=== PATIENT | female | born 1965 | race African-American/Black ===

== ENCOUNTER 2016-09-16 06:47 | Day surgery (SDC) | payer MEDICARE, MEDICAID ==
[2016-09-15 15:08] LABS: ABSOLUTE EOSINOPHILS # (AUTO) 0.1 10^3/uL (0.0-0.6); ABSOLUTE LYMPHOCYTES (AUTO) 2.1 10^3/uL (0.5-4.7); ABSOLUTE MONOCYTES (AUTO) 0.3 10^3/uL (0.1-1.4); ABSOLUTE NEUT (AUTO) 2.7 10^3/uL (1.7-8.2); BASOPHILS % (AUTO) 0.7 % (0-2); EOSINOPHILS % (AUTO) 1.4 % (0-6); HEMATOCRIT 31.8 % (36.0-47.0); HEMOGLOBIN 10.6 g/dL (12.0-15.5); LYMPHOCYTES % (AUTO) 40.8 % (13-45); MEAN CORPUSCULAR HEMOGLOBIN 26.6 pg (27.0-33.4); MEAN CORPUSCULAR HGB CONC 33.2 g/dL (32.0-36.0); MEAN CORPUSCULAR VOLUME 80 fl (80-97); MONOCYTES % (AUTO) 5.2 % (3-13); RED BLOOD COUNT 3.97 10^6/uL (3.72-5.28); RED CELL DISTRIBUTION WIDTH 13.7 % (11.5-14.0); SEGMENTED NEUTROPHILS % (AUTO) 51.9 % (42-78); WHITE BLOOD COUNT 5.3 10^3/uL (4.0-10.5)
[2016-09-15 15:56] LABS: APPEARANCE,URINE CLEAR; BILIRUBIN,URINE NEGATIVE (NEGATIVE); GLUCOSE, URINE NEGATIVE (NEGATIVE); KETONES,URINE NEGATIVE (NEGATIVE); LEUKOCYTE ESTERASE,URINE SMALL (NEGATIVE); NITRITE,URINE NEGATIVE (NEGATIVE); PROTEIN,URINE NEGATIVE (NEGATIVE); URINE SPECIFIC GRAVITY 1.008; UROBILINOGEN,URINE NEGATIVE mg/dL (<2.0)
[~2016-09-16 06:47] MED LIST: BUPIVACAINE HCL 0.5 % INJ/PF 30 ML SDV ONE; CEFAZOLIN 1 GM/D5W RTU 1 GM/50 ML RTUPB IV PRN; DIPHENHYDRAMINE HCL 50 MG/ML VIAL ONE; FENTANYL CITRATE INJ/PF 100 MCG/2 ML AMPUL ONE; KETOROLAC TROMETHAMINE 60 MG/2 ML SDV ONE; LIDOCAINE 2% INJ (20 MG/ML) 20 ML MDV ONE; LIDOCAINE 2% INJ-PF (20 MG/ML) 10 ML AMPUL ONE; MIDAZOLAM 2 MG/2 ML INJ ONE; PROPOFOL INJ 200 MG/20 ML VIAL IV ONE
[2016-09-16] MEDS ORDERED: PROMETHAZINE HCL INJ 25 MG/1 ML VIAL ONE (09:26)
--- NOTE | 2016-09-16 10:28 | SURGICARE OPERATIVE REPORT E ---
[facility] NAME: LUIS ANGEL DIOR AGE: 51Y DATE OF SURGERY: 09/16/2016 ROOM: PREOPERATIVE DIAGNOSES: 1. Long second metatarsal, left foot. 2. Long and hammered second toe, left foot. POSTOPERATIVE DIAGNOSES: 1. Long second metatarsal, left foot. 2. Long and hammered second toe, left foot. OPERATIONS: 1. Cassi shortening osteotomy, second metatarsal, left foot. 2. Phalangectomy, second toe, left foot. SURGEON: DYLAN CHOI D.P.M. INTRAOPERATIVE FINDINGS: Indicated long implant of left second metatarsal has caused tremendous pressure pain on the plantar aspect of the second metatarsophalangeal joint which is creating continuous pain, burning and difficulty with ambulation. The second toe was functionally longer with flexed bow hammering at the proximal interphalangeal joint. Due to the excessive trauma at the tip of the second toe during ambulation, the nail plate of the second toe has developed noticeable dystrophy as well. Intraoperative findings were confirmed clinically and radiographically. PROCEDURE: With the patient lying in a dorsal recumbent position, the left foot and leg were prepped and draped in the usual standard sterile orthopedic manner after the local anesthesia was administered which was a total ankle block. After the anesthetic effect was accomplished, the left leg was elevated for approximately 2 minutes of time and the left ankle pneumatic tourniquet was inflated up to 250 mmHg after the blood was exsanguinated from the left foot. At this point, the left leg was brought to the level of the table. Attention was directed right over the second metatarsophalangeal joint. A curvilinear incision was placed right over the joint. The initial incision was deepened. The superficial and deep subcutaneous tissues were dissected via blunt and sharp dissection. This was carried until the capsular structures were brought into the surgical filed. All bleeders were ligated, all vital structures were identified by this time and protected from surgical trauma. Next, a vertical capsulotomy was performed right over the second metatarsophalangeal joint. Capsule and periosteal structures were dissected of bone and the head of the second metatarsal was brought into the surgical field. Capsular release was performed around the second metatarsophalangeal joint as well, and the McGlamry was utilized to release any adhesions that might be present on the plantar aspect of the second metatarsal head as well. At this point, the osteotomy was performed. The osteotomy was executed from anterior to plantar direction of the second metatarsal. The osteotomy was placed at dorsal aspect of the articular facet of the second metatarsal head and it was parallel to the long axis of the second metatarsal. After the osteotomy was completed, the plantar segment was displaced posteriorly. The level of displacement was obtained on the x-rays, which was about 4 mm. With the new positioning of the fragment, the osteotomy was stabilized with a bone clamp. Final evaluation was made with alignment of the plantar aspect with the shaft. Alignment was satisfactory and osteotomy was fixated with 2-point snapping screws 13 mm in length. At this point, the clamp was removed and the protruding wedge of bone on the dorsal aspect was resected. At this point, intraoperative x-rays were obtained to document the shortening of the second metatarsal and also the level of satisfaction with the internal fixation, and everything was extremely satisfactory at this point. Next, attention was directed to the second toe. The second toe appeared still to be longer than the remaining of the digits and decision was made to perform the partial phalangectomy at the level of the proximal phalangeal joint. A curvilinear incision was placed right over the second toe. The initial incision was deepened. The superficial and deep subcutaneous tissues were dissected via blunt and sharp dissection. Extra precaution was taken to protect the neurovascular bundles on the medial and lateral aspect of the second toe. At this point, a vertical incision was placed right over the joint right through the midsection of the extensor digitorum tendon. The tendon was split into equal halves and then the capsule was resected and the head of the proximal phalanx was brought into the surgical field. At this point, the very distal portion was resected. This allowed the shortening of the second toe and a good alignment with the remainder of the digits. Final evaluation was conducted. The corrections were extremely satisfactory. At this point, the digital tourniquet was released and circulation returned to normal immediately as the normal digital color and temperature became apparent. At this point, the surgical sites were irrigated with copious amounts of sterile saline solution. The capsular structures around the second metatarsophalangeal joint and the proximal interphalangeal joint were closed with 3-0 Vicryl. The severed tendinous sheaths were also anchored and secured with 3-0 Vicryl. After that, the subcutaneous tissues from deep to superficial were closed with 3-0 Vicryl. The skin edges were repositioned and anchored down with 4-0 nylon using continuous interlock stitch. At this point, a Betadine compression dressing was applied around the surgical areas and this was followed with an alfred bandage and a surgical shoe. This patient tolerated the procedures well and left the operating room with stable vital signs and in good condition. The patient was taken to the recovery room alert, conscious, and oriented. There are no permanent disabilities anticipated at this time. DICTATING PHYSICIAN: DYLAN CHOI D.P.M. [id number] PHY#: [id number] ID: [id number] JOB#: [id number] ACCT: [id number] cc:DYLAN CHOI D.P.M. >
== END 2016-09-16 10:17 | disposition home or self-care (01) ==
LOC: SC 06:47
PROVIDERS: ATTEND Podiatrist Foot & Ankle Surgery
PROC: 0QBR0ZZ Excision of Left Toe Phalanx, Open Approach (ICD-10-PCS; 2016-09-16)
PROC: 0QBP0ZZ Excision of Left Metatarsal, Open Approach (ICD-10-PCS; principal; 2016-09-16 07:30)
DX: M20.42 Other hammer toe(s) (acquired), left foot (principal); M20.5X2 Other deformities of toe(s) (acquired), left foot; D64.9 Anemia, unspecified; I10 Essential (primary) hypertension; E07.9 Disorder of thyroid, unspecified; K21.9 Gastro-esophageal reflux disease without esophagitis; E11.9 Type 2 diabetes mellitus without complications; Z79.899 Other long term (current) drug therapy; Z88.6 Allergy status to analgesic agent; Z79.84 Long term (current) use of oral hypoglycemic drugs; Z79.4 Long term (current) use of insulin
CPT/HCPCS: 36415; 82962; 85025; 81001; 73620; 28308; 28124; J2250; J3490 ×2; J0690; J1200; J3010; J2550; J2704; 01480; J1885

== ENCOUNTER 2017-03-27 22:21 | Emergency (ER) | payer MEDICARE, MEDICAID ==
[2017-03-27 22:28] VITALS: BP 154/85
[2017-03-27 23:12] LABS: VENOUS BLOOD BASE EXCESS 1.1 mmol/L; VENOUS BLOOD HCO3 27.5 mmol/L (20-32); VENOUS BLOOD PCO2 51.6 mmHg (35-63); VENOUS BLOOD PH 7.34 (7.30-7.42)
[2017-03-27] MEDS ORDERED: DIPHENHYDRAMINE HCL 50 MG/ML VIAL IV ONE (23:13)
[2017-03-27] MEDS ORDERED: KETOROLAC TROMETHAMINE INJ/PF 30 MG/1 ML SDV IV ONE (23:13)
[2017-03-27] MEDS ORDERED: PROCHLORPERAZINE EDISYLATE INJ 10 MG/2 ML VIAL IV ONE (23:13)
[2017-03-27] MEDS ORDERED: NORMAL SALINE 1000 ML 1,000 ML IV ONE (23:15)
--- NOTE | 2017-03-27 23:15 | ER Document Report ---
ED General - General Chief Complaint: High Blood Sugar Stated Complaint: HIGH BLOOD SUGAR Time Seen by Provider: 03/27/17 22:47 Notes: Patient is a 52-year-old female with past medical history of insulin-dependent type 2 diabetes who presents with concerns of high blood sugar as well as a headache. Patient reports that she has had a headache for the past 3 days that is a dull, constant, aching pain to the bitemporal areas of her head. It has been progressively worsening since onset. It is worsened by lights and sounds. She has tried sumatriptan without relief of her headache. She has a history of similar headaches in the past. She has not seen a primary care doctor regarding today's concerns. States she has been taking her insulin as directed but noted that her glucometer read "high" prior to coming to the emergency department today. She denies any fever or constitutional symptoms. No dysuria , abdominal pain vomiting or discharge. TRAVEL OUTSIDE OF THE [place] IN LAST 30 DAYS: No - Related Data Allergies/Adverse Reactions: naproxen [Naproxen] Allergy (Severe, Verified 09/15/16 09:39) Facial swelling ropinirole HCl [From Requip] Adverse Reaction (Severe, Verified 09/15/16 09:39) BODY SWELLING Past Medical History - General Information source: Patient - Social History Smoking Status: Never Smoker Frequency of alcohol use: None Drug Abuse: None Lives with: Spouse/Significant other Family History: DM, Hypertension Patient has suicidal ideation: No Patient has homicidal ideation: No - Past Medical History Cardiac Medical History: Reports: Hx Coronary Artery Disease, Hx Hypercholesterolemia, Hx Hypertension - DIET CONTROLLED Denies: Hx Heart Attack Pulmonary Medical History: Denies: Hx Asthma, Hx Bronchitis, Hx COPD, Hx Pneumonia Neurological Medical History: Denies: Hx Cerebrovascular Accident, Hx Seizures Endocrine Medical History: Reports: Hx Diabetes Mellitus Type 2, Hx Hypothyroidism Renal/ Medical History: Denies: Hx Peritoneal Dialysis GI Medical History: Reports: Hx Gastroesophageal Reflux Disease. Denies: Hx Hepatitis, Hx Hiatal Hernia, Hx Ulcer Musculoskeltal Medical History: Reports Hx Arthritis Psychiatric Medical History: Reports: Hx Depression Infectious Medical History: Denies: Hx Hepatitis Past Surgical History: Reports: Hx Cholecystectomy, Hx Gastric Bypass Surgery - SLEEVE, Hx Genitourinary Surgery - bladder prolapse, Hx Hysterectomy, Hx Orthopedic Surgery - toe. Denies: Hx Mastectomy, Hx Open Heart Surgery, Hx Pacemaker - Immunizations Immunizations up to date: Yes Hx Diphtheria, Pertussis, Tetanus Vaccination: Yes Hx Pneumococcal Vaccination: 05/24/10 Review of Systems - Review of Systems Notes: Constitutional: Negative for fever. HENT: Negative for sore throat. Eyes: Negative for visual changes. Cardiovascular: Negative for chest pain. Respiratory: Negative for shortness of breath. Gastrointestinal: Negative for abdominal pain, vomiting or diarrhea. Genitourinary: Negative for dysuria. Musculoskeletal: Negative for back pain. Skin: Negative for rash. Neurological: Positive for headache 10 point ROS negative except as marked above and in HPI. Physical Exam - Vital signs Vitals: Temp Pulse Resp BP Pulse Ox 97.9 F 69 18 154/85 H 98 03/27/17 22:25 03/27/17 22:25 03/27/17 22:25 03/27/17 22:25 03/27/17 22:25 Interpretation: Hypertensive Notes: PHYSICAL EXAMINATION: GENERAL: Well-appearing, well-nourished and in no acute distress. HEAD: Atraumatic, normocephalic. EYES: Pupils equal round and reactive to light, extraocular movements intact, sclera anicteric, conjunctiva are normal. ENT: nares patent, oropharynx clear without exudates. Moist mucous membranes. NECK: Normal range of motion, supple without lymphadenopathy LUNGS: Breath sounds clear to auscultation bilaterally and equal. No wheezes rales or rhonchi. HEART: Regular rate and rhythm without murmurs ABDOMEN: Soft, nontender, normoactive bowel sounds. No guarding, no rebound. No masses appreciated. EXTREMITIES: Normal range of motion, no pitting or edema. No cyanosis. NEUROLOGICAL: Face symmetric. Tongue protrudes midline. Extraocular motions intact. Pupils are 2 mm and equally reactive. Normal speech, normal gait. 5 out of 5 strength in both the distal and proximal upper and lower extremities bilaterally. Sensation is grossly intact throughout. Finger to nose testing normal. Pronator drift normal. PSYCH: Normal mood, normal affect. SKIN: Warm, Dry, normal turgor, no rashes or lesions noted. Course - Re-evaluation Re-evalutation: 03/27/17 23:14 Presentation of asymptomatic hyperglycemia. There is no evidence of HHS or diabetic ketoacidosis on laboratories or based on clinical history. Patient's vitals are within normal limits. Patient did also complain of 3 days of a headache. Appears to be most consistent with tension versus migrainous type headache. Headache was not maximal in onset, patient has no focal neurologic deficits, no nuchal rigidity, vital signs within normal limits, no papilledema, and patient is overall well in appearance. Based on clinical history and examination I do not suspect an acute subarachnoid hemorrhage, dural venous sinus thrombosis, acute meningitis, or intercranial mass. Given my low clinical suspicion for any acute life-threatening etiology, I do not feel advanced neuro imaging or laboratory testing is indicated at this time. Will proceed with headache cocktail and reassess. 03/28/17 01:41 Patient is a complete resolution of her headache after receiving a migraine cocktail. Her urinalysis does show findings consistent with likely an acute urinary tract infection. Urine culture has been sent. She was started on cephalexin for 5 day course. At this time will discharge with return precautions and follow-up recommendations. Verbal discharge instructions given a the bedside and opportunity for questions given. Medication warnings reviewed. Patient is in agreement with this plan and has verbalized understanding of return precautions and the need for primary care follow-up in the next 24-72 hours. - Vital Signs Vital signs: Temp Pulse Resp BP Pulse Ox 97.9 F 69 18 154/85 H 98 03/27/17 22:25 03/27/17 22:25 03/27/17 22:25 03/27/17 22:25 03/27/17 22:25 - Laboratory Result Diagrams: 03/27/17 22:59 Laboratory results interpreted by me: 03/27/17 03/27/17 03/28/17 22:35 22:59 00:45 Glucose 258 H POC Glucose 268 H Urine Glucose (UA) >=500 H Ur Leukocyte Esterase SMALL H Discharge - Discharge Clinical Impression: Hyperglycemia Migraine headache Qualifiers: Migraine type: unspecified Status migrainosus presence: with status migrainosus Intractability: not intractable Qualified Code(s): G43.901 - Migraine, unspecified, not intractable, with status migrainosus Urinary tract infection Qualifiers: Urinary tract infection type: acute cystitis Hematuria presence: without hematuria Qualified Code(s): N30.00 - Acute cystitis without hematuria Condition: Good Disposition: HOME, SELF-CARE Additional Instructions: You were seen today for a migraine headache. Please follow-up with your primary care doctor regarding today's ED visit. Return to emergency department immediately if you develop a headache that gets to its maximum severity within 20 minutes of onset, you pass out, you develop weakness, numbness, changes in your vision, become unable to keep any fluids down for more than 12 hours, or develop a fever greater than 100.4 degrees Fahrenheit. You need to followup urgently with your primary care doctor as your blood sugars were dangerously high today. You did not have any evidence of a dangerous condition associated with these blood sugars at this time. However, it is very important that you get your blood sugars under control. Please take all of your medications exactly as directed. You should avoid foods that are high in carbohydrates and sugary foods. Please return to emergency department immediately if you develop weakness, persistent vomiting, confusion, or any other symptoms that are concerning to you. Your urine shows findings consistent with a urinary tract infection. Please take all the antibiotics as directed even if your symptoms have improved. Please follow-up with your primary care physician as needed. Return to emergency room if you develop fever >101F, persistent vomiting, become lethargic , have severe pain in your sides, or any other symptoms that are concerning to you. Prescriptions: Cephalexin Monohydrate [Keflex 500 mg Capsule] 500 mg PO Q6H 5 Days capsule Referrals: EVANS DUARTE MD [Primary Care Provider] - Follow up as needed
[2017-03-27 23:29] LABS: ANION GAP 8 (5-19); BLOOD UREA NITROGEN 15 mg/dL (7-20); CALCIUM 9.3 mg/dL (8.4-10.2); CARBON DIOXIDE 26 mmol/L (22-30); CHLORIDE 105 mmol/L (98-107); CREATININE RESULT 0.73 mg/dL (0.52-1.25); GLUCOSE 258 mg/dL (75-110); POTASSIUM 3.9 mmol/L (3.6-5.0); SODIUM 139.1 mmol/L (137-145)
[2017-03-28 01:28] LABS: APPEARANCE,URINE CLEAR; BILIRUBIN,URINE NEGATIVE (NEGATIVE); GLUCOSE, URINE >=500 mg/dL (NEGATIVE); KETONES,URINE NEGATIVE (NEGATIVE); LEUKOCYTE ESTERASE,URINE SMALL (NEGATIVE); NITRITE,URINE NEGATIVE (NEGATIVE); PROTEIN,URINE NEGATIVE (NEGATIVE); URINE SPECIFIC GRAVITY 1.015; UROBILINOGEN,URINE NEGATIVE mg/dL (<2.0)
[2017-03-28] MEDS ORDERED: CEPHALEXIN 500 MG CAPSULE PO ONE (01:40)
--- NOTE | 2017-03-28 08:01 | EKG REPORT ---
SEVERITY:- NORMAL ECG - SINUS RHYTHM : Confirmed by: Sher Obrien MD 28-Mar-2017 08:01:09
== END 2017-03-28 02:48 | disposition home or self-care (01) ==
LOC: ER 22:21
DX: E11.65 Type 2 diabetes mellitus with hyperglycemia (principal); Z79.4 Long term (current) use of insulin; G43.901 Migraine, unspecified, not intractable, with status migrainosus; N30.00 Acute cystitis without hematuria; I10 Essential (primary) hypertension; I25.2 Old myocardial infarction; Z88.8 Allergy status to other drugs, medicaments and biological substances
CPT/HCPCS: 93005; 99285; 96361; 96374; 96375; 36415; 87086; 82962; 87088; 80048; 81001; 82803; 93010; A9270; J1200; J1885; J0780; J7030

== ENCOUNTER 2017-05-03 19:24 | Emergency (ER) | payer BC, MEDICARE, MEDICAID ==
[2017-05-03] MEDS ORDERED: NORMAL SALINE 1000 ML 1,000 ML IV ONE (20:14)
[2017-05-03] MEDS ORDERED: DEXAMETHASONE SOD PHOS INJ 10 MG/1 ML VIAL IV ONE (20:15)
[2017-05-03] MEDS ORDERED: METOCLOPRAMIDE HCL INJ/PF 10 MG/2 ML SDV IV ONE (20:15)
[2017-05-03] MEDS ORDERED: DIPHENHYDRAMINE HCL 50 MG/ML VIAL IV ONE ×2 (20:15→22:14)
--- NOTE | 2017-05-03 20:16 | ER Document Report ---
ED Medical Screen (RME) - General Chief Complaint: Headache Stated Complaint: HEAD PAIN Time Seen by Provider: 05/03/17 20:14 Notes: Patient states that she started having severe headaches in December of this year. She states she has been prescribed Fioricet for them by her primary care physician but Fioricet no longer work. She states that she has not had any type of imaging such as an MRI or CT scan. She has had some nausea with it. She denies any history of fevers or rashes or other infectious symptoms. TRAVEL OUTSIDE OF THE [place] IN LAST 30 DAYS: No - Related Data Allergies/Adverse Reactions: naproxen [Naproxen] Allergy (Severe, Verified 05/03/17 20:03) Facial swelling ropinirole HCl [From Requip] Adverse Reaction (Severe, Verified 05/03/17 20:03) BODY SWELLING Past Medical History - Social History Chew tobacco use (# tins/day): No Frequency of alcohol use: None - Past Medical History Cardiac Medical History: Reports: Hx Coronary Artery Disease, Hx Hypercholesterolemia, Hx Hypertension - DIET CONTROLLED Denies: Hx Heart Attack Pulmonary Medical History: Denies: Hx Asthma, Hx Bronchitis, Hx COPD, Hx Pneumonia Neurological Medical History: Reports: Hx Migraine. Denies: Hx Cerebrovascular Accident, Hx Seizures Endocrine Medical History: Reports: Hx Diabetes Mellitus Type 2, Hx Hypothyroidism Renal/ Medical History: Denies: Hx Peritoneal Dialysis GI Medical History: Reports: Hx Gastroesophageal Reflux Disease. Denies: Hx Hepatitis, Hx Hiatal Hernia, Hx Ulcer Musculoskeltal Medical History: Reports Hx Arthritis Psychiatric Medical History: Reports: Hx Depression Infectious Medical History: Denies: Hx Hepatitis Past Surgical History: Reports: Hx Cholecystectomy, Hx Gastric Bypass Surgery - SLEEVE, Hx Genitourinary Surgery - bladder prolapse, Hx Hysterectomy, Hx Orthopedic Surgery - toe, shoulder, elbow, bilat feet. Denies: Hx Mastectomy, Hx Open Heart Surgery, Hx Pacemaker - Immunizations Immunizations up to date: Yes Hx Diphtheria, Pertussis, Tetanus Vaccination: Yes History of Influenza Vaccine for 04/2017 - 09/2017 Season: Yes Physical Exam - Vital signs Vitals: Temp Pulse Resp BP Pulse Ox 98.6 F 84 16 140/93 H 99 05/03/17 19:43 05/03/17 19:43 05/03/17 19:43 05/03/17 19:43 05/03/17 19:43 Course - Vital Signs Vital signs: Temp Pulse Resp BP Pulse Ox 98.6 F 84 16 140/93 H 99 05/03/17 19:43 05/03/17 19:43 05/03/17 19:43 05/03/17 19:43 05/03/17 19:43
[2017-05-03 20:57] LABS: ABSOLUTE BASOPHILS # (AUTO) 0.1 10^3/uL (0.0-0.2); ABSOLUTE EOSINOPHILS # (AUTO) 0.1 10^3/uL (0.0-0.6); ABSOLUTE LYMPHOCYTES (AUTO) 2.6 10^3/uL (0.5-4.7); ABSOLUTE MONOCYTES (AUTO) 0.3 10^3/uL (0.1-1.4); ABSOLUTE NEUT (AUTO) 3.7 10^3/uL (1.7-8.2); BASOPHILS % (AUTO) 0.8 % (0-2); EOSINOPHILS % (AUTO) 1.1 % (0-6); HEMATOCRIT 35.5 % (36.0-47.0); HEMOGLOBIN 11.6 g/dL (12.0-15.5); HGB HCT DIFFERENCE -0.7; MEAN CORPUSCULAR HEMOGLOBIN 26.5 pg (27.0-33.4); MEAN CORPUSCULAR HGB CONC 32.7 g/dL (32.0-36.0); MEAN CORPUSCULAR VOLUME 81 fl (80-97); MONOCYTES % (AUTO) 4.4 % (3-13); RED BLOOD COUNT 4.38 10^6/uL (3.72-5.28); SEGMENTED NEUTROPHILS % (AUTO) 54.7 % (42-78); WHITE BLOOD COUNT 6.7 10^3/uL (4.0-10.5)
[2017-05-03 21:03] LABS: ANION GAP 16 (5-19); BLOOD UREA NITROGEN 14 mg/dL (7-20); CALCIUM 9.3 mg/dL (8.4-10.2); CARBON DIOXIDE 21 mmol/L (22-30); CHLORIDE 104 mmol/L (98-107); GLUCOSE 305 mg/dL (75-110); POTASSIUM 3.8 mmol/L (3.6-5.0); SODIUM 140.8 mmol/L (137-145)
--- NOTE | 2017-05-03 21:16 | RADIOLOGY REPORT (SQ) ---
EXAM DESCRIPTION: CT HEAD WITHOUT COMPLETED DATE/TIME: 05/03/2017 8:51 pm REASON FOR STUDY: lopes COMPARISON: 06/17/2011 TECHNIQUE: Axial images acquired through the brain without intravenous contrast. Images reviewed wi th bone, brain and subdural windows. Images stored on PACS. All CT scanners at this facility use dose modulation, iterative reconstruction, and/or weight based d osing when appropriate to reduce radiation dose to as low as reasonably achievable (ALARA). [facility]: Dose Right [facility]: CareDose [facility]: Dose Right [facility]: Teradose 4D [facility]: [employer] RADIATION DOSE: Up-to-date CT equipment and radiation dose reduction techniques were employed. CTDIv ol: 64.6 mGy. DLP: 1034 mGy-cm. mGy. LIMITATIONS: None. FINDINGS: VENTRICLES: Normal size and contour. CEREBRUM: No masses. No hemorrhage. No midline shift. No evidence for acute infarction. Normal gra y/white matter differentiation. No areas of low density in the white matter. CEREBELLUM: No masses. No hemorrhage. No alteration of density. No evidence for acute infarction. EXTRAAXIAL SPACES: No fluid collections. No masses. ORBITS AND GLOBE: No intra- or extraconal masses. Normal contour of globe without masses. CALVARIUM: No fracture. PARANASAL SINUSES: No fluid or mucosal thickening. SOFT TISSUES: No mass or hematoma. OTHER: No other significant finding. IMPRESSION: No acute intracranial findings. EVIDENCE OF ACUTE STROKE: NO. COMMENT: Quality ID # [id number]: Final reports with documentation of one or more dose reduction techniques (e.g., Automated exposure control, adjustment of the mA and/or kV according to patient size, use of iterative reconstruction technique) TECHNICAL DOCUMENTATION: JOB ID: [id number] [employer]- All Rights Reserved
[2017-05-03] MEDS ORDERED: PROMETHAZINE HCL INJ 25 MG/1 ML VIAL IV ONE (22:13)
--- NOTE | 2017-05-03 22:15 | ER Document Report ---
ED General - General Chief Complaint: Headache Stated Complaint: HEAD PAIN Time Seen by Provider: 05/03/17 20:14 Mode of Arrival: Ambulatory Information source: Patient Notes: 52-year-old female history of migraine headaches who says she gets headaches at least once a week presents with complaints of chronic migraine headache. Patient notes this is similar to her previous migraine headaches denies worsening pain. Denies any neurological symptoms. Patient admits to photophobia and phonophobia which is chronic with all of her migraines. Patient denies any fevers or chills denies any trauma TRAVEL OUTSIDE OF THE [place] IN LAST 30 DAYS: No - HPI Onset: This morning Onset/Duration: Persistent Quality of pain: Achy Severity: Mild Pain Level: 1 Associated symptoms: Other Exacerbated by: Other - Light and noise Relieved by: Denies Similar symptoms previously: Yes Recently seen / treated by doctor: Yes - Related Data Allergies/Adverse Reactions: naproxen [Naproxen] Allergy (Severe, Verified 05/03/17 20:03) Facial swelling ropinirole HCl [From Requip] Adverse Reaction (Severe, Verified 05/03/17 20:03) BODY SWELLING Past Medical History - Social History Smoking Status: Never Smoker Cigarette use (# per day): No Chew tobacco use (# tins/day): No Smoking Education Provided: No Frequency of alcohol use: None Family History: DM, Hypertension Patient has suicidal ideation: No Patient has homicidal ideation: No - Past Medical History Cardiac Medical History: Reports: Hx Coronary Artery Disease, Hx Hypercholesterolemia, Hx Hypertension - DIET CONTROLLED Denies: Hx Heart Attack Pulmonary Medical History: Denies: Hx Asthma, Hx Bronchitis, Hx COPD, Hx Pneumonia Neurological Medical History: Reports: Hx Migraine. Denies: Hx Cerebrovascular Accident, Hx Seizures Endocrine Medical History: Reports: Hx Diabetes Mellitus Type 2, Hx Hypothyroidism Renal/ Medical History: Denies: Hx Peritoneal Dialysis GI Medical History: Reports: Hx Gastroesophageal Reflux Disease. Denies: Hx Hepatitis, Hx Hiatal Hernia, Hx Ulcer Musculoskeltal Medical History: Reports Hx Arthritis Psychiatric Medical History: Reports: Hx Depression Infectious Medical History: Denies: Hx Hepatitis Past Surgical History: Reports: Hx Cholecystectomy, Hx Gastric Bypass Surgery - SLEEVE, Hx Genitourinary Surgery - bladder prolapse, Hx Hysterectomy, Hx Orthopedic Surgery - toe, shoulder, elbow, bilat feet. Denies: Hx Mastectomy, Hx Open Heart Surgery, Hx Pacemaker - Immunizations Immunizations up to date: Yes Hx Diphtheria, Pertussis, Tetanus Vaccination: Yes Hx Pneumococcal Vaccination: 05/24/10 Review of Systems - Review of Systems Notes: REVIEW OF SYSTEMS: CONSTITUTIONAL : Denies fever, chills, or sweats. Denies recent illness. EENT: Denies eye, ear, throat, or mouth pain or symptoms. Denies nasal or sinus congestion or discharge. Denies throat, tongue, or mouth swelling or difficulty swallowing. CARDIOVASCULAR: Denies chest pain. Denies palpitations or racing or irregular heart beat. Denies ankle edema. RESPIRATORY: Denies cough, cold, or chest congestion. Denies shortness of breath, difficulty breathing, or wheezing. GASTROINTESTINAL: Denies abdominal pain or distention. Denies nausea, vomiting , or diarrhea. Denies blood in vomitus, stools, or per rectum. Denies black, tarry stools. Denies constipation. GENITOURINARY: Denies difficulty urinating, painful urination, burning, frequency, blood in urine, or discharge. FEMALE GENITOURINARY: Denies vaginal bleeding, heavy or abnormal periods, irregular periods. Denies vaginal discharge or odor. MUSCULOSKELETAL: Denies back or neck pain or stiffness. Denies joint pain or swelling. SKIN: Denies rash, lesions or sores. HEMATOLOGIC : Denies easy bruising or bleeding. LYMPHATIC: Denies swollen, enlarged glands. NEUROLOGICAL: Admits to headache PSYCHIATRIC: Denies anxiety or stress. Denies depression, suicidal ideation, or homicidal ideation. ALL OTHER SYSTEMS REVIEWED AND NEGATIVE. PHYSICAL EXAMINATION: GENERAL: Well-appearing, well-nourished and in no acute distress. HEAD: Atraumatic, normocephalic. EYES: Pupils equal round and reactive to light, extraocular movements intact, conjunctiva are normal. ENT: Nares patent, oropharynx clear without exudates. Moist mucous membranes. NECK: Normal range of motion, supple without lymphadenopathy LUNGS: Breath sounds clear to auscultation bilaterally and equal. No wheezes rales or rhonchi. HEART: Regular rate and rhythm without murmurs ABDOMEN: Soft, nontender, nondistended abdomen. No guarding, no rebound. No masses appreciated. Female : deferred Musculoskeletal: Normal range of motion, no pitting or edema. No cyanosis. NEUROLOGICAL: Cranial nerves grossly intact. Normal speech, normal gait. Normal sensory, motor exams PSYCH: Normal mood, normal affect. SKIN: Warm, Dry, normal turgor, no rashes or lesions noted. Dictation was performed using [email or web address] voice recognition software Physical Exam - Vital signs Vitals: Temp Pulse Resp BP Pulse Ox 98.6 F 84 16 140/93 H 99 05/03/17 19:43 05/03/17 19:43 05/03/17 19:43 05/03/17 19:43 05/03/17 19:43 Course - Re-evaluation Re-evalutation: 05/04/17 00:04 Patient was treated for migraine headache prior to my evaluation, 10 out of 10 down to a 4 out of 10, I give her further treatment which completely resolved her headache. Patient states she has never had a CT of her head and one was performed today which noted no acute abnormality. She also states she has never been given a neurologist follow-up with therefore I will give her one that she must see for further evaluation and care given how chronic her migraine headaches are. Interestingly patient has had migraine headaches for at least 30 years with no definitive care for them After performing a Medical Screening Examination, I estimate there is LOW risk for ACUTE GLAUCOMA, TEMPORAL ARTERITIS, MENINGITIS, INCRANIAL HEMORRHAGE, or ISCHEMIC STROKE thus I consider the discharge disposition reasonable. I have reevaluated this patient multiple times and no significant life threatening changes are noted. The patient and I have discussed the diagnosis and risks, and we agree with discharging home with close follow-up with the understanding that symptoms and presentations can change. We also discussed returning to the Emergency Department immediately if new or worsening symptoms occur. We have discussed the symptoms which are most concerning (e.g., changing or worsening symptoms, new numbness or weakness, vomiting, fever) that necessitate immediate return. - Vital Signs Vital signs: Temp Pulse Resp BP Pulse Ox 97.7 F 67 14 137/80 H 98 05/03/17 22:58 05/03/17 22:58 05/03/17 22:58 05/03/17 22:58 05/03/17 22:58 - Laboratory Result Diagrams: 05/03/17 20:29 05/03/17 20:29 Laboratory results interpreted by me: 05/03/17 05/03/17 20:29 20:29 Hgb 11.6 L Hct 35.5 L MCH 26.5 L Carbon Dioxide 21 L Glucose 305 H - Diagnostic Test Radiology reviewed: Image reviewed, Reports reviewed Discharge - Discharge Clinical Impression: Migraine Qualifiers: Migraine type: with aura Status migrainosus presence: without status migrainosus Intractability: not intractable Qualified Code(s): G43.109 - Migraine with aura, not intractable, without status migrainosus Condition: Stable Disposition: HOME, SELF-CARE Instructions: Headache ([facility]) Prescriptions: Promethazine HCl [Phenergan 25 mg Tablet] 1 - 2 tab PO Q6H PRN #15 tablet PRN Reason: Referrals: STEFFANIE SHIRLEY MD [ACTIVE STAFF] - Follow up tomorrow
[2017-05-03 23:12] VITALS: BP 137/80
== END 2017-05-03 23:15 | disposition home or self-care (01) ==
LOC: ER 19:24
DX: G43.109 Migraine with aura, not intractable, without status migrainosus (principal)
CPT/HCPCS: 96376; 99284; 96361; 96374; 96375; 36415; 85025; 80048; 70450; J1200; J2765; J2550; J7030; J1100

== ENCOUNTER 2017-08-07 23:37 | Emergency (ER) | payer BC, MEDICARE, MEDICAID ==
[2017-08-07 23:44] VITALS: BP 126/77
== END 2017-08-08 00:25 | disposition left against medical advice (07) ==
LOC: ER 23:37
DX: Z53.21 Procedure and treatment not carried out due to patient leaving prior to being seen by health care provider (principal)

== ENCOUNTER → 2017-08-09 | Outpatient (CLI) | payer MEDICARE, MEDICAID ==
[2017-08-09 19:05] LABS: ANION GAP 13 (5-19); BLOOD UREA NITROGEN 12 mg/dL (7-20); CALCIUM 9.7 mg/dL (8.4-10.2); CARBON DIOXIDE 27 mmol/L (22-30); CHLORIDE 101 mmol/L (98-107); GLUCOSE 165 mg/dL (75-110); LIPASE 73.7 U/L (23-300); POTASSIUM 4.4 mmol/L (3.6-5.0); SODIUM 140.5 mmol/L (137-145)
== END ==
LOC: OD 17:35
PROVIDERS: ATTEND Internal Medicine Geriatric Medicine
DX: R10.9 Unspecified abdominal pain (principal)
CPT/HCPCS: 36415; 80048; 83690

== ENCOUNTER 2017-08-16 10:59 | Emergency (ER) | payer MEDICARE, MEDICAID ==
--- NOTE | 2017-08-16 12:18 | ER Document Report ---
ED Medical Screen (RME) - General Chief Complaint: Chest Pain Stated Complaint: CHEST PAIN Time Seen by Provider: 08/16/17 12:17 Mode of Arrival: Ambulatory Information source: Patient Notes: 52 ex smoker, dm (insulin), non htn, hyperlipedemic c/o epigastric upper midline abdominal pain that is burning upwards. Pain 5/5, onset 1-2 weeks ago, resloved, then recurred much more severe today. Saw dr. jiménez and H pylori test. Given carafate without help. New acid pump reduce- dexilant no relief. Hx pancreatitis in 2014. Hyst., Cholecystectomy 2000. TRAVEL OUTSIDE OF THE [place] IN LAST 30 DAYS: No - Related Data Allergies/Adverse Reactions: naproxen [Naproxen] Allergy (Severe, Verified 08/16/17 11:01) Facial swelling ropinirole HCl [From Requip] Adverse Reaction (Severe, Verified 08/16/17 11:01) BODY SWELLING Past Medical History - Past Medical History Cardiac Medical History: Reports: Hx Coronary Artery Disease, Hx Hypercholesterolemia, Hx Hypertension - DIET CONTROLLED Denies: Hx Heart Attack Pulmonary Medical History: Denies: Hx Asthma, Hx Bronchitis, Hx COPD, Hx Pneumonia Neurological Medical History: Reports: Hx Migraine. Denies: Hx Cerebrovascular Accident, Hx Seizures Endocrine Medical History: Reports: Hx Diabetes Mellitus Type 2, Hx Hypothyroidism Renal/ Medical History: Denies: Hx Peritoneal Dialysis GI Medical History: Reports: Hx Gastroesophageal Reflux Disease. Denies: Hx Hepatitis, Hx Hiatal Hernia, Hx Ulcer Musculoskeltal Medical History: Reports Hx Arthritis Psychiatric Medical History: Reports: Hx Depression Infectious Medical History: Denies: Hx Hepatitis Past Surgical History: Reports: Hx Cholecystectomy, Hx Gastric Bypass Surgery - SLEEVE, Hx Genitourinary Surgery - bladder prolapse, Hx Hysterectomy, Hx Orthopedic Surgery - toe, shoulder, elbow, bilat feet. Denies: Hx Mastectomy, Hx Open Heart Surgery, Hx Pacemaker - Immunizations Immunizations up to date: Yes Hx Diphtheria, Pertussis, Tetanus Vaccination: Yes History of Influenza Vaccine for 04/2017 - 09/2017 Season: Yes Physical Exam - Vital signs Vitals: Temp Pulse Resp BP Pulse Ox 98.1 F 94 18 123/77 97 08/16/17 11:06 08/16/17 11:06 08/16/17 11:06 08/16/17 11:06 08/16/17 11:06 Course - Vital Signs Vital signs: Temp Pulse Resp BP Pulse Ox 98.1 F 94 18 123/77 97 08/16/17 11:06 08/16/17 11:06 08/16/17 11:06 08/16/17 11:06 08/16/17 11:06
[2017-08-16] MEDS ORDERED: ONDANSETRON 4 MG TAB.RAPDIS PO ONE (12:23)
[2017-08-16] MEDS ORDERED: NORMAL SALINE 1000 ML 1,000 ML IV ONE (12:23)
[2017-08-16] MEDS ORDERED: LIDOCAINE 2% VISCOUS SOLN 20 ML UDCUP PO ONE (12:25)
[2017-08-16] MEDS ORDERED: MAG HYDROX/AL HYDROX/SIMETH SUSP 30 ML UDCUP PO ONE (12:25)
[2017-08-16] MEDS ORDERED: OXYCODONE-ACETAMINOPHEN 5-325 MG TABLET PO ONE (12:25)
[2017-08-16 13:25] LABS: APPEARANCE,URINE SLIGHTLY-CLOUDY; BILIRUBIN,URINE NEGATIVE (NEGATIVE); COLOR,URINE YELLOW; GLUCOSE, URINE 50 mg/dL (NEGATIVE); KETONES,URINE NEGATIVE (NEGATIVE); LEUKOCYTE ESTERASE,URINE TRACE (NEGATIVE); NITRITE,URINE NEGATIVE (NEGATIVE); PROTEIN,URINE NEGATIVE (NEGATIVE); URINE SPECIFIC GRAVITY 1.026
[2017-08-16 14:01] LABS: ABSOLUTE BASOPHILS # (AUTO) 0.1 10^3/uL (0.0-0.2); ABSOLUTE EOSINOPHILS # (AUTO) 0.1 10^3/uL (0.0-0.6); ABSOLUTE MONOCYTES (AUTO) 0.2 10^3/uL (0.1-1.4); ABSOLUTE NEUT (AUTO) 3.1 10^3/uL (1.7-8.2); BASOPHILS % (AUTO) 1.1 % (0-2); HEMATOCRIT 35.1 % (36.0-47.0); HEMOGLOBIN 11.6 g/dL (12.0-15.5); LYMPHOCYTES % (AUTO) 36.8 % (13-45); MEAN CORPUSCULAR HEMOGLOBIN 26.2 pg (27.0-33.4); MEAN CORPUSCULAR HGB CONC 32.9 g/dL (32.0-36.0); MEAN CORPUSCULAR VOLUME 80 fl (80-97); MONOCYTES % (AUTO) 4.4 % (3-13); PLATELET COUNT 324 10^3/uL (150-450); RED BLOOD COUNT 4.42 10^6/uL (3.72-5.28); RED CELL DISTRIBUTION WIDTH 13.6 % (11.5-14.0); SEGMENTED NEUTROPHILS % (AUTO) 56.7 % (42-78); TOTAL CELLS COUNTED % (AUTO) 100 %; WHITE BLOOD COUNT 5.4 10^3/uL (4.0-10.5)
[2017-08-16 14:24] LABS: ALANINE AMINOTRANSFERASE 60 U/L (9-52); ALBUMIN 4.5 g/dL (3.5-5.0); ALKALINE PHOSPHATASE 75 U/L (38-126); ANION GAP 11 (5-19); ASPARTATE AMINO TRANSFERASE 40 U/L (14-36); BILIRUBIN,DIRECT 0.2 mg/dL (0.0-0.4); BILIRUBIN,TOTAL 0.4 mg/dL (0.2-1.3); BLOOD UREA NITROGEN 12 mg/dL (7-20); CALCIUM 9.6 mg/dL (8.4-10.2); CARBON DIOXIDE 27 mmol/L (22-30); CHLORIDE 102 mmol/L (98-107); CREATINE KINASE 75 U/L (30-135); GLUCOSE 119 mg/dL (75-110); LIPASE 88.1 U/L (23-300); POTASSIUM 4.4 mmol/L (3.6-5.0); SODIUM 140.3 mmol/L (137-145); TOTAL PROTEIN 6.6 g/dL (6.3-8.2)
[2017-08-16 14:41] LABS: CREATINE KINASE MB < 0.22 ng/mL (<4.55); TROPONIN I < 0.012 ng/mL
--- NOTE | 2017-08-16 16:04 | ER Document Report ---
ED General - General Mode of Arrival: Ambulatory Information source: Patient TRAVEL OUTSIDE OF THE [place] IN LAST 30 DAYS: No <MARILU GARCÍA - Last Filed: 08/16/17 16:47> <NORBERT RAMIREZ - Last Filed: 08/17/17 11:00> - General Chief Complaint: Chest Pain Stated Complaint: CHEST PAIN Time Seen by Provider: 08/16/17 12:17 Notes: Patient is a 52 year old female with a history of H. Pylori, diabetes, and pancreatitis presents to the emergency department complaining of epigastric abdominal pain onset 2 weeks ago. Patient states the pain has been intermittent although it worsened today. Patient describes the pain as burning that starts in her epigastric area and goes up into her chest. At bedside patient states her epigastric pain has gone buts states she is nauseous. Patient also complains of decreased appetite and chills. Patient denies vomiting or any bloody stools. Patient's PCP is Dr. Duarte. (MARILU GARCÍA) - Related Data Allergies/Adverse Reactions: naproxen [Naproxen] Allergy (Severe, Verified 08/16/17 11:01) Facial swelling ropinirole HCl [From Requip] Adverse Reaction (Severe, Verified 08/16/17 11:01) BODY SWELLING Past Medical History - General Information source: Patient - Social History Smoking Status: Former Smoker Chew tobacco use (# tins/day): No Frequency of alcohol use: None Drug Abuse: None Family History: DM, Hypertension Patient has suicidal ideation: No Patient has homicidal ideation: No - Past Medical History Cardiac Medical History: Reports: Hx Coronary Artery Disease, Hx Hypercholesterolemia, Hx Hypertension - DIET CONTROLLED Neurological Medical History: Reports: Hx Migraine Endocrine Medical History: Reports: Hx Diabetes Mellitus Type 2, Hx Hypothyroidism GI Medical History: Reports: Hx Gastroesophageal Reflux Disease Musculoskeltal Medical History: Reports Hx Arthritis Psychiatric Medical History: Reports: Hx Depression Past Surgical History: Reports: Hx Cholecystectomy, Hx Gastric Bypass Surgery - SLEEVE, Hx Genitourinary Surgery - bladder prolapse, Hx Hysterectomy, Hx Orthopedic Surgery - toe, shoulder, elbow, bilat feet - Immunizations Immunizations up to date: Yes Hx Diphtheria, Pertussis, Tetanus Vaccination: Yes Hx Pneumococcal Vaccination: 05/24/10 <MARILU GARCÍA - Last Filed: 08/16/17 16:47> Review of Systems - Review of Systems Constitutional: See HPI, Chills EENT: No symptoms reported Cardiovascular: No symptoms reported Respiratory: No symptoms reported Gastrointestinal: See HPI, Abdominal pain, Poor appetite Genitourinary: No symptoms reported Female Genitourinary: No symptoms reported Musculoskeletal: No symptoms reported Skin: No symptoms reported Hematologic/Lymphatic: No symptoms reported Neurological/Psychological: No symptoms reported -: Yes All other systems reviewed and negative <RICKYNORASHOAIB - Last Filed: 08/16/17 16:47> Physical Exam <RICKY,TAMSHOAIB - Last Filed: 08/16/17 16:47> <NORBERT RAMIREZ - Last Filed: 08/17/17 11:00> - Vital signs Vitals: Temp Pulse Resp BP Pulse Ox 98.1 F 94 18 123/77 97 08/16/17 11:06 08/16/17 11:06 08/16/17 11:06 08/16/17 11:06 08/16/17 11:06 - Notes Notes: GENERAL: Alert, interacts well. No acute distress. HEAD: Normocephalic, atraumatic. EYES: Appear normal. Pupils equal, round, and reactive to light. ENT: Moist mucus membranes, tongue midline. NECK: Full range of motion. Supple. Trachea midline. LUNGS: Clear to auscultation bilaterally, good air movement, no wheezes, rales, or rhonchi. No respiratory distress. HEART: Regular rate and rhythm. No murmurs, gallops, or rubs. ABDOMEN: Epigastric tenderness to palpation. Non-distended. Normal bowel sounds. EXTREMITIES: Moves all 4 extremities spontaneously. Normal strength. No edema. NEUROLOGICAL: Alert and oriented x3. Normal speech. PSYCH: Normal affect, normal mood. SKIN: Warm, dry, normal turgor. No rashes or lesions noted. (MARILU GARCÍA) Course - Laboratory Result Diagrams: 08/16/17 13:10 08/16/17 13:10 <[email or web address] - Last Filed: 08/16/17 16:47> - Laboratory Result Diagrams: 08/16/17 13:10 08/16/17 13:10 <NORBERT RAMIREZ - Last Filed: 08/17/17 11:00> - Re-evaluation Re-evalutation: 08/16/17 16:40 Patient presents with several weeks of intermittent sharp epigastric pain that radiates up into her esophagus. No history of heart attack or stroke. Pain is sharp in nature. Patient states the pain is worse after eating. She does have a history of H. pylori and is currently being treated for that by her primary care physician. Will augment patient's medication with Zantac and instructed to eat very bland diet over the next week and follow-up with her primary care physician to see if her symptoms are improving. If they are not I suggested that she would need a EGD for further evaluation. Return precautions provided. Of note, her EKG shows no concerning findings and her troponin was within normal limits as she was screened for ACS (NORBERT RAMIREZ) - Vital Signs Vital signs: Temp Pulse Resp BP Pulse Ox 97.6 F 94 20 123/76 100 08/16/17 16:58 08/16/17 11:06 08/16/17 16:58 08/16/17 16:58 08/16/17 16:58 - Laboratory Laboratory results interpreted by me: 08/16/17 08/16/17 08/16/17 13:05 13:10 13:10 Hgb 11.6 L Hct 35.1 L MCH 26.2 L Glucose 119 H AST 40 H ALT 60 H Urine Glucose (UA) 50 H Urine Urobilinogen 2.0 H Ur Leukocyte Esterase TRACE H Urine Ascorbic Acid 40 H Discharge <MARILU GARCÍA - Last Filed: 08/16/17 16:47> <NORBERT RAMIREZ - Last Filed: 08/17/17 11:00> - Discharge Clinical Impression: Gastritis Qualifiers: Gastritis type: unspecified gastritis Chronicity: chronic Gastritis bleeding: presence of bleeding unspecified Qualified Code(s): K29.50 - Unspecified chronic gastritis without bleeding Condition: Good Disposition: HOME, SELF-CARE Instructions: Reflux Disease (GERD) ([facility]) Additional Instructions: Please follow-up with your primary care physician in 1 week for reevaluation or sooner to the emergency department if symptoms are worsening. Prescriptions: Oxycodone HCl/Acetaminophen [Percocet 5-325 mg Tablet] 1 tab PO ASDIR PRN #10 tab PRN Reason: Ranitidine HCl [Zantac] 150 mg PO BID #60 tablet Forms: Return to Work Referrals: EVANS DUARTE MD [Primary Care Provider] - Follow up as needed Scribe Attestation: 08/17/17 11:00 I personally performed the services described in the documentation, reviewed and edited the documentation which was dictated to describe my presence, and it accurately records my words and actions (NORBERT RAMIREZ) Scribe Documentation - Scribe Written by Scribe:: Zen Ellis, 08/16/2017 16:11 acting as scribe for :: Bernardino <MARILU GARCÍA - Last Filed: 08/16/17 16:47>
[2017-08-16 17:06] VITALS: BP 123/76
--- NOTE | 2017-08-17 11:56 | EKG REPORT ---
SEVERITY:- NORMAL ECG - SINUS RHYTHM : Confirmed by: Juany Borjas 17-Aug-2017 11:56:14
== END 2017-08-16 17:00 | disposition home or self-care (01) ==
LOC: ER 10:59
DX: K29.50 Unspecified chronic gastritis without bleeding (principal); B96.81 Helicobacter pylori [H. pylori] as the cause of diseases classified elsewhere; R10.13 Epigastric pain; R11.0 Nausea; R63.0 Anorexia; R68.83 Chills (without fever); E11.9 Type 2 diabetes mellitus without complications; I25.10 Atherosclerotic heart disease of native coronary artery without angina pectoris; I10 Essential (primary) hypertension; Z87.19 Personal history of other diseases of the digestive system; Z88.8 Allergy status to other drugs, medicaments and biological substances; Z87.891 Personal history of nicotine dependence; Z98.84 Bariatric surgery status; Z90.49 Acquired absence of other specified parts of digestive tract; Z90.710 Acquired absence of both cervix and uterus
CPT/HCPCS: 93005; 99285; 96360; 36415; 82553; 82550; 83690; 85025; 80053; 81001; 84484; 93010; A9270 ×2; J3490; J7030; S0119

== ENCOUNTER 2017-10-20 04:29 | Emergency (ER) | payer MEDICARE, MEDICAID ==
[2017-10-20] MEDS ORDERED: KETOROLAC TROMETHAMINE INJ/PF 30 MG/1 ML SDV IV ONE ×2 (05:41→06:58)
[2017-10-20] MEDS ORDERED: DIPHENHYDRAMINE HCL 50 MG/ML VIAL IV ONE (05:41)
[2017-10-20] MEDS ORDERED: PROCHLORPERAZINE EDISYLATE INJ 10 MG/2 ML VIAL IV ONE (05:41)
[2017-10-20] MEDS ORDERED: NORMAL SALINE 1000 ML 1,000 ML IV ONE (05:42)
--- NOTE | 2017-10-20 05:42 | ER Document Report ---
ED Headache - General Chief Complaint: Headache Stated Complaint: HEADACHE,NAUSEA Time Seen by Provider: 10/20/17 05:27 Notes: Patient is a 52-year-old female who presents to the emergency department with a chief complaint of headache. Patient states that she has a history of migraine headaches which she takes amitriptyline every night for as well as Fioricet as needed. Patient states that this headache started today she took 2 hours prior to arrival to Fioricet without any significant improvement. She describes her headache as a pressure in her frontal sinus area with associated phono and photophobia. She admits to nausea without any syncope. She denies any recent falls, head injury, fevers or chills, weakness or focal neurological deficits. Follows with Dr. Ainsley Hebert for neurology Past medical history significant for insulin-dependent diabetes, hypothyroidism , migraines, anxiety. TRAVEL OUTSIDE OF THE [place] IN LAST 30 DAYS: No - Related Data Allergies/Adverse Reactions: naproxen [Naproxen] Allergy (Severe, Verified 08/16/17 11:01) Facial swelling ropinirole HCl [From Requip] Adverse Reaction (Severe, Verified 08/16/17 11:01) BODY SWELLING Past Medical History - Social History Smoking Status: Never Smoker Chew tobacco use (# tins/day): No Frequency of alcohol use: None Drug Abuse: None Family History: DM, Hypertension Patient has suicidal ideation: No Patient has homicidal ideation: No - Past Medical History Cardiac Medical History: Reports: Hx Coronary Artery Disease, Hx Hypercholesterolemia, Hx Hypertension - DIET CONTROLLED Denies: Hx Heart Attack Pulmonary Medical History: Denies: Hx Asthma, Hx Bronchitis, Hx COPD, Hx Pneumonia Neurological Medical History: Reports: Hx Migraine. Denies: Hx Cerebrovascular Accident, Hx Seizures Endocrine Medical History: Reports: Hx Diabetes Mellitus Type 2, Hx Hypothyroidism Renal/ Medical History: Denies: Hx Peritoneal Dialysis GI Medical History: Reports: Hx Gastroesophageal Reflux Disease. Denies: Hx Hepatitis, Hx Hiatal Hernia, Hx Ulcer Musculoskeltal Medical History: Reports Hx Arthritis Psychiatric Medical History: Reports: Hx Depression Infectious Medical History: Denies: Hx Hepatitis Past Surgical History: Reports: Hx Cholecystectomy, Hx Gastric Bypass Surgery - SLEEVE, Hx Genitourinary Surgery - bladder prolapse, Hx Hysterectomy, Hx Orthopedic Surgery - toe, shoulder, elbow, bilat feet. Denies: Hx Mastectomy, Hx Open Heart Surgery, Hx Pacemaker - Immunizations Immunizations up to date: Yes Hx Diphtheria, Pertussis, Tetanus Vaccination: Yes Hx Pneumococcal Vaccination: 05/24/10 Review of Systems - Review of Systems Notes: REVIEW OF SYSTEMS: CONSTITUTIONAL : Denies fever, chills, or sweats. Denies recent illness. EENT: Denies eye, ear, throat, or mouth pain or symptoms. Denies nasal or sinus congestion or discharge. Denies throat, tongue, or mouth swelling or difficulty swallowing. CARDIOVASCULAR: Denies chest pain. Denies palpitations or racing or irregular heart beat. Denies ankle edema. RESPIRATORY: Denies cough, cold, or chest congestion. Denies shortness of breath, difficulty breathing, or wheezing. MUSCULOSKELETAL: Denies any muscle spasms, difficulty walking, extremity pain SKIN: Denies rash, lesions or sores. HEMATOLOGIC : Denies easy bruising or bleeding. LYMPHATIC: Denies swollen, enlarged glands. NEUROLOGICAL: HPI denies confusion or altered mental status. Denies passing out or loss of consciousness. Denies dizziness or lightheadedness. . Denies weakness or paralysis or loss of use of either side. Denies problems with gait or speech. Denies sensory loss, numbness, or tingling. Denies seizures. PSYCHIATRIC: Denies anxiety or stress. Denies depression, suicidal ideation, or homicidal ideation. ALL OTHER SYSTEMS REVIEWED AND NEGATIVE. Dictation was performed using [employer] voice recognition software Physical Exam - Vital signs Vitals: Temp Pulse Resp BP Pulse Ox 98.4 F 94 18 135/93 H 97 10/20/17 04:33 10/20/17 04:33 10/20/17 04:33 10/20/17 04:33 10/20/17 04:33 - Notes Notes: PHYSICAL EXAM GENERAL: Alert, interacts well. HEAD: Normocephalic, atraumatic. EYES: Pupils equal, round, and reactive to light. Extraocular movements intact. ENT: Oral mucosa moist, tongue midline. NECK: Full range of motion. Supple. Trachea midline. LUNGS: Clear to auscultation bilaterally, no wheezes, rales, or rhonchi. No respiratory distress. HEART: Regular rate and rhythm. No murmurs, gallops, or rubs. EXTREMITIES: Moves all 4 extremities spontaneously. No edema, radial and dorsalis pedis pulses 2/4 bilaterally. No cyanosis. NEUROLOGICAL: Alert and oriented x4. Face symmetric. Tongue protrudes midline. Extraocular motions intact. Pupils are 2 mm and equally reactive. Normal speech, normal gait. 5 out of 5 strength in both the distal and proximal upper and lower extremities bilaterally. Sensation is grossly intact throughout. Finger to nose testing normal. Pronator drift normal. PSYCH: Normal affect, normal mood. SKIN: Warm, dry, normal turgor. No rashes or lesions noted. Course - Re-evaluation Re-evalutation: 10/20/17 06:56 Patient is a 52 year ld female who presents with headache which is consistent with her previous presentations of headache. Significant improvement with migraine cocktail. Patient does not have any focal neurologic deficits, nuchal rigidity, vital signs are within normal limits no papilledema. Patient is otherwise no acute distress and hemodynamically stable. Low index for suspicion of acute subarachnoid hemorrhage, meningitis or mass. Low suspicion for acute life-threatening etiology with intact neuro exam therefore no additional imaging or laboratory testing is indicated. Will discharge patient home with strict follow-up with PCP for blood pressure check within the next week. - Vital Signs Vital signs: Temp Pulse Resp BP Pulse Ox 97.7 F 94 13 122/76 98 10/20/17 08:03 10/20/17 04:33 10/20/17 07:01 10/20/17 07:01 10/20/17 07:01 - Laboratory Laboratory results interpreted by me: 10/20/17 05:56 POC Glucose 219 H Discharge - Discharge Clinical Impression: Headache Qualifiers: Headache type: unspecified Headache chronicity pattern: episodic headache Intractability: intractable Qualified Code(s): R51 - Headache Condition: Good Disposition: HOME, SELF-CARE Additional Instructions: HEADACHE: The physician does not feel that the headache you are experiencing has a serious underlying cause. Most headaches are due to emotional stress, with resultant muscle tension (tension headache). Occasionally, headaches are secondary to changes in the blood vessels of the scalp (vascular headache and migraine headache). Sometimes, a headache is the first symptom of another developing illness, such as a viral infection. You have no evidence of stroke, bleeding, meningitis, or other serious cause of your headache. The treatment of headaches varies with the severity and cause of the pain. Not all headaches need pain shots. In fact, there is evidence that using narcotics for headaches may make them worse in the long run. The physician will determine the therapy that's in your best interest. If you develop a fever, if the headache is different from any you've previously experienced, or if the headache progressively worsens, then call your physician at once or go to the emergency room. REGLAN (METOCLOPRAMIDE): Reglan has been prescribed. This medicine affects the stomach and intestines. It can be used to treat nausea and vomiting, to prevent reflux of stomach acid up into the esophagus, or to increase the contractions of the stomach and intestines. It is often prescribed for esophagitis, and for paralysis of the stomach in diabetics. Reglan can cause either mild restlessness or drowsiness. You should contact the doctor at once if you become extremely restless, anxious, or cannot sleep, or if you develop uncontrollable motions of the lips, tongue, or jaw. Do not take alcohol with this medicine. Do not drive or operate machinery until you have been taking this medicine long enough to know how it affects you. Call the doctor if you develop abdominal pains, lightheadedness, black stool, or blood in the stool or vomitus. USE OF DIPHENHYDRAMINE: Diphenhydramine (Benadryl) is an antihistamine and has been recommended to help treat your headache and to prevent side effects of other medications used to treat headaches. The medication can be repeated four times daily. Age Elixir (12.5 mg/tsp) 25 mg pill adult 1-2 tabs Antihistamines may cause drowsiness, especially with the first dose. Do not operate machinery or drive while under the effects of the medication. Do not combine the medication with alcohol, or with any other medication without talking to your doctor. ANTINAUSEA MEDICATION: You have been given a medication to suppress nausea and vomiting. This type of medication can be given as a shot, pill, or suppository. It will usually last for many hours. Pills and shots usually last six to eight hours, suppositories last about 12 hours. For the typical illness, only one or two doses of the medication may be necessary. Mild lightheadedness may occur. This type of medicine can cause drowsiness. Do not drive or operate dangerous machinery while under its influence. Do not mix with alcohol. See your doctor at once if you have muscle spasms or tightness, or uncontrollable motions (particularly of the neck, mouth, or jaw). Persistent vomiting or severe lightheadedness should also be evaluated by the physician. INTRAVENOUS COMPAZINE FOR HEADACHE: You have received therapy for headaches, using intravenous Compazine. This treatment is dramatically successful in relieving the headache in about 50 percent of cases. When it works, it provides a rapid method of eliminating the headache without resorting to narcotics (and the problems associated with them). Most patients still feel fully alert after the Compazine, but others may be slightly drowsy. It's best not to drive or work with machinery for six to eight hours. Do not take alcohol or other medication unless you discuss it with the doctor. If you develop tightness and spasms in your muscles, especially the neck and tongue, you should return. This is a side effect which can be treated. TORADOL INJECTION: You have been given an injection of ketorolac tromethamine (Toradol). This is an excellent, safe drug for pain control. It also has potent antiinflammatory action. You should have significant pain relief within about one hour. Toradol is not addicting and is non-sedating. It does not interfere with driving or work. Call or return if you develop itching, hives, shortness of breath, or rash. FOLLOW-UP CARE: If you have been referred to a physician for follow-up care, call the physician s office for an appointment as you were instructed or within the next two days. If you experience worsening or a significant change in your symptoms, notify the physician immediately or return to the Emergency Department at any time for re-evaluation. Forms: Return to Work Referrals: EVANS DUARTE MD [Primary Care Provider] - Follow up in 1 month COREY BARON MD [COMMUNITY BASED STAFF] - Follow up in 1 week
[2017-10-20 07:55] VITALS: BP 122/76
== END 2017-10-20 08:03 | disposition home or self-care (01) ==
LOC: ER 04:29
DX: R51 Headache (principal); R11.0 Nausea; I10 Essential (primary) hypertension
CPT/HCPCS: 96376; 99283; 96361; 96374; 96375; 82962; J1200; J1885; J0780; J7030

== ENCOUNTER 2017-12-16 15:16 | Emergency (ER) | payer MEDICARE, MEDICAID ==
[2017-12-16 15:26] VITALS: BP 132/79
[2017-12-16] MEDS ORDERED: KETOROLAC TROMETHAMINE INJ/PF 30 MG/1 ML SDV IM ONE (15:36)
[2017-12-16] MEDS ORDERED: METOCLOPRAMIDE HCL INJ/PF 10 MG/2 ML SDV IM ONE (15:36)
[2017-12-16] MEDS ORDERED: DIPHENHYDRAMINE HCL 50 MG/ML VIAL IM ONE (15:36)
--- NOTE | 2017-12-16 15:42 | ER Document Report ---
ED Headache - General Chief Complaint: Headache Stated Complaint: HEADACHE Time Seen by Provider: 12/16/17 15:29 Mode of Arrival: Ambulatory Information source: Patient, Relative TRAVEL OUTSIDE OF THE [place] IN LAST 30 DAYS: No - HPI Patient complains to provider of: Headache, "Migraine" Notes: Patient is here with complaints of headache. The patient has a history of migraines and typically takes Imitrex for her headaches. She has taken Imitrex at home but this has not helped. The headache started . It was gradual onset and is progressively worsened over time. It has been constant. Is worsened by right lites. She has had nausea but denies any vomiting or diarrhea. There is no head injury. She is on no blood thinners. This was not a sudden onset, thunderclap type headache. She denies any blurred or loss vision. She denies any unilateral numbness, tingling, weakness. No chest pain or shortness of breath. No rash. No abdominal pain. She denies any other complaints at this time. She states that this feels like previous migraines that she has had in the past. She was seen at urgent care and was sent to the emergency department. - Related Data Allergies/Adverse Reactions: naproxen [Naproxen] Allergy (Severe, Verified 12/16/17 15:18) Facial swelling ropinirole HCl [From Requip] Adverse Reaction (Severe, Verified 12/16/17 15:18) BODY SWELLING Past Medical History - Social History Smoking Status: Current Every Day Smoker Family History: DM, Hypertension - Past Medical History Cardiac Medical History: Reports: Hx Coronary Artery Disease, Hx Hypercholesterolemia, Hx Hypertension - DIET CONTROLLED Denies: Hx Heart Attack Pulmonary Medical History: Denies: Hx Asthma, Hx Bronchitis, Hx COPD, Hx Pneumonia Neurological Medical History: Reports: Hx Migraine. Denies: Hx Cerebrovascular Accident, Hx Seizures Endocrine Medical History: Reports: Hx Diabetes Mellitus Type 2, Hx Hypothyroidism Renal/ Medical History: Denies: Hx Peritoneal Dialysis GI Medical History: Reports: Hx Gastroesophageal Reflux Disease. Denies: Hx Hepatitis, Hx Hiatal Hernia, Hx Ulcer Musculoskeltal Medical History: Reports Hx Arthritis Psychiatric Medical History: Reports: Hx Depression Infectious Medical History: Denies: Hx Hepatitis Past Surgical History: Reports: Hx Cholecystectomy, Hx Gastric Bypass Surgery - SLEEVE, Hx Genitourinary Surgery - bladder prolapse, Hx Hysterectomy, Hx Orthopedic Surgery - toe, shoulder, elbow, bilat feet. Denies: Hx Mastectomy, Hx Open Heart Surgery, Hx Pacemaker - Immunizations Immunizations up to date: Yes Hx Diphtheria, Pertussis, Tetanus Vaccination: Yes Hx Pneumococcal Vaccination: 05/24/10 Review of Systems - Review of Systems -: Yes All other systems reviewed and negative Physical Exam - Vital signs Vitals: Temp Pulse Resp BP Pulse Ox 98.2 F 86 18 132/79 H 98 12/16/17 15:20 12/16/17 15:20 12/16/17 15:20 12/16/17 15:20 12/16/17 15:20 - Notes Notes: GENERAL: alert, cooperative, nontoxic, no distress. HEAD: normocephalic, atraumatic EYES: conjunctiva pink without discharge, no external redness or swelling. Pupils are equal, round, reactive to light. Extra ocular muscles are intact bilaterally. EARS: no external swelling, no external redness NOSE: atraumatic, no external swelling MOUTH/THROAT: mucous membranes moist and pink, posterior pharynx without erythema, swelling, exudate. No trismus or drooling. NECK: soft, supple, full range of motion, no meningismus. CHEST: no distress, lungs clear and equal throughout. No wheezing, rales, rhonchi. CARDIAC: regular rate and rhythm, no murmur, normal capillary refill, normal pulses. No peripheral edema noted. BACK: full range of motion, no CVA tenderness. EXTREMITIES: full range of motion of all extremities. No redness, no swelling. NEURO: alert and oriented x 3, cranial nerves II through XII are grossly intact. Upper and lower extremities are equal throughout. Normal sensation. No focal deficits, full range of motion of all extremities. normal finger to nose. NIH stroke score of 0. PYSCH: appropriate mood, affect. Patient is cooperative. SKIN: pink, warm, dry, no rash. Course - Re-evaluation Re-evalutation: 12/16/17 15:38 Patient is nontoxic appearing stable vitals. She is here with complaints of headache. The patient has a long history of migraines. She takes Imitrex typically for her migraines. This headache is been present since . It was gradual onset, not thunderclap or sudden onset. She is on no blood thinners. No head injury. No blurred or loss vision. She has a nonfocal neurological exam. She has no neck stiffness or signs of meningitis. No risk of subarachnoid hemorrhage. Patient states that this feels like previous migraine she has had in the past. She will be given a shot of Toradol, Reglan, Benadryl here in the emergency department and will be discharged home. Patient states that she has had Toradol in the past and tolerated it fine despite having a naproxen allergy. Patient was instructed to follow-up with her primary care doctor at the next available appointment if her headache does not resolve. Follow-up sooner for worsening pain, fever, numbness, tingling, weakness, chest pain, shortness of breath, persistent vomiting, or for any further concerns. The patient is noted to have elevated blood pressure during today's emergency department visit. The patient was informed of this finding. The patient was instructed that this may be related to pre-hypertension and requires further evaluation with a primary care provider. The patient has no hypertensive symptoms at this time. The patient's emergency department workup and current diagnosis were explained to the patient and or family. Follow-up instructions were provided. Medications if prescribed were discussed. Instructions for when to return to the emergency department including specific worrisome symptoms were discussed with the patient and/or family. - Vital Signs Vital signs: Temp Pulse Resp BP Pulse Ox 98.2 F 86 18 132/79 H 98 12/16/17 15:20 12/16/17 15:20 12/16/17 15:20 12/16/17 15:20 12/16/17 15:20 Discharge - Discharge Clinical Impression: Headache Qualifiers: Headache type: unspecified Headache chronicity pattern: acute headache Intractability: not intractable Qualified Code(s): R51 - Headache Condition: Stable Disposition: HOME, SELF-CARE Instructions: Use of Diphenhydramine, Headache ([facility]), Reglan ([facility]), Toradol Injection ([facility]) Additional Instructions: Follow-up with your doctor if not better in the next 3 days, follow-up sooner for worsening pain, fever, neck stiffness, persistent vomiting, blurred or loss vision, numbness, tingling, weakness, chest pain or shortness of breath, persistent vomiting, or for any further concerns. Your blood pressure was elevated during today's visit. Have this rechecked with your doctor. Forms: Elevated Blood Pressure, Smoking Cessation Education Referrals: EVANS DUARTE MD [ACTIVE STAFF] - Follow up as needed
== END 2017-12-16 16:06 | disposition home or self-care (01) ==
LOC: ER 15:16
DX: G43.909 Migraine, unspecified, not intractable, without status migrainosus (principal); R11.0 Nausea; I25.10 Atherosclerotic heart disease of native coronary artery without angina pectoris; I10 Essential (primary) hypertension; E11.9 Type 2 diabetes mellitus without complications; F17.200 Nicotine dependence, unspecified, uncomplicated; Z98.84 Bariatric surgery status; Z88.8 Allergy status to other drugs, medicaments and biological substances
CPT/HCPCS: 99284; 96372; J1200; J1885; J2765

== ENCOUNTER 2018-01-06 18:09 | Emergency (ER) | payer MEDICARE, MEDICAID ==
--- NOTE | 2018-01-06 19:10 | ER Document Report ---
ED Extremity Problem, Lower - General Chief Complaint: Leg Pain Stated Complaint: LEG PAIN Time Seen by Provider: 01/06/18 18:52 Mode of Arrival: Ambulatory Information source: Patient Notes: 52-year-old female presents to ED for complaint of right posterior leg pain for the last 3 or 4 days. She states she thinks this started either Monday or Monday. She states it is been getting worse each day. She states she does not smoke is not sedentary and has not been on any long plane rides. She is 52 years old. She does have a history of coronary artery disease with blood pressure cholesterol. She denies any injuries any falls or any other causes for this pain. TRAVEL OUTSIDE OF THE [place] IN LAST 30 DAYS: No - HPI Patient complains to provider of: Pain, Swelling. No: Injury Location: Leg - Right Occurred: Other - 4 days Onset/Duration: Gradual - being worse, Worse Quality of pain: Burning, Sharp Severity: Moderate Pain Level: 2 Recent injury: No Associated symptoms: Painful ambulation Exacerbated by: Movement, Walking Relieved by: Nothing - Related Data Allergies/Adverse Reactions: naproxen [Naproxen] Allergy (Severe, Verified 12/16/17 15:18) Facial swelling ropinirole HCl [From Requip] Adverse Reaction (Severe, Verified 12/16/17 15:18) BODY SWELLING Past Medical History - General Information source: Patient - Social History Smoking Status: Former Smoker Cigarette use (# per day): No Chew tobacco use (# tins/day): No Smoking Education Provided: No Frequency of alcohol use: None Drug Abuse: None Lives with: Family Family History: DM, Hypertension Patient has suicidal ideation: No Patient has homicidal ideation: No - Past Medical History Cardiac Medical History: Reports: Hx Coronary Artery Disease, Hx Hypercholesterolemia, Hx Hypertension - DIET CONTROLLED Pulmonary Medical History: Reports: None EENT Medical History: Reports: None Neurological Medical History: Reports: Hx Migraine Endocrine Medical History: Reports: Hx Diabetes Mellitus Type 2, Hx Hypothyroidism Renal/ Medical History: Reports: None Malignancy Medical History: Reports: None GI Medical History: Reports: Hx Gastroesophageal Reflux Disease Musculoskeltal Medical History: Reports Hx Arthritis Skin Medical History: Reports None Psychiatric Medical History: Reports: Hx Depression Traumatic Medical History: Reports: None Infectious Medical History: Reports: None Past Surgical History: Reports: Hx Cholecystectomy, Hx Gastric Bypass Surgery - SLEEVE, Hx Genitourinary Surgery - bladder prolapse, Hx Hysterectomy, Hx Orthopedic Surgery - toe, shoulder, elbow, bilat feet - Immunizations Immunizations up to date: Yes Hx Diphtheria, Pertussis, Tetanus Vaccination: Yes Hx Pneumococcal Vaccination: 05/24/10 Review of Systems - Review of Systems Constitutional: No symptoms reported EENT: No symptoms reported Cardiovascular: No symptoms reported Respiratory: No symptoms reported Gastrointestinal: No symptoms reported Genitourinary: No symptoms reported Female Genitourinary: No symptoms reported Musculoskeletal: Other - Right posterior leg pain tenderness Skin: No symptoms reported Hematologic/Lymphatic: No symptoms reported Neurological/Psychological: No symptoms reported -: Yes All other systems reviewed and negative Physical Exam - Vital signs Vitals: Temp Pulse Resp BP Pulse Ox 98.5 F 96 20 143/81 H 97 01/06/18 18:14 01/06/18 18:14 01/06/18 18:14 01/06/18 18:14 01/06/18 18:14 Interpretation: Normal - General General appearance: Appears well, Alert - HEENT Head: Normocephalic, Atraumatic Eyes: Normal Pupils: PERRL - Respiratory Respiratory status: No respiratory distress Chest status: Nontender Breath sounds: Normal Chest palpation: Normal - Cardiovascular Rhythm: Regular Heart sounds: Normal auscultation Murmur: No - Abdominal Inspection: Normal Distension: No distension Bowel sounds: Normal Tenderness: Nontender. No: Tender Organomegaly: No organomegaly. No: Hepatomegaly, Splenomegaly, Mass - Back Back: Normal, Nontender - Extremities General upper extremity: Normal inspection, Nontender, Normal color, Normal ROM , Normal temperature General lower extremity: Normal inspection, Normal color, Normal ROM, Normal temperature, Normal weight bearing. No: Farooq's sign Calf: Tender. No: Abrasion, Deformity, Ecchymosis, Instability, Laceration, Unable to bear weight - Neurological Neuro grossly intact: Yes Cognition: Normal Orientation: AAOx4 [place] Coma Scale Eye Opening: Spontaneous [place] Coma Scale Verbal: Oriented [place] Coma Scale Motor: Obeys Commands [place] Coma Scale Total: 15 Speech: Normal Motor strength normal: LUE, RUE, LLE, RLE Sensory: Normal - Psychological Associated symptoms: Normal affect, Normal mood - Skin Skin Temperature: Warm Skin Moisture: Dry Skin Color: Normal Course - Re-evaluation Re-evalutation: 01/06/18 21:06 Venous Doppler was negative this was discussed with patient. A low back x-ray was then done as patient states she does have a history of low back pain. X- ray was discussed with patient and written report of x-ray given to patient. She has degenerative disc disease and arthritis in her back. Patient was given information on sciatica, ibuprofen and Tylenol, use of hot and cold packs, exercise, and instructions on using Aspercreme or [id number] Lidoderm patches. Patient to follow-up with her primary doctor on Monday via telephone to schedule a follow-up appointment. - Vital Signs Vital signs: Temp Pulse Resp BP Pulse Ox 98.5 F 96 20 143/81 H 97 01/06/18 18:14 01/06/18 18:14 01/06/18 18:14 01/06/18 18:14 01/06/18 18:14 - Diagnostic Test Radiology reviewed: Image reviewed, Reports reviewed Discharge - Discharge Clinical Impression: Right leg pain, Sciatica, right side HTN (hypertension) Qualifiers: Hypertension type: unspecified Qualified Code(s): I10 - Essential (primary) hypertension Condition: Stable Additional Instructions: Leg Pain, Nonspecific We did not find an obvious cause for your leg pain. There's no sign of blood clot, infection, or other serious disease. Possible causes of vague leg pain include muscle or joint inflammation, disc disease in the lower back, pressure on the nerves in the back, or reduced blood flow through the arteries of the leg. Rest the leg. Pain can be eased with an antiinflammatory pain medicine such as ibuprofen. If the pain involves a small area, a heating pad might help. Call the doctor or return if the leg becomes swollen, weak, discolored, or increasingly painful, or if you develop any other significant change in your health. Sciatica Your symptoms suggest "sciatica." The pain of sciatica typically radiates down the leg. Numbness in the foot or calf may also occur. Sciatica is caused by irritation of the sciatic nerve or its branches. The irritation can be due to a herniated disk in the spine, swelling and inflammation in the muscles surrounding the sciatic nerve, or direct injury of the nerve itself. Most cases of sciatica will resolve with medical treatment. Bed rest is usually recommended initially. Surgery is only necessary when the condition will not improve with rest and antiinflammatory medication. Muscle relaxers are often given if muscle soreness is present. A CAT scan of the back may be performed if a herniated disk is suspected. Re-examination is necessary if you develop increasing numbness, localized weakness in the foot or ankle, or if the pain does not respond to rest. Stretching Exercises for the Back The physician has recommended that you begin stretching exercises for your back. These are often used even while the back is painful. However, you should notify the physician if the activities seem to increase your pain. PELVIC TILT: Lie flat on your back with knees bent. Tighten your stomach and buttock muscles so it flattens your lower back against the floor. Hold 10 seconds. Repeat 10 times, twice daily. KNEE RAISE: Lying on the back with knees bent, raise one knee to your chest, then the other. Hold both knees against the chest 10 seconds, then lower one knee at a time. Repeat 10 times, twice daily. PARTIAL TRUNK RAISE: Lie face down, arms at your sides. Keeping your waist on the floor, use your arms raise your chest up. Support yourself on your elbows for 30 seconds. Repeat twice daily, increasing the time to two minutes as you recover. ICE PACKS: Apply ice packs frequently against the painful area. Many different schedules are recommended, such as "20 minutes on, 20 minutes off" or "one hour ice, two hours rest." If you need to work, you may need to go longer between ice treatments. You should plan to have the area ice packed AT LEAST one fourth of the time. The ice should be applied over the wrap, tape, or splint, or over a layer of cloth -- not directly against the skin. Some ice bags have a built-in cloth and can be put directly on the skin. WARM PACKS: After approximately two days, apply gentle heat (such as a heating pad or hot water bottle) for about 20 to 30 minutes about every two hours -- at least four times daily. Warmth and elevation will help you make a more rapid recovery , and will ease the pain considerably. Do not use HOT heat, and never apply heat for longer than 30 minutes. The continuous heat can invisibly damage skin and muscles -- even when no burn is seen on the surface. Damaged muscles can make you MORE sore. Acetaminophen Acetaminophen may be taken for pain relief or fever control. It's much safer than aspirin, offering a wider range of "safe" dosages. It is safe during . Some brand names are Tylenol, Panadol, Datril, Anacin 3, Tempra, and Liquiprin. Acetaminophen can be repeated every four hours. The following are maximum recommended dosages: WEIGHT Dose Drops Elixir Chewable( 80mg) (LBS.) drprs=droppers tsp=teaspoon 6 40 mg .4 ml (1/2) 6-11 80 mg .8 ml (full) 1/2 tsp 1 tab 12-16 120 mg 1 1/2 drprs 3/4 tsp 1 1/2 tabs 17-23 160 mg 2 drprs 1 tsp 2 tabs 24-30 240 mg 3 drprs 1 1/2 tsp 3 tabs 30-35 320 mg 2 tsp 4 tabs 36-41 360 mg 2 1/4 tsp 4 1 /2 tabs 42-47 400 mg 2 1/2 tsp 5 tabs 48-53 480 mg 3 tsp 6 tabs 54-59 520 mg 3 1/4 tsp 6 1 /2 tabs 60-64 560 mg 3 1/2 tsp 7 tabs 65-70 600 mg 3 3/4 tsp 7 1 /2 tabs 71-76 640 mg 4 tsp 8 tabs 77-82 720 mg 4 1/2 tsp 9 tabs 83-88 800 mg 5 tsp 10 tabs >89 pounds or adults 650 mg to 900 mg Acetaminophen can be repeated every four hours. Maximum daily dose not to exceed 4000 mg. These maximum recommended dosages are slightly higher than the dosages written on the product container, but these dosages are very safe and well below the toxic dosage for acetaminophen. Ibuprofen Ibuprofen is an excellent, safe drug for pain control. In addition, it has potent antiinflammatory effects which are beneficial, especially in the treatment of injuries, arthritis, or tendonitis. It's best to take ibuprofen with food. Persons with ulcer disease or allergy to aspirin should notify their physician of this before taking ibuprofen. Take the medication exactly as prescribed. Don't take additional doses unless instructed to do so by your doctor. If you develop wheezing, shortness of breath, hives, faintness, stomach pain, vomiting, or dark black stools, return for re-evaluation at once. These remove Lidoderm patch 12 hours from when it is placed. FOLLOW-UP CARE: If you have been referred to a physician for follow-up care, call the physician s office for an appointment as you were instructed or within the next two days. If you experience worsening or a significant change in your symptoms, notify the physician immediately or return to the Emergency Department at any time for re-evaluation. Forms: Elevated Blood Pressure Referrals: EVANS DUARTE MD [Primary Care Provider] - Follow up as needed
[2018-01-06] MEDS ORDERED: ACETAMINOPHEN 325 MG TABLET PO ONE (19:46)
--- NOTE | 2018-01-06 20:47 | RADIOLOGY REPORT (SQ) ---
EXAM DESCRIPTION: L SPINE WHOLE COMPLETED DATE/TIME: 01/06/2018 8:38 pm REASON FOR STUDY: pain to right leg hx of chronic back pain COMPARISON: None. NUMBER OF VIEWS: Five views including obliques. TECHNIQUE: AP, lateral, oblique, and sacral radiographic images acquired of the lumbar spine. LIMITATIONS: None. FINDINGS: MINERALIZATION: Normal. SEGMENTATION: Normal. No transitional anatomy. ALIGNMENT: Normal. VERTEBRAE: Maintained height. No fracture or worrisome bone lesion. DISCS: Multilevel mild disc space narrowing with osteophytes. POSTERIOR ELEMENTS: Pedicles and facets are intact. No pars defect or posterior arch defects. Mild facet arthropathy is present. HARDWARE: None in the spine. PARASPINAL SOFT TISSUES: Atherosclerotic vascular calcifications are present. Right upper quadrant a nd right hemipelvis surgical clips are present. PELVIS: Intact as visualized. No fractures or worrisome bone lesions. SI joints intact. OTHER: No other significant finding. IMPRESSION: Mild multilevel spondylotic change. No acute osseous abnormalities. TECHNICAL DOCUMENTATION: JOB ID: [id number] [employer]- All Rights Reserved Reading location - IP/workstation name: [email or web address]
[2018-01-06] MEDS ORDERED: LIDOCAINE 5% (700 MG) TRANSDERMAL ADH..PATCH TP ONE (21:00)
[2018-01-06 21:53] VITALS: BP 126/81
--- NOTE | 2018-01-07 15:48 | XCELERA REPORT ---
[address] [address] Lower Extremity Venous Evaluation Name: LUIS ANGEL DIOR Age: 52 yrs Gender: Female : 1965 Patient Status: Emergency Patient Location: ER Study Date: 01/06/2018 07:43 PM Procedure: Color flow and duplex imaging of the veins of the right lower extremity as well as the left Common Femoral vein. Reason For Study: right posterior leg pain Ordering Physician: MAYDA HAAS Performed By: Mimi Head Right Sided Venous Evaluation Normal vessel filling wall to wall, compression and augmentation as well as Colour flow down to the infrageniculate veins. Left Sided Venous Evaluation The left common femoral vein is fully compressible. Spontaneous and phasic flow is present in the left common femoral vein. Interpretation Summary No duplex evidence of DVT or obstruction in the right lower extremity nor in the left Common Femoral vein. : MAYDA HAAS > Neno Mackey
== END 2018-01-06 21:25 | disposition home or self-care (01) ==
LOC: ER 18:09
DX: M54.31 Sciatica, right side (principal); I10 Essential (primary) hypertension; M47.9 Spondylosis, unspecified; I25.10 Atherosclerotic heart disease of native coronary artery without angina pectoris; E11.9 Type 2 diabetes mellitus without complications; Z88.8 Allergy status to other drugs, medicaments and biological substances; Z98.84 Bariatric surgery status
CPT/HCPCS: 99284; 93971 ×2; 72110; A9270

== ENCOUNTER 2018-01-19 11:47 | Emergency (ER) | payer MEDICARE, MEDICAID ==
[2018-01-19] MEDS ORDERED: ACETAMINOPHEN 325 MG TABLET PO ONE (12:49)
--- NOTE | 2018-01-19 12:50 | ER Document Report ---
ED Medical Screen (RME) - General Chief Complaint: Abdominal Pain >50 Stated Complaint: RIGHT SIDE ABDOMINAL PAIN Time Seen by Provider: 01/19/18 12:34 Notes: RAPID MEDICAL EVALUATION DISCLOSURE I have seen this patient as part of a Rapid Medical Evaluation and, if applicable, placed any initially appropriate orders. The patient will be seen and fully evaluated, including a full history and physical exam, by a provider ( in Main ED or Fast Track) when a room becomes available. 53-year-old female here with complaints of right lower quadrant abdominal pain that started yesterday, constant, nonradiating. She describes it as sharp. It is not worse with anything in particular. She has not tried anything for the pain. She does not have any nausea vomiting diarrhea hematuria dysuria fevers chills. She has had her gallbladder removed in the past. EXAM Moderate RLQ TTP No peritoneal signs TRAVEL OUTSIDE OF THE [place] IN LAST 30 DAYS: No - Related Data Allergies/Adverse Reactions: naproxen [Naproxen] Allergy (Severe, Verified 01/19/18 11:49) Facial swelling ropinirole HCl [From Requip] Adverse Reaction (Severe, Verified 01/19/18 11:49) BODY SWELLING Past Medical History - Past Medical History Cardiac Medical History: Reports: Hx Coronary Artery Disease, Hx Hypercholesterolemia, Hx Hypertension - DIET CONTROLLED Denies: Hx Heart Attack Pulmonary Medical History: Denies: Hx Asthma, Hx Bronchitis, Hx COPD, Hx Pneumonia Neurological Medical History: Reports: Hx Migraine. Denies: Hx Cerebrovascular Accident, Hx Seizures Endocrine Medical History: Reports: Hx Diabetes Mellitus Type 2, Hx Hypothyroidism Renal/ Medical History: Denies: Hx Peritoneal Dialysis GI Medical History: Reports: Hx Gastroesophageal Reflux Disease. Denies: Hx Hepatitis, Hx Hiatal Hernia, Hx Ulcer Musculoskeltal Medical History: Reports Hx Arthritis Psychiatric Medical History: Reports: Hx Depression Infectious Medical History: Denies: Hx Hepatitis Past Surgical History: Reports: Hx Cholecystectomy, Hx Gastric Bypass Surgery - SLEEVE, Hx Genitourinary Surgery - bladder prolapse, Hx Hysterectomy, Hx Orthopedic Surgery - toe, shoulder, elbow, bilat feet. Denies: Hx Mastectomy, Hx Open Heart Surgery, Hx Pacemaker - Immunizations Immunizations up to date: Yes Hx Diphtheria, Pertussis, Tetanus Vaccination: Yes History of Influenza Vaccine for 04/2017 - 09/2017 Season: Yes Physical Exam - Vital signs Vitals: Temp Pulse Resp BP Pulse Ox 97.5 F 92 16 130/76 H 98 01/19/18 11:53 01/19/18 11:53 01/19/18 11:53 01/19/18 11:53 01/19/18 11:53 Course - Vital Signs Vital signs: Temp Pulse Resp BP Pulse Ox 97.5 F 92 16 130/76 H 98 01/19/18 11:53 01/19/18 11:53 01/19/18 11:53 01/19/18 11:53 01/19/18 11:53 Doctor's Discharge - Discharge Referrals: EVANS DUARTE MD [Primary Care Provider] - Follow up as needed
[2018-01-19 13:24] LABS: ABSOLUTE BASOPHILS # (AUTO) 0.1 10^3/uL (0.0-0.2); ABSOLUTE LYMPHOCYTES (AUTO) 1.9 10^3/uL (0.5-4.7); ABSOLUTE MONOCYTES (AUTO) 0.3 10^3/uL (0.1-1.4); ABSOLUTE NEUT (AUTO) 4.7 10^3/uL (1.7-8.2); BASOPHILS % (AUTO) 0.7 % (0-2); EOSINOPHILS % (AUTO) 0.7 % (0-6); HEMATOCRIT 38.1 % (36.0-47.0); HEMOGLOBIN 12.2 g/dL (12.0-15.5); LYMPHOCYTES % (AUTO) 27.1 % (13-45); MEAN CORPUSCULAR HEMOGLOBIN 25.9 pg (27.0-33.4); MEAN CORPUSCULAR HGB CONC 32.1 g/dL (32.0-36.0); MEAN CORPUSCULAR VOLUME 81 fl (80-97); MONOCYTES % (AUTO) 3.7 % (3-13); PLATELET COUNT 316 10^3/uL (150-450); RED BLOOD COUNT 4.72 10^6/uL (3.72-5.28); RED CELL DISTRIBUTION WIDTH 14.2 % (11.5-14.0); SEGMENTED NEUTROPHILS % (AUTO) 67.8 % (42-78); TOTAL CELLS COUNTED % (AUTO) 100 %
[2018-01-19] MEDS ORDERED: MORPHINE SULFATE 10 MG/ML INJ IV ONE (13:48)
--- NOTE | 2018-01-19 13:51 | ER Document Report ---
ED General - General Chief Complaint: Abdominal Pain >50 Stated Complaint: RIGHT SIDE ABDOMINAL PAIN Time Seen by Provider: 01/19/18 12:34 TRAVEL OUTSIDE OF THE [place] IN LAST 30 DAYS: No - HPI Notes: Patient is a 53-year-old female with a history of hypertension, diabetes with insulin and oral pills, previous cholecystectomy, total hysterectomy who presents to the ED complaining of right lower quadrant pain 1 day. Patient states that her pain is constant and does not radiate. Patient describes her pain as sharp. Patient does not recall any movement or activity that started her symptoms. She is otherwise eating and drinking without any difficulties. She is urinating normally and having normal bowel movements. She has not had any medicines for her symptoms. No other concerns or complaints. Denies any headache, fever, URI, sore throat, chest pain, palpitations, syncope, cough, shortness of breath, wheeze, dyspnea, nausea/vomiting/diarrhea, urinary retention, dysuria, hematuria, vaginal discharge/odor/bleeding, back pain, loss of control of bowel or bladder, numbness/tingling, saddle anesthesia, muscle paralysis/weakness, or rash. - Related Data Allergies/Adverse Reactions: naproxen [Naproxen] Allergy (Severe, Verified 01/19/18 11:49) Facial swelling ropinirole HCl [From Requip] Adverse Reaction (Severe, Verified 01/19/18 11:49) BODY SWELLING Past Medical History - Social History Smoking Status: Never Smoker Chew tobacco use (# tins/day): No Frequency of alcohol use: None Drug Abuse: None Family History: DM, Hypertension Patient has suicidal ideation: No Patient has homicidal ideation: No - Past Medical History Cardiac Medical History: Reports: Hx Coronary Artery Disease, Hx Hypercholesterolemia, Hx Hypertension - DIET CONTROLLED Denies: Hx Heart Attack Pulmonary Medical History: Denies: Hx Asthma, Hx Bronchitis, Hx COPD, Hx Pneumonia Neurological Medical History: Reports: Hx Migraine. Denies: Hx Cerebrovascular Accident, Hx Seizures Endocrine Medical History: Reports: Hx Diabetes Mellitus Type 2, Hx Hypothyroidism Renal/ Medical History: Denies: Hx Peritoneal Dialysis GI Medical History: Reports: Hx Gastroesophageal Reflux Disease. Denies: Hx Hepatitis, Hx Hiatal Hernia, Hx Ulcer Musculoskeltal Medical History: Reports Hx Arthritis Psychiatric Medical History: Reports: Hx Depression Infectious Medical History: Denies: Hx Hepatitis Past Surgical History: Reports: Hx Cholecystectomy, Hx Gastric Bypass Surgery - SLEEVE, Hx Genitourinary Surgery - bladder prolapse, Hx Hysterectomy, Hx Orthopedic Surgery - toe, shoulder, elbow, bilat feet. Denies: Hx Mastectomy, Hx Open Heart Surgery, Hx Pacemaker - Immunizations Immunizations up to date: Yes Hx Diphtheria, Pertussis, Tetanus Vaccination: Yes Hx Pneumococcal Vaccination: 05/24/10 Review of Systems - Review of Systems -: Yes All other systems reviewed and negative Physical Exam - Vital signs Vitals: Temp Pulse Resp BP Pulse Ox 97.5 F 92 16 130/76 H 98 01/19/18 11:53 01/19/18 11:53 01/19/18 11:53 01/19/18 11:53 01/19/18 11:53 - Notes Notes: PHYSICAL EXAMINATION: GENERAL: Well-appearing, well-nourished and in no acute distress. HEAD: Atraumatic, normocephalic. EYES: Pupils equal round and reactive to light, extraocular movements intact, sclera anicteric, conjunctiva are normal. ENT: Nares patent and without discharge. oropharynx clear without exudates. No tonsilar hypertrophy or erythema. Moist mucous membranes. NECK: Normal range of motion, supple without lymphadenopathy LUNGS: Breath sounds clear to auscultation bilaterally and equal. No wheezes rales or rhonchi. HEART: Regular rate and rhythm without murmurs, rubs, gallops. ABDOMEN: Soft, nondistended abdomen. No guarding, no rebound. No masses appreciated. Normal bowel sounds present. No CVA tenderness bilaterally. + mild tenderness to the RLQ. No peritoneal signs. No obvious hernia or lymphadenopathy rt inguinal/femoral. Musculoskeletal: FROM to passive/active. Strength 5+/5. Extremities: No cyanosis, clubbing, or edema b/l. Peripheral pulses 2+. Capillary refill less than 3 seconds. NEUROLOGICAL: Normal speech, normal gait. PSYCH: Normal mood, normal affect. SKIN: Warm, Dry, normal turgor, no rashes or lesions noted. Course - Re-evaluation Re-evalutation: 01/19/18 15:28 Patient is an afebrile, well-hydrated, 53-year-old female who presents to the ED with right lower quadrant pain, unspecified. Vitals are acceptable. PE is otherwise unremarkable. Patient does not have any significant tachycardia, tachypnea, or hypoxia. Patient does not have any peritoneal signs. CBC, CMP, lipase, urinalysis were unremarkable for any acute pathology. CT scan was grossly unremarkable for any acute pathology, but did note abundant stool throughout. It is possible that her symptoms could be the result of constipation. Patient is nontoxic-appearing and is tolerating p.o. without difficult use. Patient states that she would like to be discharged at this time. No other labs or imaging warranted at this time based on H&P. Low suspicion/risk for acute appendicitis, bowel obstruction, acute cholecystitis, acute cholangitis, perforated diverticulitis, incarcerated hernia, pancreatitis , perforated ulcer, peritonitis, sepsis, or other systemic emergent condition at this time. Patient is aware that her condition can change from initial presentation and she needs to monitor symptoms closely and seek medical attention if any acute changes. Rx for mag citrate. Conservative measures otherwise for symptoms. Recheck with your PCM in 3-5 days. Consider consult with a buckle frame shaper. Return to the ED with any worsening/concerning symptoms otherwise as reviewed in discharge. Patient is in agreement. - Vital Signs Vital signs: Temp Pulse Resp BP Pulse Ox 97.5 F 92 16 130/76 H 98 01/19/18 11:53 01/19/18 11:53 01/19/18 11:53 01/19/18 11:53 01/19/18 11:53 - Laboratory Result Diagrams: 01/19/18 13:10 01/19/18 13:10 Laboratory results interpreted by me: 01/19/18 01/19/18 01/19/18 13:10 13:10 14:00 MCH 25.9 L RDW 14.2 H Sodium 145.3 H Potassium 5.1 H Glucose 196 H Urine Glucose (UA) >=500 H Discharge - Discharge Clinical Impression: Abdominal pain Qualifiers: Abdominal location: lower abdomen, unspecified Qualified Code(s): R10.30 - Lower abdominal pain, unspecified Constipation Qualifiers: Constipation type: unspecified constipation type Qualified Code(s): K59.00 - Constipation, unspecified Condition: Stable Disposition: HOME, SELF-CARE Instructions: Abdominal Pain ([facility]), Bulk Laxatives, Constipation ([facility]) Additional Instructions: Maintain adequate fluid and food intake high fiber and water diet tylenol if needed Monitor for any worsening symptoms Make sure you are staying hydrated enough to urinate and have normal BM's Recheck with your PCM in 3-5 days Consider consult with Gastroenterology for ongoing/worsening symptoms Return to the ED with any worsening symptoms and/or development of fever, headache, chest pain, palpitations, syncope, shortness of breath, trouble breathing, abdominal pain, n/v/d, blood in stool/urine, weakness, or other worsening symptoms that are concerning to you. Prescriptions: Magnesium Citrate [Citrate of Magnesia 296 ml Bottle] 296 ml PO ONCE PRN #1 bottle PRN Reason: Forms: Elevated Blood Pressure Referrals: EVANS DUARTE MD [Primary Care Provider] - Follow up in 3-5 days JIM VÁSQUEZ MD [ACTIVE STAFF] - Follow up as needed
[2018-01-19 14:05] LABS: ALANINE AMINOTRANSFERASE 50 U/L (9-52); ALBUMIN 4.7 g/dL (3.5-5.0); ALKALINE PHOSPHATASE 98 U/L (38-126); ANION GAP 15 (5-19); ASPARTATE AMINO TRANSFERASE 32 U/L (14-36); BILIRUBIN,DIRECT 0.3 mg/dL (0.0-0.4); BILIRUBIN,TOTAL 0.3 mg/dL (0.2-1.3); BLOOD UREA NITROGEN 18 mg/dL (7-20); CALCIUM 9.8 mg/dL (8.4-10.2); CARBON DIOXIDE 27 mmol/L (22-30); CHLORIDE 103 mmol/L (98-107); GLUCOSE 196 mg/dL (75-110); LIPASE 195.2 U/L (23-300); POTASSIUM 5.1 mmol/L (3.6-5.0); SODIUM 145.3 mmol/L (137-145)
[2018-01-19 14:23] LABS: APPEARANCE,URINE CLEAR; BILIRUBIN,URINE NEGATIVE (NEGATIVE); COLOR,URINE STRAW; GLUCOSE, URINE >=500 mg/dL (NEGATIVE); KETONES,URINE NEGATIVE (NEGATIVE); LEUKOCYTE ESTERASE,URINE NEGATIVE (NEGATIVE); NITRITE,URINE NEGATIVE (NEGATIVE); PROTEIN,URINE NEGATIVE (NEGATIVE); URINE SPECIFIC GRAVITY 1.025; UROBILINOGEN,URINE NEGATIVE mg/dL (<2.0)
--- NOTE | 2018-01-19 14:48 | RADIOLOGY REPORT (SQ) ---
EXAM DESCRIPTION: CT ABD/PELVIS WITH IV ONLY COMPLETED DATE/TIME: 01/19/2018 2:29 pm REASON FOR STUDY: RLQ pain; eval appendicitis COMPARISON: CT abdomen pelvis 08/05/2015, 05/20/2015 TECHNIQUE: CT scan of the abdomen and pelvis performed using helical scanning technique with dynamic intravenous contrast injection. No oral contrast. Images reviewed with lung, soft tissue, and bone windows. Reconstructed coronal and sagittal MPR images reviewed. Delayed images for evaluation of the urinary system also acquired. All images stored on PACS. All CT scanners at this facility use dose modulation, iterative reconstruction, and/or weight based d osing when appropriate to reduce radiation dose to as low as reasonably achievable (ALARA). [facility]: Dose Right [facility]: CareDose [facility]: Dose Right [facility]: Teradose 4D [facility]: Quippi CONTRAST TYPE AND DOSE: contrast/concentration: Isovue 370.00 mg/ml; Total Contrast Delivered: 96.0 ml; Total Saline Delivered: 70.0 ml RENAL FUNCTION: Creatinine 0.9 RADIATION DOSE: CT Rad equipment meets quality standard of care and radiation dose reduction techniq ues were employed. CTDIvol: 15.6 mGy. DLP: 934 mGy-cm.. LIMITATIONS: None. FINDINGS: LOWER CHEST: Lung bases are clear. Tiny hiatal hernia. LIVER: Normal size. No masses. No dilated ducts. SPLEEN: Normal size. No focal lesions. PANCREAS: No masses. No significant calcifications. No adjacent inflammation or peripancreatic fluid collections. Pancreatic duct not dilated. GALLBLADDER: Surgically absent ADRENAL GLANDS: No significant masses or asymmetry. RIGHT KIDNEY AND URETER: No solid masses. No significant calcifications. No hydronephrosis or hyd roureter. LEFT KIDNEY AND URETER: No solid masses. No significant calcifications. No hydronephrosis or hydr oureter. AORTA AND VESSELS: No aneurysm. No dissection. Renal arteries, SMA, celiac without stenosis. RETROPERITONEUM: No retroperitoneal adenopathy, hemorrhage or masses. BOWEL AND PERITONEAL CAVITY: No CT evidence of bowel obstruction. No free intraperitoneal air or flu id. Gastric sleeve procedure. Large amount of stool in the colon. APPENDIX: Normal, best shown on axial images 61 through 66. PELVIS: Post hysterectomy. No free pelvic fluid. No pelvic masses or adenopathy. Bladder unremarka ble. Surgical clips in the right pelvic sidewall without soft tissue mass. ABDOMINAL WALL: No hernias. Left lower quadrant skin thickening and subcutaneous stranding unchanged from prior studies. BONES: No significant or acute findings. OTHER: No other significant finding. IMPRESSION: Normal appendix Post gastric sleeve procedure. Large amount of stool in the colon. Post hysterectomy TECHNICAL DOCUMENTATION: JOB ID: [id number] Quality ID # [id number]: Final reports with documentation of one or more dose reduction techniques (e.g., Au tomated exposure control, adjustment of the mA and/or kV according to patient size, use of iterative reconstruction technique) 2010 [employer]- All Rights Reserved Reading location - IP/workstation name: [email or web address]
[2018-01-19 15:41] VITALS: BP 133/82
== END 2018-01-19 15:41 | disposition home or self-care (01) ==
LOC: ER 11:47
DX: R10.30 Lower abdominal pain, unspecified (principal); K59.00 Constipation, unspecified; I10 Essential (primary) hypertension; E11.9 Type 2 diabetes mellitus without complications; I25.10 Atherosclerotic heart disease of native coronary artery without angina pectoris; E03.9 Hypothyroidism, unspecified; Z79.4 Long term (current) use of insulin; Z79.84 Long term (current) use of oral hypoglycemic drugs; Z90.49 Acquired absence of other specified parts of digestive tract; Z90.710 Acquired absence of both cervix and uterus
CPT/HCPCS: 99284; 96374; 36415; 83690; 85025; 80053; 81001; 74177; A9270; J2270

== ENCOUNTER 2018-02-06 10:44 | Emergency (ER) | payer MEDICARE, MEDICAID ==
--- NOTE | 2018-02-06 11:13 | ER Document Report ---
ED Medical Screen (RME) - General Chief Complaint: Low Blood Sugar Stated Complaint: BLOOD SUGAR CONCERNS Time Seen by Provider: 02/06/18 11:06 Notes: RAPID MEDICAL EVALUATION DISCLOSURE I have seen this patient as part of a Rapid Medical Evaluation and, if applicable, placed any initially appropriate orders. The patient will be seen and fully evaluated, including a full history and physical exam, by a provider ( in Main ED or Fast Track) when a room becomes available. 53-year-old female PMH diabetes here with accidental overdose of her fast acting insulin Apidra. She checked her blood sugar this morning and it was 160. She went to give herself some of her Levemir insulin however accidentally grabbed the Apidra instead and gave herself 40 units of the Apidra so she came straight here. She reports feeling fine and does not feel weak or tired or dizzy/lightheaded. EXAM CTAB RRR NOTE Accu-Chek in triage is 78, 30 minutes after her home reading of 160 blood sugar and administration of Apidra TRAVEL OUTSIDE OF THE [place] IN LAST 30 DAYS: No - Related Data Allergies/Adverse Reactions: naproxen [Naproxen] Allergy (Severe, Verified 01/19/18 11:49) Facial swelling ropinirole HCl [From Requip] Adverse Reaction (Severe, Verified 01/19/18 11:49) BODY SWELLING Past Medical History - Past Medical History Cardiac Medical History: Reports: Hx Coronary Artery Disease, Hx Hypercholesterolemia, Hx Hypertension - DIET CONTROLLED Denies: Hx Heart Attack Pulmonary Medical History: Denies: Hx Asthma, Hx Bronchitis, Hx COPD, Hx Pneumonia Neurological Medical History: Reports: Hx Migraine. Denies: Hx Cerebrovascular Accident, Hx Seizures Endocrine Medical History: Reports: Hx Diabetes Mellitus Type 2, Hx Hypothyroidism Renal/ Medical History: Denies: Hx Peritoneal Dialysis GI Medical History: Reports: Hx Gastroesophageal Reflux Disease. Denies: Hx Hepatitis, Hx Hiatal Hernia, Hx Ulcer Musculoskeltal Medical History: Reports Hx Arthritis Psychiatric Medical History: Reports: Hx Depression Infectious Medical History: Denies: Hx Hepatitis Past Surgical History: Reports: Hx Cholecystectomy, Hx Gastric Bypass Surgery - SLEEVE, Hx Genitourinary Surgery - bladder prolapse, Hx Hysterectomy, Hx Orthopedic Surgery - toe, shoulder, elbow, bilat feet. Denies: Hx Mastectomy, Hx Open Heart Surgery, Hx Pacemaker - Immunizations Immunizations up to date: Yes Hx Diphtheria, Pertussis, Tetanus Vaccination: Yes History of Influenza Vaccine for 04/2017 - 09/2017 Season: Yes Physical Exam - Vital signs Vitals: Temp Pulse Resp BP Pulse Ox 98.2 F 80 20 143/77 H 98 02/06/18 10:50 02/06/18 10:50 02/06/18 10:50 02/06/18 10:50 02/06/18 10:50 Course - Vital Signs Vital signs: Temp Pulse Resp BP Pulse Ox 98.2 F 80 20 143/77 H 98 02/06/18 10:50 02/06/18 10:50 02/06/18 10:50 02/06/18 10:50 02/06/18 10:50 Doctor's Discharge - Discharge Referrals: EVANS DUARTE MD [Primary Care Provider] - Follow up as needed
[2018-02-06] MEDS ORDERED: DEXTROSE 50%-WATER 25 GM/50 ML DISP.SYRIN IV ONE ×3 (11:14→12:25)
[2018-02-06] MEDS ORDERED: DEXTROSE 5%-NORMAL SALINE 1,000 ML IV ONE (11:25)
[2018-02-06 11:35] LABS: ABSOLUTE BASOPHILS # (AUTO) 0.1 10^3/uL (0.0-0.2); ABSOLUTE EOSINOPHILS # (AUTO) 0.1 10^3/uL (0.0-0.6); ABSOLUTE LYMPHOCYTES (AUTO) 2.1 10^3/uL (0.5-4.7); ABSOLUTE MONOCYTES (AUTO) 0.2 10^3/uL (0.1-1.4); ABSOLUTE NEUT (AUTO) 3.1 10^3/uL (1.7-8.2); BASOPHILS % (AUTO) 1.1 % (0-2); EOSINOPHILS % (AUTO) 1.1 % (0-6); HEMATOCRIT 38.3 % (36.0-47.0); HEMOGLOBIN 12.4 g/dL (12.0-15.5); LYMPHOCYTES % (AUTO) 37.8 % (13-45); MEAN CORPUSCULAR HEMOGLOBIN 26.1 pg (27.0-33.4); MEAN CORPUSCULAR HGB CONC 32.3 g/dL (32.0-36.0); MEAN CORPUSCULAR VOLUME 81 fl (80-97); MONOCYTES % (AUTO) 4.2 % (3-13); PLATELET COUNT 316 10^3/uL (150-450); RED BLOOD COUNT 4.73 10^6/uL (3.72-5.28); RED CELL DISTRIBUTION WIDTH 14.2 % (11.5-14.0); SEGMENTED NEUTROPHILS % (AUTO) 55.8 % (42-78); TOTAL CELLS COUNTED % (AUTO) 100 %; WHITE BLOOD COUNT 5.6 10^3/uL (4.0-10.5)
[2018-02-06] MEDS ORDERED: ACETAMINOPHEN 325 MG TABLET PO ONE (11:42)
--- NOTE | 2018-02-06 11:46 | ER Document Report ---
ED General - General Chief Complaint: Low Blood Sugar Stated Complaint: BLOOD SUGAR CONCERNS Time Seen by Provider: 02/06/18 11:06 Notes: Patient is here because she mistakenly injected herself with 40 units of her short acting diabetic medication, glulisine, at approximately 10:45 this morning. She checked her blood sugar at that time and it was 160. She is not having any current symptoms at all. Blood sugar here in triage is 78. Patient was given 25 g of glucose IV and an IV of D5 and normal saline was started as patient was being triaged. TRAVEL OUTSIDE OF THE [place] IN LAST 30 DAYS: No - Related Data Allergies/Adverse Reactions: naproxen [Naproxen] Allergy (Severe, Verified 02/06/18 11:25) Facial swelling ropinirole HCl [From Requip] Adverse Reaction (Severe, Verified 02/06/18 11:25) BODY SWELLING Past Medical History - Social History Smoking Status: Unknown if Ever Smoked Family History: Reviewed & Not Pertinent, DM, Hypertension Patient has suicidal ideation: No Patient has homicidal ideation: No - Past Medical History Cardiac Medical History: Reports: Hx Coronary Artery Disease, Hx Hypercholesterolemia, Hx Hypertension - DIET CONTROLLED Neurological Medical History: Reports: Hx Migraine Endocrine Medical History: Reports: Hx Diabetes Mellitus Type 2, Hx Hypothyroidism GI Medical History: Reports: Hx Gastroesophageal Reflux Disease Musculoskeletal Medical History: Reports Hx Arthritis Psychiatric Medical History: Reports: Hx Depression Infectious Medical History: Denies: Hx Hepatitis Past Surgical History: Reports: Hx Cholecystectomy, Hx Gastric Bypass Surgery - SLEEVE, Hx Genitourinary Surgery - bladder prolapse, Hx Hysterectomy, Hx Orthopedic Surgery - toe, shoulder, elbow, bilat feet - Immunizations Immunizations up to date: Yes Hx Diphtheria, Pertussis, Tetanus Vaccination: Yes Hx Pneumococcal Vaccination: 05/24/10 Review of Systems - Review of Systems Notes: REVIEW OF SYSTEMS: CONSTITUTIONAL : Denies fever. EENT: Denies eye, ear, nose or mouth or throat pain or other symptoms. CARDIOVASCULAR: Denies chest pain. RESPIRATORY: Denies cough, chest congestion, or shortness of breath. GASTROINTESTINAL: Denies abdominal pain or nausea, vomiting, or diarrhea. GENITOURINARY: Denies difficulty or painful urinating, urinary frequency, blood in urine. MUSCULOSKELETAL: Denies back or neck pain. Denies joint pain or swelling. SKIN: Denies rash or skin lesions. NEUROLOGICAL: Denies LOC or altered mental status. Has a headache, bitemporal. Typical of her other headaches that she has had in the past. Denies sensory loss or motor deficits. ALL OTHER SYSTEMS REVIEWED AND NEGATIVE. Physical Exam - Vital signs Vitals: Temp Pulse Resp BP Pulse Ox 98.2 F 80 20 143/77 H 98 02/06/18 10:50 02/06/18 10:50 02/06/18 10:50 02/06/18 10:50 02/06/18 10:50 Interpretation: Normal - Vital signs are normal. - Notes Notes: PHYSICAL EXAMINATION: GENERAL: Well-appearing, in no acute distress. HEAD: Atraumatic, normocephalic. EYES: Pupils equal round and reactive to light, extraocular movements intact. ENT: oropharynx clear without exudates. Moist mucous membranes. NECK: Normal range of motion, supple. LUNGS: Breath sounds clear and equal bilaterally. HEART: Regular rate and rhythm without murmurs. ABDOMEN: Soft, nontender. No guarding or rebound. No masses. BACK: No tenderness throughout entire back. EXTREMITIES: Normal range of motion without pain. NEUROLOGICAL: Normal speech, normal gait. Normal sensory, motor, and reflex exams. Awake, alert, and oriented x3. PSYCH: Normal mood, normal affect. SKIN: Warm, dry, no rashes. Course - Re-evaluation Re-evalutation: 02/06/18 15:52 Patient's seems to have stabilized. Her blood sugars have been about in the 80- 100 level, most recent being 102. We have not had to give her any further glucose solutions. She says she feels fine and ready to go. Patient had developed a headache while here. She said it was a massive migraine , but like other headaches she has had many times in the past. She only requested nonnarcotic medication so I gave her some Reglan and Benadryl IV and her headache resolved and she was able to sleep comfortably. - Vital Signs Vital signs: Temp Pulse Resp BP Pulse Ox 98.2 F 80 14 113/72 99 02/06/18 10:50 02/06/18 10:50 02/06/18 15:40 02/06/18 15:40 02/06/18 15:40 - Laboratory Result Diagrams: 02/06/18 11:13 02/06/18 11:13 Laboratory results interpreted by me: 02/06/18 02/06/18 02/06/18 11:13 11:13 11:20 MCH 26.1 L RDW 14.2 H Sodium 148.3 H Chloride 108 H Glucose 71 L POC Glucose 286 H 02/06/18 02/06/18 11:32 12:43 MCH RDW Sodium Chloride Glucose POC Glucose 159 H 126 H Critical Care Note - Critical Care Note Total time excluding time spent on procedures (mins): 60 Discharge - Discharge Clinical Impression: Medication administered in error, Hypoglycemia, Overdose of insulin Condition: Stable Disposition: HOME, SELF-CARE Additional Instructions: Hypoglycemia You have suffered an episode of hypoglycemia (low blood sugar). Typical symptoms of hypoglycemia are shaking, sweating, headache, and confusion. When severe, unconsciousness or seizure may occur. Hypoglycemia occurs when a person taking insulin or diabetes pills has a change in the amount of blood sugar available -- due to exercise, decreased food intake, or alcohol. Should you feel symptoms of hypoglycemia again, immediately take some form of sugar such as sweetened juice. As the reaction subsides, eat a complex carbohydrate such as bread. If possible, check your blood sugar using a chemical strip. If episodes are occurring without obvious explanation, contact your physician for further evaluation. You have experienced an accidental overdose of your insulin. It appears that that insulin has been metabolized in your system has returned to normal at this time. Your blood sugars have been normal for the past hour. Vital signs are all normal. Return for reevaluation if you have any further problems. FOLLOW-UP CARE: If you have been referred to a physician for follow-up care, call the physician s office for an appointment as you were instructed or within the next two days. If you experience worsening or a significant change in your symptoms, notify the physician immediately or return to the Emergency Department at any time for re-evaluation. Referrals: EVANS DUARTE MD [Primary Care Provider] - Follow up as needed
[2018-02-06 12:05] LABS: ALANINE AMINOTRANSFERASE 41 U/L (9-52); ALBUMIN 4.6 g/dL (3.5-5.0); ALKALINE PHOSPHATASE 85 U/L (38-126); ANION GAP 16 (5-19); ASPARTATE AMINO TRANSFERASE 31 U/L (14-36); BILIRUBIN,DIRECT 0.2 mg/dL (0.0-0.4); BILIRUBIN,TOTAL 0.4 mg/dL (0.2-1.3); BLOOD UREA NITROGEN 15 mg/dL (7-20); CALCIUM 9.9 mg/dL (8.4-10.2); CARBON DIOXIDE 24 mmol/L (22-30); CHLORIDE 108 mmol/L (98-107); GLUCOSE 71 mg/dL (75-110); POTASSIUM 4.1 mmol/L (3.6-5.0); SODIUM 148.3 mmol/L (137-145); TOTAL PROTEIN 7.1 g/dL (6.3-8.2)
[2018-02-06] MEDS ORDERED: DIPHENHYDRAMINE HCL 50 MG/ML VIAL IV ONE (12:05)
[2018-02-06] MEDS ORDERED: METOCLOPRAMIDE HCL INJ/PF 10 MG/2 ML SDV IV ONE (12:05)
[2018-02-06 15:43] VITALS: BP 113/72
== END 2018-02-06 15:58 | disposition home or self-care (01) ==
LOC: ER 10:44
DX: T38.3X1A Poisoning by insulin and oral hypoglycemic [antidiabetic] drugs, accidental (unintentional), initial encounter (principal); E11.649 Type 2 diabetes mellitus with hypoglycemia without coma; Z79.4 Long term (current) use of insulin; I25.10 Atherosclerotic heart disease of native coronary artery without angina pectoris; E78.00 Pure hypercholesterolemia, unspecified; I10 Essential (primary) hypertension; E03.9 Hypothyroidism, unspecified; Z90.49 Acquired absence of other specified parts of digestive tract; Z90.710 Acquired absence of both cervix and uterus
CPT/HCPCS: 96376; 99285; 96361; 96374; 96375; 36415; 82962; 85025; 80053; J3490; J1200; J2765

== ENCOUNTER 2018-03-28 05:46 | Emergency (ER) | payer MEDICARE, MEDICAID ==
[2018-03-28] MEDS ORDERED: DEXTROSE 50%-WATER 25 GM/50 ML DISP.SYRIN IV ONE (06:36)
--- NOTE | 2018-03-28 07:24 | ER Document Report ---
ED General - General Chief Complaint: Low Blood Sugar Stated Complaint: POSSIBLE BLOOD SUGAR PROBLEMS Time Seen by Provider: 03/28/18 06:45 Notes: 53-year-old female presents to the ER after accidentally mixing up her insulin. The patient stated her was supposed to have surgery early this morning. Therefore she took her insulin early. She took 50 units of Apidra. This is the fact acting insulin. She was supposed to take Levemir. The patient began to feel woozy. She did this prior to arrival she did not eat a good breakfast. She denies any chest pain or shortness of breath denies extremity numbness tingling or weakness. Denies fever chills cough or sore throat denies abdominal pain. TRAVEL OUTSIDE OF THE [place] IN LAST 30 DAYS: No - Related Data Allergies/Adverse Reactions: naproxen [Naproxen] Allergy (Severe, Verified 02/06/18 11:25) Facial swelling ropinirole HCl [From Requip] Adverse Reaction (Severe, Verified 02/06/18 11:25) BODY SWELLING Past Medical History - Social History Smoking Status: Never Smoker Family History: Reviewed & Not Pertinent, DM, Hypertension Patient has suicidal ideation: No Patient has homicidal ideation: No - Past Medical History Cardiac Medical History: Reports: Hx Coronary Artery Disease, Hx Hypercholesterolemia, Hx Hypertension - DIET CONTROLLED Denies: Hx Heart Attack Pulmonary Medical History: Denies: Hx Asthma, Hx Bronchitis, Hx COPD, Hx Pneumonia Neurological Medical History: Reports: Hx Migraine. Denies: Hx Cerebrovascular Accident, Hx Seizures Endocrine Medical History: Reports: Hx Diabetes Mellitus Type 2, Hx Hypothyroidism Renal/ Medical History: Denies: Hx Peritoneal Dialysis GI Medical History: Reports: Hx Gastroesophageal Reflux Disease. Denies: Hx Hepatitis, Hx Hiatal Hernia, Hx Ulcer Musculoskeletal Medical History: Reports Hx Arthritis Psychiatric Medical History: Reports: Hx Depression Infectious Medical History: Denies: Hx Hepatitis Past Surgical History: Reports: Hx Cholecystectomy, Hx Gastric Bypass Surgery - SLEEVE, Hx Genitourinary Surgery - bladder prolapse, Hx Hysterectomy, Hx Orthopedic Surgery - toe, shoulder, elbow, bilat feet. Denies: Hx Mastectomy, Hx Open Heart Surgery, Hx Pacemaker - Immunizations Immunizations up to date: Yes Hx Diphtheria, Pertussis, Tetanus Vaccination: Yes Hx Pneumococcal Vaccination: 05/24/10 Review of Systems - Review of Systems Constitutional: denies: Chills, Fever EENT: denies: Blurred vision Cardiovascular: denies: Chest pain, Orthopnea, Dyspnea, Edema Respiratory: denies: Cough Gastrointestinal: Nausea. denies: Diarrhea, Vomiting Genitourinary: denies: Burning, Dysuria, Flank pain Female Genitourinary: denies: Vaginal discharge, Vaginal bleeding Musculoskeletal: denies: Back pain Neurological/Psychological: Confusion. denies: Anxiety, Hallucinations, Headaches, Numbness -: Yes All other systems reviewed and negative Physical Exam - Vital signs Vitals: Resp 17 03/28/18 07:00 - Notes Notes: GENERAL_APPEARANCE: well_nourished, alert, cooperative, no_acute_distress, no_ obvious_discomfort. VITALS: reviewed, see vital signs table. HEAD: no_swelling\tenderness on the head. EYES: PERRL, EOMI, conjunctiva_clear. NOSE: no_nasal_discharge. MOUTH: (-)decreased moisture. THROAT: no_throat_inflammation, no_airway_obstruction. no_lymphadenopathy NECK: supple, no_neck_tenderness, (-)thyromegaly. BACK: no_back_tenderness. CHEST_WALL: no_chest_tenderness. LUNGS: no_wheezing, no_rales, no_rhonchi, (-)accessory muscle use, good air exchange bilateral. HEART: normal_rate, normal_rhythm, normal_S1, normal_S2, (-)S3, (-)S4, no_ murmur, no_rub. ABDOMEN: normal_BS, soft, no_abd_tenderness, (-)guarding, (-)rebound, no_ organomegaly, no_abd_masses. EXTREMITIES: good pulses in all_extremities, no_swelling\tenderness in the extremities, no_edema. SKIN: warm, dry, good_color, no_rash. MENTAL_STATUS: speech_clear, oriented_X_3, normal_affect, responds_ appropriately to questions. NEURO: Neg Motor or Sensory Deficits on exam, CN 2-12 intact, DTR 2+ symmetric x 4, No cerbellar signs Course - Re-evaluation Re-evalutation: 03/28/18 07:23 53-year-old female presents to the ER after accidentally taking too much of her fast acting insulin. She was given an amp of D50 here and will be given a meal this morning and monitor. Rechecking some generalized blood work. The patient denied any suicidal intent it was an accident mixup. She has done this in the past on several occasions. She states she got up early was in a hurry and that is what precipitated the error. 03/28/18 09:40 She was observed for a period of time blood sugar went down one other time but we are able to feed her and keep her sugar up she is feeling much better requesting to go home. We cautioned her about carefully taking her insulin as prescribed. - Vital Signs Vital signs: Temp Pulse Resp BP Pulse Ox 20 111/70 03/28/18 08:46 03/28/18 08:46 - Laboratory Result Diagrams: 03/28/18 06:31 03/28/18 06:31 Laboratory results interpreted by me: 03/28/18 03/28/18 03/28/18 06:27 06:31 06:31 Hgb 11.6 L MCV 79 L MCH 25.6 L RDW 14.4 H Glucose 48 L POC Glucose 49 L 03/28/18 03/28/18 03/28/18 06:38 07:09 07:53 Hgb MCV MCH RDW Glucose POC Glucose 68 L 157 H 65 L 03/28/18 08:47 Hgb MCV MCH RDW Glucose POC Glucose 138 H Discharge - Discharge Clinical Impression: Hypoglycemia Overdose of insulin Qualifiers: Encounter type: initial encounter Injury intent: accidental or unintentional Qualified Code(s): T38.3X1A - Poisoning by insulin and oral hypoglycemic [ antidiabetic] drugs, accidental (unintentional), initial encounter Condition: Good Disposition: HOME, SELF-CARE Instructions: Hypoglycemia ([facility]) Referrals: EVANS DUARTE MD [Primary Care Provider] - Follow up as needed
[2018-03-28 08:50] LABS: ABSOLUTE EOSINOPHILS # (AUTO) 0.1 10^3/uL (0.0-0.6); ABSOLUTE LYMPHOCYTES (AUTO) 2.1 10^3/uL (0.5-4.7); ABSOLUTE MONOCYTES (AUTO) 0.3 10^3/uL (0.1-1.4); ABSOLUTE NEUT (AUTO) 3.1 10^3/uL (1.7-8.2); BASOPHILS % (AUTO) 0.8 % (0-2); EOSINOPHILS % (AUTO) 1.5 % (0-6); HEMOGLOBIN 11.6 g/dL (12.0-15.5); LYMPHOCYTES % (AUTO) 37.8 % (13-45); MEAN CORPUSCULAR HEMOGLOBIN 25.6 pg (27.0-33.4); MEAN CORPUSCULAR HGB CONC 32.2 g/dL (32.0-36.0); MEAN CORPUSCULAR VOLUME 79 fl (80-97); MONOCYTES % (AUTO) 5.1 % (3-13); PLATELET COUNT 286 10^3/uL (150-450); RED BLOOD COUNT 4.54 10^6/uL (3.72-5.28); RED CELL DISTRIBUTION WIDTH 14.4 % (11.5-14.0); SEGMENTED NEUTROPHILS % (AUTO) 54.8 % (42-78); TOTAL CELLS COUNTED % (AUTO) 100 %; WHITE BLOOD COUNT 5.6 10^3/uL (4.0-10.5)
[2018-03-28 08:59] LABS: ALANINE AMINOTRANSFERASE 43 U/L (9-52); ALBUMIN 4.2 g/dL (3.5-5.0); ALKALINE PHOSPHATASE 86 U/L (38-126); ANION GAP 10 (5-19); ASPARTATE AMINO TRANSFERASE 27 U/L (14-36); BILIRUBIN,DIRECT 0.3 mg/dL (0.0-0.4); BILIRUBIN,TOTAL 0.4 mg/dL (0.2-1.3); BLOOD UREA NITROGEN 16 mg/dL (7-20); CALCIUM 9.7 mg/dL (8.4-10.2); CARBON DIOXIDE 27 mmol/L (22-30); CHLORIDE 105 mmol/L (98-107); GLUCOSE 48 mg/dL (75-110); POTASSIUM 3.8 mmol/L (3.6-5.0); SODIUM 142.3 mmol/L (137-145)
[2018-03-28 09:50] VITALS: BP 113/62
== END 2018-03-28 09:49 | disposition home or self-care (01) ==
LOC: ER 05:46
DX: T38.3X1A Poisoning by insulin and oral hypoglycemic [antidiabetic] drugs, accidental (unintentional), initial encounter (principal); E11.649 Type 2 diabetes mellitus with hypoglycemia without coma; R11.0 Nausea; R41.0 Disorientation, unspecified; I25.10 Atherosclerotic heart disease of native coronary artery without angina pectoris; I10 Essential (primary) hypertension; Z88.8 Allergy status to other drugs, medicaments and biological substances; Z98.84 Bariatric surgery status
CPT/HCPCS: 99283; 96374; 36415; 82962; 85025; 80053; J3490

== ENCOUNTER 2018-09-17 13:42 | Emergency (ER) | payer MEDICARE, MEDICAID ==
[2018-09-17 13:59] VITALS: BP 116/79
== END 2018-09-17 18:56 | disposition left against medical advice (07) ==
LOC: ER 13:42
DX: Z53.21 Procedure and treatment not carried out due to patient leaving prior to being seen by health care provider (principal); R10.9 Unspecified abdominal pain

== ENCOUNTER → 2018-09-21 | Outpatient (CLI) | payer MEDICARE, MEDICAID ==
--- NOTE | 2018-09-21 09:06 | WOMENS IMAGING REPORT ---
EXAM DESCRIPTION: U/S ABDOMEN TOTAL COMPLETED DATE/TIME: 09/21/2018 8:22 am REASON FOR STUDY: R10.816 EPIGASTRIC ABDOMINAL TENDERNESS R10.816 EPIGASTRIC ABDOMINAL TENDERNESS R 10.812 LEFT UPPER QUADRANT ABDOMINAL TENDERNESS R11.0 NAUSEA COMPARISON: None. TECHNIQUE: Dynamic and static grayscale images acquired of the abdomen and recorded on PACS. Additio nal selected color Doppler and spectral images recorded. Note: Study does not meet criteria for complete doppler/duplex scan LIMITATIONS: None. FINDINGS: PANCREAS: The head of the pancreas is of normal echogenicity. The body and tail are obsc ured by overlying bowel gas. LIVER: Fatty liver. The liver measures 17.2 cm in length, upper limits of normal size. LIVER VASCULATURE: Normal directional flow of the main portal vein and hepatic veins. GALLBLADDER: Prior cholecystectomy. ULTRASOUND-DETECTED LOAIZA'S SIGN: Negative. INTRAHEPATIC DUCTS AND COMMON DUCT: CBD measures 5.3 mm in diameter, normal. The intrahepatic ducts normal caliber. No filling defects. INFERIOR VENA CAVA: Suboptimal visualization due to overlying bowel gas. Normal flow. AORTA: The proximal abdominal aorta is patent. The mid and distal segments are obscured by overlyin g bowel gas. RIGHT KIDNEY: The right kidney measures 12.6 x 5.6 x 6.0 cm, normal size. Normal echogenicity. N o solid or suspicious masses. No hydronephrosis. No calcifications. LEFT KIDNEY: The left kidney measures 12.8 x 5.4 x 5.7 cm, normal size. Normal echogenicity. No solid or suspicious masses. No hydronephrosis. No calcifications. SPLEEN: The spleen measures 10.0 cm in length, normal size. No solid masses. PERITONEAL AND PLEURAL SPACES: No ascites or effusions. OTHER: No other significant finding. IMPRESSION: 1. The pancreatic body and tail, and mid and distal segments of the abdominal aorta are obscured by overlying bowel gas. 2. Fatty liver. 3. Prior cholecystectomy. TECHNICAL DOCUMENTATION: JOB ID: [id number] [employer]- All Rights Reserved Reading location - IP/workstation name: [email or web address]
== END ==
LOC: WI 07:31
PROVIDERS: ATTEND Internal Medicine Gastroenterology
DX: R10.816 Epigastric abdominal tenderness (principal); R10.812 Left upper quadrant abdominal tenderness; R11.0 Nausea
CPT/HCPCS: 76700

== ENCOUNTER 2018-10-11 11:06 | Emergency (ER) | payer MEDICARE, MEDICAID ==
[2018-10-11 11:14] VITALS: BP 111/72
--- NOTE | 2018-10-11 11:33 | ER Document Report ---
ED Neck/Back Problem - General Chief Complaint: Low Back Pain Stated Complaint: BACK PAIN Time Seen by Provider: 10/11/18 11:14 Primary Care Provider: HI CARR MD [Primary Care Provider] - Follow up as needed Mode of Arrival: Ambulatory Notes: 53-year-old female presents to ED for complaint of low back pain times a month. She states that about a couple years ago she fell through a board in her porch pain has been intermittent since then. She states she has been to the doctor and she is on Flexeril meloxicam and lidocaine patches. She denies any loss of control of bowel bladder, any saddle anesthesia, any loss of control or sensation to lower extremities. She denies any numbness and tingling but she does have burning down the right leg. TRAVEL OUTSIDE OF THE [place] IN LAST 30 DAYS: No - HPI Patient complains to provider of: Lower back Onset: Other - Last month intermittent for the last couple years Onset: Gradual Timing: Waxing and waning Quality of pain: Burning, Sharp Severity: Moderate Pain Level: 3 Recent injury: No Associated symptoms: Like prior neck/back pain, Radiation to leg, Lower back pain. denies: Motor loss, Numbness/tingling, Radiation to arm, Radiation to chest, Sensory loss, Sweaty, Unable to urinate, Upper back pain Exacerbated by: Sitting position Relieved by: Nothing Similar symptoms previously: Yes Recently seen / treated by doctor: Yes - Related Data Allergies/Adverse Reactions: naproxen [Naproxen] Allergy (Severe, Verified 02/06/18 11:25) Facial swelling ropinirole HCl [From Requip] Adverse Reaction (Severe, Verified 02/06/18 11:25) BODY SWELLING Past Medical History - General Information source: Patient - Social History Smoking Status: Former Smoker Cigarette use (# per day): No Chew tobacco use (# tins/day): No Smoking Education Provided: No Frequency of alcohol use: None Drug Abuse: None Lives with: Family Family History: Reviewed & Not Pertinent, DM, Hypertension Patient has suicidal ideation: No Patient has homicidal ideation: No - Past Medical History Cardiac Medical History: Reports: Hx Coronary Artery Disease, Hx Hypercholesterolemia, Hx Hypertension - DIET CONTROLLED Pulmonary Medical History: Reports: None EENT Medical History: Reports: None Neurological Medical History: Reports: Hx Migraine Endocrine Medical History: Reports: Hx Diabetes Mellitus Type 2, Hx Hypothyroidism Renal/ Medical History: Reports: None Malignancy Medical History: Reports: None GI Medical History: Reports: Hx Gastroesophageal Reflux Disease Musculoskeletal Medical History: Reports Hx Arthritis Skin Medical History: Reports None Psychiatric Medical History: Reports: Hx Depression Traumatic Medical History: Reports: None Infectious Medical History: Reports: None Past Surgical History: Reports: Hx Cholecystectomy, Hx Gastric Bypass Surgery - SLEEVE, Hx Genitourinary Surgery - bladder prolapse, Hx Hysterectomy, Hx Orthopedic Surgery - toe, shoulder, elbow, bilat feet - Immunizations Immunizations up to date: Yes Hx Diphtheria, Pertussis, Tetanus Vaccination: Yes Hx Pneumococcal Vaccination: 05/24/10 Review of Systems - Review of Systems Constitutional: No symptoms reported EENT: No symptoms reported Cardiovascular: No symptoms reported Respiratory: No symptoms reported Gastrointestinal: No symptoms reported Genitourinary: No symptoms reported Female Genitourinary: No symptoms reported Musculoskeletal: Back pain, Muscle pain Skin: No symptoms reported Hematologic/Lymphatic: No symptoms reported Neurological/Psychological: No symptoms reported -: Yes All other systems reviewed and negative Physical Exam - Vital signs Vitals: Temp Pulse Resp BP Pulse Ox 98.1 F 89 18 111/72 98 10/11/18 11:12 10/11/18 11:12 10/11/18 11:12 10/11/18 11:12 10/11/18 11:12 Interpretation: Normal - General General appearance: Appears well, Alert - HEENT Head: Normocephalic, Atraumatic Eyes: Normal Pupils: PERRL - Respiratory Respiratory status: No respiratory distress Chest status: Nontender Breath sounds: Normal Chest palpation: Normal - Cardiovascular Rhythm: Regular Heart sounds: Normal auscultation Murmur: No - Abdominal Inspection: Normal Distension: No distension Bowel sounds: Normal Tenderness: Nontender Organomegaly: No organomegaly - Back Back: Normal, Tender, Vertebra tenderness. No: Deformity/step-off, CVA tenderness, Scars, Scoliosis, Wounds, Other Notes: No signs or symptoms of cauda equina, no saddle anesthesia, no loss control of bowel bladder, no loss of control lower extremities or loss of sensation to the lower extremities - Extremities General upper extremity: Normal inspection, Nontender, Normal color, Normal ROM, Normal temperature General lower extremity: Normal inspection, Nontender, Normal color, Normal ROM, Normal temperature, Normal weight bearing. No: Farooq's sign - Neurological Neuro grossly intact: Yes Cognition: Normal Orientation: AAOx4 [place] Coma Scale Eye Opening: Spontaneous [place] Coma Scale Verbal: Oriented [place] Coma Scale Motor: Obeys Commands [place] Coma Scale Total: 15 Speech: Normal Motor strength normal: LUE, RUE, LLE, RLE Sensory: Normal - Psychological Associated symptoms: Normal affect, Normal mood - Skin Skin Temperature: Warm Skin Moisture: Dry Skin Color: Normal Course - Re-evaluation Re-evalutation: 10/11/18 11:49 After performing a Medical Screening Examination, I estimate there is LOW risk for EXPANDING OR RUPTURED ABDOMINAL AORTIC ANEURYSM, CAUDA EQUINA SYNDROME, EPIDURAL MASS LESION, or HERNIATED DISK CAUSING SEVERE SPINAL STENOSIS, thus I consider the discharge disposition reasonable. I have reevaluated this patient multiple times and no significant life threatening changes are noted. The patient and I have discussed the diagnosis and risks, and we agree with discharging home and close follow-up. We also discussed returning to the Emergency Department immediately if new or worsening symptoms occur with the understanding that symptoms and presentations can change. We have discussed the symptoms which are most concerning (e.g., saddle anesthesia, urinary or bowel incontinence or retention, changing or worsening pain) that necessitate immediate return. - Vital Signs Vital signs: Temp Pulse Resp BP Pulse Ox 98.1 F 89 18 111/72 98 10/11/18 11:12 10/11/18 11:12 10/11/18 11:12 10/11/18 11:12 10/11/18 11:12 Discharge - Discharge Clinical Impression: Low back pain Qualifiers: Chronicity: acute Back pain laterality: right Sciatica presence: with sciatica Sciatica laterality: sciatica of right side Qualified Code(s): M54.41 - Lumbago with sciatica, right side Condition: Stable Disposition: HOME, SELF-CARE Additional Instructions: LOW BACK PAIN: Three out of every four people will have an episode of disabling back pain during their lifetime. Most commonly the pain is due to straining of the muscles and ligaments in the low back. Usual treatment includes: (1) Rest on a firm surface. Avoid lying on your stomach. (2) Ice pack the painful area. After a few days, gentle heat may be used intermittently to relax the area, or ice packs can be continued. (3) Medication may be needed -- muscle relaxers and antiinflammatory medicines are commonly used. (4) As the back improves, exercises are prescribed to strengthen the back and abdominal muscles. Your doctor will advise you on the proper care for your back at each stage in your recovery. You may be better in a few days -- or healing may take several weeks. If new symptoms of a "herniated disc" (radiation of pain, numbness, or tingling down the back of the leg or weakness in the leg) occur, you should be re-examined. Further testing may be necessary. MUSCLE RELAXERS: Muscle relaxing medications are usually prescribed for acute muscle spasm or injury to the neck and back. They are often combined with antiinflammatory pain medication for increased relief. You may stop the muscle relaxer when the pain and stiffness have improved. Start the medication again if spasms recur. Muscle relaxers may cause drowsiness, especially with the first dose. Do not operate machinery or drive while under the effects of the medication. Most muscle relaxers last up to 24 hours. Do not combine the medication with alcohol. ICE PACKS: Apply ice packs frequently against the painful area. Many different schedules are recommended, such as "20 minutes on, 20 minutes off" or "one hour ice, two hours rest." If you need to work, you may need to go longer between ice treatments. You should plan to have the area ice packed AT LEAST one fourth of the time. The ice should be applied over the wrap, tape, or splint, or over a layer of cloth -- not directly against the skin. Some ice bags have a built-in cloth and can be put directly on the skin. WARM PACKS: After approximately two days, apply gentle heat (such as a heating pad or hot water bottle) for about 20 to 30 minutes about every two hours -- at least four times daily. Warmth and elevation will help you make a more rapid recovery, and will ease the pain considerably. Do not use HOT heat, and never apply heat for longer than 30 minutes. The continuous heat can invisibly damage skin and muscles -- even when no burn is seen on the surface. Damaged muscles can make you MORE sore. Stretching Exercises for the Back The physician has recommended that you begin stretching exercises for your back. These are often used even while the back is painful. However, you should notify the physician if the activities seem to increase your pain. PELVIC TILT: Lie flat on your back with knees bent. Tighten your stomach and buttock muscles so it flattens your lower back against the floor. Hold 10 seconds. Repeat 10 times, twice daily. KNEE RAISE: Lying on the back with knees bent, raise one knee to your chest, then the other. Hold both knees against the chest 10 seconds, then lower one knee at a time. Repeat 10 times, twice daily. PARTIAL TRUNK RAISE: Lie face down, arms at your sides. Keeping your waist on the floor, use your arms raise your chest up. Support yourself on your elbows for 30 seconds. Repeat twice daily, increasing the time to two minutes as you recover. FOLLOW-UP CARE: If you have been referred to a physician for follow-up care, call the physicians office for an appointment as you were instructed or within the next two days. If you experience worsening or a significant change in your symptoms, notify the physician immediately or return to the Emergency Department at any time for re-evaluation. Prescriptions: Methocarbamol [Robaxin 500 mg Tablet] 500 mg PO BIDP PRN #20 tablet PRN Reason: Referrals: HI CARR MD [Primary Care Provider] - Follow up as needed [facility] [Provider Group] - Follow up as needed
== END 2018-10-11 11:35 | disposition home or self-care (01) ==
LOC: ER 11:06
DX: M54.41 Lumbago with sciatica, right side (principal); W19.XXXA Unspecified fall, initial encounter; Z79.899 Other long term (current) drug therapy; Z87.891 Personal history of nicotine dependence; I25.10 Atherosclerotic heart disease of native coronary artery without angina pectoris; E11.9 Type 2 diabetes mellitus without complications; I10 Essential (primary) hypertension
CPT/HCPCS: 99283

== ENCOUNTER 2018-12-06 01:37 | Emergency (ER) | payer MEDICARE, MEDICAID ==
[2018-12-06] MEDS ORDERED: MORPHINE SULFATE 10 MG/ML INJ IM ONE (04:18)
--- NOTE | 2018-12-06 04:21 | ER Document Report ---
ED General - General Chief Complaint: Arm Pain Stated Complaint: LEFT ARM PAIN Time Seen by Provider: 12/06/18 04:12 Primary Care Provider: EVANS DUARTE MD [Primary Care Provider] - Follow up as needed Mode of Arrival: Ambulatory Information source: Patient, FORMERLY [facility], [facility]–1983 Records Notes: 53-year-old female with history of arthritis, hypertension, type 2 diabetes presents with left shoulder pain that started 1 day prior to arrival after performing yard work which included mowing the lawn, reading. Patient describes the pain is starting from her neck and radiating down her left arm. She describes it as a sharp stabbing pain. She states pain is worse with movement. She has tried her muscle relaxer and pain patch without relief. She has had prior similar symptoms. She denies any chest pain, shortness of breath, dizziness, nausea, vomiting, recent fall, recent injury. TRAVEL OUTSIDE OF THE [place] IN LAST 30 DAYS: No - HPI Onset: This morning Onset/Duration: Sudden Quality of pain: Stabbing Severity: Mild Pain Level: 1 Associated symptoms: denies: Chest pain, Nonproductive cough, Productive cough, Fever, Headache, Nausea, Vomiting, Shortness of breath, Weakness Exacerbated by: Movement Relieved by: Denies Similar symptoms previously: Yes Recently seen / treated by doctor: Yes - Related Data Allergies/Adverse Reactions: naproxen [Naproxen] Allergy (Severe, Verified 02/06/18 11:25) Facial swelling ropinirole HCl [From Requip] Adverse Reaction (Severe, Verified 02/06/18 11:25) BODY SWELLING Past Medical History - General Information source: Patient, FORMERLY [facility], [facility]–1983 Records - Social History Smoking Status: Never Smoker Frequency of alcohol use: None Drug Abuse: None Lives with: Family Family History: Reviewed & Not Pertinent, DM, Hypertension Patient has suicidal ideation: No Patient has homicidal ideation: No - Past Medical History Cardiac Medical History: Reports: Hx Coronary Artery Disease, Hx Hypercholesterolemia, Hx Hypertension - DIET CONTROLLED Denies: Hx Heart Attack Pulmonary Medical History: Denies: Hx Asthma, Hx Bronchitis, Hx COPD, Hx Pneumonia Neurological Medical History: Reports: Hx Migraine. Denies: Hx Cerebrovascular Accident, Hx Seizures Endocrine Medical History: Reports: Hx Diabetes Mellitus Type 2, Hx Hypothyroidism Renal/ Medical History: Denies: Hx Peritoneal Dialysis GI Medical History: Reports: Hx Gastroesophageal Reflux Disease. Denies: Hx Hepatitis, Hx Hiatal Hernia, Hx Ulcer Musculoskeletal Medical History: Reports Hx Arthritis Psychiatric Medical History: Reports: Hx Depression Infectious Medical History: Denies: Hx Hepatitis Past Surgical History: Reports: Hx Cholecystectomy, Hx Gastric Bypass Surgery - SLEEVE, Hx Genitourinary Surgery - bladder prolapse, Hx Hysterectomy, Hx Orthopedic Surgery - toe, shoulder, elbow, bilat feet. Denies: Hx Mastectomy, Hx Open Heart Surgery, Hx Pacemaker - Immunizations Immunizations up to date: Yes Hx Diphtheria, Pertussis, Tetanus Vaccination: Yes Hx Pneumococcal Vaccination: 05/24/10 Review of Systems - Review of Systems Notes: REVIEW OF SYSTEMS: CONSTITUTIONAL : Denies fever, chills, or sweats. Denies recent illness. Denies weight loss, recent hospitalizations. EENT: Denies visual changes, eye pain. Denies sore throat, oral lesions, difficulty swallowing. CARDIOVASCULAR: Denies chest pain. Denies palpitations. Denies lower extremity edema. RESPIRATORY: Denies cough. Denies shortness of breath, wheezing. GASTROINTESTINAL: Denies abdominal pain or distention. Denies nausea, vomiting, or diarrhea. Denies blood in vomitus, stools, or per rectum. Denies black, tarry stools. Denies constipation. GENITOURINARY: Denies difficulty urinating, painful urination, frequency, blood in urine, or vaginal discharge. MUSCULOSKELETAL: Denies back + neck pain or stiffness. + joint pain denies swelling. SKIN: Denies rash, lesions or sores. HEMATOLOGIC : Denies easy bruising or bleeding. LYMPHATIC: Denies swollen glands. NEUROLOGICAL: Denies confusion or altered mental status. Denies loss of consciousness. Denies dizziness or lightheadedness. Denies headache. Denies weakness or paralysis. Denies problems difficulty with ambulation, slurred speech. Denies sensory loss, numbness, or tingling. Denies seizures. PSYCHIATRIC: Denies anxiety or stress. Denies depression, suicidal ideation, or homicidal ideation. Denies visual or auditory hallucinations. Physical Exam - Vital signs Vitals: Temp Pulse Resp BP Pulse Ox 98.6 F 98 18 128/84 H 99 12/06/18 01:43 12/06/18 01:43 12/06/18 01:43 12/06/18 01:43 12/06/18 01:43 - Notes Notes: PHYSICAL EXAMINATION: GENERAL: Well-appearing, well-nourished and in no acute distress. HEAD: Atraumatic, normocephalic. EYES: Pupils equal round and reactive to light, extraocular movements intact, conjunctiva are normal. ENT: Nares patent, oropharynx clear without exudates. Moist mucous membranes. NECK: Normal range of motion, supple without lymphadenopathy. Increased muscle tonicity along the left trapezius. No midline tenderness. LUNGS: Breath sounds clear to auscultation bilaterally and equal. No wheezes rales or rhonchi. HEART: Regular rate and rhythm without murmurs ABDOMEN: Soft, nontender, nondistended abdomen. No guarding, no rebound. No masses appreciated. Female : deferred Musculoskeletal: Normal range of motion, no pitting or edema. No cyanosis. NEUROLOGICAL: Mental status; alert and oriented x3. Cranial nerves II through XII intact. Sensation intact to sharp/dull differentiation in all extremities. Motor; normal tone. No abnormal movements appreciated. No pronator drift. Strength tested and 5/5 in bilateral wrist flexion/extension, elbow flexion/extension, shoulder abduction, straight leg raise, knee flexion/extension, ankle dorsiflexion/plantar flexion. Patient ambulates with a steady gait. Coordination; no ataxia. Finger to nose and heel to melgar testing intact bilaterally. Reflexes; brachial radialis, biceps, and patellar reflexes within normal limits and symmetric bilaterally. Babinski with downgoing toes bilaterally. PSYCH: Normal mood, normal affect. SKIN: Warm, Dry, normal turgor, no rashes or lesions noted. Course - Re-evaluation Re-evalutation: 12/06/18 05:22 Shoulder X-Ray 12/06/18 04:17 IMPRESSION: Moderate degenerative change copyright 2011 [employer]- All Rights Reserved Temp Pulse Resp BP Pulse Ox 98.6 F 98 18 128/84 H 99 12/06/18 01:43 12/06/18 01:43 12/06/18 01:43 12/06/18 01:43 12/06/18 01:43 53-year-old female presents with left shoulder pain that started after doing yard work earlier today. Vital signs reviewed and within normal limits. Patient does not appear toxic or dehydrated. She is in no acute distress. X- ray of the left shoulder was obtained and significant for degenerative changes. Patient did receive IM morphine, Zofran. Prescription for Tylenol arthritis was administered. Patient advised to ice the shoulder as needed. Patient was evaluated and treated as appropriate for the patient's presenting symptoms and complaint, with consideration of any critical or life threatening conditions that may be associated with their obtained history and exam as noted above. All results were discussed with patient. Patient provided the opportunity to ask questions, and express concerns. Patient was educated on treatments based on their presumed diagnosis as noted above. At this time we will discharge the patient with return precautions and follow-up recommendations. Verbal discharge instructions given a the bedside. Medication warnings reviewed. Patient is in agreement with this plan and has verbalized understanding of return precautions. After careful consideration I feel that that patient can be safely discharged from the emergency department, they were advised to followup with a primary care physician in 2-3 days. Dictation on this chart was performed using voice recognition software and may result in unintended grammatical, spelling, syntax or errors. - Vital Signs Vital signs: Temp Pulse Resp BP Pulse Ox 98.6 F 98 18 128/84 H 99 12/06/18 01:43 12/06/18 01:43 12/06/18 01:43 12/06/18 01:43 12/06/18 01:43 - Diagnostic Test Radiology reviewed: Image reviewed, Reports reviewed Discharge - Discharge Clinical Impression: Arthritis of shoulder Condition: Good Disposition: HOME, SELF-CARE Instructions: Arthritis ([facility]) Prescriptions: Acetaminophen [Tylenol Arthritis] 650 mg PO Q6H #30 tablet.er Meloxicam [Mobic] 7.5 mg PO DAILY #14 tablet Forms: Elevated Blood Pressure Referrals: EVANS DUARTE MD [Primary Care Provider] - Follow up as needed
[2018-12-06] MEDS ORDERED: ONDANSETRON 4 MG TAB.RAPDIS PO ONE (04:49)
--- NOTE | 2018-12-06 05:02 | RADIOLOGY REPORT (SQ) ---
EXAM DESCRIPTION: XR SHOULDER 2 OR MORE VIEWS COMPLETED DATE/TME: 12/06/2018 04:17 CLINICAL HISTORY: 53 years, Female, pain COMPARISON: None. NUMBER OF VIEWS: 3 TECHNIQUE: 3 view left shoulder LIMITATIONS: None. FINDINGS: Negative for acute fracture or dislocation. Moderate degenerative changes of the acromioclavicular and glenohumeral joints. IMPRESSION: Moderate degenerative change copyright 2010 [employer]- All Rights Reserved
[2018-12-06 05:31] VITALS: BP 134/80
== END 2018-12-06 05:33 | disposition home or self-care (01) ==
LOC: ER 01:37
DX: M19.019 Primary osteoarthritis, unspecified shoulder (principal); M25.512 Pain in left shoulder; M54.2 Cervicalgia; I25.10 Atherosclerotic heart disease of native coronary artery without angina pectoris; I10 Essential (primary) hypertension; E11.9 Type 2 diabetes mellitus without complications; Z98.84 Bariatric surgery status; Z88.8 Allergy status to other drugs, medicaments and biological substances
CPT/HCPCS: 99283; 96372; 73030; A9270; J2270; S0119

== ENCOUNTER 2019-03-02 18:34 | Inpatient (IN) | payer MEDICARE, MEDICAID ==
[2019-03-02] MEDS ORDERED: MORPHINE SULFATE 10 MG/ML INJ IV ONE (18:47)
[2019-03-02] MEDS ORDERED: NORMAL SALINE 1000 ML 1,000 ML IV ONE (18:47)
--- NOTE | 2019-03-02 18:51 | ER Document Report ---
ED Medical Screen (RME) - General Chief Complaint: Abdominal Pain Stated Complaint: ABDOMINAL PAIN Time Seen by Provider: 03/02/19 18:40 Primary Care Provider: EVANS DUARTE MD [Primary Care Provider] - Follow up as needed Notes: Patient is a 54-year-old female with a history of pancreatitis, gastric sleeve, and cholecystectomy who presents to the emergency department with abdominal pain. She states that she was just recently admitted for pancreatitis last week. She states that her pain this time started yesterday and it is in her mid upper abdomen. She states that she has been staying well-hydrated. Exam: Tender mid upper abdomen. Exam limited due to patient in sitting position. I have greeted and performed a rapid initial assessment of this patient. A comprehensive ED assessment and evaluation of the patient, analysis of test results and completion of medical decision making process will be conducted by an additional ED providers. TRAVEL OUTSIDE OF THE [place] IN LAST 30 DAYS: No - Related Data Allergies/Adverse Reactions: naproxen [Naproxen] Allergy (Severe, Verified 03/02/19 18:36) Facial swelling liraglutide [From Victoza] Allergy (Verified 03/02/19 18:36) sitagliptin [From Januvia] Allergy (Verified 03/02/19 18:36) ropinirole HCl [From Requip] Adverse Reaction (Severe, Verified 03/02/19 18:36) BODY SWELLING Past Medical History - Social History Frequency of alcohol use: None Drug Abuse: None - Past Medical History Cardiac Medical History: Reports: Hx Coronary Artery Disease, Hx Hypercholesterolemia, Hx Hypertension - DIET CONTROLLED Denies: Hx Heart Attack Pulmonary Medical History: Denies: Hx Asthma, Hx Bronchitis, Hx COPD, Hx Pneumonia Neurological Medical History: Reports: Hx Migraine. Denies: Hx Cerebrovascular Accident, Hx Seizures Endocrine Medical History: Reports: Hx Diabetes Mellitus Type 2, Hx Hypothyroidism Renal/ Medical History: Denies: Hx Peritoneal Dialysis GI Medical History: Reports: Hx Gastroesophageal Reflux Disease. Denies: Hx Hepatitis, Hx Hiatal Hernia, Hx Ulcer Musculoskeltal Medical History: Reports Hx Arthritis Psychiatric Medical History: Reports: Hx Depression Infectious Medical History: Denies: Hx Hepatitis Past Surgical History: Reports: Hx Cholecystectomy, Hx Gastric Bypass Surgery - SLEEVE, Hx Genitourinary Surgery - bladder prolapse, Hx Hysterectomy, Hx Orthopedic Surgery - toe, shoulder, elbow, bilat feet. Denies: Hx Mastectomy, Hx Open Heart Surgery, Hx Pacemaker - Immunizations Immunizations up to date: Yes Hx Diphtheria, Pertussis, Tetanus Vaccination: Yes History of Influenza Vaccine for 04/2017 - 09/2017 Season: Yes Doctor's Discharge - Discharge Referrals: EVANS DUARTE MD [Primary Care Provider] - Follow up as needed
--- NOTE | 2019-03-02 19:38 | ER Document Report ---
Entered by TREMAINE ODONNELL SCRIBE 03/02/19 1908 Acting as scribe for:STACIA LIANG MD ED GI/ - General Chief Complaint: Abdominal Pain Stated Complaint: ABDOMINAL PAIN Time Seen by Provider: 03/02/19 18:40 Primary Care Provider: EVANS DUARTE MD [Primary Care Provider] - Follow up as needed Mode of Arrival: Ambulatory Information source: Patient Notes: Patient is a 54-year-old female with pancreatitis that presents to the emergency department today with complaints of upper abdominal pain since yesterday. Patient states she last had a flare of pancreatitis on the 19 of February. Patient states she does not drink alcohol and they have been unable to tell her why she continues to have pancreatitis flares. Patient denies any nausea or vomiting. TRAVEL OUTSIDE OF THE [place] IN LAST 30 DAYS: No - Related Data Allergies/Adverse Reactions: naproxen [Naproxen] Allergy (Severe, Verified 03/02/19 18:36) Facial swelling liraglutide [From Victoza] Allergy (Verified 03/02/19 18:36) sitagliptin [From Januvia] Allergy (Verified 03/02/19 18:36) ropinirole HCl [From Requip] Adverse Reaction (Severe, Verified 03/02/19 18:36) BODY SWELLING Past Medical History - General Information source: Patient - Social History Smoking Status: Former Smoker Cigarette use (# per day): No Frequency of alcohol use: None Drug Abuse: Marijuana Lives with: Family Family History: Reviewed & Not Pertinent, DM, Hypertension Patient has suicidal ideation: No Patient has homicidal ideation: No - Past Medical History Cardiac Medical History: Reports: Hx Coronary Artery Disease, Hx Hypercholesterolemia, Hx Hypertension - DIET CONTROLLED Neurological Medical History: Reports: Hx Migraine Endocrine Medical History: Reports: Hx Diabetes Mellitus Type 2, Hx Hypothyroidism GI Medical History: Reports: Hx Gastroesophageal Reflux Disease, Hx Pancreatitis Musculoskeletal Medical History: Reports Hx Arthritis Psychiatric Medical History: Reports: Hx Depression Past Surgical History: Reports: Hx Cholecystectomy, Hx Genitourinary Surgery - bladder prolapse, Hx Hysterectomy, Hx Orthopedic Surgery - toe, shoulder, elbow, bilat feet, Other - Gastric Sleeve - Immunizations Immunizations up to date: Yes Hx Diphtheria, Pertussis, Tetanus Vaccination: Yes Hx Pneumococcal Vaccination: 05/24/10 Review of Systems - Review of Systems Constitutional: No symptoms reported EENT: No symptoms reported Cardiovascular: No symptoms reported Respiratory: No symptoms reported Gastrointestinal: See HPI, Abdominal pain. denies: Nausea, Vomiting Genitourinary: No symptoms reported Female Genitourinary: No symptoms reported Musculoskeletal: No symptoms reported Skin: No symptoms reported Hematologic/Lymphatic: No symptoms reported Neurological/Psychological: No symptoms reported -: Yes All other systems reviewed and negative Physical Exam - Notes Notes: Physical Exam: General: Alert, appears well. HEENT: Normocephalic. Atraumatic. PERRL. Extraocular movements intact. Oropharynx clear. Neck: Supple. Non-tender. Respiratory: No respiratory distress. Clear and equal breath sounds bilaterally. Cardiovascular: Regular rate and rhythm. Abdominal: Epigastric tenderness with palpation. No distension. Normal Bowel Sounds. Back: Non-tender. No deformity or step off. Extremities: Moves all four extremities. Upper extremities: Normal inspection. Normal ROM. Lower extremities: Normal inspection. No edema. Normal ROM. Neurological: Normal cognition. AAOx4. Normal speech. Psychological: Normal affect. Normal Mood. Skin: Warm. Dry. Normal color. Course - Laboratory Result Diagrams: 03/02/19 19:45 03/02/19 19:45 Laboratory results interpreted by me: 03/02/19 03/02/19 03/02/19 19:45 19:45 20:30 Hgb 11.6 L Hct 35.7 L MCV 78 L MCH 25.4 L Glucose 211 H Magnesium 1.3 L Total Protein 5.8 L Triglycerides 246 H Lipase 1301.5 H Urine Glucose (UA) >=500 H Ur Leukocyte Esterase TRACE H - Consults Dr. Llanos Consulted provider: will see as inpatient Discharge - Discharge Clinical Impression: Acute pancreatitis Qualifiers: Pancreatitis type: unspecified pancreatitis type Acute pancreatitis complication: no infection or necrosis Qualified Code(s): K85.90 - Acute pancreatitis without necrosis or infection, unspecified Condition: Stable Disposition: ADMITTED INPATIENT Admitting Provider: Ainsley Llanos covering Unit Admitted: [facility] Referrals: EVANS DUARTE MD [Primary Care Provider] - Follow up as needed Scribe Attestation: 03/02/19 19:39 I personally performed the services described in the documentation, reviewed and edited the documentation which was dictated to the scribe in my presence, and it accurately records my words and actions. I personally performed the services described in the documentation, reviewed and edited the documentation which was dictated to the scribe in my presence, and it accurately records my words and actions.
[2019-03-02 20:12] LABS: ABSOLUTE BASOPHILS # (AUTO) 0.1 10^3/uL (0.0-0.2); ABSOLUTE EOSINOPHILS # (AUTO) 0.1 10^3/uL (0.0-0.6); ABSOLUTE LYMPHOCYTES (AUTO) 2.7 10^3/uL (0.5-4.7); ABSOLUTE MONOCYTES (AUTO) 0.4 10^3/uL (0.1-1.4); ABSOLUTE NEUT (AUTO) 4.1 10^3/uL (1.7-8.2); BASOPHILS % (AUTO) 0.8 % (0-2); EOSINOPHILS % (AUTO) 1.4 % (0-6); HEMATOCRIT 35.7 % (36.0-47.0); HEMOGLOBIN 11.6 g/dL (12.0-15.5); LYMPHOCYTES % (AUTO) 36.9 % (13-45); MEAN CORPUSCULAR HEMOGLOBIN 25.4 pg (27.0-33.4); MEAN CORPUSCULAR HGB CONC 32.4 g/dL (32.0-36.0); MEAN CORPUSCULAR VOLUME 78 fl (80-97); MONOCYTES % (AUTO) 4.9 % (3-13); PLATELET COUNT 293 10^3/uL (150-450); RED BLOOD COUNT 4.56 10^6/uL (3.72-5.28); RED CELL DISTRIBUTION WIDTH 13.6 % (11.5-14.0); TOTAL CELLS COUNTED % (AUTO) 100 %; WHITE BLOOD COUNT 7.4 10^3/uL (4.0-10.5)
[2019-03-02] MEDS ORDERED: HYDROMORPHONE HCL INJ/PF 2 MG/ML AMPULE IV ONE (20:22)
[2019-03-02] MEDS ORDERED: DIPHENHYDRAMINE HCL 50 MG/ML VIAL IV ONE (20:22)
[2019-03-02 20:33] LABS: ALKALINE PHOSPHATASE 98 U/L (38-126); ANION GAP 12 (5-19); ASPARTATE AMINO TRANSFERASE 33 U/L (14-36); BILIRUBIN,DIRECT 0.2 mg/dL (0.0-0.4); BILIRUBIN,TOTAL 0.2 mg/dL (0.2-1.3); BLOOD UREA NITROGEN 13 mg/dL (7-20); CALCIUM 8.7 mg/dL (8.4-10.2); CARBON DIOXIDE 24 mmol/L (22-30); CHLORIDE 101 mmol/L (98-107); GLUCOSE 211 mg/dL (75-110); POTASSIUM 4.1 mmol/L (3.6-5.0); TOTAL PROTEIN 5.8 g/dL (6.3-8.2); TRIGLYCERIDES 246 mg/dL (<150)
[2019-03-02 20:43] LABS: APPEARANCE,URINE CLEAR; BILIRUBIN,URINE NEGATIVE (NEGATIVE); COLOR,URINE STRAW; GLUCOSE, URINE >=500 mg/dL (NEGATIVE); KETONES,URINE NEGATIVE (NEGATIVE); LEUKOCYTE ESTERASE,URINE TRACE (NEGATIVE); NITRITE,URINE NEGATIVE (NEGATIVE); PROTEIN,URINE NEGATIVE (NEGATIVE); URINE SPECIFIC GRAVITY 1.021; UROBILINOGEN,URINE NEGATIVE mg/dL (<2.0)
[2019-03-02] MEDS ORDERED: CEFEPIME 1 GM/D5W RTU 1 GM/50 ML RTUPB IV ONE (20:46)
[2019-03-02] MEDS ORDERED: ACETAMINOPHEN 325 MG TABLET PO PRN (21:17)
[2019-03-02] MEDS ORDERED: DEXTROSE 50%-WATER 25 GM/50 ML DISP.SYRIN IV PRN ×4 (21:17→21:26)
[2019-03-02] MEDS ORDERED: GLUCAGON,HUMAN RECOMB 1 MG INJ SUBCUT PRN (21:17)
[2019-03-02] MEDS ORDERED: DEXTROSE 40% GEL 15 GM TUBE PO PRN ×4 (21:17→21:26)
[2019-03-02] MEDS ORDERED: ONDANSETRON HCL INJ/PF 4 MG/2 ML SDV IV PRN (21:17)
[2019-03-02] MEDS ORDERED: GLUCAGON,HUMAN RECOMB 1 MG INJ IM PRN (21:26)
[2019-03-02] MEDS: HYDROMORPHONE HCL INJ/PF 2 MG/ML AMPULE IV PRN (22:16)
[2019-03-02] MEDS: DIPHENHYDRAMINE HCL 50 MG/ML VIAL IV PRN (22:24)
[2019-03-03] MEDS: INSULIN LISPRO 100 UNIT/ML 3 ML VIAL SUBCUT SCH ×5 (00:04→23:38)
[2019-03-03] MEDS: PANTOPRAZOLE SODIUM 40 MG VIAL IV SCH ×3 (00:05→21:00)
[2019-03-03] MEDS: NORMAL SALINE 1000 ML 1,000 ML IV PRN ×3 (00:10→18:08)
[2019-03-03] MEDS: HYDROMORPHONE HCL INJ/PF 2 MG/ML AMPULE IV PRN ×5 (03:14→22:26)
--- NOTE | 2019-03-03 03:15 | PDOC H&P ---
History of Present Illness Admission Date/PCP: 03/02/19 21:00 EVANS DUARTE Patient complains of: Abdominal pain History of Present Illness: LUIS ANGEL DIOR is a 54 year old female This is a 54-year-old female patient of Dr. Duarte presented emergency depart ment with abdominal pain and back pain and worsening the morning Also complains of nausea and vomiting known case of the pancreatitis recently admitted in the hospitals Denied any alcohol in the substance drug abuse Patient had a gallbladder removed and patient was recently a CT scan of the abdomen and pelvis was done last week was all stable Patient's white count is also normal and patient is afebrile When I examined the patient's pretty much normal looking with the abdomen exam very soft not even that much tender The patient interestingly asking the pain medications every 4 hours and taking the Dilaudid and also asking the Benadryl with the Dilaudid which only thing that works other pain medications does not work The patient's pancreatitis with unclear etiology according to the patient she was taking the Januvia in the past but I do not think so current is taking patient's any medications that caused the pancreatitis There is denied any history of any MRI done in the past Is denied any chest pain to than any shortness of the breath Past Medical History Cardiac Medical History: Reports: Coronary Artery Disease, Hyperlipidema, Hypertension - DIET CONTROLLED Denies: Myocardial Infarction Pulmonary Medical History: Denies: Asthma, Bronchitis, Chronic Obstructive Pulmonary Disease (COPD), Pneumonia Neurological Medical History: Reports: Migraine Denies: Seizures Endocrine Medical History: Reports: Diabetes Mellitus Type 2, Hypothyroidism GI Medical History: Reports: Gastroesophageal Reflux Disease Denies: Hepatitis, Hiatal Hernia Musculoskeltal Medical History: Reports: Arthritis Psychiatric Medical History: Reports: Depression Hematology: Reports: Anemia - ON IRON PILLS Denies: Sickle Cell Disease Past Surgical History Past Surgical History: Reports: Cholecystectomy, Gastric Bypass Surgery - SLEEVE, Hysterectomy, Orthopedic Surgery - toe, shoulder, elbow, bilat feet, Other - Gastric Sleeve Denies: Amputation, Mastectomy, Pacemaker Social History Information Source: Patient Lives with: Family Smoking Status: Former Smoker Number of Years Smokin Last Time Smoked: quit 8 yrs ago Frequency of Alcohol Use: None Hx Recreational Drug Use: Yes Drugs: Marijuana Hx Prescription Drug Abuse: No Family History Family History: Reviewed & Not Pertinent, DM, Hypertension Parental Family History Reviewed: Yes Children Family History Reviewed: Yes Sibling(s) Family History Reviewed.: Yes Medication/Allergy Home Medications: Cyanocobalamin (Vitamin B-12) [Vitamin B-12] 5,000 mcg PO DAILY 02/19/19 Dapagliflozin Propanediol [Farxiga] 10 mg PO DAILY 02/19/19 Escitalopram Oxalate [Lexapro] 20 mg PO DAILY 02/19/19 Esomeprazole Magnesium 40 mg PO DAILY 02/19/19 Fluticasone Propionate [Flonase Nasal [place] 50 Mcg/Dixie 16 gm] 2 spray NASL DAILY 02/19/19 Folic Acid [Folvite 1 mg Tablet] 1 mg PO DAILY 02/19/19 Insulin Detemir [Levemir] 40 mg SQ BID 02/19/19 Ipratropium [place] [Atrovent 0.06% Nasal [place]] 2 spray NASL TID 02/19/19 Levocetirizine Dihydrochloride [Xyzal] 5 mg PO DAILY 02/19/19 Levothyroxine Sodium [Synthroid 0.05 mg Tablet] 0.05 mg PO Q6AM 02/19/19 Metformin HCl [Glucophage] 1,000 mg PO BID 02/19/19 Montelukast Sodium [Singulair 10 mg Tablet] 10 mg PO DAILY 02/19/19 Multivitamin [Tab-A-Luis Felipe (Multiple Vitamin) Tablet] 1 tab PO DAILY 02/19/19 Plecanatide [Trulance] 3 mg PO DAILY 02/19/19 Pramipexole Di-HCl [Mirapex 0.5 mg Tablet] 0.5 mg PO QHS 02/19/19 Ramipril [Altace 2.5 mg Capsule] 2.5 mg PO DAILY 02/19/19 Rosuvastatin Calcium [Crestor] 10 mg PO DAILY 02/19/19 Trazodone HCl [Desyrel] 100 mg PO DAILY 02/19/19 Vitamin E [Natural Vitamin E] 400 unit PO DAILY 02/19/19 Oxycodone HCl/Acetaminophen [Percocet 5-325 mg Tablet] 1 tab PO Q4HP PRN #25 tab 02/22/19 Allergies/Adverse Reactions: naproxen [Naproxen] Allergy (Severe, Verified 03/02/19 18:36) Facial swelling liraglutide [From Victoza] Allergy (Verified 03/02/19 18:36) sitagliptin [From Januvia] Allergy (Verified 03/02/19 18:36) ropinirole HCl [From Requip] Adverse Reaction (Severe, Verified 03/02/19 18:36) BODY SWELLING Review of Systems Constitutional: ABSENT: chills, fever(s), headache(s), weight gain, weight loss Eyes: ABSENT: visual disturbances Ears: ABSENT: hearing changes Cardiovascular: ABSENT: chest pain, dyspnea on exertion, edema, orthropnea, palpitations Respiratory: ABSENT: cough, hemoptysis Gastrointestinal: PRESENT: abdominal pain, nausea, vomiting. ABSENT: constipation, diarrhea, hematemesis, hematochezia Genitourinary: ABSENT: dysuria, hematuria Musculoskeletal: ABSENT: joint swelling Integumentary: ABSENT: rash, wounds Neurological: ABSENT: abnormal gait, abnormal speech, confusion, dizziness, focal weakness, syncope Psychiatric: ABSENT: anxiety, depression, homidical ideation, suicidal ideation Endocrine: ABSENT: cold intolerance, heat intolerance, menstrual abnormalities, polydipsia, polyuria Hematologic/Lymphatic: ABSENT: easy bleeding, easy bruising, lymphadenopathy Physical Exam Vital Signs: Temp Pulse Resp BP Pulse Ox 98.3 F 77 18 113/73 99 03/02/19 23:54 03/02/19 23:55 03/02/19 23:54 03/02/19 23:54 03/02/19 23:54 Intake & Output 03/01/19 03/02/19 03/03/19 06:59 06:59 06:59 Intake Total 1000 Balance 1000 Weight 85.6 kg General appearance: PRESENT: no acute distress, well-developed, well-nourished Head exam: PRESENT: atraumatic, normocephalic Eye exam: PRESENT: conjunctiva pink, EOMI, PERRLA. ABSENT: scleral icterus Ear exam: PRESENT: normal external ear exam Mouth exam: PRESENT: moist, tongue midline Neck exam: PRESENT: full ROM. ABSENT: carotid bruit, JVD, lymphadenopathy, thyromegaly Respiratory exam: PRESENT: clear to auscultation manuel Cardiovascular exam: PRESENT: RRR. ABSENT: diastolic murmur, rubs, systolic murmur Pulses: PRESENT: normal dorsalis pedis pul, +2 pedal pulses bilateral Vascular exam: PRESENT: normal capillary refill GI/Abdominal exam: PRESENT: normal bowel sounds, soft. ABSENT: distended, guarding, mass, organolmegaly, rebound, tenderness Rectal exam: PRESENT: deferred Extremities exam: ABSENT: pedal edema Neurological exam: PRESENT: alert, awake, oriented to person, oriented to place, oriented to time, oriented to situation, CN II-XII grossly intact. ABSENT: motor sensory deficit Psychiatric exam: PRESENT: appropriate affect, normal mood. ABSENT: homicidal ideation, suicidal ideation Skin exam: PRESENT: dry, intact, warm. ABSENT: cyanosis, rash Results Laboratory Results: 03/02/19 19:45 03/02/19 19:45 03/02/19 03/02/19 03/02/19 19:45 19:45 20:30 WBC 7.4 RBC 4.56 Hgb 11.6 L Hct 35.7 L MCV 78 L MCH 25.4 L MCHC 32.4 RDW 13.6 Plt Count 293 Seg Neutrophils % 56.0 Lymphocytes % 36.9 Monocytes % 4.9 Eosinophils % 1.4 Basophils % 0.8 Absolute Neutrophils 4.1 Absolute Lymphocytes 2.7 Absolute Monocytes 0.4 Absolute Eosinophils 0.1 Absolute Basophils 0.1 Sodium 137.0 Potassium 4.1 Chloride 101 Carbon Dioxide 24 Anion Gap 12 BUN 13 Creatinine 0.65 Est GFR ( Amer) > 60 Est GFR (Non-Af Amer) > 60 Glucose 211 H Calcium 8.7 Magnesium 1.3 L Total Bilirubin 0.2 AST 33 Alkaline Phosphatase 98 Total Protein 5.8 L Albumin 4.0 Triglycerides 246 H Lipase 1301.5 H Urine Color STRAW Urine Appearance CLEAR Urine pH 5.0 Ur Specific [place] 1.021 Urine Protein NEGATIVE Urine Glucose (UA) >=500 H Urine Ketones NEGATIVE Urine Blood NEGATIVE Urine Nitrite NEGATIVE Ur Leukocyte Esterase TRACE H Urine WBC (Auto) 4 Urine RBC (Auto) 1 Assessment & Plan - Diagnosis (1) Acute pancreatitis Qualifiers: Pancreatitis type: unspecified pancreatitis type Acute pancreatitis complication: no infection or necrosis Qualified Code(s): K85.90 - Acute pancreatitis without necrosis or infection, unspecified Is this a current diagnosis for this admission?: Yes Plan: With this recurrent episodes not sure will review the patient's medications one the put in the systems consider MRI of the abdomen pelvis Keep n.p.o. continues to IV fluid (2) Diabetes mellitus type 2 in obese Is this a current diagnosis for this admission?: Yes Plan: Continues to sliding scale (3) HTN (hypertension) Qualifiers: Hypertension type: essential hypertension Is this a current diagnosis for this admission?: Yes (4) GERD (gastroesophageal reflux disease) Qualifiers: Is this a current diagnosis for this admission?: Yes - Time Time Spent: 30 to 50 Minutes Medications reviewed and adjusted accordingly: Yes Anticipated discharge: Home Within: Other - Inpatient Certification Based on my medical assessment, after consideration of the patient's comorbidities, presenting symptoms, or acuity I expect that the services needed warrant INPATIENT care.: Yes I certify that my determination is in accordance with my understanding of Medicare's requirements for reasonable and necessary INPATIENT services [42 CFR 412.3e].: Yes Medical Necessity: Significant Comorbidiites Make Outpatient Treatment Too Risky, Need For IV Fluids, Need for IV Antibiotics Post Hospital Care: D/C Chief Clerk Documentation - Plan Summary Plan Summary: See MD orders
[2019-03-03] MEDS: DIPHENHYDRAMINE HCL 50 MG/ML VIAL IV PRN ×4 (04:41→23:37)
[2019-03-03 06:36] LABS: ABSOLUTE EOSINOPHILS # (AUTO) 0.1 10^3/uL (0.0-0.6); ABSOLUTE MONOCYTES (AUTO) 0.3 10^3/uL (0.1-1.4); ABSOLUTE NEUT (AUTO) 2.3 10^3/uL (1.7-8.2); BASOPHILS % (AUTO) 0.9 % (0-2); HEMATOCRIT 33.7 % (36.0-47.0); HEMOGLOBIN 11.1 g/dL (12.0-15.5); LYMPHOCYTES % (AUTO) 42.6 % (13-45); MEAN CORPUSCULAR HEMOGLOBIN 25.9 pg (27.0-33.4); MEAN CORPUSCULAR VOLUME 78 fl (80-97); MONOCYTES % (AUTO) 5.9 % (3-13); PLATELET COUNT 253 10^3/uL (150-450); RED BLOOD COUNT 4.31 10^6/uL (3.72-5.28); RED CELL DISTRIBUTION WIDTH 13.6 % (11.5-14.0); SEGMENTED NEUTROPHILS % (AUTO) 48.6 % (42-78); TOTAL CELLS COUNTED % (AUTO) 100 %; WHITE BLOOD COUNT 4.7 10^3/uL (4.0-10.5)
[2019-03-03 07:05] LABS: ALBUMIN 3.4 g/dL (3.5-5.0); ALKALINE PHOSPHATASE 82 U/L (38-126); ANION GAP 6 (5-19); ASPARTATE AMINO TRANSFERASE 27 U/L (14-36); BILIRUBIN,DIRECT 0.1 mg/dL (0.0-0.4); BILIRUBIN,TOTAL 0.2 mg/dL (0.2-1.3); BLOOD UREA NITROGEN 9 mg/dL (7-20); CALCIUM 8.1 mg/dL (8.4-10.2); CARBON DIOXIDE 29 mmol/L (22-30); CHLORIDE 106 mmol/L (98-107); GLUCOSE 99 mg/dL (75-110); POTASSIUM 4.1 mmol/L (3.6-5.0); TOTAL PROTEIN 5.3 g/dL (6.3-8.2)
[2019-03-03] MEDS: CEFEPIME 1 GM/D5W RTU 1 GM/50 ML RTUPB IV SCH ×2 (10:42→21:00)
[2019-03-03] MEDS: ENOXAPARIN SODIUM INJ 40 MG/0.4 ML DISP.SYRIN SUBCUT SCH (10:47)
[2019-03-04] MEDS: HYDROMORPHONE HCL INJ/PF 2 MG/ML AMPULE IV PRN ×4 (03:08→20:40)
[2019-03-04 04:12] LABS: ABSOLUTE BASOPHILS # (AUTO) 0.1 10^3/uL (0.0-0.2); ABSOLUTE EOSINOPHILS # (AUTO) 0.1 10^3/uL (0.0-0.6); ABSOLUTE LYMPHOCYTES (AUTO) 1.9 10^3/uL (0.5-4.7); ABSOLUTE MONOCYTES (AUTO) 0.3 10^3/uL (0.1-1.4); ABSOLUTE NEUT (AUTO) 2.3 10^3/uL (1.7-8.2); BASOPHILS % (AUTO) 1.4 % (0-2); EOSINOPHILS % (AUTO) 1.7 % (0-6); HEMATOCRIT 33.7 % (36.0-47.0); LYMPHOCYTES % (AUTO) 41.5 % (13-45); MEAN CORPUSCULAR HEMOGLOBIN 25.5 pg (27.0-33.4); MEAN CORPUSCULAR HGB CONC 32.6 g/dL (32.0-36.0); MEAN CORPUSCULAR VOLUME 78 fl (80-97); PLATELET COUNT 258 10^3/uL (150-450); RED CELL DISTRIBUTION WIDTH 13.9 % (11.5-14.0); SEGMENTED NEUTROPHILS % (AUTO) 49.4 % (42-78); TOTAL CELLS COUNTED % (AUTO) 100 %; WHITE BLOOD COUNT 4.6 10^3/uL (4.0-10.5)
[2019-03-04] MEDS: NORMAL SALINE 1000 ML 1,000 ML IV PRN ×2 (06:02→19:03)
[2019-03-04] MEDS: INSULIN LISPRO 100 UNIT/ML 3 ML VIAL SUBCUT SCH ×3 (06:07→19:43)
[2019-03-04] MEDS: DIPHENHYDRAMINE HCL 50 MG/ML VIAL IV PRN ×2 (08:52→20:40)
[2019-03-04] MEDS: ENOXAPARIN SODIUM INJ 40 MG/0.4 ML DISP.SYRIN SUBCUT SCH (11:49)
[2019-03-04] MEDS: PANTOPRAZOLE SODIUM 40 MG VIAL IV SCH ×2 (12:29→21:55)
[2019-03-04] MEDS: CEFEPIME 1 GM/D5W RTU 1 GM/50 ML RTUPB IV SCH ×2 (12:29→21:55)
--- NOTE | 2019-03-04 19:21 | PDOC PROGRESS REPORT ---
Subjective Progress Note for:: 03/04/19 Subjective:: Patient reported persistent mid back pain with some improvement on her current pain management regimen. No nausea or vomiting. Remain NPO. No chest pain or difficulty with breathing. Reason For Visit: ACUTE PANCREATITIS Physical Exam Vital Signs: Temp Pulse Resp BP Pulse Ox 97.7 F 72 18 118/64 93 03/03/19 23:31 03/04/19 02:00 03/03/19 23:31 03/03/19 23:31 03/03/19 23:31 Intake & Output 03/03/19 03/04/19 03/05/19 06:59 06:59 06:59 Intake Total 1000 2848 Output Total 500 300 Balance 500 2548 Weight 86.7 kg 89.3 kg General appearance: PRESENT: no acute distress, obese Head exam: PRESENT: atraumatic, normocephalic Eye exam: PRESENT: conjunctiva pink. ABSENT: scleral icterus Ear exam: PRESENT: normal external ear exam Mouth exam: PRESENT: dry mucosa - due to NPO status. allowed ice chips for mo isturing effort. Respiratory exam: PRESENT: clear to auscultation manuel Cardiovascular exam: PRESENT: RRR. ABSENT: diastolic murmur, rubs, systolic [place] Vascular exam: ABSENT: pallor GI/Abdominal exam: PRESENT: normal bowel sounds, tenderness - nonspecific to deep palpation LUQ and epigastric regions.. ABSENT: ascites, guarding, mass, rebound Extremities exam: ABSENT: pedal edema Musculoskeletal exam: PRESENT: ambulatory Neurological exam: PRESENT: alert, awake, oriented to person, oriented to place, oriented to time, oriented to situation, CN II-XII grossly intact. ABSENT: motor sensory deficit Psychiatric exam: PRESENT: appropriate affect, normal mood. ABSENT: homicidal ideation, suicidal ideation Skin exam: PRESENT: dry, warm Results Laboratory Results: 03/04/19 03:17 03/03/19 06:08 03/04/19 03/04/19 03:17 03:17 WBC 4.6 RBC 4.30 Hgb 11.0 L Hct 33.7 L MCV 78 L MCH 25.5 L MCHC 32.6 RDW 13.9 Plt Count 258 Seg Neutrophils % 49.4 Lymphocytes % 41.5 Monocytes % 6.0 Eosinophils % 1.7 Basophils % 1.4 Absolute Neutrophils 2.3 Absolute Lymphocytes 1.9 Absolute Monocytes 0.3 Absolute Eosinophils 0.1 Absolute Basophils 0.1 Magnesium 1.3 L Lipase 581.3 H Assessment & Plan - Diagnosis (1) Acute pancreatitis Qualifiers: Pancreatitis type: unspecified pancreatitis type Acute pancreatitis complication: no infection or necrosis Qualified Code(s): K85.90 - Acute pancreatitis without necrosis or infection, unspecified Is this a current diagnosis for this admission?: Yes Plan: Continue current NPO status and monitor serum lipase trend. Obtain MRCP evaluation in view of her recurrent admission for acute pancreatitis and prior gastric sleeve bariatic surgery. (2) Diabetes mellitus type 2 in obese Is this a current diagnosis for this admission?: Yes Plan: Maintain on accuchek and sliding scale therapy with hypoglycemic protocol. (3) HTN (hypertension) Qualifiers: Hypertension type: essential hypertension Is this a current diagnosis for this admission?: Yes Plan: Continue current medication management. (4) HLD (hyperlipidemia) Qualifiers: Hyperlipidemia type: unspecified Qualified Code(s): E78.5 - Hyperlipidemia, unspecified Is this a current diagnosis for this admission?: Yes Plan: Continue current medication management. (5) GERD (gastroesophageal reflux disease) Qualifiers: Is this a current diagnosis for this admission?: Yes Plan: Continue current medication management. (6) Obesity (BMI 30-39.9) Is this a current diagnosis for this admission?: Yes Plan: Continue current lifestyle and dietary caloric restriction management. - Time Time Spent with patient: 25-34 minutes Medications reviewed and adjusted accordingly: Yes Anticipated discharge: Home Within: Other - Inpatient Certification Based on my medical assessment, after consideration of the patient's comorbidities, presenting symptoms, or acuity I expect that the services needed warrant INPATIENT care.: Yes I certify that my determination is in accordance with my understanding of Medicare's requirements for reasonable and necessary INPATIENT services [42 CFR 412.3e].: Yes Medical Necessity: Significant Comorbidiites Make Outpatient Treatment Too Risky, Need Close Monitoring Due to Risk of Patient Decompensation, Need For IV Fluids, Need for Pain Control, Risk of Complication if Not Cared For in Hospital, Risk of Diagnosis Which Will Require Inpatient Eval/Care/Monitoring Post Hospital Care: D/C Utilization Manager Documentation - Plan Summary Plan Summary: Continue current medication management. Request for MRCP evaluation for her recurrent acute pancreatitis etiology and structural factors in view of her recurrent presentation and prior sleeve gastric surgery distortion.
--- NOTE | 2019-03-05 00:06 | RADIOLOGY REPORT (SQ) ---
MR ABDOMEN WITHOUT IV CONTRAST HISTORY: Recurrent pancreatitis. Status post sleeve gastrectomy. TECHNIQUE: Multiplanar, multisequence MR imaging of the abdomen was performed without the administration of intravenous gadolinium. MRCP was also performed with 2-D and 3-D reconstructions. COMPARISON: CT scan dated 02/19/2019 FINDINGS: There is mild peripancreatic edema, consistent with mild pancreatitis. No fluid collection is identified. The pancreatic duct is normal caliber, measuring 2-3 mm. The common bile duct has a maximum diameter of 9 mm without filling defect identified. No intrahepatic ductal dilatation. The lung bases are clear. No pleural or pericardial effusions. There has been a prior cholecystectomy. The liver, spleen, adrenal glands, and kidneys are unremarkable. No hydronephrosis. No abdominal ascites or adenopathy is seen. The bone marrow has normal signal characteristics. IMPRESSION: 1. Mild pancreatitis without evidence of pseudocyst. 2. No evidence of choledocholithiasis.
[2019-03-05] MEDS: INSULIN LISPRO 100 UNIT/ML 3 ML VIAL SUBCUT SCH ×5 (00:57→22:47)
[2019-03-05] MEDS: HYDROMORPHONE HCL INJ/PF 2 MG/ML AMPULE IV PRN ×5 (01:08→20:38)
[2019-03-05 05:19] LABS: ABSOLUTE EOSINOPHILS # (AUTO) 0.1 10^3/uL (0.0-0.6); ABSOLUTE LYMPHOCYTES (AUTO) 1.6 10^3/uL (0.5-4.7); ABSOLUTE MONOCYTES (AUTO) 0.3 10^3/uL (0.1-1.4); ABSOLUTE NEUT (AUTO) 2.1 10^3/uL (1.7-8.2); BASOPHILS % (AUTO) 1.2 % (0-2); EOSINOPHILS % (AUTO) 2.1 % (0-6); HEMATOCRIT 33.7 % (36.0-47.0); HEMOGLOBIN 10.9 g/dL (12.0-15.5); LYMPHOCYTES % (AUTO) 39.4 % (13-45); MEAN CORPUSCULAR HEMOGLOBIN 25.1 pg (27.0-33.4); MEAN CORPUSCULAR HGB CONC 32.3 g/dL (32.0-36.0); MEAN CORPUSCULAR VOLUME 78 fl (80-97); MONOCYTES % (AUTO) 6.8 % (3-13); PLATELET COUNT 272 10^3/uL (150-450); RED BLOOD COUNT 4.34 10^6/uL (3.72-5.28); RED CELL DISTRIBUTION WIDTH 13.4 % (11.5-14.0); SEGMENTED NEUTROPHILS % (AUTO) 50.5 % (42-78); TOTAL CELLS COUNTED % (AUTO) 100 %; WHITE BLOOD COUNT 4.2 10^3/uL (4.0-10.5)
[2019-03-05] MEDS: NORMAL SALINE 1000 ML 1,000 ML IV PRN (07:58)
[2019-03-05] MEDS: ONDANSETRON HCL INJ/PF 4 MG/2 ML SDV IV PRN ×2 (07:58→23:12)
[2019-03-05] MEDS: MAGNESIUM SULFATE 1 GM/D5W 100 ML IV SCH ×2 (07:59→09:20)
[2019-03-05] MEDS: PANTOPRAZOLE SODIUM 40 MG VIAL IV SCH (09:19)
[2019-03-05] MEDS: DIPHENHYDRAMINE HCL 50 MG/ML VIAL IV PRN ×3 (09:19→22:46)
[2019-03-05] MEDS: ENOXAPARIN SODIUM INJ 40 MG/0.4 ML DISP.SYRIN SUBCUT SCH (09:20)
[2019-03-05] MEDS: CEFEPIME 1 GM/D5W RTU 1 GM/50 ML RTUPB IV SCH ×2 (12:43→22:47)
--- NOTE | 2019-03-05 18:02 | PDOC PROGRESS REPORT ---
Subjective Progress Note for:: 03/05/19 Subjective:: Patient reported no abdominal or back pain so far today. No nausea or vomiting. Remain NPO. No chest pain or difficulty with breathing. Reason For Visit: ACUTE PANCREATITIS Physical Exam Vital Signs: Temp Pulse Resp BP Pulse Ox 98.3 F 72 17 118/53 L 99 03/05/19 00:52 03/05/19 07:00 03/05/19 00:52 03/05/19 00:52 03/05/19 00:52 Intake & Output 03/04/19 03/05/19 03/06/19 06:59 06:59 06:59 Intake Total 2848 2100 Output Total 300 1000 Balance 2548 1100 Weight 89.3 kg 90.4 kg Physical Exam: General appearance: PRESENT: no acute distress, obese Head exam: PRESENT: atraumatic, normocephalic Eye exam: PRESENT: conjunctiva pink. ABSENT: pa;;or, scleral icterus Ear exam: PRESENT: normal external ear exam Mouth exam: PRESENT: moist mucosa. Respiratory exam: PRESENT: clear to auscultation manuel Cardiovascular exam: PRESENT: RRR. ABSENT: diastolic murmur, rubs, systolic murmur GI/Abdominal exam: PRESENT: normal bowel sounds ABSENT: ascites, tenderness, guarding, mass, rebound Extremities exam: ABSENT: pedal edema Musculoskeletal exam: PRESENT: ambulatory Neurological exam: PRESENT: alert, awake, oriented to person, oriented to place, oriented to time, oriented to situation, CN II-XII grossly intact. ABSENT: motor sensory deficit Psychiatric exam: PRESENT: appropriate affect, normal mood. ABSENT: homicidal ideation, suicidal ideation Skin exam: PRESENT: dry, warm Results Laboratory Results: 03/05/19 04:40 03/03/19 06:08 03/05/19 03/05/19 04:40 04:40 WBC 4.2 RBC 4.34 Hgb 10.9 L Hct 33.7 L MCV 78 L MCH 25.1 L MCHC 32.3 RDW 13.4 Plt Count 272 Seg Neutrophils % 50.5 Lymphocytes % 39.4 Monocytes % 6.8 Eosinophils % 2.1 Basophils % 1.2 Absolute Neutrophils 2.1 Absolute Lymphocytes 1.6 Absolute Monocytes 0.3 Absolute Eosinophils 0.1 Absolute Basophils 0.0 Magnesium 1.2 L* Lipase 403.8 H 03/02/19 20:30 Clean Catch Midstream Urine Culture - Final Group B Beta Streptococcus Mixed Urogenital Lizette Impressions: Abdomen MRI 03/04/19 00:00 IMPRESSION: 1. Mild pancreatitis without evidence of pseudocyst. 2. No evidence of choledocholithiasis. Assessment & Plan - Diagnosis (1) Acute pancreatitis Qualifiers: Pancreatitis type: unspecified pancreatitis type Acute pancreatitis complication: no infection or necrosis Qualified Code(s): K85.90 - Acute pancreatitis without necrosis or infection, unspecified Is this a current diagnosis for this admission?: Yes (2) Diabetes mellitus type 2 in obese Is this a current diagnosis for this admission?: Yes (3) HTN (hypertension) Qualifiers: Hypertension type: essential hypertension Qualified Code(s): I10 - Esse ntial (primary) hypertension Is this a current diagnosis for this admission?: Yes (4) HLD (hyperlipidemia) Qualifiers: Hyperlipidemia type: unspecified Qualified Code(s): E78.5 - Hyperlipidemia, unspecified Is this a current diagnosis for this admission?: Yes (5) GERD (gastroesophageal reflux disease) Qualifiers: Is this a current diagnosis for this admission?: Yes (6) Obesity (BMI 30-39.9) Is this a current diagnosis for this admission?: Yes (7) Hypomagnesemia Is this a current diagnosis for this admission?: Yes Plan: Patient will receive 2 gm Mag sulfate rider infusion. Monitor serum level. Resume oral feeding. - Time Time Spent with patient: 25-34 minutes Medications reviewed and adjusted accordingly: Yes Anticipated discharge: Home Within: Other - Inpatient Certification Based on my medical assessment, after consideration of the patient's comorbidities, presenting symptoms, or acuity I expect that the services needed warrant INPATIENT care.: Yes I certify that my determination is in accordance with my understanding of Medicare's requirements for reasonable and necessary INPATIENT services [42 CFR 412.3e].: Yes Medical Necessity: Significant Comorbidiites Make Outpatient Treatment Too Ri jeanmarie, Need Close Monitoring Due to Risk of Patient Decompensation, Need For IV Fluids, Need For Continuous Telemetry Monitoring, Need for Pain Control, Risk of Complication if Not Cared For in Hospital, Risk of Diagnosis Which Will Require Inpatient Eval/Care/Monitoring Post Hospital Care: D/C Electronic Parts Designer Documentation - Plan Summary Plan Summary: Start on clear liquid diet with accuhek qachs. Maintain on all other current medication management. Obtain BMP. Mag, Lipase, CBC with diff in am.
[2019-03-06] MEDS: NORMAL SALINE 1000 ML 1,000 ML IV PRN ×2 (00:47→12:32)
[2019-03-06] MEDS: HYDROMORPHONE HCL INJ/PF 2 MG/ML AMPULE IV PRN ×4 (03:11→22:29)
[2019-03-06 05:55] LABS: ABSOLUTE EOSINOPHILS # (AUTO) 0.1 10^3/uL (0.0-0.6); ABSOLUTE LYMPHOCYTES (AUTO) 1.5 10^3/uL (0.5-4.7); ABSOLUTE MONOCYTES (AUTO) 0.3 10^3/uL (0.1-1.4); ABSOLUTE NEUT (AUTO) 2.2 10^3/uL (1.7-8.2); BASOPHILS % (AUTO) 1.1 % (0-2); EOSINOPHILS % (AUTO) 2.9 % (0-6); HEMATOCRIT 33.9 % (36.0-47.0); HEMOGLOBIN 11.2 g/dL (12.0-15.5); LYMPHOCYTES % (AUTO) 35.5 % (13-45); MEAN CORPUSCULAR HEMOGLOBIN 25.7 pg (27.0-33.4); MEAN CORPUSCULAR VOLUME 78 fl (80-97); MONOCYTES % (AUTO) 7.8 % (3-13); PLATELET COUNT 273 10^3/uL (150-450); RED BLOOD COUNT 4.36 10^6/uL (3.72-5.28); RED CELL DISTRIBUTION WIDTH 13.7 % (11.5-14.0); SEGMENTED NEUTROPHILS % (AUTO) 52.7 % (42-78); TOTAL CELLS COUNTED % (AUTO) 100 %; WHITE BLOOD COUNT 4.2 10^3/uL (4.0-10.5)
[2019-03-06 06:15] LABS: ANION GAP 12 (5-19); BLOOD UREA NITROGEN 8 mg/dL (7-20); CALCIUM 8.6 mg/dL (8.4-10.2); CARBON DIOXIDE 22 mmol/L (22-30); CHLORIDE 105 mmol/L (98-107); GLUCOSE 134 mg/dL (75-110); POTASSIUM 4.3 mmol/L (3.6-5.0)
--- NOTE | 2019-03-06 06:38 | PDOC PROGRESS REPORT ---
Subjective Progress Note for:: 03/06/19 Subjective:: Patient tolerated clear liquid diet. No abdominal or back pain so far today. No nausea or vomiting. No chest pain or difficulty with breathing. Reason For Visit: ACUTE PANCREATITIS Physical Exam Vital Signs: Temp Pulse Resp BP Pulse Ox 98.2 F 66 17 127/61 H 99 03/06/19 00:01 03/06/19 02:00 03/06/19 00:01 03/06/19 00:01 03/06/19 00:01 Intake & Output 03/04/19 03/05/19 03/06/19 06:59 06:59 06:59 Intake Total 2848 2100 1870 Output Total 300 1000 2100 Balance 2548 1100 -230 Weight 89.3 kg 90.4 kg 89.1 kg Physical Exam: General appearance: PRESENT: no acute distress, obese Head exam: PRESENT: atraumatic, normocephalic Eye exam: PRESENT: conjunctiva pink. ABSENT: pallor, scleral icterus Ear exam: PRESENT: normal external ear exam Mouth exam: PRESENT: moist mucosa. Respiratory exam: PRESENT: clear to auscultation manuel Cardiovascular exam: PRESENT: RRR. ABSENT: diastolic murmur, rubs, systolic murmur GI/Abdominal exam: PRESENT: normal bowel sounds ABSENT: ascites, tenderness, guarding, mass, rebound Extremities exam: ABSENT: pedal edema Musculoskeletal exam: PRESENT: ambulatory Neurological exam: PRESENT: alert, awake, oriented to person, oriented to place, oriented to time, oriented to situation, CN II-XII grossly intact. ABSENT: motor sensory deficit Psychiatric exam: PRESENT: appropriate affect, normal mood. ABSENT: homicidal ideation, suicidal ideation Skin exam: PRESENT: dry, warm Results Laboratory Results: 03/06/19 05:14 03/06/19 05:14 03/06/19 03/06/19 05:14 05:14 WBC 4.2 RBC 4.36 Hgb 11.2 L Hct 33.9 L MCV 78 L MCH 25.7 L MCHC 33.0 RDW 13.7 Plt Count 273 Seg Neutrophils % 52.7 Lymphocytes % 35.5 Monocytes % 7.8 Eosinophils % 2.9 Basophils % 1.1 Absolute Neutrophils 2.2 Absolute Lymphocytes 1.5 Absolute Monocytes 0.3 Absolute Eosinophils 0.1 Absolute Basophils 0.0 Sodium 139.1 Potassium 4.3 Chloride 105 Carbon Dioxide 22 Anion Gap 12 BUN 8 Creatinine 0.67 Est GFR ( Amer) > 60 Est GFR (Non-Af Amer) > 60 Glucose 134 H Calcium 8.6 Magnesium 1.4 L Lipase 205.5 03/02/19 20:30 Clean Catch Midstream Urine Culture - Final Group B Beta Streptococcus Mixed Urogenital Lizette Impressions: Abdomen MRI 03/04/19 00:00 IMPRESSION: 1. Mild pancreatitis without evidence of pseudocyst. 2. No evidence of choledocholithiasis. Assessment & Plan - Diagnosis (1) Acute pancreatitis Qualifiers: Pancreatitis type: unspecified pancreatitis type Acute pancreatitis complication: no infection or necrosis Qualified Code(s): K85.90 - Acute pancreatitis without necrosis or infection, unspecified Is this a current diagnosis for this admission?: Yes (2) Diabetes mellitus type 2 in obese Is this a current diagnosis for this admission?: Yes (3) HTN (hypertension) Qualifiers: Hypertension type: essential hypertension Qualified Code(s): I10 - Essential (primary) hypertension Is this a current diagnosis for this admission?: Yes (4) HLD (hyperlipidemia) Qualifiers: Hyperlipidemia type: unspecified Qualified Code(s): E78.5 - Hyperlipidemia, unspecified Is this a current diagnosis for this admission?: Yes (5) GERD (gastroesophageal reflux disease) Qualifiers: Is this a current diagnosis for this admission?: Yes (6) Obesity (BMI 30-39.9) Is this a current diagnosis for this admission?: Yes (7) Hypomagnesemia Is this a current diagnosis for this admission?: Yes - Time Time Spent with patient: 25-34 minutes Medications reviewed and adjusted accordingly: Yes Anticipated discharge: Home Within: Other - Inpatient Certification Based on my medical assessment, after consideration of the patient's com orbidities, presenting symptoms, or acuity I expect that the services needed warrant INPATIENT care.: Yes I certify that my determination is in accordance with my understanding of Medicare's requirements for reasonable and necessary INPATIENT services [42 CFR 412.3e].: Yes Medical Necessity: Significant Comorbidiites Make Outpatient Treatment Too Risky, Need Close Monitoring Due to Risk of Patient Decompensation, Need For IV Fluids, Need For Continuous Telemetry Monitoring, Need for Pain Control, Risk of Complication if Not Cared For in Hospital, Risk of Diagnosis Which Will Require Inpatient Eval/Care/Monitoring Post Hospital Care: D/C Legal Financial Specialist Documentation - Plan Summary Plan Summary: Advance diet to mechanical soft consistency. Restart on appropriate home med ications. Possible discharge home discussed with her during today's bedside visit.
[2019-03-06] MEDS: INSULIN LISPRO 100 UNIT/ML 3 ML VIAL SUBCUT SCH ×4 (09:42→21:58)
[2019-03-06] MEDS: METFORMIN HCL 500 MG TABLET PO SCH ×2 (09:48→17:40)
[2019-03-06] MEDS: LEVOTHYROXINE SODIUM 0.05 MG TABLET PO SCH (09:48)
[2019-03-06] MEDS: CEFEPIME 1 GM/D5W RTU 1 GM/50 ML RTUPB IV SCH ×2 (09:48→21:57)
[2019-03-06] MEDS: RAMIPRIL 2.5 MG CAPSULE PO SCH (09:48)
[2019-03-06] MEDS: ESCITALOPRAM OXALATE 10 MG TABLET PO SCH (09:49)
[2019-03-06] MEDS: MONTELUKAST SODIUM 10 MG TABLET PO SCH (09:49)
[2019-03-06] MEDS: MULTIVITAMIN TABLET PO SCH (09:50)
[2019-03-06] MEDS: ENOXAPARIN SODIUM INJ 40 MG/0.4 ML DISP.SYRIN SUBCUT SCH (09:50)
[2019-03-06] MEDS: DIPHENHYDRAMINE HCL 50 MG/ML VIAL IV PRN ×2 (09:50→18:30)
[2019-03-06] MEDS ORDERED: INSULIN DETEMIR SQ SCH (10:00)
[2019-03-06] MEDS ORDERED: CYANOCOBALAMIN 10000 MCG PO SCH (10:00)
[2019-03-06] MEDS: CYANOCOBALAMIN (VITAMIN B-12) 1,000 MCG TABLET PO SCH (10:42)
[2019-03-06] MEDS: INSULIN GLARGINE,HUM.REC.ANLOG 1,000 UNIT/10 ML VIAL SUBCUT SCH ×2 (10:43→21:57)
[2019-03-06] MEDS: MAGNESIUM SULFATE/D5W 1 GM/100 ML RTUPB IV SCH ×2 (10:45→12:31)
[2019-03-06] MEDS ORDERED: MAGNESIUM SULFATE/D5W 1 GM/100 ML RTUPB IV ONE (12:00)
[2019-03-06] MEDS ORDERED: MAGNESIUM HYDROXIDE SUSP 30 ML UDCUP PO PRN (16:41)
[2019-03-06] MEDS: PRAMIPEXOLE DI-HCL 0.5 MG TABLET PO SCH (21:57)
[2019-03-06] MEDS: TRAZODONE HCL 50 MG TABLET PO SCH (21:57)
[2019-03-06] MEDS ORDERED: (PENDING PHARMACY ID) (Trazodone Hcl [Desyrel] 100 MG) PO SCH (22:00)
[2019-03-06] MEDS ORDERED: ATORVASTATIN CALCIUM 20 MG TABLET PO SCH (22:00)
[2019-03-07] MEDS: DIPHENHYDRAMINE HCL 50 MG/ML VIAL IV PRN ×3 (00:32→17:47)
[2019-03-07] MEDS: LEVOTHYROXINE SODIUM 0.05 MG TABLET PO SCH (05:35)
[2019-03-07] MEDS: HYDROMORPHONE HCL INJ/PF 2 MG/ML AMPULE IV PRN ×4 (05:35→21:29)
[2019-03-07] MEDS: INSULIN LISPRO 100 UNIT/ML 3 ML VIAL SUBCUT SCH ×4 (08:51→21:35)
[2019-03-07] MEDS: ESCITALOPRAM OXALATE 10 MG TABLET PO SCH (10:10)
[2019-03-07] MEDS: MONTELUKAST SODIUM 10 MG TABLET PO SCH (10:11)
[2019-03-07] MEDS: METFORMIN HCL 500 MG TABLET PO SCH ×2 (10:11→17:21)
[2019-03-07] MEDS: MULTIVITAMIN TABLET PO SCH (10:12)
[2019-03-07] MEDS: RAMIPRIL 2.5 MG CAPSULE PO SCH (10:16)
[2019-03-07] MEDS: CYANOCOBALAMIN (VITAMIN B-12) 1,000 MCG TABLET PO SCH (10:16)
[2019-03-07] MEDS: ENOXAPARIN SODIUM INJ 40 MG/0.4 ML DISP.SYRIN SUBCUT SCH (10:18)
[2019-03-07] MEDS: CEFEPIME 1 GM/D5W RTU 1 GM/50 ML RTUPB IV SCH ×2 (10:40→22:44)
[2019-03-07] MEDS: INSULIN GLARGINE,HUM.REC.ANLOG 1,000 UNIT/10 ML VIAL SUBCUT SCH ×2 (11:02→22:04)
--- NOTE | 2019-03-07 18:03 | PDOC PROGRESS REPORT ---
Subjective Progress Note for:: 03/07/19 Subjective:: Patient's serum lipase in upward trend. Currently on mechanical soft diet. Patient reported recurrent back pain today. No nausea or vomiting. No chest pain or difficulty with breathing. Reason For Visit: ACUTE PANCREATITIS Physical Exam Vital Signs: Temp Pulse Resp BP Pulse Ox 98.4 F 85 15 103/47 L 98 03/07/19 16:52 03/07/19 16:52 03/07/19 11:37 03/07/19 16:52 03/07/19 16:52 Intake & Output 03/06/19 03/07/19 03/08/19 06:59 06:59 06:59 Intake Total 1870 2407 509 Output Total 2100 500 Balance -230 1907 509 Weight 89.1 kg 85.2 kg Physical Exam: General appearance: PRESENT: no acute distress, obese Head exam: PRESENT: atraumatic, normocephalic Eye exam: PRESENT: conjunctiva pink. ABSENT: pallor, scleral icterus Ear exam: PRESENT: normal external ear exam Mouth exam: PRESENT: moist mucosa. Respiratory exam: PRESENT: clear to auscultation manuel Cardiovascular exam: PRESENT: RRR. ABSENT: diastolic murmur, rubs, systolic murmur GI/Abdominal exam: PRESENT: normal bowel sounds ABSENT: ascites, tenderness, guarding, mass, rebound Extremities exam: ABSENT: pedal edema Musculoskeletal exam: PRESENT: ambulatory Neurological exam: PRESENT: alert, awake, oriented to person, oriented to place, oriented to time, oriented to situation, CN II-XII grossly intact. ABSENT: motor sensory deficit Psychiatric exam: PRESENT: appropriate affect, normal mood. ABSENT: homicidal ideation, suicidal ideation Skin exam: PRESENT: dry, warm Results Laboratory Results: 03/06/19 05:14 03/06/19 05:14 03/07/19 04:06 Magnesium 1.5 L Lipase 368.5 H Impressions: Abdomen MRI 03/04/19 00:00 IMPRESSION: 1. Mild pancreatitis without evidence of pseudocyst. 2. No evidence of choledocholithiasis. Assessment & Plan - Diagnosis (1) Acute pancreatitis Qualifiers: Pancreatitis type: unspecified pancreatitis type Acute pancreatitis complication: no infection or necrosis Qualified Code(s): K85.90 - Acute pancreatitis without necrosis or infection, unspecified Is this a current diagnosis for this admission?: Yes Plan: D/C Atorvastatin and Ramipril as possible culprit for her recurrent chemical induced pancreatitis. Down grade diet to full liquid. (2) Diabetes mellitus type 2 in obese Is this a current diagnosis for this admission?: Yes (3) HTN (hypertension) Qualifiers: Hypertension type: essential hypertension Qualified Code(s): I10 - Essential (primary) hypertension Is this a current diagnosis for this admission?: Yes Plan: D/C Ramipril. Start on Valsartan 40 mg po daily. (4) HLD (hyperlipidemia) Qualifiers: Hyperlipidemia type: unspecified Qualified Code(s): E78.5 - Hyperlipidemia, unspecified Is this a current diagnosis for this admission?: Yes (5) GERD (gastroesophageal reflux disease) Qualifiers: Is this a current diagnosis for this admission?: Yes (6) Obesity (BMI 30-39.9) Is this a current diagnosis for this admission?: Yes (7) Hypomagnesemia Is this a current diagnosis for this admission?: Yes Plan: Patient will receive 3 gm Mag sulfate rider infusion. Monitor serum level. Start on oral Mag Oxide 400 mg po daily. - Time Time Spent with patient: 25-34 minutes Medications reviewed and adjusted accordingly: Yes Anticipated discharge: Home Within: Other - Inpatient Certification Based on my medical assessment, after consideration of the patient's comorbidities, presenting symptoms, or acuity I expect that the services needed warrant INPATIENT care.: Yes I certify that my determination is in accordance with my understanding of Medicare's requirements for reasonable and necessary INPATIENT services [42 CFR 412.3e].: Yes Medical Necessity: Significant Comorbidiites Make Outpatient Treatment Too Risky, Need Close Monitoring Due to Risk of Patient Decompensation, Need For IV Fluids, Need For Continuous Telemetry Monitoring, Need for IV Antibiotics, Risk of Complication if Not Cared For in Hospital, Risk of Diagnosis Which Will Require Inpatient Eval/Care/Monitoring Post 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
[2019-03-07] MEDS: MAGNESIUM SULFATE/D5W 1 GM/100 ML RTUPB IV SCH ×3 (18:46→21:29)
[2019-03-07] MEDS: NORMAL SALINE 1000 ML 1,000 ML IV PRN (18:47)
[2019-03-07] MEDS: PRAMIPEXOLE DI-HCL 0.5 MG TABLET PO SCH (21:28)
[2019-03-07] MEDS: TRAZODONE HCL 50 MG TABLET PO SCH (21:28)
[2019-03-08] MEDS: DIPHENHYDRAMINE HCL 50 MG/ML VIAL IV PRN ×2 (00:01→10:34)
[2019-03-08 05:58] LABS: ABSOLUTE EOSINOPHILS # (AUTO) 0.1 10^3/uL (0.0-0.6); ABSOLUTE LYMPHOCYTES (AUTO) 1.9 10^3/uL (0.5-4.7); ABSOLUTE MONOCYTES (AUTO) 0.3 10^3/uL (0.1-1.4); BASOPHILS % (AUTO) 0.6 % (0-2); EOSINOPHILS % (AUTO) 1.6 % (0-6); HEMATOCRIT 33.4 % (36.0-47.0); LYMPHOCYTES % (AUTO) 43.9 % (13-45); MEAN CORPUSCULAR HEMOGLOBIN 25.6 pg (27.0-33.4); MEAN CORPUSCULAR HGB CONC 32.8 g/dL (32.0-36.0); MEAN CORPUSCULAR VOLUME 78 fl (80-97); MONOCYTES % (AUTO) 6.4 % (3-13); PLATELET COUNT 260 10^3/uL (150-450); RED BLOOD COUNT 4.27 10^6/uL (3.72-5.28); SEGMENTED NEUTROPHILS % (AUTO) 47.5 % (42-78); TOTAL CELLS COUNTED % (AUTO) 100 %; WHITE BLOOD COUNT 4.2 10^3/uL (4.0-10.5)
[2019-03-08] MEDS: HYDROMORPHONE HCL INJ/PF 2 MG/ML AMPULE IV PRN ×4 (06:15→14:24)
[2019-03-08] MEDS: LEVOTHYROXINE SODIUM 0.05 MG TABLET PO SCH (06:15)
[2019-03-08 06:16] LABS: ANION GAP 6 (5-19); BLOOD UREA NITROGEN 7 mg/dL (7-20); CALCIUM 8.8 mg/dL (8.4-10.2); CARBON DIOXIDE 27 mmol/L (22-30); CHLORIDE 110 mmol/L (98-107); CHOLESTEROL 71.76 mg/dL (0-200); TRIGLYCERIDES 93 mg/dL (<150)
[2019-03-08 06:27] LABS: DIRECT LDL 45 mg/dL (<100)
[2019-03-08 06:31] LABS: GLUCOSE 49 mg/dL (75-110)
[2019-03-08 06:33] LABS: POTASSIUM 3.4 mmol/L (3.6-5.0)
[2019-03-08] MEDS: INSULIN LISPRO 100 UNIT/ML 3 ML VIAL SUBCUT SCH ×3 (09:38→18:04)
[2019-03-08] MEDS: INSULIN GLARGINE,HUM.REC.ANLOG 1,000 UNIT/10 ML VIAL SUBCUT SCH (09:56)
[2019-03-08] MEDS ORDERED: VALSARTAN 40 MG TABLET PO SCH (10:00)
[2019-03-08] MEDS: CYANOCOBALAMIN (VITAMIN B-12) 1,000 MCG TABLET PO SCH (10:14)
[2019-03-08] MEDS: ESCITALOPRAM OXALATE 10 MG TABLET PO SCH (10:15)
[2019-03-08] MEDS: POTASSIUM CHLORIDE 10 MEQ CAPSULE.ER PO SCH ×2 (10:16→14:22)
[2019-03-08] MEDS: MONTELUKAST SODIUM 10 MG TABLET PO SCH (10:16)
[2019-03-08] MEDS: MULTIVITAMIN TABLET PO SCH (10:16)
[2019-03-08] MEDS: METFORMIN HCL 500 MG TABLET PO SCH ×2 (10:16→18:13)
[2019-03-08] MEDS: CEFEPIME 1 GM/D5W RTU 1 GM/50 ML RTUPB IV SCH (10:38)
[2019-03-08] MEDS: ENOXAPARIN SODIUM INJ 40 MG/0.4 ML DISP.SYRIN SUBCUT SCH (10:38)
[2019-03-08] MEDS ORDERED: POTASSIUM CHLORIDE 10 MEQ CAPSULE.ER PO ONE (14:18)
--- NOTE | 2019-03-08 14:35 | Progress Note ---
Provider Note Provider Note: ID Consult - Brief Note Asked by Pharmacy to review patient's chart. Pt not seen or examined. Ms. Bailey is a 54 year old woman with PMH/PSH including DM, HTN, obesity, s/p sleeve gastrectomy, prior cholecystectomy and pancreatitis who was admitted on 03/02/19 with c/o upper abdominal pain and back pain x 1 day prior to presentation. No remarkable findings noted on physical exam apart from epigastric tenderness. No fever or leukocytosis were present. Her lipase was elevated, and MRI of the abdomen showed mild peripancreatic edema without any fluid collection and no evidence of choledocholithiasis. Blood cultures are negative. Urine culture grew 10-20k cfu of GBS and 40-50k cfu of mixed urogenital ketty, but U/A showed no pyuria and patient had no dysuria or suprapubic tenderness. She has been managed for acute pancreatitis and investigated for potential medication causes amenable to intervention to reduce risk of recurrence. She has also been receiving cefepime. Impression/Recommendations Suggest discontinuing cefepime. There is no benefit to giving antibiotics prophylactically for acute pancreatitis, and pt has remained afebrile without an identified infection at this point, including no suggestion of cholangitis, no bacteremia, or UTI. John Mcfarland MD [facility] Infectious Diseases pager [phone]
[2019-03-08] MEDS: ONDANSETRON HCL INJ/PF 4 MG/2 ML SDV IV PRN (14:39)
--- NOTE | 2019-03-08 18:04 | PDOC DISCHARGE SUMMARY ---
General - Admit/Disc Date/PCP Admission Date/Primary Care Provider: 03/02/19 21:00 EVANS DUARTE Discharge Date: 03/08/19 - Discharge Diagnosis (1) Acute pancreatitis Is this a current diagnosis for this admission?: Yes (2) Diabetes mellitus type 2 in obese Is this a current diagnosis for this admission?: Yes (3) HTN (hypertension) Is this a current diagnosis for this admission?: Yes (4) HLD (hyperlipidemia) Is this a current diagnosis for this admission?: Yes (5) GERD (gastroesophageal reflux disease) Is this a current diagnosis for this admission?: Yes (6) Obesity (BMI 30-39.9) Is this a current diagnosis for this admission?: Yes (7) Hypomagnesemia Is this a current diagnosis for this admission?: Yes - Additional Information Resuscitation Status: Full Code Discharge Diet: Cardiac, Diabetic Discharge Activity: Activity As Tolerated, Slowly Increase Activity Prescriptions: Oxycodone HCl/Acetaminophen [Percocet 5-325 mg Tablet] 1 tab PO Q4HP PRN #20 tablet PRN Reason: For Pain Valsartan [Diovan 40 mg Tablet] 40 mg PO DAILY #30 tablet Home Medications: Cyanocobalamin (Vitamin B-12) [Vitamin B-12] 10,000 mcg PO DAILY 02/19/19 Dapagliflozin Propanediol [Farxiga] 10 mg PO DAILY 02/19/19 Escitalopram Oxalate [Lexapro] 20 mg PO DAILY 02/19/19 Esomeprazole Magnesium 40 mg PO DAILY 02/19/19 Fluticasone Propionate [Flonase Nasal [place] 50 Mcg/[place] 16 gm] 2 spray NASL DAILY 02/19/19 Folic Acid [Folvite 1 mg Tablet] 1 mg PO DAILY 02/19/19 Insulin Detemir [Levemir] 40 mg SQ BID 02/19/19 Ipratropium [place] [Atrovent 0.06% Nasal [place]] 2 spray NASL TID 02/19/19 Levothyroxine Sodium [Synthroid 0.05 mg Tablet] 0.05 mg PO Q6AM 02/19/19 Metformin HCl [Glucophage] 1,000 mg PO BID 02/19/19 Montelukast Sodium [Singulair 10 mg Tablet] 10 mg PO DAILY 02/19/19 Multivitamin [Tab-A-Luis Felipe (Multiple Vitamin) Tablet] 1 tab PO DAILY 02/19/19 Pramipexole Di-HCl [Mirapex 0.5 mg Tablet] 0.5 mg PO QHS 02/19/19 Trazodone HCl [Desyrel] 100 mg PO QHS 02/19/19 Linaclotide [Linzess] 290 mcg PO DAILY 03/03/19 Oxycodone HCl/Acetaminophen [Percocet 5-325 mg Tablet] 1 tab PO Q4HP PRN #20 tablet 03/08/19 Valsartan [Diovan 40 mg Tablet] 40 mg PO DAILY #30 tablet 03/08/19 History of Present Illness Patient complains of: Abdominal and back pain History of Present Illness: LUIS ANGEL DIOR is a 54 year old female This is a 54-year-old female patient of Dr. Duarte presented emergency department with abdominal pain and back pain and worsening the morning Also complains of nausea and vomiting known case of the pancreatitis recently admitted in the hospitals Denied any alcohol in the substance drug abuse Patient had a gallbladder removed and patient was recently a CT scan of the abdomen and pelvis was done last week was all stable Patient's white count is also normal and patient is afebrile When I examined the patient's pretty much normal looking with the abdomen exam very soft not even that much tender The patient interestingly asking the pain medications every 4 hours and taking the Dilaudid and also asking the Benadryl with the Dilaudid which only thing that works other pain medications does not work The patient's pancreatitis with unclear etiology according to the patient she was taking the Januvia in the past but I do not think so current is taking patient's any medications that caused the pancreatitis There is denied any history of any MRI done in the past Is denied any chest pain to than any shortness of the breath Hospital Course Hospital Course: Patient was admitted for recurrent acute pancreatitis with abdominal and back pain. There was concern about unknown etiology and possible cholangiopancreatic region abnormality. She was managed with NPO status, IV fluid support, IV pain management and antibiotic therapy. Her further evaluation with MRCP did revealed features pancreatitis without any other associated complications. She was restarted and advanced on oral feeding but her serum lipase subsequently show upward trend. Further evaluation of her medication management revealed that Ramipril and Atorvastatin as a class effect could cause pancreatitis. She was taken off Ramipril and start on Valsartan for her blood pressure management. Her diabetes associated need for statin therapy will be further evaluated on outpatient setting. She remain on regular consistency food with resolution f her serum lipase to normal range. Her abdominal and back pain have improved. Her hypoglycemia this morning may be due to poor food intake. She denied any fever, chills, nausea, vomiting, chest pain, or difficulty with breathing. She will be discharged home today with follow up in the office as instructed upon discharge. Physical Exam Vital Signs: Temp Pulse Resp BP Pulse Ox 97.5 F 70 16 107/46 L 97 03/08/19 08:04 03/08/19 08:04 03/08/19 00:10 03/08/19 08:04 03/08/19 08:04 Intake & Output 03/07/19 03/08/19 03/09/19 06:59 06:59 06:59 Intake Total 3407 1379 1072 Output Total 500 Balance 2907 1379 1072 Weight 85.2 kg 89.2 kg Physical Exam: General appearance: PRESENT: no acute distress, obese Head exam: PRESENT: atraumatic, normocephalic Eye exam: PRESENT: conjunctiva pink. ABSENT: pallor, scleral icterus Ear exam: PRESENT: normal external ear exam Mouth exam: PRESENT: moist mucosa. Respiratory exam: PRESENT: clear to auscultation manuel Cardiovascular exam: PRESENT: RRR. ABSENT: diastolic murmur, rubs, systolic murmur GI/Abdominal exam: PRESENT: normal bowel sounds ABSENT: ascites, tenderness, guarding, mass, rebound Extremities exam: ABSENT: pedal edema Musculoskeletal exam: PRESENT: ambulatory Neurological exam: PRESENT: alert, awake, oriented to person, oriented to place, oriented to time, oriented to situation, CN II-XII grossly intact. ABSENT: motor sensory deficit Psychiatric exam: PRESENT: appropriate affect, normal mood. ABSENT: homicidal ideation, suicidal ideation Skin exam: PRESENT: dry, warm Results Laboratory Results: 03/08/19 05:29 03/08/19 05:29 03/08/19 03/08/19 05:29 05:29 WBC 4.2 RBC 4.27 Hgb 11.0 L Hct 33.4 L MCV 78 L MCH 25.6 L MCHC 32.8 RDW 14.0 Plt Count 260 Seg Neutrophils % 47.5 Lymphocytes % 43.9 Monocytes % 6.4 Eosinophils % 1.6 Basophils % 0.6 Absolute Neutrophils 2.0 Absolute Lymphocytes 1.9 Absolute Monocytes 0.3 Absolute Eosinophils 0.1 Absolute Basophils 0.0 Sodium 142.8 Potassium 3.4 L Chloride 110 H Carbon Dioxide 27 Anion Gap 6 BUN 7 Creatinine 0.57 Est GFR ( Amer) > 60 Est GFR (Non-Af Amer) > 60 Glucose 49 L Calcium 8.8 Magnesium 1.6 Triglycerides 93 Cholesterol 71.76 LDL Cholesterol Direct 45 VLDL Cholesterol 19.0 HDL Cholesterol 29 L Lipase 190.3 03/02/19 22:59 Blood Blood Culture - Final NO GROWTH IN 5 DAYS 03/02/19 22:23 Blood Blood Culture - Final NO GROWTH IN 5 DAYS Impressions: Abdomen MRI 03/04/19 00:00 IMPRESSION: 1. Mild pancreatitis without evidence of pseudocyst. 2. No evidence of choledocholithiasis. Qualifiers - * PATIENT BEING DISCHARGED WITH ANY OF THE FOLLOWING DIAGNOSIS: No Acute Heart Failure - Is this a Heart Failure Patient?: No Plan Discharge Plan: Discharge home today. Follow up in the office as instructed upon discharge.
[2019-03-08 18:09] VITALS: BP 128/70
== END 2019-03-08 18:31 | disposition home or self-care (01) | DRG 440 ==
LOC: ER 18:34 → EH 21:00 → UNDOADMIN 21:00 → 3N 23:49 → EH 23:49 → 5 03-03 14:41 → 3N 03-03 14:41
PROVIDERS: ADMIT Internal Medicine Geriatric Medicine; ATTEND Internal Medicine Geriatric Medicine
DX: K85.90 Acute pancreatitis without necrosis or infection, unspecified (principal); E11.9 Type 2 diabetes mellitus without complications; I10 Essential (primary) hypertension; E78.5 Hyperlipidemia, unspecified; K21.9 Gastro-esophageal reflux disease without esophagitis; E83.42 Hypomagnesemia; E66.9 Obesity, unspecified; Z79.4 Long term (current) use of insulin; Z79.899 Other long term (current) drug therapy; Z90.49 Acquired absence of other specified parts of digestive tract; Z98.84 Bariatric surgery status; Z87.891 Personal history of nicotine dependence; Z83.3 Family history of diabetes mellitus
CPT/HCPCS: 36415; 74181; 80048; 80053; 80061; 81001; 82962; 83690; 83735; 84478; 85025; 87040; 87086; 87088; 96361; 96374; 96375; 99284; J0692; J1170; J1200; J1650; J1815; J2270; J2405; J3475; J3490; J7030; S0164

== ENCOUNTER 2019-03-30 15:01 | Emergency (ER) | payer MEDICARE, MEDICAID ==
--- NOTE | 2019-03-30 17:13 | ER Document Report ---
ED Medical Screen (RME) - General Chief Complaint: General Weakness Stated Complaint: WEAKNESS Time Seen by Provider: 03/30/19 17:06 Primary Care Provider: EVANS DUARTE MD [Primary Care Provider] - Follow up as needed Notes: 54-year-old female with history of pancreatitis and chronic back pain presents for diarrhea and concern for dehydration. She contact her primary doctor, Dr. Duarte, who recommended that she come to the emergency department for evaluation. Patient states that she has had diarrhea for the last 36+ hours, too many episodes to count. Patient states that she feels weak, denies any dizz iness or lightheadedness, denies any acute shortness of breath or chest pain, denies nausea or vomiting. EXAM: In no acute distress and nontoxic-appearing, regular cardiac rhythm and tachycardic, lungs clear to auscultation in all [place] I have greeted and performed a rapid initial assessment of this patient. A comprehensive ED assessment and evaluation of the patient, analysis of test results and completion of medical decision making process will be conducted by an additional ED providers. TRAVEL OUTSIDE OF THE [place] IN LAST 30 DAYS: No - Related Data Allergies/Adverse Reactions: naproxen [Naproxen] Allergy (Severe, Verified 03/20/19 17:53) Facial swelling liraglutide [From Victoza] Allergy (Verified 03/20/19 17:53) sitagliptin [From Januvia] Allergy (Verified 03/20/19 17:53) ropinirole HCl [From Requip] Adverse Reaction (Severe, Verified 03/20/19 17:53) BODY SWELLING Past Medical History - Social History Chew tobacco use (# tins/day): No Frequency of alcohol use: None Drug Abuse: None - Past Medical History Cardiac Medical History: Reports: Hx Coronary Artery Disease, Hx Hypercholesterolemia, Hx Hypertension - DIET CONTROLLED Denies: Hx Heart Attack Pulmonary Medical History: Denies: Hx Asthma, Hx Bronchitis, Hx COPD, Hx Pneumonia Neurological Medical History: Reports: Hx Migraine. Denies: Hx Cerebrovascular Accident, Hx Seizures Endocrine Medical History: Reports: Hx Diabetes Mellitus Type 2, Hx Hypothyroidism Renal/ Medical History: Denies: Hx Peritoneal Dialysis GI Medical History: Reports: Hx Gastroesophageal Reflux Disease, Hx Pancreatitis. Denies: Hx Hepatitis, Hx Hiatal Hernia, Hx Ulcer Musculoskeltal Medical History: Reports Hx Arthritis Psychiatric Medical History: Reports: Hx Depression Infectious Medical History: Denies: Hx Hepatitis Past Surgical History: Reports: Hx Cholecystectomy, Hx Gastric Bypass Surgery - SLEEVE, Hx Genitourinary Surgery - bladder prolapse, Hx Hysterectomy, Hx Ortho pedic Surgery - toe, shoulder, elbow, bilat feet, Other - Gastric Sleeve. Denies: Hx Mastectomy, Hx Open Heart Surgery, Hx Pacemaker - Immunizations Immunizations up to date: Yes Hx Diphtheria, Pertussis, Tetanus Vaccination: Yes History of Influenza Vaccine for 04/2017 - 09/2017 Season: Yes Physical Exam - Vital signs Vitals: Temp Pulse Resp BP Pulse Ox 98.1 F 127 H 18 128/82 H 96 03/30/19 15:10 03/30/19 15:10 03/30/19 15:10 03/30/19 15:10 03/30/19 15:10 Course - Vital Signs Vital signs: Temp Pulse Resp BP Pulse Ox 98.1 F 127 H 18 128/82 H 96 03/30/19 15:10 03/30/19 15:10 03/30/19 15:10 03/30/19 15:10 03/30/19 15:10 Doctor's Discharge - Discharge Referrals: EVANS DUARTE MD [Primary Care Provider] - Follow up as needed
[2019-03-30] MEDS ORDERED: NORMAL SALINE 1000 ML 1,000 ML IV PRN (17:14)
[2019-03-30 17:59] LABS: ABSOLUTE EOSINOPHILS # (AUTO) 0.1 10^3/uL (0.0-0.6); ABSOLUTE LYMPHOCYTES (AUTO) 1.7 10^3/uL (0.5-4.7); ABSOLUTE MONOCYTES (AUTO) 0.4 10^3/uL (0.1-1.4); BASOPHILS % (AUTO) 0.8 % (0-2); EOSINOPHILS % (AUTO) 0.9 % (0-6); HEMOGLOBIN 13.2 g/dL (12.0-15.5); LYMPHOCYTES % (AUTO) 27.1 % (13-45); MEAN CORPUSCULAR HEMOGLOBIN 25.4 pg (27.0-33.4); MEAN CORPUSCULAR HGB CONC 32.2 g/dL (32.0-36.0); MEAN CORPUSCULAR VOLUME 79 fl (80-97); MONOCYTES % (AUTO) 6.4 % (3-13); PLATELET COUNT 284 10^3/uL (150-450); RED CELL DISTRIBUTION WIDTH 15.2 % (11.5-14.0); SEGMENTED NEUTROPHILS % (AUTO) 64.8 % (42-78); TOTAL CELLS COUNTED % (AUTO) 100 %; WHITE BLOOD COUNT 6.2 10^3/uL (4.0-10.5)
[2019-03-30 18:10] LABS: ALBUMIN 4.6 g/dL (3.5-5.0); ALKALINE PHOSPHATASE 117 U/L (38-126); ANION GAP 10 (5-19); ASPARTATE AMINO TRANSFERASE 26 U/L (14-36); BILIRUBIN,DIRECT 0.3 mg/dL (0.0-0.4); BILIRUBIN,TOTAL 0.3 mg/dL (0.2-1.3); BLOOD UREA NITROGEN 16 mg/dL (7-20); CALCIUM 9.5 mg/dL (8.4-10.2); CARBON DIOXIDE 25 mmol/L (22-30); CHLORIDE 104 mmol/L (98-107); GLUCOSE 121 mg/dL (75-110); POTASSIUM 4.1 mmol/L (3.6-5.0); TOTAL PROTEIN 7.2 g/dL (6.3-8.2)
[2019-03-30 19:19] LABS: APPEARANCE,URINE SLIGHTLY-CLOUDY; BILIRUBIN,URINE NEGATIVE (NEGATIVE); COLOR,URINE YELLOW; GLUCOSE, URINE >=500 mg/dL (NEGATIVE); KETONES,URINE NEGATIVE (NEGATIVE); LEUKOCYTE ESTERASE,URINE MODERATE (NEGATIVE); NITRITE,URINE NEGATIVE (NEGATIVE); PROTEIN,URINE NEGATIVE (NEGATIVE); URINE SPECIFIC GRAVITY 1.035; UROBILINOGEN,URINE NEGATIVE mg/dL (<2.0)
[2019-03-30] MEDS ORDERED: NORMAL SALINE 1000 ML 1,000 ML IV ONE (21:13)
[2019-03-30] MEDS ORDERED: CEPHALEXIN 500 MG CAPSULE PO ONE (21:14)
--- NOTE | 2019-03-30 21:17 | ER Document Report ---
ED GI/ - General Chief Complaint: General Weakness Stated Complaint: WEAKNESS Time Seen by Provider: 03/30/19 17:06 Primary Care Provider: EVANS DUARTE MD [Primary Care Provider] - Follow up as needed Notes: Patient is a 54-year-old female that comes emergency department for chief complaint of weakness, diarrhea, dehydration. She states that yesterday she had too many episodes of diarrhea to count. She states the last when she had was actually this morning but she feels tired and she thinks she is dehydrated. She states she did start eating and she just ate a bag of chips before I saw her in the emergency department. She denies vomiting, abdominal pain, fever/chills. She denies any current complaints other than feeling dehydrated. She is a history of pancreatitis from medications, cholecystectomy, hysterectomy, gastric bypass, hypertension, hyperlipidemia, hypothyroidism. TRAVEL OUTSIDE OF THE [place] IN LAST 30 DAYS: No - Related Data Allergies/Adverse Reactions: naproxen [Naproxen] Allergy (Severe, Verified 03/20/19 17:53) Facial swelling liraglutide [From Victoza] Allergy (Verified 03/20/19 17:53) sitagliptin [From Januvia] Allergy (Verified 03/20/19 17:53) ropinirole HCl [From Requip] Adverse Reaction (Severe, Verified 03/20/19 17:53) BODY SWELLING Past Medical History - General Information source: Patient - Social History Smoking Status: Never Smoker Chew tobacco use (# tins/day): No Frequency of alcohol use: None Drug Abuse: None Lives with: Family Family History: Reviewed & Not Pertinent, DM, Hypertension Patient has suicidal ideation: No Patient has homicidal ideation: No - Past Medical History Cardiac Medical History: Reports: Hx Coronary Artery Disease, Hx Hypercholesterolemia, Hx Hypertension - DIET CONTROLLED Denies: Hx Heart Attack Pulmonary Medical History: Denies: Hx Asthma, Hx Bronchitis, Hx COPD, Hx Pneumonia Neurological Medical History: Reports: Hx Migraine. Denies: Hx Cerebrovascular Accident, Hx Seizures Endocrine Medical History: Reports: Hx Diabetes Mellitus Type 2, Hx Hypothy roidism Renal/ Medical History: Denies: Hx Peritoneal Dialysis GI Medical History: Reports: Hx Gastroesophageal Reflux Disease, Hx Pancreatitis. Denies: Hx Hepatitis, Hx Hiatal Hernia, Hx Ulcer Musculoskeletal Medical History: Reports Hx Arthritis Psychiatric Medical History: Reports: Hx Depression Infectious Medical History: Denies: Hx Hepatitis Past Surgical History: Reports: Hx Cholecystectomy, Hx Gastric Bypass Surgery - SLEEVE, Hx Genitourinary Surgery - bladder prolapse, Hx Hysterectomy, Hx Orthopedic Surgery - toe, shoulder, elbow, bilat feet, Other - Gastric Sleeve. Denies: Hx Mastectomy, Hx Open Heart Surgery, Hx Pacemaker - Immunizations Immunizations up to date: Yes Hx Diphtheria, Pertussis, Tetanus Vaccination: Yes Hx Pneumococcal Vaccination: 05/24/10 Review of Systems - Review of Systems Constitutional: See HPI EENT: No symptoms reported Cardiovascular: No symptoms reported Respiratory: No symptoms reported Gastrointestinal: See HPI Genitourinary: No symptoms reported Female Genitourinary: No symptoms reported Musculoskeletal: No symptoms reported Skin: No symptoms reported Hematologic/Lymphatic: No symptoms reported Neurological/Psychological: No symptoms reported Physical Exam - Vital signs Vitals: Temp Pulse Resp BP Pulse Ox 98.1 F 127 H 18 128/82 H 96 03/30/19 15:10 03/30/19 15:10 03/30/19 15:10 03/30/19 15:10 03/30/19 15:10 - Notes Notes: GENERAL: Alert, interacts well. No acute distress. HEAD: Normocephalic, atraumatic. EYES: Pupils equal, round, and reactive to light. Extraocular movements intact. ENT: Oral mucosa moist, tongue midline. Oropharynx unremarkable. Airway patent. LUNGS: Clear to auscultation bilaterally, no wheezes, rales, or rhonchi. No respiratory distress. HEART: Borderline tachycardia, normal rhythm. No murmur ABDOMEN: Soft, non-tender. Non-distended. Bowel sounds present in all 4 quadrants. GENITOURINARY: Deferred EXTREMITIES: Moves all 4 extremities spontaneously. No edema, normal radial and dorsalis pedis pulses bilaterally. No cyanosis. BACK: no cervical, thoracic, lumbar midline tenderness. No saddle anesthesia, normal distal neurovascular exam. Moves all extremities in full range of motion. NEUROLOGICAL: Alert and oriented x3. Normal speech. Cranial nerves II through XII grossly intact. PSYCH: Normal affect, normal mood. SKIN: Warm, dry, normal turgor. No rashes or lesions noted. Course - Re-evaluation Re-evalutation: Patient was initially tachycardia. On my evaluation she is well-appearing. Her abdomen is soft and benign. Diarrhea has resolved. She has no current complaints other than feeling dehydrated. Patient was given IV fluids. Vital signs rechecked and she is no longer tachycardic. No current symptoms. CBC, chemistry, lipase unremarkable. Urinalysis borderline for infection. I discussed with patient, she requests treatment for possible UTI. This was provided. Discussed follow-up and return precautions. Patient states satisfa ction and agreement. Stable at time of discharge. - Vital Signs Vital signs: Temp Pulse Resp BP Pulse Ox 98.0 F 87 20 111/53 L 99 03/30/19 22:38 03/30/19 22:38 03/30/19 22:38 03/30/19 22:38 03/30/19 22:38 - Laboratory Result Diagrams: 03/30/19 17:33 03/30/19 17:33 Laboratory results interpreted by me: 03/30/19 03/30/19 03/30/19 17:33 17:33 17:33 MCV 79 L MCH 25.4 L RDW 15.2 H Glucose 121 H Urine Glucose (UA) >=500 H Ur Leukocyte Esterase MODERATE H Discharge - Discharge Clinical Impression: Dehydration Diarrhea Qualifiers: Diarrhea type: unspecified type Qualified Code(s): R19.7 - Diarrhea, unspecified Condition: Stable Disposition: HOME, SELF-CARE Additional Instructions: Your evaluation work-up indicates dehydration, and a developing urinary tract infection. Take Phenergan as needed for nausea, drink plenty of fluids, start with bland diet and slowly progress. Take antibiotics as prescribed to completion. Follow-up with primary care. Return if you worsen including severe abdominal pain, vomiting, fever, or any other concerning or worsening symptoms. Prescriptions: Cephalexin Monohydrate [Keflex 500 mg Capsule] 500 mg PO BID 5 Days #10 capsule Promethazine HCl [Phenergan 25 mg Tablet] 25 mg PO Q6H PRN #15 tablet PRN Reason: Methocarbamol [Robaxin-750] 750 mg PO QID PRN #20 tablet PRN Reason: Referrals: EVANS DUARTE MD [Primary Care Provider] - Follow up as needed
[2019-03-30 22:44] VITALS: BP 111/53
== END 2019-03-30 22:48 | disposition home or self-care (01) ==
LOC: ER 15:01
DX: E86.0 Dehydration (principal); R19.7 Diarrhea, unspecified; R53.1 Weakness; R53.83 Other fatigue; I10 Essential (primary) hypertension; I25.10 Atherosclerotic heart disease of native coronary artery without angina pectoris; E11.9 Type 2 diabetes mellitus without complications; Z88.8 Allergy status to other drugs, medicaments and biological substances
CPT/HCPCS: 36415; 87086; 83690; 85025; 87088; 80053; 81001; A9270; J7030; 96360; 99284

== ENCOUNTER 2019-04-14 20:07 | Inpatient (IN) | payer MEDICARE, MEDICAID ==
[2019-04-14] MEDS ORDERED: ONDANSETRON HCL INJ/PF 4 MG/2 ML SDV IV ONE (21:12)
[2019-04-14] MEDS ORDERED: HYDROMORPHONE HCL INJ/PF 2 MG/ML AMPULE IV ONE ×2 (21:12→23:25)
--- NOTE | 2019-04-14 21:20 | ER Document Report ---
ED GI/ - General Chief Complaint: Abdominal Pain Stated Complaint: ABDOMINAL PAIN/NAUSEA Time Seen by Provider: 04/14/19 20:59 Primary Care Provider: EVANS DUARTE MD [Primary Care Provider] - Follow up as needed Information source: Patient, Relative Notes: patient complains of epigastric abdominal pain for the last couple days. She has a history of pancreatitis and diabetes. Past surgical history includes cholecystectomy and gastric sleeve many years ago. Positive nausea no vomiting. No chest pain no shortness of breath. The abdominal pain is dull. Only new medication is narcotics. No skin rashes. No other complaints. No urinary complaints. TRAVEL OUTSIDE OF THE [place] IN LAST 30 DAYS: No - Related Data Allergies/Adverse Reactions: naproxen [Naproxen] Allergy (Severe, Verified 03/20/19 17:53) Facial swelling liraglutide [From Victoza] Allergy (Verified 03/20/19 17:53) sitagliptin [From Januvia] Allergy (Verified 03/20/19 17:53) ropinirole HCl [From Requip] Adverse Reaction (Severe, Verified 03/20/19 17:53) BODY SWELLING Past Medical History - Social History Smoking Status: Unknown if Ever Smoked Family History: Reviewed & Not Pertinent, DM, Hypertension Patient has suicidal ideation: No Patient has homicidal ideation: No - Past Medical History Cardiac Medical History: Reports: Hx Coronary Artery Disease, Hx Hypercholesterolemia, Hx Hypertension - DIET CONTROLLED Denies: Hx Heart Attack Pulmonary Medical History: Denies: Hx Asthma, Hx Bronchitis, Hx COPD, Hx Pneumonia Neurological Medical History: Reports: Hx Migraine. Denies: Hx Cerebrovascular Accident, Hx Seizures Endocrine Medical History: Reports: Hx Diabetes Mellitus Type 2, Hx Hypothyroidism Renal/ Medical History: Denies: Hx Peritoneal Dialysis GI Medical History: Reports: Hx Gastroesophageal Reflux Disease, Hx Pancreatitis. Denies: Hx Hepatitis, Hx Hiatal Hernia, Hx Ulcer Musculoskeletal Medical History: Reports Hx Arthritis Psychiatric Medical History: Reports: Hx Depression Infectious Medical History: Denies: Hx Hepatitis Past Surgical History: Reports: Hx Cholecystectomy, Hx Gastric Bypass Surgery - SLEEVE, Hx Genitourinary Surgery - bladder prolapse, Hx Hysterectomy, Hx Orthopedic Surgery - toe, shoulder, elbow, bilat feet, Other - Gastric Sleeve. Denies: Hx Mastectomy, Hx Open Heart Surgery, Hx Pacemaker - Immunizations Immunizations up to date: Yes Hx Diphtheria, Pertussis, Tetanus Vaccination: Yes Hx Pneumococcal Vaccination: 05/24/10 Review of Systems - Review of Systems Constitutional: denies: Chills, Fever -: Yes All other systems reviewed and negative Physical Exam - Vital signs Vitals: Temp Pulse Resp BP Pulse Ox 98.1 F 66 16 151/84 H 99 04/14/19 20:57 04/14/19 20:57 04/14/19 20:57 04/14/19 20:57 04/14/19 20:57 - General General appearance: Appears well, Alert - HEENT Head: Normocephalic, Atraumatic Eyes: Normal Pupils: PERRL - Respiratory Respiratory status: No respiratory distress Chest status: Nontender Breath sounds: Normal Chest palpation: Normal - Cardiovascular Rhythm: Regular Heart sounds: Normal auscultation Murmur: No - Abdominal Inspection: Normal Distension: No distension Bowel sounds: Normal Tenderness: Tender - EPIGASTRIC Organomegaly: No organomegaly - Back Back: Normal, Nontender - Extremities General upper extremity: Normal inspection, Nontender, Normal color, Normal ROM, Normal temperature General lower extremity: Normal inspection, Nontender, Normal color, Normal ROM, Normal temperature, Normal weight bearing. No: Farooq's sign - Neurological Neuro grossly intact: Yes Cognition: Normal Orientation: AAOx4 [place] Coma Scale Eye Opening: Spontaneous [place] Coma Scale Verbal: Oriented [place] Coma Scale Motor: Obeys Commands Bennett Coma Scale Total: 15 Speech: Normal Motor strength normal: LUE, RUE, LLE, RLE Sensory: Normal - Psychological Associated symptoms: Normal affect, Normal mood - Skin Skin Temperature: Warm Skin Moisture: Dry Skin Color: Normal Course - Re-evaluation Re-evalutation: 04/14/19 23:28 IV FLUID AND ANTIBIOTICS ORDERED FOR PANCREATITIS [DEMONSTRATED WITH ELEVATED LIPASE AND CT SCAN] AND UTI. 04/14/19 23:41 DISCUSSED CASE IN DETAIL WITH DR. SNYDER, WHO AGREES WITH ADMISSION. - Vital Signs Vital signs: Temp Pulse Resp BP Pulse Ox 98.1 F 66 16 151/84 H 99 04/14/19 20:57 04/14/19 20:57 04/14/19 20:57 04/14/19 20:57 04/14/19 20:57 - Laboratory Result Diagrams: 04/14/19 21:28 04/14/19 21:28 Laboratory results interpreted by me: 04/14/19 04/14/19 04/14/19 21:28 21:28 22:20 Hgb 11.0 L Hct 33.6 L MCV 79 L MCH 25.8 L RDW 15.4 H Potassium 3.5 L Total Protein 5.8 L Lipase 1389.3 H Urine Glucose (UA) >=500 H Ur Leukocyte Esterase MODERATE H - Diagnostic Test Radiology reviewed: Image reviewed, Reports reviewed Discharge - Discharge Clinical Impression: Abdominal pain Qualifiers: Abdominal location: epigastric Qualified Code(s): R10.13 - Epigastric pain Urinary tract infection Qualifiers: Urinary tract infection type: acute cystitis Hematuria presence: without hematuria Qualified Code(s): N30.00 - Acute cystitis without hematuria Acute pancreatitis Qualifiers: Pancreatitis type: unspecified pancreatitis type Acute pancreatitis complication: unspecified Qualified Code(s): K85.90 - Acute pancreatitis without necrosis or infection, unspecified Condition: Stable Disposition: ADMITTED INPATIENT Admitting Provider: Ainsley Unit Admitted: Telemetry Referrals: EVANS DUARTE MD [Primary Care Provider] - Follow up as needed
[2019-04-14 21:38] LABS: ABSOLUTE EOSINOPHILS # (AUTO) 0.1 10^3/uL (0.0-0.6); ABSOLUTE LYMPHOCYTES (AUTO) 1.9 10^3/uL (0.5-4.7); ABSOLUTE MONOCYTES (AUTO) 0.3 10^3/uL (0.1-1.4); ABSOLUTE NEUT (AUTO) 3.6 10^3/uL (1.7-8.2); BASOPHILS % (AUTO) 0.5 % (0-2); EOSINOPHILS % (AUTO) 1.5 % (0-6); HEMATOCRIT 33.6 % (36.0-47.0); LYMPHOCYTES % (AUTO) 32.3 % (13-45); MEAN CORPUSCULAR HEMOGLOBIN 25.8 pg (27.0-33.4); MEAN CORPUSCULAR HGB CONC 32.6 g/dL (32.0-36.0); MEAN CORPUSCULAR VOLUME 79 fl (80-97); MONOCYTES % (AUTO) 5.4 % (3-13); PLATELET COUNT 297 10^3/uL (150-450); RED BLOOD COUNT 4.26 10^6/uL (3.72-5.28); RED CELL DISTRIBUTION WIDTH 15.4 % (11.5-14.0); SEGMENTED NEUTROPHILS % (AUTO) 60.3 % (42-78); TOTAL CELLS COUNTED % (AUTO) 100 %; WHITE BLOOD COUNT 5.9 10^3/uL (4.0-10.5)
[2019-04-14 22:04] LABS: INTERNATIONAL RATION (INR) 0.99; PROTHROMBIN TIME 13.1 SEC (11.4-15.4)
[2019-04-14 22:19] LABS: ALBUMIN 3.8 g/dL (3.5-5.0); ALKALINE PHOSPHATASE 77 U/L (38-126); ANION GAP 7 (5-19); ASPARTATE AMINO TRANSFERASE 24 U/L (14-36); BLOOD UREA NITROGEN 14 mg/dL (7-20); CALCIUM 9.1 mg/dL (8.4-10.2); CARBON DIOXIDE 29 mmol/L (22-30); CHLORIDE 104 mmol/L (98-107); GLUCOSE 93 mg/dL (75-110); POTASSIUM 3.5 mmol/L (3.6-5.0); TOTAL PROTEIN 5.8 g/dL (6.3-8.2)
[2019-04-14 22:34] LABS: BILIRUBIN,DIRECT 0.1 mg/dL (0.0-0.4); BILIRUBIN,TOTAL 0.2 mg/dL (0.2-1.3)
--- NOTE | 2019-04-14 22:35 | RADIOLOGY REPORT (SQ) ---
EXAM DESCRIPTION: CT ABDOMEN PELVIS WITHOUT IV CONTRAST COMPLETED DATE/TME: 04/14/2019 21:11 CLINICAL HISTORY: 54 years, Female, ABD PAIN COMPARISON: Multiple priors, most recent from 03/04/2019 TECHNIQUE: Noncontrast CT of the abdomen/pelvis was performed. Coronal and sagittal reformations were created. Images stored on PACS. All CT scanners at this facility use dose modulation, iterative reconstruction, and/or weight based dosing when appropriate to reduce radiation dose to as low as reasonably achievable (ALARA). [facility]: Dose Right [facility]: CareDose [facility]: Dose Right [facility]: Teradose 4D [facility]: EndorphMe LIMITATIONS: None. FINDINGS: Limited evaluation of the lower chest reveals clear lung bases. Calcifications are evident about the coronary vessels. There is a small pericardial effusion. There are postsurgical changes of gastric sleeve procedure. Tiny hiatal hernia is noted. The liver, spleen, and both adrenal glands appear normal. The gallbladder is absent. The pancreas appears diffusely edematous with mild peripancreatic inflammatory stranding. No adjacent fluid collections are identified. Both kidneys are normal in their noncontrast appearance. No hydronephrosis or hydroureter. Urinary bladder is well distended and shows no suspicious finding. Uterus is absent. Neither ovary is visualized. Small and large bowel appear normal in caliber. No evidence of bowel obstruction. The appendix is normal. Calcifications are evident about the abdominal aorta and proximal iliac vessels. No suspicious lymphadenopathy or drainable fluid collections. Bone windows show no destructive osseous lesions. IMPRESSION: Findings suggest acute, uncomplicated pancreatitis. No drainable fluid collections. TECHNICAL DOCUMENTATION: Quality ID # 436: Final reports with documentation of one or more dose reduction techniques (e.g., Automated exposure control, adjustment of the mA and/or kV according to patient size, use of iterative reconstruction technique) copyright 2010 [employer]- All Rights Reserved
[2019-04-14 22:58] LABS: APPEARANCE,URINE SLIGHTLY-CLOUDY; BILIRUBIN,URINE NEGATIVE (NEGATIVE); COLOR,URINE YELLOW; GLUCOSE, URINE >=500 mg/dL (NEGATIVE); KETONES,URINE NEGATIVE (NEGATIVE); LEUKOCYTE ESTERASE,URINE MODERATE (NEGATIVE); NITRITE,URINE NEGATIVE (NEGATIVE); PROTEIN,URINE NEGATIVE (NEGATIVE); URINE SPECIFIC GRAVITY 1.029; UROBILINOGEN,URINE NEGATIVE mg/dL (<2.0)
[2019-04-14] MEDS ORDERED: NORMAL SALINE 1000 ML 1,000 ML IV ONE (22:59)
[2019-04-14] MEDS ORDERED: CEFTRIAXONE INJ 1000 MG VIAL IV ONE (23:30)
[2019-04-14] MEDS ORDERED: ONDANSETRON HCL INJ/PF 4 MG/2 ML SDV IV PRN (23:42)
[2019-04-14] MEDS ORDERED: ACETAMINOPHEN 650 MG SUPP.RECT PR PRN (23:42)
[2019-04-15] MEDS: HYDROMORPHONE HCL INJ/PF 2 MG/ML AMPULE IV SCH ×5 (01:21→19:12)
[2019-04-15] MEDS: NORMAL SALINE 1000 ML 1,000 ML IV PRN ×2 (01:56→10:27)
[2019-04-15] MEDS: DIPHENHYDRAMINE HCL 25 MG CAPSULE PO PRN ×4 (01:56→19:05)
[2019-04-15 04:44] LABS: HEMATOCRIT 34.7 % (36.0-47.0); HEMOGLOBIN 11.1 g/dL (12.0-15.5); MEAN CORPUSCULAR HEMOGLOBIN 25.4 pg (27.0-33.4); MEAN CORPUSCULAR HGB CONC 32.1 g/dL (32.0-36.0); MEAN CORPUSCULAR VOLUME 79 fl (80-97); PLATELET COUNT 290 10^3/uL (150-450); RED BLOOD COUNT 4.38 10^6/uL (3.72-5.28); RED CELL DISTRIBUTION WIDTH 15.4 % (11.5-14.0)
[2019-04-15 05:04] LABS: ALBUMIN 3.6 g/dL (3.5-5.0); ALKALINE PHOSPHATASE 74 U/L (38-126); ANION GAP 7 (5-19); ASPARTATE AMINO TRANSFERASE 23 U/L (14-36); BILIRUBIN,DIRECT 0.1 mg/dL (0.0-0.4); BILIRUBIN,TOTAL 0.2 mg/dL (0.2-1.3); BLOOD UREA NITROGEN 12 mg/dL (7-20); CALCIUM 8.2 mg/dL (8.4-10.2); CARBON DIOXIDE 29 mmol/L (22-30); CHLORIDE 105 mmol/L (98-107); GLUCOSE 93 mg/dL (75-110); POTASSIUM 3.6 mmol/L (3.6-5.0); TOTAL PROTEIN 5.6 g/dL (6.3-8.2)
[2019-04-15] MEDS: PANTOPRAZOLE SODIUM 40 MG VIAL IV SCH ×2 (10:23→22:49)
[2019-04-15] MEDS: ENOXAPARIN SODIUM INJ 40 MG/0.4 ML DISP.SYRIN SUBCUT SCH (10:24)
[2019-04-15] MEDS: DEXTROSE 5%-NORMAL SALINE 1,000 ML IV PRN (16:57)
[2019-04-15] MEDS ORDERED: GLUCAGON,HUMAN RECOMB 1 MG INJ ONE (18:47)
[2019-04-15] MEDS ORDERED: HYDROMORPHONE HCL INJ/PF 2 MG/ML AMPULE IV PRN (18:56)
[2019-04-15] MEDS ORDERED: DEXTROSE 50%-WATER SYRINGE 25 GM/50 ML DOSE IV PRN (19:00)
[2019-04-15] MEDS ORDERED: DEXTROSE 40% GEL 15 GM TUBE PO PRN (19:00)
[2019-04-15] MEDS ORDERED: GLUCAGON,HUMAN RECOMB 1 MG INJ IM PRN (19:00)
[2019-04-15] MEDS ORDERED: DEXTROSE 50%-WATER SYRINGE 12.5 GM/25 ML DOSE IV PRN (19:00)
[2019-04-15] MEDS ORDERED: DEXTROSE 40% GEL 15 GM TUBE X 2 PO PRN (19:00)
[2019-04-15] MEDS: HYDROMORPHONE HCL INJ/PF 2 MG/ML AMPULE IV PRN (22:48)
[2019-04-15] MEDS: ONDANSETRON HCL INJ/PF 4 MG/2 ML SDV IV PRN (22:49)
[2019-04-15] MEDS: INSULIN LISPRO 100 UNIT/ML 3 ML VIAL SUBCUT SCH (22:50)
[2019-04-16] MEDS: DEXTROSE 5%-NORMAL SALINE 1,000 ML IV PRN ×3 (04:36→20:45)
[2019-04-16] MEDS: HYDROMORPHONE HCL INJ/PF 2 MG/ML AMPULE IV PRN ×5 (04:59→23:24)
[2019-04-16] MEDS: ONDANSETRON HCL INJ/PF 4 MG/2 ML SDV IV PRN ×2 (04:59→23:24)
[2019-04-16] MEDS: DIPHENHYDRAMINE HCL 25 MG CAPSULE PO PRN ×5 (05:02→23:25)
[2019-04-16 05:31] LABS: HEMATOCRIT 32.2 % (36.0-47.0); HEMOGLOBIN 10.4 g/dL (12.0-15.5); MEAN CORPUSCULAR HEMOGLOBIN 25.8 pg (27.0-33.4); MEAN CORPUSCULAR HGB CONC 32.3 g/dL (32.0-36.0); MEAN CORPUSCULAR VOLUME 80 fl (80-97); PLATELET COUNT 274 10^3/uL (150-450); RED BLOOD COUNT 4.03 10^6/uL (3.72-5.28); RED CELL DISTRIBUTION WIDTH 15.2 % (11.5-14.0); WHITE BLOOD COUNT 5.9 10^3/uL (4.0-10.5)
[2019-04-16] MEDS: INSULIN LISPRO 100 UNIT/ML 3 ML VIAL SUBCUT SCH ×4 (09:09→21:09)
[2019-04-16] MEDS: PANTOPRAZOLE SODIUM 40 MG VIAL IV SCH ×2 (09:19→21:20)
[2019-04-16] MEDS: ENOXAPARIN SODIUM INJ 40 MG/0.4 ML DISP.SYRIN SUBCUT SCH (09:19)
[2019-04-17] MEDS: HYDROMORPHONE HCL INJ/PF 2 MG/ML AMPULE IV PRN ×5 (03:52→21:50)
[2019-04-17] MEDS: DIPHENHYDRAMINE HCL 25 MG CAPSULE PO PRN ×5 (03:53→21:51)
[2019-04-17] MEDS: ONDANSETRON HCL INJ/PF 4 MG/2 ML SDV IV PRN ×5 (03:53→21:50)
[2019-04-17] MEDS: DEXTROSE 5%-NORMAL SALINE 1,000 ML IV PRN ×3 (05:34→21:51)
[2019-04-17 06:48] LABS: HEMATOCRIT 32.5 % (36.0-47.0); HEMOGLOBIN 10.6 g/dL (12.0-15.5); MEAN CORPUSCULAR HEMOGLOBIN 25.9 pg (27.0-33.4); MEAN CORPUSCULAR HGB CONC 32.5 g/dL (32.0-36.0); MEAN CORPUSCULAR VOLUME 80 fl (80-97); PLATELET COUNT 253 10^3/uL (150-450); RED BLOOD COUNT 4.08 10^6/uL (3.72-5.28); RED CELL DISTRIBUTION WIDTH 15.2 % (11.5-14.0); WHITE BLOOD COUNT 4.4 10^3/uL (4.0-10.5)
[2019-04-17] MEDS: INSULIN LISPRO 100 UNIT/ML 3 ML VIAL SUBCUT SCH ×4 (08:28→21:39)
[2019-04-17] MEDS: ENOXAPARIN SODIUM INJ 40 MG/0.4 ML DISP.SYRIN SUBCUT SCH (10:08)
[2019-04-17] MEDS: PANTOPRAZOLE SODIUM 40 MG VIAL IV SCH ×2 (10:08→21:50)
--- NOTE | 2019-04-17 21:57 | PDOC H&P ---
History of Present Illness Admission Date/PCP: 04/14/19 23:48 EVANS DUARTE History of Present Illness: LUIS ANGEL DIOR is a 54 year old female known to my practice who presented to the ED with complaint of abdominal pain over preceding several days. She localized abdominal pain to LUQ and left flank pain with associated nausea but no vomiting. She denied any fever or chills. No diarrhea. She denied any alcohol ingestion or abuse. She reported pain similar to her recent recurring similar abdominal pain admission for pancreatitis. She reported compliance with her dietary restrictions and satisfactory blood glucose level in recent time. She denied any associated dysuria or hematuria. No fever or chills. Her initial evaluation i n the ED was significant for abdominal tenderness with elevated serum lipase level and CT scan that suggested inflamed and edematous pancreas. Her morbidities include diabetes mellitus type 2, HTN, HLD, CAD, Hypothyroidism, GERD, Depression, and Osteoarthritis. She was advised hospitalization for further evaluation and management of her presenting acute illness. Past Medical History Cardiac Medical History: Reports: Coronary Artery Disease, Hyperlipidema, Hypertension - DIET CONTROLLED Denies: Myocardial Infarction Pulmonary Medical History: Denies: Asthma, Bronchitis, Chronic Obstructive Pulmonary Disease (COPD), Pneumonia Neurological Medical History: Reports: Migraine Denies: Seizures Endocrine Medical History: Reports: Diabetes Mellitus Type 2, Hypothyroidism GI Medical History: Reports: Gastroesophageal Reflux Disease Denies: Hepatitis, Hiatal Hernia Musculoskeltal Medical History: Reports: Arthritis Psychiatric Medical History: Reports: Depression Hematology: Reports: Anemia - ON IRON PILLS Denies: Sickle Cell Disease Past Surgical History Past Surgical History: Reports: Cholecystectomy, Gastric Bypass Surgery - SLEEVE, Hysterectomy, Orthopedic Surgery - toe, shoulder, elbow, bilat feet, Other - Gastric Sleeve Denies: Amputation, Mastectomy, Pacemaker Social History Smoking Status: Former Smoker Frequency of Alcohol Use: None Hx Recreational Drug Use: Yes Drugs: Marijuana Hx Prescription Drug Abuse: No Family History Family History: Reviewed & Not Pertinent, DM, Hypertension Parental Family History Reviewed: Yes Children Family History Reviewed: Yes Sibling(s) Family History Reviewed.: Yes Medication/Allergy Home Medications: Dapagliflozin Propanediol [Farxiga] 10 mg PO DAILY 02/19/19 Escitalopram Oxalate [Lexapro] 20 mg PO DAILY 02/19/19 Fluticasone Propionate [Flonase Nasal [place] 50 Mcg/[place] 16 gm] 2 spray NASL DAILY 02/19/19 Folic Acid [Folvite 1 mg Tablet] 1 mg PO DAILY 02/19/19 Insulin Detemir [Levemir] 40 mg SQ BID 02/19/19 Ipratropium [place] [Atrovent 0.06% Nasal [place]] 2 spray NASL TID 02/19/19 Levothyroxine Sodium [Synthroid 0.05 mg Tablet] 0.05 mg PO Q6AM 02/19/19 Metformin HCl [Glucophage] 1,000 mg PO BID 02/19/19 Montelukast Sodium [Singulair 10 mg Tablet] 10 mg PO DAILY 02/19/19 Multivitamin [Tab-A-Luis Felipe (Multiple Vitamin) Tablet] 1 tab PO DAILY 02/19/19 Pramipexole Di-HCl [Mirapex 0.5 mg Tablet] 0.5 mg PO QHS 02/19/19 Trazodone HCl [Desyrel] 100 mg PO QHS 02/19/19 Linaclotide [Linzess] 290 mcg PO DAILY 03/03/19 Valsartan [Diovan 40 mg Tablet] 40 mg PO DAILY #30 tablet 03/08/19 Methocarbamol [Robaxin-750] 750 mg PO QID PRN #20 tablet 03/30/19 Promethazine HCl [Phenergan 25 mg Tablet] 25 mg PO Q6H PRN #15 tablet 03/30/19 Cyproheptadine HCl 2 mg PO TID 04/15/19 Flaxseed Oil [Flaxseed] 1,000 mg PO DAILY 04/15/19 Ondansetron HCl [Zofran 4 mg Tablet] 1 tab PO Q4HP PRN 04/15/19 Oxycodone HCl/Acetaminophen [Percocet 5-325 mg Tablet] 1 tab PO QID 04/15/19 Rosuvastatin Calcium [Crestor 10 mg Tablet] 10 mg PO DAILY 04/15/19 Allergies/Adverse Reactions: naproxen [Naproxen] Allergy (Severe, Verified 03/20/19 17:53) Facial swelling liraglutide [From Victoza] Allergy (Verified 03/20/19 17:53) sitagliptin [From Januvia] Allergy (Verified 03/20/19 17:53) ropinirole HCl [From Requip] Adverse Reaction (Severe, Verified 03/20/19 17:53) BODY SWELLING Review of Systems Constitutional: ABSENT: chills, fever(s), headache(s), weight gain, weight loss Eyes: ABSENT: visual disturbances Ears: ABSENT: hearing changes Nose, Mouth, and Throat: ABSENT: as per HPI, headache(s), mouth pain, sore throat, vertigo, other Cardiovascular: ABSENT: chest pain, dyspnea on exertion, edema, orthropnea, palpitations Respiratory: ABSENT: cough, hemoptysis Gastrointestinal: PRESENT: abdominal pain, nausea Genitourinary: ABSENT: dysuria, hematuria Musculoskeletal: ABSENT: joint swelling Integumentary: ABSENT: rash, wounds Neurological: ABSENT: abnormal gait, abnormal speech, confusion, dizziness, focal weakness, syncope Psychiatric: ABSENT: anxiety, depression, homidical ideation, suicidal ideation Endocrine: ABSENT: cold intolerance, heat intolerance, polydipsia, polyuria Hematologic/Lymphatic: ABSENT: easy bleeding, easy bruising, lymphadenopathy Allergic/Immunologic: ABSENT: seasonal rhinorrhea Physical Exam Vital Signs: Temp Pulse Resp BP Pulse Ox 98.0 F 69 20 130/88 H 98 04/15/19 11:35 04/15/19 11:35 04/15/19 11:35 04/15/19 11:35 04/15/19 11:35 Intake & Output 04/14/19 04/15/19 04/16/19 06:59 06:59 06:59 Intake Total 1000 1000 Balance 1000 1000 Weight 83.4 kg General appearance: PRESENT: mild distress - due to abdominal pain, obese Eye exam: PRESENT: conjunctiva pink, EOMI, PERRLA. ABSENT: scleral icterus Ear exam: PRESENT: normal external ear exam Mouth exam: PRESENT: moist, tongue midline Respiratory exam: PRESENT: clear to auscultation manuel Cardiovascular exam: PRESENT: RRR. ABSENT: diastolic murmur, rubs, systolic murmur Vascular exam: ABSENT: pallor GI/Abdominal exam: PRESENT: normal bowel sounds, soft, tenderness. ABSENT: guarding, organolmegaly, rebound Rectal exam: PRESENT: deferred Extremities exam: ABSENT: pedal edema Musculoskeletal exam: PRESENT: normal inspection Neurological exam: PRESENT: alert, awake, oriented to person, oriented to place, oriented to time, oriented to situation, CN II-XII grossly intact. ABSENT: motor sensory deficit Psychiatric exam: PRESENT: appropriate affect, normal mood. ABSENT: homicidal ideation, suicidal ideation Skin exam: PRESENT: dry, warm Results Laboratory Results: 04/15/19 03:42 04/15/19 03:42 04/14/19 04/14/19 04/14/19 21:28 21:28 22:20 WBC 5.9 RBC 4.26 Hgb 11.0 L Hct 33.6 L MCV 79 L MCH 25.8 L MCHC 32.6 RDW 15.4 H Plt Count 297 Seg Neutrophils % 60.3 Sodium 140.0 Potassium 3.5 L Chloride 104 Carbon Dioxide 29 Anion Gap 7 BUN 14 Creatinine 0.69 Est GFR ( Amer) > 60 Glucose 93 Calcium 9.1 Magnesium 1.7 Total Bilirubin 0.2 AST 24 Alkaline Phosphatase 77 Total Protein 5.8 L Albumin 3.8 Lipase 1389.3 H Urine Color YELLOW Urine Appearance SLIGHTLY-CLOUDY Urine pH 5.0 Ur Specific [place] 1.029 Urine Protein NEGATIVE Urine Glucose (UA) >=500 H Urine Ketones NEGATIVE Urine Blood NEGATIVE Urine Nitrite NEGATIVE Ur Leukocyte Esterase MODERATE H Urine WBC (Auto) 14 Urine RBC (Auto) 4 04/15/19 04/15/19 03:42 03:42 WBC 6.0 RBC 4.38 Hgb 11.1 L Hct 34.7 L MCV 79 L MCH 25.4 L MCHC 32.1 RDW 15.4 H Plt Count 290 Seg Neutrophils % Sodium 141.4 Potassium 3.6 Chloride 105 Carbon Dioxide 29 Anion Gap 7 BUN 12 Creatinine 0.65 Est GFR ( Amer) > 60 Glucose 93 Calcium 8.2 L Magnesium Total Bilirubin 0.2 AST 23 Alkaline Phosphatase 74 Total Protein 5.6 L Albumin 3.6 Lipase 3858.3 H Urine Color Urine Appearance Urine pH Ur Specific [place] Urine Protein Urine Glucose (UA) Urine Ketones Urine Blood Urine Nitrite Ur Leukocyte Esterase Urine WBC (Auto) Urine RBC (Auto) 04/14/19 21:28 Troponin I < 0.012 Impressions: Abdomen/Pelvis CT 04/14/19 21:11 IMPRESSION: Findings suggest acute, uncomplicated pancreatitis. No drainable fluid collections. TECHNICAL DOCUMENTATION: Quality ID # 436: Final reports with documentation of one or more dose reduction techniques (e.g., Automated exposure control, adjustment of the mA and/or kV according to patient size, use of iterative reconstruction technique) copyright 2011 [employer]- All Rights Reserved Assessment & Plan - Diagnosis (1) Recurrent acute pancreatitis Is this a current diagnosis for this admission?: Yes Plan: See admitting attending physician orders for details about care plan. (2) Urinary tract infection Qualifiers: Urinary tract infection type: acute cystitis Hematuria presence: without h ematuria Qualified Code(s): N30.00 - Acute cystitis without hematuria Is this a current diagnosis for this admission?: Yes Plan: See admitting attending physician orders for details about care plan. (3) Diabetes mellitus type 2 in obese Is this a current diagnosis for this admission?: Yes Plan: See admitting attending physician orders for details about care plan. (4) HTN (hypertension) Qualifiers: Hypertension type: essential hypertension Qualified Code(s): I10 - Essentia l (primary) hypertension Is this a current diagnosis for this admission?: Yes Plan: See admitting attending physician orders for details about care plan. (5) HLD (hyperlipidemia) Qualifiers: Hyperlipidemia type: unspecified Qualified Code(s): E78.5 - Hyperlipidemia, unspecified Is this a current diagnosis for this admission?: Yes Plan: See admitting attending physician orders for details about care plan. (6) GERD (gastroesophageal reflux disease) Qualifiers: Esophagitis presence: esophagitis presence not specified Qualified Code(s): K21.9 - Gastro-esophageal reflux disease without esophagitis Is this a current diagnosis for this admission?: Yes Plan: See admitting attending physician orders for details about care plan. - Time Time Spent: 50 to 70 Minutes Medications reviewed and adjusted accordingly: Yes Anticipated discharge: Home Within: Other - Inpatient Certification Based on my medical assessment, after consideration of the patient's comorbidities, presenting symptoms, or acuity I expect that the services needed warrant INPATIENT care.: Yes I certify that my determination is in accordance with my understanding of Medicare's requirements for reasonable and necessary INPATIENT services [42 CFR 412.3e].: Yes Medical Necessity: Significant Comorbidiites Make Outpatient Treatment Too Risky, Need Close Monitoring Due to Risk of Patient Decompensation, Need For IV Fluids, Need For Continuous Telemetry Monitoring, Need for Pain Control, Need for IV Antibiotics, Risk of Complication if Not Cared For in Hospital, Risk of Diagnosis Which Will Require Inpatient Eval/Care/Monitoring 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
--- NOTE | 2019-04-17 22:08 | PDOC PROGRESS REPORT ---
Subjective Progress Note for:: 04/16/19 Subjective:: Patient continue to report abdominal pain. She remain on NPO status. No nausea, vomiting or diarrhea. No fever or chills. Pain is fairly controlled on current regimen. No chest pain or difficulty with breathing. Reason For Visit: PANCREATITIS Physical Exam Vital Signs: Temp Pulse Resp BP Pulse Ox 98.3 F 76 16 140/74 H 98 04/15/19 22:48 04/16/19 07:00 04/15/19 22:48 04/15/19 22:48 04/15/19 22:48 Intake & Output 04/15/19 04/16/19 04/17/19 06:59 06:59 06:59 Intake Total 1000 3000 Balance 1000 3000 Weight 83.4 kg 86.2 kg General appearance: PRESENT: obese Head exam: PRESENT: atraumatic, normocephalic Mouth exam: PRESENT: moist - fairly with allowed use of ice chips. Respiratory exam: PRESENT: clear to auscultation manuel Cardiovascular exam: PRESENT: RRR. ABSENT: diastolic murmur, rubs, systolic murmur Vascular exam: ABSENT: pallor GI/Abdominal exam: PRESENT: normal bowel sounds, soft, tenderness - epigastric and LUQ region.. ABSENT: distended, guarding, mass, organolmegaly, rebound Extremities exam: ABSENT: pedal edema Musculoskeletal exam: PRESENT: normal inspection Neurological exam: PRESENT: alert, awake, oriented to person, oriented to place, oriented to time, oriented to situation, CN II-XII grossly intact. ABSENT: motor sensory deficit Psychiatric exam: PRESENT: appropriate affect, normal mood. ABSENT: homicidal ideation, suicidal ideation Skin exam: PRESENT: dry, warm Results Laboratory Results: 04/16/19 04:31 04/15/19 03:42 04/16/19 04/16/19 04:31 04:31 WBC 5.9 RBC 4.03 Hgb 10.4 L Hct 32.2 L MCV 80 MCH 25.8 L MCHC 32.3 RDW 15.2 H Plt Count 274 Lipase 907.1 H 04/14/19 21:28 Troponin I < 0.012 Impressions: Abdomen/Pelvis CT 04/14/19 21:11 IMPRESSION: Findings suggest acute, uncomplicated pancreatitis. No drainable fluid collections. TECHNICAL DOCUMENTATION: Quality ID # 436: Final reports with documentation of one or more dose reduction techniques (e.g., Automated exposure control, adjustment of the mA and/or kV according to patient size, use of iterative reconstruction technique) copyright 2011 [employer]- All Rights Reserved Assessment & Plan - Diagnosis (1) Recurrent acute pancreatitis Is this a current diagnosis for this admission?: Yes Plan: Continue all current medication management. Adjust pain management regimen to improve pain control. Possible cause of her recurrent acute pancreatitis may be due to her sleeve gastrectomy surgery. (2) Urinary tract infection Qualifiers: Urinary tract infection type: acute cystitis Hematuria presence: without hematuria Qualified Code(s): N30.00 - Acute cystitis without hematuria Is this a current diagnosis for this admission?: Yes Plan: Her leukocytosis may be due to ongoing recurrent acute pancreatitis. (3) Diabetes mellitus type 2 in obese Is this a current diagnosis for this admission?: Yes Plan: Continue current medication and support management. (4) HTN (hypertension) Qualifiers: Hypertension type: essential hypertension Qualified Code(s): I10 - Essential (primary) hypertension Is this a current diagnosis for this admission?: Yes Plan: Maintain on current medication management. (5) GERD (gastroesophageal reflux disease) Qualifiers: Esophagitis presence: esophagitis presence not specified Is this a current diagnosis for this admission?: Yes Plan: Maintain on current medication management. (6) HLD (hyperlipidemia) Qualifiers: Hyperlipidemia type: unspecified Qualified Code(s): E78.5 - Hyperlipidemia, unspecified Is this a current diagnosis for this admission?: Yes Plan: Maintain on current medication management. - Time Time Spent with patient: 25-34 minutes Medications reviewed and adjusted accordingly: Yes Anticipated discharge: Home Within: Other - Inpatient Certification Based on my medical assessment, after consideration of the patient's comorbidities, presenting symptoms, or acuity I expect that the services needed warrant INPATIENT care.: Yes I certify that my determination is in accordance with my understanding of Medicare's requirements for reasonable and necessary INPATIENT services [42 CFR 412.3e].: Yes Medical Necessity: Significant Comorbidiites Make Outpatient Treatment Too Risky, Need Close Monitoring Due to Risk of Patient Decompensation, Need For IV Fluids, Need For Continuous Telemetry Monitoring, Need for Pain Control, Risk of Complication if Not Cared For in Hospital, Risk of Diagnosis Which Will Require Inpatient Eval/Care/Monitoring 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 Maintain on NPO status. Follow up on urine culture findings.
--- NOTE | 2019-04-17 22:19 | PDOC PROGRESS REPORT ---
Subjective Progress Note for:: 04/17/19 Subjective:: Abdominal pain is fairly controlled on current regimen. No vomiting. Reported some itching with IV Dilaudid administration that is controlled with Benadryl and use of Zofran for her nausea. No chest pain or difficulty with breathing. Reason For Visit: PANCREATITIS Physical Exam Vital Signs: Temp Pulse Resp BP Pulse Ox 97.5 F 63 16 136/75 H 97 04/17/19 15:58 04/17/19 15:58 04/17/19 15:58 04/17/19 15:58 04/17/19 15:58 Intake & Output 04/16/19 04/17/19 04/18/19 06:59 06:59 06:59 Intake Total 3000 2944 875 Output Total 3 Balance 3000 2941 875 Weight 86.2 kg 88 kg Physical Exam: General appearance: PRESENT: obese Head exam: PRESENT: atraumatic, normocephalic Mouth exam: PRESENT: moist - fairly with allowed use of ice chips. Respiratory exam: PRESENT: clear to auscultation manuel Cardiovascular exam: PRESENT: RRR. ABSENT: diastolic murmur, rubs, systolic murmur GI/Abdominal exam: PRESENT: normal bowel sounds, soft, improved tenderness - epigastric and LUQ region.. ABSENT: distended, guarding, mass, organolmegaly, rebound Extremities exam: ABSENT: pedal edema Musculoskeletal exam: PRESENT: normal inspection Neurological exam: PRESENT: alert, awake, oriented to person, oriented to place, oriented to time, oriented to situation, CN II-XII grossly intact. ABSENT: motor sensory deficit Psychiatric exam: PRESENT: appropriate affect, normal mood. ABSENT: homicidal ideation, suicidal ideation Skin exam: PRESENT: dry, warm Eye exam: PRESENT: conjunctiva pink. ABSENT: scleral icterus Vascular exam: ABSENT: pallor Results Laboratory Results: 04/17/19 06:22 04/15/19 03:42 04/17/19 04/17/19 06:22 06:22 WBC 4.4 RBC 4.08 Hgb 10.6 L Hct 32.5 L MCV 80 MCH 25.9 L MCHC 32.5 RDW 15.2 H Plt Count 253 Lipase 525.6 H 04/14/19 21:28 Troponin I < 0.012 Impressions: Abdomen/Pelvis CT 09/22/19 21:11 IMPRESSION: Findings suggest acute, uncomplicated pancreatitis. No drainable fluid collections. TECHNICAL DOCUMENTATION: Quality ID # 436: Final reports with documentation of one or more dose reduction techniques (e.g., Automated exposure control, adjustment of the mA and/or kV according to patient size, use of iterative reconstruction technique) copyright 2011 [employer]- All Rights Reserved Assessment & Plan - Diagnosis (1) Recurrent acute pancreatitis Is this a current diagnosis for this admission?: Yes Plan: Continue current medication management. Request GI consultation with Dr. Palomo for input on possible contribution of patient's prior sleeve gastrectomy to her recurrent acute pancreatitis and further management. (2) Urinary tract infection Qualifiers: Urinary tract infection type: acute cystitis Hematuria presence: without hematuria Qualified Code(s): N30.00 - Acute cystitis without hematuria Is this a current diagnosis for this admission?: Yes Plan: Repeat U/A in view of resolution of her leukocytosis but continued complain about slight dysuria. (3) Diabetes mellitus type 2 in obese Is this a current diagnosis for this admission?: Yes Plan: Continue current medication and dietary management. (4) HTN (hypertension) Qualifiers: Hypertension type: essential hypertension Qualified Code(s): I10 - Essential (primary) hypertension Is this a current diagnosis for this admission?: Yes Plan: Continue current medication and dietary management. (5) GERD (gastroesophageal reflux disease) Qualifiers: Esophagitis presence: esophagitis presence not specified Is this a current diagnosis for this admission?: Yes Plan: Continue current medication and dietary management. (6) HLD (hyperlipidemia) Qualifiers: Hyperlipidemia type: unspecified Qualified Code(s): E78.5 - Hyperlipidemia, unspecified Is this a current diagnosis for this admission?: Yes Plan: Continue current medication and dietary management. - Time Time Spent with patient: 25-34 minutes Medications reviewed and adjusted accordingly: Yes Anticipated discharge: Home Within: Other - Inpatient Certification Based on my medical assessment, after consideration of the patient's comorbidities, presenting symptoms, or acuity I expect that the services needed warrant INPATIENT care.: Yes I certify that my determination is in accordance with my understanding of Medicare's requirements for reasonable and necessary INPATIENT services [42 CFR 412.3e].: Yes Medical Necessity: Significant Comorbidiites Make Outpatient Treatment Too Risky, Need Close Monitoring Due to Risk of Patient Decompensation, Need For IV Fluids, Need For Continuous Telemetry Monitoring, Need for Pain Control, Risk of Complication if Not Cared For in Hospital, Risk of Diagnosis Which Will Require Inpatient Eval/Care/Monitoring Post Hospital Care: D/C Pulp House Supervisor Documentation - Plan Summary Plan Summary: Continue current medication and dietary management. Follow up on U/A and blood culture findings.
[2019-04-17 23:51] LABS: APPEARANCE,URINE CLEAR; BILIRUBIN,URINE NEGATIVE (NEGATIVE); COLOR,URINE STRAW; GLUCOSE, URINE >=500 mg/dL (NEGATIVE); KETONES,URINE TRACE mg/dL (NEGATIVE); LEUKOCYTE ESTERASE,URINE NEGATIVE (NEGATIVE); NITRITE,URINE NEGATIVE (NEGATIVE); PROTEIN,URINE NEGATIVE (NEGATIVE); URINE SPECIFIC GRAVITY 1.006; UROBILINOGEN,URINE NEGATIVE mg/dL (<2.0)
[2019-04-18] MEDS: HYDROMORPHONE HCL INJ/PF 2 MG/ML AMPULE IV PRN ×3 (06:10→21:11)
[2019-04-18] MEDS: DEXTROSE 5%-NORMAL SALINE 1,000 ML IV PRN (06:10)
[2019-04-18] MEDS: DIPHENHYDRAMINE HCL 25 MG CAPSULE PO PRN ×4 (06:11→21:10)
[2019-04-18] MEDS: ONDANSETRON HCL INJ/PF 4 MG/2 ML SDV IV PRN ×4 (06:11→21:11)
[2019-04-18] MEDS: ENOXAPARIN SODIUM INJ 40 MG/0.4 ML DISP.SYRIN SUBCUT SCH (09:45)
[2019-04-18] MEDS: PANTOPRAZOLE SODIUM 40 MG VIAL IV SCH ×2 (09:45→21:10)
[2019-04-18] MEDS: INSULIN LISPRO 100 UNIT/ML 3 ML VIAL SUBCUT SCH ×4 (09:50→21:54)
[2019-04-18] MEDS ORDERED: ONDANSETRON HCL INJ/PF 4 MG/2 ML SDV ONE (17:51)
[2019-04-18] MEDS ORDERED: FENTANYL CITRATE INJ/PF 100 MCG/2 ML AMPUL ONE (17:52)
[2019-04-18] MEDS ORDERED: FLUMAZENIL INJ 0.5 MG/5 ML VIAL ONE (17:52)
[2019-04-18] MEDS ORDERED: MIDAZOLAM 2 MG/2 ML INJ ONE (17:52)
[2019-04-18] MEDS ORDERED: NALOXONE HCL INJ/PF 0.4 MG/1 ML SDV ONE (17:52)
[2019-04-18] MEDS ORDERED: EPINEPHRINE INJ 1 MG/10 ML DISP.SYRIN ONE (17:53)
[2019-04-18] MEDS ORDERED: GLUCAGON,HUMAN RECOMB 1 MG INJ ONE (17:53)
--- NOTE | 2019-04-18 18:13 | PDOC PROGRESS REPORT ---
Subjective Progress Note for:: 04/18/19 Subjective:: Patient reported significant improvement in her abdominal pain. Nausea with pain medication administration but no vomiting. No chest pain or difficulty with breathing. No fever or chills. No flank pain, hematuria, or dysuria. Reason For Visit: PANCREATITIS Physical Exam Vital Signs: Temp Pulse Resp BP Pulse Ox 98.6 F 63 15 148/75 H 98 04/18/19 08:04 04/18/19 08:04 04/18/19 08:04 04/18/19 08:04 04/18/19 08:04 Intake & Output 04/17/19 04/18/19 04/19/19 06:59 06:59 06:59 Intake Total 2944 2875 Output Total 3 500 Balance 2941 2375 Weight 88 kg 86.1 kg Physical Exam: General appearance: PRESENT: obese Head exam: PRESENT: atraumatic, normocephalic Mouth exam: PRESENT: moist - fairly with allowed use of ice chips. Eye exam: PRESENT: conjunctiva pink. ABSENT: pallor, scleral icterus Respiratory exam: PRESENT: clear to auscultation manuel Cardiovascular exam: PRESENT: RRR. ABSENT: diastolic murmur, rubs, systolic murmur GI/Abdominal exam: PRESENT: normal bowel sounds, soft. ABSENT: distended, t enderness, guarding, mass, organomegaly, rebound Extremities exam: ABSENT: pedal edema Musculoskeletal exam: PRESENT: normal inspection Neurological exam: PRESENT: alert, awake, oriented to person, oriented to place, oriented to time, oriented to situation, CN II-XII grossly intact. ABSENT: motor sensory deficit Psychiatric exam: PRESENT: appropriate affect, normal mood. ABSENT: homicidal ideation, suicidal ideation Skin exam: PRESENT: dry, warm Results Laboratory Results: 04/17/19 06:22 04/15/19 03:42 04/17/19 04/18/19 23:29 06:08 Lipase 372.1 H Urine Color STRAW Urine Appearance CLEAR Urine pH 6.0 Ur Specific [place] 1.006 Urine Protein NEGATIVE Urine Glucose (UA) >=500 H Urine Ketones TRACE H Urine Blood NEGATIVE Urine Nitrite NEGATIVE Ur Leukocyte Esterase NEGATIVE Urine WBC (Auto) 0 04/14/19 21:28 Troponin I < 0.012 Impressions: Abdomen/Pelvis CT 04/14/19 21:11 IMPRESSION: Findings suggest acute, uncomplicated pancreatitis. No drainable fluid collections. TECHNICAL DOCUMENTATION: Quality ID # [id number]: Final reports with documentation of one or more dose reduction techniques (e.g., Automated exposure control, adjustment of the mA and/or kV according to patient size, use of iterative reconstruction technique) copyright 2011 [employer]- All Rights Reserved Assessment & Plan - Diagnosis (1) Recurrent acute pancreatitis Is this a current diagnosis for this admission?: Yes (2) Urinary tract infection Qualifiers: Urinary tract infection type: acute cystitis Hematuria presence: without hematuria Qualified Code(s): N30.00 - Acute cystitis without hematuria Is this a current diagnosis for this admission?: Yes (3) Diabetes mellitus type 2 in obese Is this a current diagnosis for this admission?: Yes (4) HTN (hypertension) Qualifiers: Hypertension type: essential hypertension Qualified Code(s): I10 - Essential (primary) hypertension Is this a current diagnosis for this admission?: Yes (5) GERD (gastroesophageal reflux disease) Qualifiers: Esophagitis presence: esophagitis presence not specified Qualified Code(s): K21.9 - Gastro-esophageal reflux disease without esophagitis Is this a current diagnosis for this admission?: Yes (6) HLD (hyperlipidemia) Qualifiers: Hyperlipidemia type: unspecified Qualified Code(s): E78.5 - Hyperlipidemia, unspecified Is this a current diagnosis for this admission?: Yes - Time Time Spent with patient: 25-34 minutes Medications reviewed and adjusted accordingly: Yes Anticipated discharge: Home Within: Other - Inpatient Certification Based on my medical assessment, after consideration of the patient's comorbidities, presenting symptoms, or acuity I expect that the services needed warrant INPATIENT care.: Yes I certify that my determination is in accordance with my understanding of Medicare's requirements for reasonable and necessary INPATIENT services [42 CFR 412.3e].: Yes Medical Necessity: Significant Comorbidiites Make Outpatient Treatment Too Risky, Need Close Monitoring Due to Risk of Patient Decompensation, Need For IV Fluids, Need For Continuous Telemetry Monitoring, Need for Pain Control, Risk of Complication if Not Cared For in Hospital, Risk of Diagnosis Which Will Require Inpatient Eval/Care/Monitoring Post Hospital Care: D/C Drafter Geophysical Documentation - Plan Summary Plan Summary: Continue current management with possible resumption of oral feeding tomorrow. Follow up on GI consult recommendations.
--- NOTE | 2019-04-18 18:35 | PDOC CONSULTATION ---
Consultation Consult Date: 04/17/19 Provider Consulted: HI CARR History of Present Illness Admission Date/PCP: 04/14/19 23:48 EVANS DUARTE History of Present Illness: LUIS ANGEL DIOR is a 54 year old female Patient who was admitted on 04/15/2019 for recurrent pancreatitis. She was first admitted to the hospital on 02/19/2019 with epigastric and back pain. Her lipase was 1700 at that time and her LFTs were normal. She had a CAT scan of the abdomen that showed findings consistent with pancreatitis. She was in the hospital for a few days and was discharged on 02/22/2019. She was readmitted on 03/03/2019 with the same symptoms of abdominal pain associated with nausea and vomiting. This time her lipase was 1300 also with normal LFTs. An abdominal MRI was performed on 03/04/2019 showing evidence of mild pancreatitis with a normal pancreatic duct of 2 to 3 mm and a CBD of 9 mm. She was seen at the emergency room on 03/20/2019 for abdominal pain but her lipase was 300 at that time. She was readmitted to the hospital on 04/14/2019 for abdominal pain over the preceding few days. This time her lipase was almost 1400 with normal LFTs. Lipase went up to 3800 the day after admission and her CAT scan was consistent with acute pancreatitis with no fluid collections. According to the patient she will recover does recover well in between these episodes of pancreatitis. She does not drink alcohol and denies any trauma. Her triglycerides have been normal. She had an EGD in November of this year that showed grade B esophagitis and gastritis. She has continued to take Nexium since then. She had cholecystectomy in 2002. Currently she has no abdominal pain Past Medical History Cardiac Medical History: Reports: Coronary Artery Disease, Hyperlipidema, Hypertension - DIET CONTROLLED Denies: Myocardial Infarction Pulmonary Medical History: Denies: Asthma, Bronchitis, Chronic Obstructive Pulmonary Disease (COPD), Pneumonia Neurological Medical History: Reports: Migraine Denies: Seizures Endocrine Medical History: Reports: Diabetes Mellitus Type 2, Hypothyroidism GI Medical History: Reports: Gastroesophageal Reflux Disease Denies: Hepatitis, Hiatal Hernia Musculoskeltal Medical History: Reports: Arthritis Psychiatric Medical History: Reports: Depression Hematology: Reports: Anemia - ON IRON PILLS Denies: Sickle Cell Disease Past Surgical History Past Surgical History: Reports: Cholecystectomy, Gastric Bypass Surgery - SLEEVE, Hysterectomy, Orthopedic Surgery - toe, shoulder, elbow, bilat feet, Other - Gastric Sleeve Denies: Amputation, Mastectomy, Pacemaker Social History Smoking Status: Former Smoker Frequency of Alcohol Use: None Hx Recreational Drug Use: Yes Drugs: Marijuana Hx Prescription Drug Abuse: No Family History Family History: Reviewed & Not Pertinent, DM, Hypertension Parental Family History Reviewed: No Children Family History Reviewed: NA Sibling(s) Family History Reviewed.: NA Medication/Allergy Home Medications: Dapagliflozin Propanediol [Farxiga] 10 mg PO DAILY 02/19/19 Escitalopram Oxalate [Lexapro] 20 mg PO DAILY 02/19/19 Fluticasone Propionate [Flonase Nasal [place] 50 Mcg/[place] 16 gm] 2 spray NASL DAILY 02/19/19 Folic Acid [Folvite 1 mg Tablet] 1 mg PO DAILY 02/19/19 Insulin Detemir [Levemir] 40 mg SQ BID 02/19/19 Ipratropium [place] [Atrovent 0.06% Nasal [place]] 2 spray NASL TID 02/19/19 Levothyroxine Sodium [Synthroid 0.05 mg Tablet] 0.05 mg PO Q6AM 02/19/19 Metformin HCl [Glucophage] 1,000 mg PO BID 02/19/19 Montelukast Sodium [Singulair 10 mg Tablet] 10 mg PO DAILY 02/19/19 Multivitamin [Tab-A-Luis Felipe (Multiple Vitamin) Tablet] 1 tab PO DAILY 02/19/19 Pramipexole Di-HCl [Mirapex 0.5 mg Tablet] 0.5 mg PO QHS 02/19/19 Trazodone HCl [Desyrel] 100 mg PO QHS 02/19/19 Linaclotide [Linzess] 290 mcg PO DAILY 03/03/19 Valsartan [Diovan 40 mg Tablet] 40 mg PO DAILY #30 tablet 03/08/19 Methocarbamol [Robaxin-750] 750 mg PO QID PRN #20 tablet 03/30/19 Promethazine HCl [Phenergan 25 mg Tablet] 25 mg PO Q6H PRN #15 tablet 03/30/19 Cyproheptadine HCl 2 mg PO TID 04/15/19 Flaxseed Oil [Flaxseed] 1,000 mg PO DAILY 04/15/19 Ondansetron HCl [Zofran 4 mg Tablet] 1 tab PO Q4HP PRN 04/15/19 Oxycodone HCl/Acetaminophen [Percocet 5-325 mg Tablet] 1 tab PO QID 04/15/19 Rosuvastatin Calcium [Crestor 10 mg Tablet] 10 mg PO DAILY 04/15/19 Allergies/Adverse Reactions: naproxen [Naproxen] Allergy (Severe, Verified 03/20/19 17:53) Facial swelling liraglutide [From Victoza] Allergy (Verified 03/20/19 17:53) sitagliptin [From Januvia] Allergy (Verified 03/20/19 17:53) ropinirole HCl [From Requip] Adverse Reaction (Severe, Verified 03/20/19 17:53) BODY SWELLING Review of Systems All systems: reviewed and no additional remarkable complaints except as stated Physical Exam Vital Signs: Temp Pulse Resp BP Pulse Ox 98.3 F 69 16 157/74 H 99 04/18/19 16:15 04/18/19 16:15 04/18/19 16:15 04/18/19 16:15 04/18/19 16:15 Intake & Output 04/17/19 04/18/19 04/19/19 06:59 06:59 06:59 Intake Total 2944 2875 0 Output Total 3 500 Balance 2941 2375 0 Weight 88 kg 86.1 kg Exam: General: Patient is alert and looks well. HEENT: There is no pallor or jaundice. PERRLA. Oropharynx normal Respiratory: No chest deformity. No respiratory distress. Chest wall palpitation was unremarkable. Breath sounds were normal Cardiovascular: Heart sounds 1 and 2 normal with no murmurs. Abdominal: Not distended. Soft and nontender. Liver and spleen not palpable. No ascites demonstrated. Bowel sounds active. Rectal examination was deferred. Extremities: No edema Neurological: Alert and oriented x4. Grossly nonfocal. Normal speech Skin: No significant rash Psychological: Normal affect Results Laboratory Results: 04/17/19 06:22 04/15/19 03:42 04/17/19 04/18/19 23:29 06:08 Lipase 372.1 H Urine Color STRAW Urine Appearance CLEAR Urine pH 6.0 Ur Specific [place] 1.006 Urine Protein NEGATIVE Urine Glucose (UA) >=500 H Urine Ketones TRACE H Urine Blood NEGATIVE Urine Nitrite NEGATIVE Ur Leukocyte Esterase NEGATIVE Urine WBC (Auto) 0 04/14/19 21:28 Troponin I < 0.012 Impressions: Abdomen/Pelvis CT 04/14/19 21:11 IMPRESSION: Findings suggest acute, uncomplicated pancreatitis. No drainable fluid collections. TECHNICAL DOCUMENTATION: Quality ID # 436: Final reports with documentation of one or more dose reduction techniques (e.g., Automated exposure control, adjustment of the mA and/or kV according to patient size, use of iterative reconstruction technique) copyright 2011 [employer]- All Rights Reserved Assessment & Plan - Diagnosis (1) Recurrent acute pancreatitis Is this a current diagnosis for this admission?: Yes Plan: She has had recurrent abdominal pain, elevated lipase and abnormal CAT scan of the pancreas over the last 6 [address] findings are consistent with mild pancreatitis. The etiology for her recurrent pancreatitis is unclear. Her ducts are not dilated and no lesions were identified in her pancreas on MRI. She seemed to be recovering from the current episode. She will undergo an EGD to rule out duodenal ulcers and I will refer her for endoscopic ultrasound upon discharge. (2) Abdominal pain Qualifiers: Abdominal location: epigastric Qualified Code(s): R10.13 - Epigastric pain (3) Acute pancreatitis Qualifiers: Pancreatitis type: unspecified pancreatitis type Acute pancreatitis complication: unspecified Qualified Code(s): K85.90 - Acute pancreatitis with out necrosis or infection, unspecified Is this a current diagnosis for this admission?: Yes
--- NOTE | 2019-04-18 18:36 | Operative Report ---
Operative Report DATE OF SURGERY: 04/18/19 Operative Report: Pre-op diagnosis: Epigastric pain and recurrent pancreatitis Post-op diagnosis: Mild antral gastritis Surgery: Esophagogastroduodenoscopy with biopsy Medications: Versed 2mg Fentanyl 100 Mcg IV push Tissue removed: Antral and gastric body biopsy for pathology Procedure: After informed consent obtained from patient, the throat was sprayed with [place] and conscious sedation was achieved. The upper endoscope was inserted into the esophagus under direct vision and advanced into the stomach. The duodenum was entered and examined to the second part. Endoscope was then slowly pulled out of the patient as the mucosa was examined into details. David thompson tolerated procedure well. Findings Esophagus: Normal Z-line at: 40 cm Antrum: Mild erythema Body: Normal Fundus: Normal Duodenum first part: Normal Duodenum second part: Normal Plan: Await pathology. Continue PPI. Patient will be scheduled for endoscopic ultrasound as outpatient OPERATION: .
[2019-04-19] MEDS: HYDROMORPHONE HCL INJ/PF 2 MG/ML AMPULE IV PRN (01:51)
[2019-04-19] MEDS: DIPHENHYDRAMINE HCL 25 MG CAPSULE PO PRN (01:52)
[2019-04-19] MEDS: DEXTROSE 5%-NORMAL SALINE 1,000 ML IV PRN (01:55)
[2019-04-19 05:50] LABS: ABSOLUTE EOSINOPHILS # (AUTO) 0.1 10^3/uL (0.0-0.6); ABSOLUTE LYMPHOCYTES (AUTO) 1.3 10^3/uL (0.5-4.7); ABSOLUTE MONOCYTES (AUTO) 0.3 10^3/uL (0.1-1.4); ABSOLUTE NEUT (AUTO) 1.9 10^3/uL (1.7-8.2); BASOPHILS % (AUTO) 1.1 % (0-2); EOSINOPHILS % (AUTO) 2.5 % (0-6); HEMATOCRIT 32.4 % (36.0-47.0); HEMOGLOBIN 10.6 g/dL (12.0-15.5); LYMPHOCYTES % (AUTO) 36.2 % (13-45); MEAN CORPUSCULAR HEMOGLOBIN 25.9 pg (27.0-33.4); MEAN CORPUSCULAR HGB CONC 32.8 g/dL (32.0-36.0); MEAN CORPUSCULAR VOLUME 79 fl (80-97); MONOCYTES % (AUTO) 8.3 % (3-13); PLATELET COUNT 253 10^3/uL (150-450); RED CELL DISTRIBUTION WIDTH 14.9 % (11.5-14.0); SEGMENTED NEUTROPHILS % (AUTO) 51.9 % (42-78); TOTAL CELLS COUNTED % (AUTO) 100 %; WHITE BLOOD COUNT 3.6 10^3/uL (4.0-10.5)
[2019-04-19 06:11] LABS: ALBUMIN 3.3 g/dL (3.5-5.0); ALKALINE PHOSPHATASE 87 U/L (38-126); ANION GAP 11 (5-19); ASPARTATE AMINO TRANSFERASE 29 U/L (14-36); BILIRUBIN,DIRECT 0.1 mg/dL (0.0-0.4); BILIRUBIN,TOTAL 0.4 mg/dL (0.2-1.3); BLOOD UREA NITROGEN 4 mg/dL (7-20); CALCIUM 8.3 mg/dL (8.4-10.2); CARBON DIOXIDE 26 mmol/L (22-30); CHLORIDE 103 mmol/L (98-107); GLUCOSE 147 mg/dL (75-110); POTASSIUM 3.3 mmol/L (3.6-5.0); TOTAL PROTEIN 5.5 g/dL (6.3-8.2)
[2019-04-19] MEDS: INSULIN LISPRO 100 UNIT/ML 3 ML VIAL SUBCUT SCH ×3 (08:00→17:12)
[2019-04-19] MEDS: ENOXAPARIN SODIUM INJ 40 MG/0.4 ML DISP.SYRIN SUBCUT SCH (10:50)
[2019-04-19] MEDS: PANTOPRAZOLE SODIUM 40 MG VIAL IV SCH (11:41)
--- NOTE | 2019-04-19 17:16 | PDOC PROGRESS REPORT ---
Subjective Progress Note for:: 04/19/19 Subjective:: Patient denied abdominal pain, tolerated oral feeding. No nausea or vomiting. No chest pain or difficulty with breathing. No fever or chills. No flank pain, hematuria, or dysuria. GI consult and EGD findings noted and discussed with patient during this bedside visit. Reason For Visit: PANCREATITIS Physical Exam Vital Signs: Temp Pulse Resp BP Pulse Ox 98.0 F 66 16 139/83 H 95 04/18/19 19:13 04/19/19 07:00 04/18/19 22:53 04/18/19 22:53 04/18/19 22:53 Intake & Output 04/18/19 04/19/19 04/20/19 06:59 06:59 06:59 Intake Total 2875 1200 Output Total 500 Balance 2375 1200 Weight 86.1 kg 84.5 kg Physical Exam: General appearance: PRESENT: obese Head exam: PRESENT: atraumatic, normocephalic Mouth exam: PRESENT: moist - fairly with allowed use of ice chips. Eye exam: PRESENT: conjunctiva pink. ABSENT: pallor, scleral icterus Respiratory exam: PRESENT: clear to auscultation manuel Cardiovascular exam: PRESENT: RRR. ABSENT: diastolic murmur, rubs, systolic murmur GI/Abdominal exam: PRESENT: normal bowel sounds, soft. ABSENT: distended, tenderness, guarding, mass, organomegaly, rebound Extremities exam: ABSENT: pedal edema Musculoskeletal exam: PRESENT: normal inspection Neurological exam: PRESENT: alert, awake, oriented to person, oriented to place, oriented to time, oriented to situation, CN II-XII grossly intact. ABSENT: motor sensory deficit Psychiatric exam: PRESENT: appropriate affect, normal mood. ABSENT: homicidal ideation, suicidal ideation Skin exam: PRESENT: dry, warm Results Laboratory Results: 04/19/19 05:06 04/19/19 05:06 04/19/19 04/19/19 05:06 05:06 WBC 3.6 L RBC 4.10 Hgb 10.6 L Hct 32.4 L MCV 79 L MCH 25.9 L MCHC 32.8 RDW 14.9 H Plt Count 253 Seg Neutrophils % 51.9 Sodium 139.5 Potassium 3.3 L Chloride 103 Carbon Dioxide 26 Anion Gap 11 BUN 4 L Creatinine 0.60 Est GFR ( Amer) > 60 Glucose 147 H Calcium 8.3 L Total Bilirubin 0.4 AST 29 Alkaline Phosphatase 87 Total Protein 5.5 L Albumin 3.3 L Lipase 211.9 04/14/19 21:28 Troponin I < 0.012 Impressions: Abdomen/Pelvis CT 04/14/19 21:11 IMPRESSION: Findings suggest acute, uncomplicated pancreatitis. No drainable fluid collections. TECHNICAL DOCUMENTATION: Quality ID # 436: Final reports with documentation of one or more dose reduction techniques (e.g., Automated exposure control, adjustment of the mA and/or kV according to patient size, use of iterative reconstruction technique) copyright 2011 [employer]- All Rights Reserved Assessment & Plan - Diagnosis (1) Recurrent acute pancreatitis Is this a current diagnosis for this admission?: Yes (2) Urinary tract infection Qualifiers: Urinary tract infection type: acute cystitis Hematuria presence: without hematuria Qualified Code(s): N30.00 - Acute cystitis without hematuria Is this a current diagnosis for this admission?: Yes (3) Diabetes mellitus type 2 in obese Is this a current diagnosis for this admission?: Yes (4) HTN (hypertension) Qualifiers: Hypertension type: essential hypertension Qualified Code(s): I10 - Essential (primary) hypertension Is this a current diagnosis for this admission?: Yes (5) GERD (gastroesophageal reflux disease) Qualifiers: Esophagitis presence: esophagitis presence not specified Qualified Code(s): K21.9 - Gastro-esophageal reflux disease without esophagitis Is this a current diagnosis for this admission?: Yes (6) HLD (hyperlipidemia) Qualifiers: Hyperlipidemia type: unspecified Qualified Code(s): E78.5 - Hyperlipidemia, unspecified Is this a current diagnosis for this admission?: Yes - Time Time Spent with patient: 25-34 minutes Medications reviewed and adjusted accordingly: Yes Anticipated discharge: Home Within: Other - Inpatient Certification Based on my medical assessment, after consideration of the patient's comorbidities, presenting symptoms, or acuity I expect that the services needed warrant INPATIENT care.: Yes I certify that my determination is in accordance with my understanding of Medicare's requirements for reasonable and necessary INPATIENT services [42 CFR 412.3e].: Yes Medical Necessity: Significant Comorbidiites Make Outpatient Treatment Too Risky, Need Close Monitoring Due to Risk of Patient Decompensation, Need For Continuous Telemetry Monitoring, Risk of Complication if Not Cared For in Hospital, Risk of Diagnosis Which Will Require Inpatient Eval/Care/Monitoring Post Hospital Care: D/C Transport Coordinator Documentation - Plan Summary Plan Summary: D/C IV fluid and Dilaudid administration. Start on full liquid diet and advance as tolerated with close monitoring of serum lipase. Start on Dilaudid 2 mg p.o q6 hours prn for pain management.
[2019-04-19] MEDS ORDERED: HYDROMORPHONE HCL 2 MG TABLET PO PRN (17:19)
[2019-04-19] MEDS ORDERED: ONDANSETRON 4 MG TAB.RAPDIS PO PRN (17:20)
[2019-04-20] MEDS: INSULIN LISPRO 100 UNIT/ML 3 ML VIAL SUBCUT SCH ×2 (00:11→09:36)
[2019-04-20] MEDS ORDERED: PANTOPRAZOLE SODIUM 40 MG TABLET.DR PO SCH (06:00)
[2019-04-20] MEDS: ENOXAPARIN SODIUM INJ 40 MG/0.4 ML DISP.SYRIN SUBCUT SCH (09:37)
[2019-04-20 10:56] VITALS: BP 158/95
--- NOTE | 2019-04-20 11:09 | PDOC DISCHARGE SUMMARY ---
Impression - Admit/DC Date/PCP Admission Date/Primary Care Provider: 04/14/19 23:48 EVANS DUARTE Discharge Date: 04/20/19 - Discharge Diagnosis (1) Recurrent acute pancreatitis Is this a current diagnosis for this admission?: Yes (2) Urinary tract infection Is this a current diagnosis for this admission?: Yes (3) Diabetes mellitus type 2 in obese Is this a current diagnosis for this admission?: Yes (4) HTN (hypertension) Is this a current diagnosis for this admission?: Yes (5) GERD (gastroesophageal reflux disease) Is this a current diagnosis for this admission?: Yes (6) HLD (hyperlipidemia) Is this a current diagnosis for this admission?: Yes - Assessment Summary: Patient admission symptoms have resolved. She is tolerant of oral feeding without abdominal pain or elevated serum lipase level. She will be discharged home today. Follow up in the office as instructed upon discharge. - Additional Information Resuscitation Status: Full Code Discharge Diet: Diabetic - instructed to increase consistency gradually Discharge Activity: Activity As Tolerated Referrals: EVANS DUARTE MD [Primary Care Provider] - 04/30/19 10:00 am Home Medications: Dapagliflozin Propanediol [Farxiga] 10 mg PO DAILY 02/19/19 Escitalopram Oxalate [Lexapro] 20 mg PO DAILY 02/19/19 Fluticasone Propionate [Flonase Nasal Rembrandt 50 Mcg/Rembrandt 16 gm] 2 spray NASL DAILY 02/19/19 Folic Acid [Folvite 1 mg Tablet] 1 mg PO DAILY 02/19/19 Insulin Detemir [Levemir] 40 mg SQ BID 02/19/19 Ipratropium [place] [Atrovent 0.06% Nasal Rembrandt] 2 spray NASL TID 02/19/19 Levothyroxine Sodium [Synthroid 0.05 mg Tablet] 0.05 mg PO Q6AM 02/19/19 Metformin HCl [Glucophage] 1,000 mg PO BID 02/19/19 Montelukast Sodium [Singulair 10 mg Tablet] 10 mg PO DAILY 02/19/19 Multivitamin [Tab-A-Luis Felipe (Multiple Vitamin) Tablet] 1 tab PO DAILY 02/19/19 Pramipexole Di-HCl [Mirapex 0.5 mg Tablet] 0.5 mg PO QHS 02/19/19 Trazodone HCl [Desyrel] 100 mg PO QHS 02/19/19 Linaclotide [Linzess] 290 mcg PO DAILY 03/03/19 Valsartan [Diovan 40 mg Tablet] 40 mg PO DAILY #30 tablet 03/08/19 Methocarbamol [Robaxin-750] 750 mg PO QID PRN #20 tablet 03/30/19 Promethazine HCl [Phenergan 25 mg Tablet] 25 mg PO Q6H PRN #15 tablet 03/30/19 Cyproheptadine HCl 2 mg PO TID 04/15/19 Flaxseed Oil [Flaxseed] 1,000 mg PO DAILY 04/15/19 Ondansetron HCl [Zofran 4 mg Tablet] 1 tab PO Q4HP PRN 04/15/19 Oxycodone HCl/Acetaminophen [Percocet 5-325 mg Tablet] 1 tab PO QID 04/15/19 Rosuvastatin Calcium [Crestor 10 mg Tablet] 10 mg PO DAILY 04/15/19 History of Present Illiness History of Present Illness: LUIS ANGEL DIOR is a 54 year old female known to my practice who presented to the ED with complaint of abdominal pain over preceding several days. She localized abdominal pain to LUQ and left flank pain with associated nausea but no vomiting. She denied any fever or chills. No diarrhea. She denied any alcohol ingestion or abuse. She reported pain similar to her recent recurring similar abdominal pain admission for pancreatitis. She reported compliance with her dietary restrictions and satisfactory blood glucose level in recent time. She denied any associated dysuria or hematuria. No fever or chills. Her initial evaluation i n the ED was significant for abdominal tenderness with elevated serum lipase level and CT scan that suggested inflamed and edematous pancreas. Her morbidities include Diabetes Mellitus type 2, HTN, HLD, CAD, Hypothyroidism, GERD, Depression, and Osteoarthritis. She was advised hospitalization for further evaluation and management of her presenting acute illness. Hospital Course Hospital Course: Patient was admitted for recurrent abdominal pain with diagnosis of recurrent acute pancreatitis. She was managed on NPO status with IV fluid support and IV pain medication as well as anti emetic therapy. Due to concern for possible urinary tract infection from abnormal urinalysis and associated leukocytosis she received IV Rocephin therapy. Her urine and blood cultures were eventually without significant bacterial growth. She was seen in consultation by Dr. Palomo, social sciences department chair, due to concern for possible post sleeve gastrectomy contribution to her recurrent acute pancreatitis. She had EGD that revealed mild antral gastritis with recommendation for outpatient endoscopic ultrasound for further evaluation. She was restarted on oral feeding and tolerated soft consistency at this time with normal serum lipase level and absence of clinical symptoms. She will be discharged home today and follow up in the office as instructed upon discharge. She will be referred to Dr. Palomo for follow up on outpatient. Physical Exam Vital Signs: Temp Pulse Resp BP Pulse Ox 97.7 F 59 L 15 135/76 H 97 04/20/19 04:00 04/20/19 04:00 04/20/19 04:00 04/20/19 04:00 04/20/19 04:00 Intake & Output 04/19/19 04/20/19 04/21/19 06:59 06:59 06:59 Intake Total 1200 2170 Balance 1200 2170 Weight 84.5 kg 84 kg General appearance: PRESENT: obese Head exam: PRESENT: atraumatic, normocephalic Mouth exam: PRESENT: moist - fairly with allowed use of ice chips. Eye exam: PRESENT: conjunctiva pink. ABSENT: pallor, scleral icterus Respiratory exam: PRESENT: clear to auscultation manuel Cardiovascular exam: PRESENT: RRR. ABSENT: diastolic murmur, rubs, systolic murmur GI/Abdominal exam: PRESENT: normal bowel sounds, soft. ABSENT: distended, tenderness, guarding, mass, organomegaly, rebound Extremities exam: ABSENT: pedal edema Musculoskeletal exam: PRESENT: normal inspection Neurological exam: PRESENT: alert, awake, oriented to person, oriented to place, oriented to time, oriented to situation, CN II-XII grossly intact. ABSENT: m otor sensory deficit Psychiatric exam: PRESENT: appropriate affect, normal mood. ABSENT: homicidal ideation, suicidal ideation Skin exam: PRESENT: dry, warm Results Laboratory Results: WBC 3.6 10^3/uL (4.0-10.5) L 04/19/19 05:06 RBC 4.10 10^6/uL (3.72-5.28) 04/19/19 05:06 Hgb 10.6 g/dL (12.0-15.5) L 04/19/19 05:06 Hct 32.4 % (36.0-47.0) L 04/19/19 05:06 MCV 79 fl (80-97) L 04/19/19 05:06 MCH 25.9 pg (27.0-33.4) L 04/19/19 05:06 MCHC 32.8 g/dL (32.0-36.0) 04/19/19 05:06 RDW 14.9 % (11.5-14.0) H 04/19/19 05:06 Plt Count 253 10^3/uL (150-450) 04/19/19 05:06 Lymph % (Auto) 36.2 % (13-45) 04/19/19 05:06 [place] % (Auto) 8.3 % (3-13) 04/19/19 05:06 Eos % (Auto) 2.5 % (0-6) 04/19/19 05:06 Baso % (Auto) 1.1 % (0-2) 04/19/19 05:06 Absolute Neuts (auto) 1.9 10^3/uL (1.7-8.2) 04/19/19 05:06 Absolute Lymphs (auto) 1.3 10^3/uL (0.5-4.7) 04/19/19 05:06 Absolute Monos (auto) 0.3 10^3/uL (0.1-1.4) 04/19/19 05:06 Absolute Eos (auto) 0.1 10^3/uL (0.0-0.6) 04/19/19 05:06 Absolute Basos (auto) 0.0 10^3/uL (0.0-0.2) 04/19/19 05:06 Seg Neutrophils % 51.9 % (42-78) 04/19/19 05:06 PT 13.1 SEC (11.4-15.4) 04/14/19 21:28 INR 0.99 04/14/19 21:28 Sodium 139.5 mmol/L (137-145) 04/19/19 05:06 Potassium 3.3 mmol/L (3.6-5.0) L 04/19/19 05:06 Chloride 103 mmol/L (98-107) 04/19/19 05:06 Carbon Dioxide 26 mmol/L (22-30) 04/19/19 05:06 Anion Gap 11 (5-19) 04/19/19 05:06 BUN 4 mg/dL (7-20) L 04/19/19 05:06 Creatinine 0.60 mg/dL (0.52-1.25) 04/19/19 05:06 Est GFR ( Amer) > 60 (>60) 04/19/19 05:06 Est GFR (MDRD) Non-Af > 60 (>60) 04/19/19 05:06 Glucose 147 mg/dL (75-110) H 04/19/19 05:06 POC Glucose 174 mg/dL (70-110) H 04/20/19 08:53 Calcium 8.3 mg/dL (8.4-10.2) L 04/19/19 05:06 Magnesium 1.7 mg/dL (1.6-2.3) 04/14/19 21:28 Total Bilirubin 0.4 mg/dL (0.2-1.3) 04/19/19 05:06 Direct Bilirubin 0.1 mg/dL (0.0-0.4) 04/19/19 05:06 Neonat Total Bilirubin Not Reportable 04/19/19 05:06 Neonat Direct Bilirubin Not Reportable 04/19/19 05:06 Neonat Indirect Bili Not Reportable 04/19/19 05:06 AST 29 U/L (14-36) 04/19/19 05:06 ALT 21 U/L (<35) 04/19/19 05:06 Alkaline Phosphatase 87 U/L (38-126) 04/19/19 05:06 Troponin I < 0.012 ng/mL 04/14/19 21:28 Total Protein 5.5 g/dL (6.3-8.2) L 04/19/19 05:06 Albumin 3.3 g/dL (3.5-5.0) L 04/19/19 05:06 Lipase 239.5 U/L (23-300) 04/20/19 05:31 Urine Color STRAW 04/17/19 23:29 Urine Appearance CLEAR 04/17/19 23:29 Urine pH 6.0 (5.0-9.0) 04/17/19 23:29 Ur Specific [place] 1.006 04/17/19 23:29 Urine Protein NEGATIVE mg/dL (NEGATIVE) 04/17/19 23:29 Urine Glucose (UA) >=500 mg/dL (NEGATIVE) H 04/17/19 23:29 Urine Ketones TRACE mg/dL (NEGATIVE) H 04/17/19 23:29 Urine Blood NEGATIVE (NEGATIVE) 04/17/19 23:29 Urine Nitrite NEGATIVE (NEGATIVE) 04/17/19 23:29 Urine Bilirubin NEGATIVE (NEGATIVE) 04/17/19 23:29 Urine Urobilinogen NEGATIVE mg/dL (<2.0) 04/17/19 23:29 Ur Leukocyte Esterase NEGATIVE (NEGATIVE) 04/17/19 23:29 Urine WBC (Auto) 0 /HPF 04/17/19 23:29 Urine RBC (Auto) 4 /HPF 04/14/19 22:20 Squamous Epi Cells Auto <1 /HPF 04/17/19 23:29 Urine Mucus (Auto) RARE /LPF 04/14/19 22:20 Urine Ascorbic Acid NEGATIVE (NEGATIVE) 04/17/19 23:29 04/14/19 21:28 Troponin I < 0.012 Impressions: Abdomen/Pelvis CT 04/14/19 21:11 IMPRESSION: Findings suggest acute, uncomplicated pancreatitis. No drainable fluid collections. TECHNICAL DOCUMENTATION: Quality ID # [id number]: Final reports with documentation of one or more dose reduction techniques (e.g., Automated exposure control, adjustment of the mA and/or kV according to patient size, use of iterative reconstruction technique) copyright 2011 [employer]- All Rights Reserved Plan Health Concerns: Patient was instructed to advance food consistency gradually and avoid alcohol ingestion. She will continue on all pre-admission medication and dietary restrictions. Plan of Treatment: D/C home today with follow up as instructed upon discharge. Goals: Prevent readmission and maintain improvement of chronic health status. Stroke Is this a Stroke Patient?: No Acute Heart Failure - Is this a Heart Failure Patient?: No
== END 2019-04-20 11:09 | disposition home or self-care (01) | DRG 439 ==
LOC: ER 20:07 → EH 23:48 → 5 04-15 00:57
PROVIDERS: ADMIT Internal Medicine Geriatric Medicine; ATTEND Internal Medicine Geriatric Medicine
PROC: 0DB68ZX Excision of Stomach, Via Natural or Artificial Opening Endoscopic, Diagnostic (ICD-10-PCS; principal; 2019-04-18 18:00)
DX: K86.1 Other chronic pancreatitis (principal); N30.00 Acute cystitis without hematuria; E66.9 Obesity, unspecified; E11.9 Type 2 diabetes mellitus without complications; D64.9 Anemia, unspecified; E03.9 Hypothyroidism, unspecified; I10 Essential (primary) hypertension; K21.9 Gastro-esophageal reflux disease without esophagitis; E78.5 Hyperlipidemia, unspecified; I25.10 Atherosclerotic heart disease of native coronary artery without angina pectoris; F32.9 Major depressive disorder, single episode, unspecified; M19.90 Unspecified osteoarthritis, unspecified site; K29.70 Gastritis, unspecified, without bleeding; G43.909 Migraine, unspecified, not intractable, without status migrainosus; L29.9 Pruritus, unspecified; Z79.4 Long term (current) use of insulin; Z98.84 Bariatric surgery status; Z87.891 Personal history of nicotine dependence; Z83.3 Family history of diabetes mellitus; Z82.49 Family history of ischemic heart disease and other diseases of the circulatory system; Z88.8 Allergy status to other drugs, medicaments and biological substances
CPT/HCPCS: 36415; 43239; 74176; 80053; 81001; 82962; 83690; 83735; 84484; 85025; 85027; 85610; 87040; 87086; 87088; 88305; 88342; 96374; 96375; 96376; 99285; J0171; J0696; J1170; J1610; J1650; J1815; J2250; J2310; J2405; J3010; J3490; J7030; J7042; S0164

== ENCOUNTER 2019-06-23 22:42 | Emergency (ER) | payer MEDICARE, MEDICAID ==
[2019-06-23 23:28] LABS: ABSOLUTE BASOPHILS # (AUTO) 0.1 10^3/uL (0.0-0.2); ABSOLUTE EOSINOPHILS # (AUTO) 0.1 10^3/uL (0.0-0.6); ABSOLUTE LYMPHOCYTES (AUTO) 1.9 10^3/uL (0.5-4.7); ABSOLUTE MONOCYTES (AUTO) 0.3 10^3/uL (0.1-1.4); ABSOLUTE NEUT (AUTO) 4.6 10^3/uL (1.7-8.2); BASOPHILS % (AUTO) 0.8 % (0-2); EOSINOPHILS % (AUTO) 1.1 % (0-6); HEMATOCRIT 37.7 % (36.0-47.0); HEMOGLOBIN 12.1 g/dL (12.0-15.5); LYMPHOCYTES % (AUTO) 27.7 % (13-45); MEAN CORPUSCULAR HEMOGLOBIN 25.7 pg (27.0-33.4); MEAN CORPUSCULAR VOLUME 80 fl (80-97); PLATELET COUNT 270 10^3/uL (150-450); SEGMENTED NEUTROPHILS % (AUTO) 66.4 % (42-78); TOTAL CELLS COUNTED % (AUTO) 100 %; WHITE BLOOD COUNT 6.9 10^3/uL (4.0-10.5)
[2019-06-23 23:47] LABS: ALBUMIN 3.9 g/dL (3.5-5.0); ALKALINE PHOSPHATASE 85 U/L (38-126); ANION GAP 10 (5-19); ASPARTATE AMINO TRANSFERASE 21 U/L (14-36); BILIRUBIN,DIRECT 0.1 mg/dL (0.0-0.4); BILIRUBIN,TOTAL 0.2 mg/dL (0.2-1.3); BLOOD UREA NITROGEN 18 mg/dL (7-20); CALCIUM 9.2 mg/dL (8.4-10.2); CARBON DIOXIDE 27 mmol/L (22-30); CHLORIDE 100 mmol/L (98-107); GLUCOSE 359 mg/dL (75-110); POTASSIUM 3.8 mmol/L (3.6-5.0); TOTAL PROTEIN 6.3 g/dL (6.3-8.2)
[2019-06-24 00:09] LABS: APPEARANCE,URINE CLEAR; BILIRUBIN,URINE NEGATIVE (NEGATIVE); COLOR,URINE STRAW; GLUCOSE, URINE >=500 mg/dL (NEGATIVE); KETONES,URINE NEGATIVE (NEGATIVE); LEUKOCYTE ESTERASE,URINE TRACE (NEGATIVE); NITRITE,URINE NEGATIVE (NEGATIVE); PROTEIN,URINE NEGATIVE (NEGATIVE); URINE SPECIFIC GRAVITY 1.027; UROBILINOGEN,URINE NEGATIVE mg/dL (<2.0)
[2019-06-24] MEDS ORDERED: NORMAL SALINE 1000 ML 1,000 ML IV PRN (00:33)
[2019-06-24] MEDS ORDERED: NORMAL SALINE 1000 ML 1,000 ML IV ONE (00:44)
--- NOTE | 2019-06-24 01:48 | ER Document Report ---
ED General - General Chief Complaint: Abdominal Pain Stated Complaint: ABDOMINAL AND BACK PAIN Time Seen by Provider: 06/24/19 00:25 Primary Care Provider: EVANS DUARTE MD [Primary Care Provider] - Follow up as needed TRAVEL OUTSIDE OF THE [place] IN LAST 30 DAYS: No - HPI Notes: Patient is a 54-year-old female who presents emergency department for evaluation. She has a history of acute recurrent pancreatitis, IBS. She states today after eating she developed a burning and bloated feeling in her epigastric region. It does not radiate. She states she felt slightly nauseated but no emesis. She is had some loose stools, but thinks this may be secondary to the lens that she takes for her IBS. No fevers or chills. Normal urination. I asked her about the level of pain that she is experiencing. She states that she is nearly pain-free at this time, she did not have any sort of intervention, she states the pain has just gone away. - Related Data Allergies/Adverse Reactions: naproxen [Naproxen] Allergy (Severe, Verified 03/20/19 17:53) Facial swelling liraglutide [From Victoza] Allergy (Verified 03/20/19 17:53) sitagliptin [From Januvia] Allergy (Verified 03/20/19 17:53) valsartan [From Diovan] Allergy (Verified 06/23/19 22:54) ropinirole HCl [From Requip] Adverse Reaction (Severe, Verified 03/20/19 17:53) BODY SWELLING Home Medications: refer to med list Past Medical History - General Information source: Patient - Social History Smoking Status: Former Smoker Frequency of alcohol use: None Drug Abuse: None Family History: Reviewed & Not Pertinent, DM, Hypertension Patient has suicidal ideation: No Patient has homicidal ideation: No - Past Medical History Cardiac Medical History: Reports: Hx Coronary Artery Disease, Hx Hypercholesterolemia, Hx Hypertension - DIET CONTROLLED Denies: Hx Heart Attack Pulmonary Medical History: Denies: Hx Asthma, Hx Bronchitis, Hx COPD, Hx Pneumonia Neurological Medical History: Reports: Hx Migraine. Denies: Hx Cerebrovascular Accident, Hx Seizures Endocrine Medical History: Reports: Hx Diabetes Mellitus Type 2, Hx Hypothyroidism Renal/ Medical History: Denies: Hx Peritoneal Dialysis GI Medical History: Reports: Hx Gastroesophageal Reflux Disease, Hx Pancreatitis. Denies: Hx Hepatitis, Hx Hiatal Hernia, Hx Ulcer Musculoskeletal Medical History: Reports Hx Arthritis Psychiatric Medical History: Reports: Hx Depression Infectious Medical History: Denies: Hx Hepatitis Past Surgical History: Reports: Hx Cholecystectomy, Hx Gastric Bypass Surgery - SLEEVE, Hx Genitourinary Surgery - bladder prolapse, Hx Hysterectomy, Hx Orthopedic Surgery - toe, shoulder, elbow, bilat feet, Other - Gastric Sleeve. Denies: Hx Mastectomy, Hx Open Heart Surgery, Hx Pacemaker - Immunizations Immunizations up to date: Yes Hx Diphtheria, Pertussis, Tetanus Vaccination: Yes Hx Pneumococcal Vaccination: 05/24/10 Review of Systems - Review of Systems Constitutional: No symptoms reported EENT: No symptoms reported Cardiovascular: No symptoms reported Respiratory: No symptoms reported Gastrointestinal: See HPI Genitourinary: No symptoms reported Musculoskeletal: No symptoms reported Skin: No symptoms reported Neurological/Psychological: No symptoms reported Physical Exam - Vital signs Vitals: Temp Pulse Resp BP Pulse Ox 97.9 F 84 18 143/79 H 98 06/23/19 22:46 06/23/19 22:46 06/23/19 22:46 06/23/19 22:46 06/23/19 22:46 - Notes Notes: Vital signs reviewed, please refer to chart. Head is normocephalic, atraumatic. Pupils equal round, reactive to light. Neck is supple without meningismus. Heart is regular rate and rhythm. Lungs are clear to auscultation bilaterally. Abdomen is soft, nontender, normoactive bowel sounds throughout. Extremities without cyanosis, clubbing. Posterior calves are nontender. Peripheral pulses are equal. Skin is warm and dry. Patient is awake, alert, neurological exam is nonfocal. Course - Re-evaluation Re-evalutation: 06/24/19 01:46 Patient presents emergency department for evaluation. She had laboratory investigations as ordered per protocol. She was given IV fluids. Laboratory investigations did show moderately elevated lipase at just under 850. Patient has had multiple imaging studies in the past. At this point the patient states she really is about pain-free. She has no significant tenderness on exam. She does have a moderately elevated lipase, but not so much so that I am convinced that this is acute pancreatitis. I explained to the patient that I believe that she should stick to a clear liquid diet at home and follow-up closely with Dr. Duarte. Certainly any increase in her pain, vomiting, or other symptoms should prompt her to return immediately. She voiced understanding to this and was amenable to this plan. She is to return to the ED with worsening as discussed. - Vital Signs Vital signs: Temp Pulse Resp BP Pulse Ox 97.7 F 65 20 140/79 H 98 06/24/19 02:12 06/24/19 02:12 06/24/19 02:12 06/24/19 02:12 06/24/19 02:12 - Laboratory Result Diagrams: 06/23/19 23:08 06/23/19 23:08 Laboratory results interpreted by me: 06/23/19 06/23/19 06/23/19 23:08 23:08 23:58 MCH 25.7 L RDW 15.0 H Glucose 359 H Lipase 848.6 H Urine Glucose (UA) >=500 H Ur Leukocyte Esterase TRACE H Discharge - Discharge Clinical Impression: Epigastric pain Condition: Stable Disposition: HOME, SELF-CARE Instructions: Abdominal Pain ([facility]) Additional Instructions: Your lipase (pancreatic enzyme) is moderately elevated today, but not so much so that I am worried about severe pancreatitis. Rest, stay well-hydrated. Please stick to clear liquids only for the next 12 to 24 hours. Follow-up in the next 1 to 2 days with your primary care provider. You should discuss with him this modest elevation in your lipase. If your pain worsens, you develop fevers, vomiting, or any other new concerning symptoms of any sort, please return immediately to the emergency department for reevaluation. Referrals: EVANS DUARTE MD [Primary Care Provider] - Follow up as needed
[2019-06-24 02:14] VITALS: BP 140/79
== END 2019-06-24 02:16 | disposition home or self-care (01) ==
LOC: ER 22:42
DX: K58.9 Irritable bowel syndrome, unspecified (principal); R10.13 Epigastric pain; R11.0 Nausea; R79.89 Other specified abnormal findings of blood chemistry; I25.10 Atherosclerotic heart disease of native coronary artery without angina pectoris; I10 Essential (primary) hypertension; E11.9 Type 2 diabetes mellitus without complications; Z87.19 Personal history of other diseases of the digestive system; Z87.891 Personal history of nicotine dependence; Z90.49 Acquired absence of other specified parts of digestive tract; Z98.84 Bariatric surgery status; Z88.8 Allergy status to other drugs, medicaments and biological substances
CPT/HCPCS: 99284; 96360; 36415; 83690; 85025; 80053; 81001; J7030

== ENCOUNTER 2019-06-26 09:04 | Inpatient (IN) | payer MEDICARE, MEDICAID ==
[2019-06-26 10:19] LABS: APPEARANCE,URINE CLEAR; BILIRUBIN,URINE NEGATIVE (NEGATIVE); COLOR,URINE YELLOW; GLUCOSE, URINE >=500 mg/dL (NEGATIVE); KETONES,URINE NEGATIVE (NEGATIVE); LEUKOCYTE ESTERASE,URINE TRACE (NEGATIVE); NITRITE,URINE NEGATIVE (NEGATIVE); PROTEIN,URINE NEGATIVE (NEGATIVE); URINE SPECIFIC GRAVITY 1.028; UROBILINOGEN,URINE NEGATIVE mg/dL (<2.0)
[2019-06-26 10:30] LABS: ABSOLUTE LYMPHOCYTES (AUTO) 1.2 10^3/uL (0.5-4.7); ABSOLUTE MONOCYTES (AUTO) 0.3 10^3/uL (0.1-1.4); ABSOLUTE NEUT (AUTO) 5.9 10^3/uL (1.7-8.2); BASOPHILS % (AUTO) 0.4 % (0-2); EOSINOPHILS % (AUTO) 0.6 % (0-6); HEMATOCRIT 38.9 % (36.0-47.0); HEMOGLOBIN 12.5 g/dL (12.0-15.5); LYMPHOCYTES % (AUTO) 16.2 % (13-45); MEAN CORPUSCULAR HEMOGLOBIN 25.5 pg (27.0-33.4); MEAN CORPUSCULAR VOLUME 80 fl (80-97); MONOCYTES % (AUTO) 4.1 % (3-13); PLATELET COUNT 278 10^3/uL (150-450); RED BLOOD COUNT 4.88 10^6/uL (3.72-5.28); RED CELL DISTRIBUTION WIDTH 14.8 % (11.5-14.0); SEGMENTED NEUTROPHILS % (AUTO) 78.7 % (42-78); TOTAL CELLS COUNTED % (AUTO) 100 %; WHITE BLOOD COUNT 7.5 10^3/uL (4.0-10.5)
[2019-06-26 11:00] LABS: ALBUMIN 3.9 g/dL (3.5-5.0); ALKALINE PHOSPHATASE 90 U/L (38-126); ANION GAP 8 (5-19); ASPARTATE AMINO TRANSFERASE 21 U/L (14-36); BILIRUBIN,DIRECT 0.1 mg/dL (0.0-0.4); BILIRUBIN,TOTAL 0.3 mg/dL (0.2-1.3); BLOOD UREA NITROGEN 10 mg/dL (7-20); CALCIUM 9.2 mg/dL (8.4-10.2); CARBON DIOXIDE 29 mmol/L (22-30); CHLORIDE 104 mmol/L (98-107); GLUCOSE 187 mg/dL (75-110); POTASSIUM 4.4 mmol/L (3.6-5.0); TOTAL PROTEIN 6.4 g/dL (6.3-8.2)
[2019-06-26] MEDS ORDERED: MORPHINE SULFATE 10 MG/ML INJ IV ONE (13:20)
[2019-06-26] MEDS ORDERED: ONDANSETRON HCL INJ/PF 4 MG/2 ML SDV IV ONE (13:20)
[2019-06-26] MEDS ORDERED: NORMAL SALINE 1000 ML 1,000 ML IV ONE (13:20)
--- NOTE | 2019-06-26 13:35 | ER Document Report ---
Entered by TREMAINE ODONNELL SCRIBE 06/26/19 1324 Acting as scribe for:STACIA LIANG MD ED GI/ - General Chief Complaint: Abdominal Pain Stated Complaint: LOWER ABDOMINAL PAIN Time Seen by Provider: 06/26/19 12:59 Primary Care Provider: EVANS DUARTE MD [Primary Care Provider] - Follow up as needed Information source: Patient Notes: This 54-year-old female patient presents to the emergency department today with complaints of upper abdominal pain. Patient has a history of idiopathic pancreatitis and her pain today is identical to her previous pancreatitis flares. Patient has had nausea but denies vomiting. TRAVEL OUTSIDE OF THE [place] IN LAST 30 DAYS: No - Related Data Allergies/Adverse Reactions: naproxen [Naproxen] Allergy (Severe, Verified 03/20/19 17:53) Facial swelling liraglutide [From Victoza] Allergy (Verified 03/20/19 17:53) sitagliptin [From Januvia] Allergy (Verified 03/20/19 17:53) valsartan [From Diovan] Allergy (Verified 06/23/19 22:54) ropinirole HCl [From Requip] Adverse Reaction (Severe, Verified 03/20/19 17:53) BODY SWELLING Past Medical History - General Information source: Patient - Social History Smoking Status: Former Smoker - quit in 2010 Cigarette use (# per day): Yes Frequency of alcohol use: None Drug Abuse: None Family History: Reviewed & Not Pertinent, DM, Hypertension Patient has suicidal ideation: No Patient has homicidal ideation: No - Past Medical History Cardiac Medical History: Reports: Hx Coronary Artery Disease, Hx Hypercholester olemia, Hx Hypertension - DIET CONTROLLED Neurological Medical History: Reports: Hx Migraine Endocrine Medical History: Reports: Hx Diabetes Mellitus Type 2, Hx Hypothyroidism GI Medical History: Reports: Hx Gastroesophageal Reflux Disease, Hx Pancreatitis Musculoskeletal Medical History: Reports Hx Arthritis Psychiatric Medical History: Reports: Hx Depression Past Surgical History: Reports: Hx Cholecystectomy, Hx Gastric Bypass Surgery - SLEEVE, Hx Genitourinary Surgery - bladder prolapse, Hx Hysterectomy, Hx Orthopedic Surgery - toe, shoulder, elbow, bilat feet, Other - Gastric Sleeve - Immunizations Immunizations up to date: Yes Hx Diphtheria, Pertussis, Tetanus Vaccination: Yes Hx Pneumococcal Vaccination: 05/24/10 Review of Systems - Review of Systems Constitutional: No symptoms reported EENT: No symptoms reported Cardiovascular: No symptoms reported Respiratory: No symptoms reported Gastrointestinal: See HPI, Abdominal pain, Nausea. denies: Vomiting Genitourinary: No symptoms reported Female Genitourinary: No symptoms reported Musculoskeletal: No symptoms reported Skin: No symptoms reported Hematologic/Lymphatic: No symptoms reported Neurological/Psychological: No symptoms reported -: Yes All other systems reviewed and negative Physical Exam - Vital signs Vitals: Temp Pulse Resp BP Pulse Ox 98.0 F 91 20 141/94 H 98 06/26/19 09:22 06/26/19 09:22 06/26/19 09:22 06/26/19 09:22 06/26/19 09:22 - Notes Notes: Physical Exam: General: Alert, appears uncomfortable. HEENT: Normocephalic. Atraumatic. PERRL. Extraocular movements intact. Oropharynx clear. Neck: Supple. Non-tender. Respiratory: No respiratory distress. Clear and equal breath sounds bilaterally. Cardiovascular: Regular rate and rhythm. Abdominal: Epigastric tenderness to palpation. No distension. Normal Bowel Sounds. Back: No gross abnormalities. Extremities: Moves all four extremities. Upper extremities: Normal inspection. Normal ROM. Lower extremities: Normal inspection. No edema. Normal ROM. Neurological: Normal cognition. AAOx4. Normal speech. Psychological: Normal affect. Normal Mood. Skin: Warm. Dry. Normal color. Course - Vital Signs Vital signs: Temp Pulse Resp BP Pulse Ox 98.0 F 91 20 141/94 H 98 06/26/19 10:27 06/26/19 10:27 06/26/19 10:27 06/26/19 10:27 06/26/19 10:27 - Laboratory Result Diagrams: 06/26/19 10:11 06/26/19 10:11 Laboratory results interpreted by me: 06/26/19 06/26/19 06/26/19 09:56 10:11 10:11 MCH 25.5 L RDW 14.8 H Seg Neutrophils % 78.7 H Glucose 187 H Lipase 4611.7 H Urine Glucose (UA) >=500 H Ur Leukocyte Esterase TRACE H - Consults Dr. Duarte Time consulted: 13:40 Consulted provider: will see as inpatient Discharge - Discharge Clinical Impression: Acute pancreatitis Qualifiers: Pancreatitis type: unspecified pancreatitis type Acute pancreatitis complication: unspecified Qualified Code(s): K85.90 - Acute pancreatitis without necrosis or infection, unspecified Condition: Stable Disposition: ADMITTED INPATIENT Unit Admitted: IMCU Referrals: EVANS DUARTE MD [Primary Care Provider] - Follow up as needed Scribe Attestation: 06/26/19 13:45 I personally performed the services described in the documentation, reviewed and edited the documentation which was dictated to the scribe in my presence, and it accurately records my words and actions. I personally performed the services described in the documentation, reviewed and edited the documentation which was dictated to the scribe in my presence, and it accurately records my words and actions.
[2019-06-26] MEDS ORDERED: HYDROMORPHONE HCL INJ/PF 2 MG/ML AMPULE IV ONE (14:08)
[2019-06-26] MEDS ORDERED: INFLUENZA QUAD (6MOS+) 2019-20 VAC 0.5 ML SYR IM ONE (17:44)
[2019-06-26] MEDS ORDERED: GLUCAGON,HUMAN RECOMB 1 MG INJ SUBCUT PRN (20:09)
[2019-06-26] MEDS ORDERED: DEXTROSE 40% GEL 15 GM TUBE PO PRN ×2 (20:09)
[2019-06-26] MEDS ORDERED: DEXTROSE 50%-WATER 25 GM/50 ML DISP.SYRIN IV PRN ×2 (20:09)
[2019-06-26] MEDS ORDERED: MORPHINE SULFATE 10 MG/ML INJ IV PRN (20:13)
[2019-06-26] MEDS: ONDANSETRON HCL INJ/PF 4 MG/2 ML SDV IV PRN (20:54)
[2019-06-26] MEDS: NORMAL SALINE 1000 ML 1,000 ML IV PRN (20:58)
[2019-06-26] MEDS: PANTOPRAZOLE SODIUM 40 MG VIAL IV SCH (21:57)
[2019-06-26] MEDS: HYDROMORPHONE HCL INJ/PF 2 MG/ML AMPULE IV PRN (23:55)
[2019-06-27] MEDS: HYDROMORPHONE HCL INJ/PF 2 MG/ML AMPULE IV PRN ×5 (04:44→22:33)
[2019-06-27] MEDS: ONDANSETRON HCL INJ/PF 4 MG/2 ML SDV IV PRN ×5 (04:50→22:33)
[2019-06-27 05:07] LABS: ABSOLUTE EOSINOPHILS # (AUTO) 0.1 10^3/uL (0.0-0.6); ABSOLUTE LYMPHOCYTES (AUTO) 1.8 10^3/uL (0.5-4.7); ABSOLUTE MONOCYTES (AUTO) 0.3 10^3/uL (0.1-1.4); ABSOLUTE NEUT (AUTO) 4.2 10^3/uL (1.7-8.2); BASOPHILS % (AUTO) 0.4 % (0-2); EOSINOPHILS % (AUTO) 1.1 % (0-6); HEMATOCRIT 34.5 % (36.0-47.0); HEMOGLOBIN 11.1 g/dL (12.0-15.5); LYMPHOCYTES % (AUTO) 28.1 % (13-45); MEAN CORPUSCULAR HEMOGLOBIN 25.6 pg (27.0-33.4); MEAN CORPUSCULAR HGB CONC 32.3 g/dL (32.0-36.0); MEAN CORPUSCULAR VOLUME 79 fl (80-97); MONOCYTES % (AUTO) 4.7 % (3-13); PLATELET COUNT 234 10^3/uL (150-450); RED BLOOD COUNT 4.34 10^6/uL (3.72-5.28); RED CELL DISTRIBUTION WIDTH 14.7 % (11.5-14.0); SEGMENTED NEUTROPHILS % (AUTO) 65.7 % (42-78); TOTAL CELLS COUNTED % (AUTO) 100 %; WHITE BLOOD COUNT 6.4 10^3/uL (4.0-10.5)
[2019-06-27 05:10] LABS: ALBUMIN 3.2 g/dL (3.5-5.0); ALKALINE PHOSPHATASE 77 U/L (38-126); AMYLASE 294 U/L (30-110); ANION GAP 8 (5-19); ASPARTATE AMINO TRANSFERASE 19 U/L (14-36); BILIRUBIN,DIRECT 0.1 mg/dL (0.0-0.4); BILIRUBIN,TOTAL 0.4 mg/dL (0.2-1.3); BLOOD UREA NITROGEN 9 mg/dL (7-20); CALCIUM 8.5 mg/dL (8.4-10.2); CARBON DIOXIDE 25 mmol/L (22-30); CHLORIDE 106 mmol/L (98-107); CHOLESTEROL 103.67 mg/dL (0-200); GLUCOSE 120 mg/dL (75-110); POTASSIUM 3.9 mmol/L (3.6-5.0); TOTAL PROTEIN 5.7 g/dL (6.3-8.2); TRIGLYCERIDES 117 mg/dL (<150)
[2019-06-27 05:20] LABS: DIRECT LDL 53 mg/dL (<100)
[2019-06-27] MEDS: LEVOTHYROXINE SODIUM 0.05 MG TABLET PO SCH (05:44)
[2019-06-27] MEDS: NORMAL SALINE 1000 ML 1,000 ML IV PRN (07:01)
[2019-06-27] MEDS: PANTOPRAZOLE SODIUM 40 MG VIAL IV SCH ×2 (10:19→22:32)
[2019-06-27] MEDS: ENOXAPARIN SODIUM INJ 40 MG/0.4 ML DISP.SYRIN SUBCUT SCH (10:19)
--- NOTE | 2019-06-27 22:25 | PDOC H&P ---
History of Present Illness Admission Date/PCP: 06/26/19 15:36 EVANS DUARTE Patient complains of: Abdominal pain History of Present Illness: LUIS ANGEL DIOR is a 54 year old female known to my practice who presented to the ED with complain about worsening abdominal pain. Patient reported worsening pain over last several days. She localized pain to epigastric and LUQ region with radiation into her back region. She reported associated nausea but no vomiting. She denied alcohol or related product consumption. She denied illicit drug or NSAID usage. She denied consumption of any unusual food but reported newly introduced to Turmeric capsule for inflammatory pain management. She has history of diabetes mellitus type 2 and bariatric sleeve gastrectomy surgery. She reported compliance with postoperative dietary restrictions. Her initial ED evaluation revealed significantly elevated serum Lipase level. In view of her symptoms, clinical examination findings, and laboratory findings, she was advised hospitalization for further evaluation and management. Her morbidities are as listed below. Past Medical History Cardiac Medical History: Reports: Coronary Artery Disease, Hyperlipidema, Hypertension - DIET CONTROLLED Denies: Myocardial Infarction Pulmonary Medical History: Denies: Asthma, Bronchitis, Chronic Obstructive Pulmonary Disease (COPD), Pneumonia Neurological Medical History: Reports: Migraine Denies: Seizures Endocrine Medical History: Reports: Diabetes Mellitus Type 2, Hypothyroidism GI Medical History: Reports: Gastroesophageal Reflux Disease Denies: Hepatitis, Hiatal Hernia Musculoskeltal Medical History: Reports: Arthritis Psychiatric Medical History: Reports: Depression Hematology: Reports: Anemia - ON IRON PILLS Denies: Sickle Cell Disease Past Surgical History Past Surgical History: Reports: Cholecystectomy, Gastric Bypass Surgery - SLEEVE, Hysterectomy, Orthopedic Surgery - toe, shoulder, elbow, bilat feet, Other - Gastric Sleeve Denies: Amputation, Mastectomy, Pacemaker Social History Smoking Status: Former Smoker Cigarettes Packs Per Day: 1 Electronic Cigarette use?: No Number of Years Smokin Frequency of Alcohol Use: None Hx Recreational Drug Use: Yes Drugs: Marijuana Hx Prescription Drug Abuse: No Family History Family History: Reviewed & Not Pertinent, DM, Hypertension Parental Family History Reviewed: Yes Children Family History Reviewed: Yes Sibling(s) Family History Reviewed.: Yes Medication/Allergy Home Medications: Cyproheptadine HCl [Periactin 4 Mg Tablet] 2 mg PO TID 06/26/19 Dapagliflozin Propanediol [Farxiga] 10 mg PO DAILY 06/26/19 Escitalopram Oxalate [Lexapro] 20 mg PO DAILY 06/26/19 Esomeprazole Magnesium [Nexium 24Hr] 20 mg PO DAILY 06/26/19 Folic Acid [Folvite 1 mg Tablet] 1 mg PO DAILY 06/26/19 Insulin Detemir [Levemir Insulin 100 units/mL Insulin Pen] 40 unit SUBCUT BID 06/26/19 Ipratropium Rogers [Atrovent 0.06% Nasal [place]] 2 spray NASL TID 06/26/19 Levothyroxine Sodium [Synthroid 50 Mcg Tablet] 50 mcg PO Q6AM 06/26/19 Linaclotide [Linzess] 290 mcg PO DAILY 06/26/19 Lubiprostone [Amitiza 24 Mcg Capsule] 24 mcg PO DAILY 06/26/19 Metformin HCl [Glucophage] 1,000 mg PO BID 06/26/19 Montelukast Sodium [Singulair 10 mg Tablet] 10 mg PO QHS 06/26/19 Oxycodone HCl/Acetaminophen [Percocet 5-325 mg Tablet] 1 tab PO QIDP PRN 11/09 Pramipexole Di-HCl [Mirapex 0.5 Mg Tablet] 0.5 mg PO QHS 06/26/19 Rosuvastatin Calcium [Crestor 10 mg Tablet] 10 mg PO DAILY 06/26/19 Trazodone HCl [Desyrel] 100 mg PO DAILY 06/26/19 Allergies/Adverse Reactions: naproxen [Naproxen] Allergy (Severe, Verified 03/20/19 17:53) Facial swelling liraglutide [From Victoza] Allergy (Verified 03/20/19 17:53) sitagliptin [From Januvia] Allergy (Verified 03/20/19 17:53) valsartan [From Diovan] Allergy (Verified 06/23/19 22:54) ropinirole HCl [From Requip] Adverse Reaction (Severe, Verified 03/20/19 17:53) BODY SWELLING Review of Systems Constitutional: ABSENT: chills, fever(s), headache(s), weight gain, weight loss Eyes: ABSENT: visual disturbances Ears: ABSENT: hearing changes Nose, Mouth, and Throat: ABSENT: as per HPI, headache(s), mouth pain, sore throat, vertigo, other Cardiovascular: ABSENT: chest pain, dyspnea on exertion, edema, orthropnea, palpitations Respiratory: ABSENT: cough, hemoptysis Gastrointestinal: PRESENT: abdominal pain, nausea Genitourinary: ABSENT: dysuria, hematuria Musculoskeletal: ABSENT: joint swelling Integumentary: ABSENT: rash, wounds Neurological: ABSENT: abnormal gait, abnormal speech, confusion, dizziness, focal weakness, syncope Psychiatric: ABSENT: anxiety, depression, homidical ideation, suicidal ideation Endocrine: ABSENT: cold intolerance, heat intolerance, menstrual abnormalities, polydipsia, polyuria Hematologic/Lymphatic: ABSENT: easy bleeding, easy bruising, lymphadenopathy Allergic/Immunologic: ABSENT: seasonal rhinorrhea Physical Exam Vital Signs: Temp Pulse Resp BP Pulse Ox 97.9 F 69 18 121/69 97 06/26/19 19:34 06/26/19 19:34 06/26/19 19:34 06/26/19 19:34 06/26/19 19:34 Intake & Output 06/25/19 06/26/19 06/27/19 06:59 06:59 06:59 Intake Total 1000 Output Total 0 Balance 1000 Weight 84.3 kg General appearance: PRESENT: mild distress - due to abdominal pain Head exam: PRESENT: atraumatic, normocephalic Eye exam: PRESENT: conjunctiva pink, EOMI, PERRLA. ABSENT: scleral icterus Ear exam: PRESENT: normal external ear exam Mouth exam: PRESENT: moist, tongue midline Neck exam: PRESENT: full ROM. ABSENT: carotid bruit, JVD, lymphadenopathy, thyromegaly Respiratory exam: PRESENT: clear to auscultation manuel Cardiovascular exam: PRESENT: RRR, +S1, +S2. ABSENT: diastolic murmur, rubs, systolic murmur Vascular exam: PRESENT: normal capillary refill. ABSENT: pallor GI/Abdominal exam: PRESENT: normal bowel sounds, soft, tenderness - epigastric and LUQ region. ABSENT: distended, guarding, mass, organolmegaly, rebound Rectal exam: PRESENT: deferred Extremities exam: ABSENT: pedal edema Musculoskeletal exam: PRESENT: normal inspection Neurological exam: PRESENT: alert, awake, oriented to person, oriented to place, oriented to time, oriented to situation, CN II-XII grossly intact. ABSENT: motor sensory deficit Psychiatric exam: PRESENT: appropriate affect, normal mood. ABSENT: homicidal ideation, suicidal ideation Skin exam: PRESENT: dry, warm Results Laboratory Results: 06/26/19 10:11 06/26/19 10:11 06/26/19 06/26/19 06/26/19 09:56 10:11 10:11 WBC 7.5 RBC 4.88 Hgb 12.5 Hct 38.9 MCV 80 MCH 25.5 L MCHC 32.0 RDW 14.8 H Plt Count 278 Seg Neutrophils % 78.7 H Sodium 141.3 Potassium 4.4 Chloride 104 Carbon Dioxide 29 Anion Gap 8 BUN 10 Creatinine 0.67 Est GFR ( Amer) > 60 Glucose 187 H Calcium 9.2 Total Bilirubin 0.3 AST 21 Alkaline Phosphatase 90 Total Protein 6.4 Albumin 3.9 Lipase 4611.7 H Urine Color YELLOW Urine Appearance CLEAR Urine pH 7.0 Ur Specific [place] 1.028 Urine Protein NEGATIVE Urine Glucose (UA) >=500 H Urine Ketones NEGATIVE Urine Blood NEGATIVE Urine Nitrite NEGATIVE Ur Leukocyte Esterase TRACE H Urine WBC (Auto) 3 Urine RBC (Auto) 1 Assessment & Plan - Diagnosis (1) Recurrent acute pancreatitis Is this a current diagnosis for this admission?: Yes Plan: See admitting attending physician orders for details about care plan. (2) GERD (gastroesophageal reflux disease) Qualifiers: Esophagitis presence: esophagitis presence not specified Qualified Code(s): K21.9 - Gastro-esophageal reflux disease without esophagitis Is this a current diagnosis for this admission?: Yes Plan: See admitting attending physician orders for details about care plan. (3) Diabetes mellitus type 2 in nonobese Is this a current diagnosis for this admission?: Yes Plan: See admitting attending physician orders for details about care plan. (4) HTN (hypertension) Qualifiers: Hypertension type: essential hypertension Qualified Code(s): I10 - Essential (primary) hypertension Is this a current diagnosis for this admission?: Yes Plan: See admitting attending physician orders for details about care plan. (5) HLD (hyperlipidemia) Qualifiers: Hyperlipidemia type: unspecified Qualified Code(s): E78.5 - Hyperlipidemia, unspecified Is this a current diagnosis for this admission?: Yes Plan: See admitting attending physician orders for details about care plan. - Time Time Spent: 50 to 70 Minutes Medications reviewed and adjusted accordingly: Yes Anticipated discharge: Home Within: Other - Inpatient Certification Based on my medical assessment, after consideration of the patient's comorbidities, presenting symptoms, or acuity I expect that the services needed warrant INPATIENT care.: Yes I certify that my determination is in accordance with my understanding of Medicare's requirements for reasonable and necessary INPATIENT services [42 CFR 412.3e].: Yes Medical Necessity: Significant Comorbidiites Make Outpatient Treatment Too Risky, Need Close Monitoring Due to Risk of Patient Decompensation, Need For IV Fluids, Need For Continuous Telemetry Monitoring, Need for Pain Control, Risk of Complication if Not Cared For in Hospital, Risk of Diagnosis Which Will Require Inpatient Eval/Care/Monitoring Post Hospital Care: D/C Cleaning Supervisor Documentation - Plan Summary Plan Summary: See admitting attending physician orders for details about care plan.
--- NOTE | 2019-06-27 22:58 | PDOC PROGRESS REPORT ---
Subjective Progress Note for:: 06/27/19 Subjective:: Patient reported some improvement in her pain intensity on current pain management regimen. There is nausea but no vomiting. No fever or chills. No chest pain or difficulty with breathing. Reason For Visit: RECURRENT ACUTE PANCREATITIS, DIABETES MELLITUS Physical Exam Vital Signs: Temp Pulse Resp BP Pulse Ox 97.9 F 74 17 126/66 H 99 06/27/19 15:30 06/27/19 15:30 06/27/19 15:30 06/27/19 15:30 06/27/19 15:30 Intake & Output 06/26/19 06/27/19 06/28/19 06:59 06:59 06:59 Intake Total 2000 0 Output Total 0 0 Balance 2000 0 Weight 84.1 kg General appearance: PRESENT: mild distress - due to abdominal pain Head exam: PRESENT: atraumatic, normocephalic Eye exam: PRESENT: conjunctiva pink. ABSENT: scleral icterus Ear exam: PRESENT: normal external ear exam Mouth exam: PRESENT: moist - fairly with use of ice chips. Respiratory exam: PRESENT: clear to auscultation manuel Cardiovascular exam: PRESENT: RRR, +S1, +S2. ABSENT: diastolic murmur, rubs, systolic murmur Vascular exam: PRESENT: normal capillary refill. ABSENT: pallor GI/Abdominal exam: PRESENT: normal bowel sounds, soft, tenderness - epigastric and LUQ regions. ABSENT: distended, guarding, mass, organolmegaly, rebound Rectal exam: PRESENT: deferred Extremities exam: ABSENT: pedal edema Neurological exam: PRESENT: alert, awake, oriented to person, oriented to place, oriented to time, oriented to situation, CN II-XII grossly intact. ABSENT: motor sensory deficit Psychiatric exam: PRESENT: appropriate affect, normal mood. ABSENT: homicidal ideation, suicidal ideation Skin exam: PRESENT: dry, warm Results Laboratory Results: 06/27/19 04:36 06/27/19 04:36 06/27/19 06/27/19 04:36 04:36 WBC 6.4 RBC 4.34 Hgb 11.1 L Hct 34.5 L MCV 79 L MCH 25.6 L MCHC 32.3 RDW 14.7 H Plt Count 234 Seg Neutrophils % 65.7 Sodium 139.1 Potassium 3.9 Chloride 106 Carbon Dioxide 25 Anion Gap 8 BUN 9 Creatinine 0.60 Est GFR ( Amer) > 60 Glucose 120 H Calcium 8.5 Total Bilirubin 0.4 AST 19 Alkaline Phosphatase 77 Total Protein 5.7 L Albumin 3.2 L Triglycerides 117 Cholesterol 103.67 LDL Cholesterol Direct 53 VLDL Cholesterol 23.0 HDL Cholesterol 40 Amylase 294 H Lipase 2257.9 H Assessment & Plan - Diagnosis (1) Recurrent acute pancreatitis Is this a current diagnosis for this admission?: Yes Plan: Continue current medication management. Follow up on Lipase serum level and commence feeding as indicated. (2) GERD (gastroesophageal reflux disease) Qualifiers: Esophagitis presence: esophagitis presence not specified Qualified Code(s): K21.9 - Gastro-esophageal reflux disease without esophagitis Is this a current diagnosis for this admission?: Yes Plan: Continue IV Protonix therapy. (3) Diabetes mellitus type 2 in nonobese Is this a current diagnosis for this admission?: Yes Plan: Continue current medication management. (4) HTN (hypertension) Qualifiers: Hypertension type: essential hypertension Qualified Code(s): I10 - Essential (primary) hypertension Is this a current diagnosis for this admission?: Yes Plan: Maintain current medication management. (5) HLD (hyperlipidemia) Qualifiers: Hyperlipidemia type: unspecified Qualified Code(s): E78.5 - Hyperlipidemia, unspecified Is this a current diagnosis for this admission?: Yes Plan: Continue current medication management withholding. - Time Time Spent with patient: 35 or more minutes Level of Care: IMCU Medications reviewed and adjusted accordingly: Yes Anticipated discharge: Home Within: Other - Inpatient Certification Based on my medical assessment, after consideration of the patient's comorbidities, presenting symptoms, or acuity I expect that the services needed warrant INPATIENT care.: Yes I certify that my determination is in accordance with my understanding of Medicare's requirements for reasonable and necessary INPATIENT services [42 CFR 412.3e].: Yes Medical Necessity: Significant Comorbidiites Make Outpatient Treatment Too Risky, Need Close Monitoring Due to Risk of Patient Decompensation, Need For IV Fluids, Need For Continuous Telemetry Monitoring, Need for Pain Control, Risk of Complication if Not Cared For in Hospital, Risk of Diagnosis Which Will Require Inpatient Eval/Care/Monitoring Post Hospital Care: D/C Medical Accountant Documentation - Plan Summary Plan Summary: Continue all current medication management.
[2019-06-28] MEDS: HYDROMORPHONE HCL INJ/PF 2 MG/ML AMPULE IV PRN ×6 (02:36→22:40)
[2019-06-28] MEDS: ONDANSETRON HCL INJ/PF 4 MG/2 ML SDV IV PRN ×6 (02:37→22:40)
[2019-06-28] MEDS: NORMAL SALINE 1000 ML 1,000 ML IV PRN ×2 (03:42→14:36)
[2019-06-28] MEDS: LEVOTHYROXINE SODIUM 0.05 MG TABLET PO SCH (06:12)
[2019-06-28] MEDS: PANTOPRAZOLE SODIUM 40 MG VIAL IV SCH ×2 (09:46→22:39)
[2019-06-28] MEDS: ENOXAPARIN SODIUM INJ 40 MG/0.4 ML DISP.SYRIN SUBCUT SCH (09:46)
--- NOTE | 2019-06-28 17:38 | PDOC PROGRESS REPORT ---
Subjective Progress Note for:: 06/28/19 Subjective:: No chest pain or difficulty with breathing. Patient reported persistence of abdominal pain. There is improvement in her nausea on IV Zofran. No vomiting. No fever or chills. Reason For Visit: RECURRENT ACUTE PANCREATITIS, DIABETES MELLITUS Physical Exam Vital Signs: Temp Pulse Resp BP Pulse Ox 97.7 F 64 17 132/73 H 96 06/28/19 15:23 06/28/19 15:23 06/28/19 15:23 06/28/19 15:23 06/28/19 15:23 Intake & Output 06/27/19 06/28/19 06/29/19 06:59 06:59 06:59 Intake Total 1999 1000 1000 Output Total 0 0 0 Balance 1999 1000 1000 Weight 84.1 kg 86.4 kg 86.4 kg Physical Exam: General appearance: PRESENT: mild distress - due to abdominal pain Head exam: PRESENT: atraumatic, normocephalic Eye exam: PRESENT: conjunctiva pink. ABSENT: pallor, scleral icterus Ear exam: PRESENT: normal external ear exam Mouth exam: PRESENT: moist - fairly with use of ice chips. Respiratory exam: PRESENT: clear to auscultation manuel Cardiovascular exam: PRESENT: RRR, +S1, +S2. ABSENT: diastolic murmur, rubs, systolic murmur GI/Abdominal exam: PRESENT: normal bowel sounds, soft, tenderness - epigastric and LUQ regions. ABSENT: distended, guarding, mass, organomegaly, rebound Extremities exam: ABSENT: pedal edema Neurological exam: PRESENT: alert, awake, oriented to person, oriented to place, oriented to time, oriented to situation, CN II-XII grossly intact. ABSENT: motor sensory deficit Psychiatric exam: PRESENT: appropriate affect, normal mood. ABSENT: homicidal ideation, suicidal ideation Skin exam: PRESENT: dry, warm Results Laboratory Results: 06/27/19 04:36 06/27/19 04:36 06/28/19 04:06 Lipase 1836.7 H Assessment & Plan - Diagnosis (1) Recurrent acute pancreatitis Is this a current diagnosis for this admission?: Yes (2) GERD (gastroesophageal reflux disease) Qualifiers: Esophagitis presence: esophagitis presence not specified Qualified Code(s): K21.9 - Gastro-esophageal reflux disease without esophagitis Is this a current diagnosis for this admission?: Yes (3) Diabetes mellitus type 2 in nonobese Is this a current diagnosis for this admission?: Yes (4) HTN (hypertension) Qualifiers: Hypertension type: essential hypertension Qualified Code(s): I10 - Essential (primary) hypertension Is this a current diagnosis for this admission?: Yes (5) HLD (hyperlipidemia) Qualifiers: Hyperlipidemia type: unspecified Qualified Code(s): E78.5 - Hyperlipidemia, unspecified Is this a current diagnosis for this admission?: Yes - Time Time Spent with patient: 25-34 minutes Level of Care: IMCU Medications reviewed and adjusted accordingly: Yes Anticipated discharge: Home Within: Other - Inpatient Certification Based on my medical assessment, after consideration of the patient's comorbidities, presenting symptoms, or acuity I expect that the services needed warrant INPATIENT care.: Yes I certify that my determination is in accordance with my understanding of [facility]'s requirements for reasonable and necessary INPATIENT services [42 CFR 412.3e].: Yes Medical Necessity: Significant Comorbidiites Make Outpatient Treatment Too Risky, Need Close Monitoring Due to Risk of Patient Decompensation, Need For IV Fluids, Need For Continuous Telemetry Monitoring, Need for Pain Control, Risk of Complication if Not Cared For in Hospital, Risk of Diagnosis Which Will Require Inpatient Eval/Care/Monitoring Post Hospital Care: D/C Quarry Manager Documentation - Plan Summary Plan Summary: Continue current medication management. Patient will remain on NO status. Monitor serum lipase trend.
[2019-06-28] MEDS ORDERED: TRAMADOL HCL 50 MG TABLET PO SCH (22:00)
[2019-06-28] MEDS ORDERED: TRAZODONE HCL 50 MG TABLET PO ONE (23:00)
[2019-06-29] MEDS: NORMAL SALINE 1000 ML 1,000 ML IV PRN (00:02)
[2019-06-29] MEDS: HYDROMORPHONE HCL INJ/PF 2 MG/ML AMPULE IV PRN ×5 (05:53→21:55)
[2019-06-29] MEDS: LEVOTHYROXINE SODIUM 0.05 MG TABLET PO SCH (05:53)
[2019-06-29] MEDS: ONDANSETRON HCL INJ/PF 4 MG/2 ML SDV IV PRN ×5 (05:53→21:55)
[2019-06-29] MEDS: ENOXAPARIN SODIUM INJ 40 MG/0.4 ML DISP.SYRIN SUBCUT SCH (09:37)
[2019-06-29] MEDS: PANTOPRAZOLE SODIUM 40 MG VIAL IV SCH ×2 (09:38→21:54)
--- NOTE | 2019-06-29 12:56 | PDOC PROGRESS REPORT ---
Subjective Progress Note for:: 06/29/19 Subjective:: No chest pain or difficulty with breathing. Patient reported persistence of abdominal pain. There is improvement in her nausea on IV Zofran. No vomiting. No fever or chills. She remain on NPO status except for ice chips to moisten mouth. Reason For Visit: RECURRENT ACUTE PANCREATITIS, DIABETES MELLITUS Physical Exam Vital Signs: Temp Pulse Resp BP Pulse Ox 97.8 F 67 18 115/69 97 06/29/19 12:39 06/29/19 12:39 06/29/19 11:12 06/29/19 12:39 06/29/19 12:39 Intake & Output 06/28/19 06/29/19 06/30/19 06:59 06:59 06:59 Intake Total 1000 1943 Output Total 0 0 Balance 1000 194 Weight 86.4 kg 86.4 kg Physical Exam: General appearance: PRESENT: mild distress - due to abdominal pain Head exam: PRESENT: atraumatic, normocephalic Eye exam: PRESENT: conjunctiva pink. ABSENT: pallor, scleral icterus Ear exam: PRESENT: normal external ear exam Mouth exam: PRESENT: moist - fairly with use of ice chips. Respiratory exam: PRESENT: clear to auscultation manuel Cardiovascular exam: PRESENT: RRR, +S1, +S2. ABSENT: diastolic murmur, rubs, systolic murmur GI/Abdominal exam: PRESENT: normal bowel sounds, soft, tenderness - epigastric and LUQ regions. ABSENT: distended, guarding, mass, organomegaly, rebound Extremities exam: ABSENT: pedal edema Neurological exam: PRESENT: alert, awake, oriented to person, oriented to place, oriented to time, oriented to situation, CN II-XII grossly intact. ABSENT: genevieve r sensory deficit Psychiatric exam: PRESENT: appropriate affect, normal mood. ABSENT: homicidal ideation, suicidal ideation Skin exam: PRESENT: dry, warm Results Laboratory Results: 06/27/19 04:36 06/27/19 04:36 06/29/19 04:31 Lipase 915.1 H Assessment & Plan - Diagnosis (1) Recurrent acute pancreatitis Is this a current diagnosis for this admission?: Yes (2) GERD (gastroesophageal reflux disease) Qualifiers: Esophagitis presence: esophagitis presence not specified Qualified Code(s): K21.9 - Gastro-esophageal reflux disease without esophagitis Is this a current diagnosis for this admission?: Yes (3) Diabetes mellitus type 2 in nonobese Is this a current diagnosis for this admission?: Yes (4) HTN (hypertension) Qualifiers: Hypertension type: essential hypertension Qualified Code(s): I10 - Essential (primary) hypertension Is this a current diagnosis for this admission?: Yes (5) HLD (hyperlipidemia) Qualifiers: Hyperlipidemia type: unspecified Qualified Code(s): E78.5 - Hyperlipidemia, unspecified Is this a current diagnosis for this admission?: Yes - Time Time Spent with patient: 25-34 minutes Medications reviewed and adjusted accordingly: Yes Anticipated discharge: Home Within: Other - Inpatient Certification Based on my medical assessment, after consideration of the patient's comorbidities, presenting symptoms, or acuity I expect that the services needed warrant INPATIENT care.: Yes I certify that my determination is in accordance with my understanding of Medicare's requirements for reasonable and necessary INPATIENT services [42 CFR 412.3e].: Yes Medical Necessity: Significant Comorbidiites Make Outpatient Treatment Too Risky, Need Close Monitoring Due to Risk of Patient Decompensation, Need For IV Fluids, Need For Continuous Telemetry Monitoring, Need for Pain Control, Risk of Complication if Not Cared For in Hospital, Risk of Diagnosis Which Will Require Inpatient Eval/Care/Monitoring Post Hospital Care: D/C Principal Military Analyst Documentation - Plan Summary Plan Summary: continue current medication management. Maintain on NPO status. Monitor serum Lipase level to less than 300 to restart oral feeding.
[2019-06-29] MEDS: DEXTROSE 5%-NORMAL SALINE 1,000 ML IV PRN (16:13)
[2019-06-29] MEDS: TRAZODONE HCL 50 MG TABLET PO SCH (21:55)
[2019-06-30] MEDS: HYDROMORPHONE HCL INJ/PF 2 MG/ML AMPULE IV PRN ×5 (02:17→23:34)
[2019-06-30] MEDS: ONDANSETRON HCL INJ/PF 4 MG/2 ML SDV IV PRN ×5 (02:17→23:33)
[2019-06-30] MEDS: DEXTROSE 5%-NORMAL SALINE 1,000 ML IV PRN ×2 (02:18→13:40)
[2019-06-30 05:22] LABS: ABSOLUTE EOSINOPHILS # (AUTO) 0.1 10^3/uL (0.0-0.6); ABSOLUTE LYMPHOCYTES (AUTO) 1.2 10^3/uL (0.5-4.7); ABSOLUTE MONOCYTES (AUTO) 0.3 10^3/uL (0.1-1.4); ABSOLUTE NEUT (AUTO) 3.1 10^3/uL (1.7-8.2); BASOPHILS % (AUTO) 0.4 % (0-2); EOSINOPHILS % (AUTO) 1.8 % (0-6); HEMOGLOBIN 11.3 g/dL (12.0-15.5); LYMPHOCYTES % (AUTO) 24.7 % (13-45); MEAN CORPUSCULAR HEMOGLOBIN 25.8 pg (27.0-33.4); MEAN CORPUSCULAR HGB CONC 32.3 g/dL (32.0-36.0); MEAN CORPUSCULAR VOLUME 80 fl (80-97); MONOCYTES % (AUTO) 7.2 % (3-13); PLATELET COUNT 234 10^3/uL (150-450); RED BLOOD COUNT 4.38 10^6/uL (3.72-5.28); RED CELL DISTRIBUTION WIDTH 14.5 % (11.5-14.0); SEGMENTED NEUTROPHILS % (AUTO) 65.9 % (42-78); TOTAL CELLS COUNTED % (AUTO) 100 %; WHITE BLOOD COUNT 4.7 10^3/uL (4.0-10.5)
[2019-06-30 05:50] LABS: ALBUMIN 3.3 g/dL (3.5-5.0); ALKALINE PHOSPHATASE 88 U/L (38-126); AMYLASE 83 U/L (30-110); ANION GAP 14 (5-19); ASPARTATE AMINO TRANSFERASE 22 U/L (14-36); BILIRUBIN,DIRECT 0.2 mg/dL (0.0-0.4); BILIRUBIN,TOTAL 0.5 mg/dL (0.2-1.3); BLOOD UREA NITROGEN 6 mg/dL (7-20); CALCIUM 8.8 mg/dL (8.4-10.2); CARBON DIOXIDE 18 mmol/L (22-30); CHLORIDE 109 mmol/L (98-107); GLUCOSE 189 mg/dL (75-110); POTASSIUM 3.9 mmol/L (3.6-5.0); TOTAL PROTEIN 5.6 g/dL (6.3-8.2)
[2019-06-30] MEDS: LEVOTHYROXINE SODIUM 0.05 MG TABLET PO SCH (07:29)
[2019-06-30] MEDS: PANTOPRAZOLE SODIUM 40 MG VIAL IV SCH ×2 (09:57→21:40)
[2019-06-30] MEDS: ENOXAPARIN SODIUM INJ 40 MG/0.4 ML DISP.SYRIN SUBCUT SCH (09:57)
--- NOTE | 2019-06-30 15:26 | PDOC PROGRESS REPORT ---
Subjective Progress Note for:: 06/30/19 Subjective:: No chest pain or difficulty with breathing. Patient reported persistence of abdominal pain. No vomiting. No fever or chills. She remain on NPO status except for ice chips to moisten mouth. Reason For Visit: RECURRENT ACUTE PANCREATITIS, DIABETES MELLITUS Physical Exam Vital Signs: Temp Pulse Resp BP Pulse Ox 97.9 F 76 17 95/55 L 93 06/30/19 07:46 06/30/19 14:00 06/30/19 07:46 06/30/19 07:46 06/30/19 07:46 Intake & Output 06/29/19 06/30/19 07/01/19 06:59 06:59 06:59 Intake Total 1942 1999 999 Output Total 0 1 Balance 1942 1998 999 Weight 86.4 kg 81.5 kg Physical Exam: General appearance: PRESENT: mild distress - due to abdominal pain Head exam: PRESENT: atraumatic, normocephalic Eye exam: PRESENT: conjunctiva pink. ABSENT: pallor, scleral icterus Ear exam: PRESENT: normal external ear exam Mouth exam: PRESENT: moist - fairly with use of ice chips. Respiratory exam: PRESENT: clear to auscultation manuel Cardiovascular exam: PRESENT: RRR, +S1, +S2. ABSENT: diastolic murmur, rubs, systolic murmur GI/Abdominal exam: PRESENT: normal bowel sounds, soft, minimal tenderness to palpation - epigastric and LUQ regions. ABSENT: distended, guarding, mass, organomegaly, rebound Extremities exam: ABSENT: pedal edema Neurological exam: PRESENT: alert, awake, oriented to person, oriented to place, oriented to time, oriented to situation, CN II-XII grossly intact. ABSENT: motor sensory deficit Psychiatric exam: PRESENT: appropriate affect, normal mood. ABSENT: homicidal ideation, suicidal ideation Skin exam: PRESENT: dry, warm Results Laboratory Results: 06/30/19 04:26 06/30/19 04:26 06/30/19 06/30/19 04:26 04:26 WBC 4.7 RBC 4.38 Hgb 11.3 L Hct 35.0 L MCV 80 MCH 25.8 L MCHC 32.3 RDW 14.5 H Plt Count 234 Seg Neutrophils % 65.9 Sodium 141.0 Potassium 3.9 Chloride 109 H Carbon Dioxide 18 L Anion Gap 14 BUN 6 L Creatinine 0.64 Est GFR ( Amer) > 60 Glucose 189 H Calcium 8.8 Total Bilirubin 0.5 AST 22 Alkaline Phosphatase 88 Total Protein 5.6 L Albumin 3.3 L Amylase 83 Lipase 595.9 H Assessment & Plan - Diagnosis (1) Recurrent acute pancreatitis Is this a current diagnosis for this admission?: Yes (2) GERD (gastroesophageal reflux disease) Qualifiers: Esophagitis presence: esophagitis presence not specified Qualified Code(s): K21.9 - Gastro-esophageal reflux disease without esophagitis Is this a current diagnosis for this admission?: Yes (3) Diabetes mellitus type 2 in nonobese Is this a current diagnosis for this admission?: Yes (4) HTN (hypertension) Qualifiers: Hypertension type: essential hypertension Qualified Code(s): I10 - Essential (primary) hypertension Is this a current diagnosis for this admission?: Yes (5) HLD (hyperlipidemia) Qualifiers: Hyperlipidemia type: unspecified Qualified Code(s): E78.5 - Hyperlipidemia, unspecified Is this a current diagnosis for this admission?: Yes - Time Time Spent with patient: 25-34 minutes Level of Care: IMCU Medications reviewed and adjusted accordingly: Yes Anticipated discharge: Home Within: Other - Inpatient Certification Based on my medical assessment, after consideration of the patient's comorbidities, presenting symptoms, or acuity I expect that the services needed warrant INPATIENT care.: Yes I certify that my determination is in accordance with my understanding of Medicare's requirements for reasonable and necessary INPATIENT services [42 CFR 412.3e].: Yes Medical Necessity: Significant Comorbidiites Make Outpatient Treatment Too Risky, Need Close Monitoring Due to Risk of Patient Decompensation, Need For IV Fluids, Need For Continuous Telemetry Monitoring, Need for Pain Control, Risk of Complication if Not Cared For in Hospital, Risk of Diagnosis Which Will Require Inpatient Eval/Care/Monitoring Post Hospital Care: D/C Academy Director Documentation - Plan Summary Plan Summary: Start on clear liquid diet. May use Acetaminophen for headache. Maintain on all other current medication management.
[2019-06-30] MEDS ORDERED: ACETAMINOPHEN 325 MG TABLET PO PRN (15:54)
[2019-06-30] MEDS: NORMAL SALINE 1000 ML 1,000 ML IV PRN (17:08)
[2019-06-30] MEDS: INSULIN LISPRO 100 UNIT/ML 3 ML VIAL SUBCUT SCH ×2 (17:09→21:40)
[2019-06-30] MEDS: TRAZODONE HCL 50 MG TABLET PO SCH (21:39)
[2019-07-01] MEDS: ONDANSETRON HCL INJ/PF 4 MG/2 ML SDV IV PRN ×5 (03:41→21:20)
[2019-07-01] MEDS: HYDROMORPHONE HCL INJ/PF 2 MG/ML AMPULE IV PRN ×5 (03:41→21:20)
[2019-07-01] MEDS: NORMAL SALINE 1000 ML 1,000 ML IV PRN (03:44)
[2019-07-01] MEDS: LEVOTHYROXINE SODIUM 0.05 MG TABLET PO SCH (06:41)
[2019-07-01] MEDS: INSULIN LISPRO 100 UNIT/ML 3 ML VIAL SUBCUT SCH ×3 (08:02→17:22)
[2019-07-01] MEDS: PANTOPRAZOLE SODIUM 40 MG VIAL IV SCH ×2 (09:02→21:20)
[2019-07-01] MEDS: ENOXAPARIN SODIUM INJ 40 MG/0.4 ML DISP.SYRIN SUBCUT SCH (09:03)
[2019-07-01] MEDS: DEXTROSE 5%-NORMAL SALINE 1,000 ML IV PRN ×2 (09:03→19:51)
--- NOTE | 2019-07-01 13:30 | PDOC PROGRESS REPORT ---
Subjective Progress Note for:: 07/01/19 Subjective:: No chest pain or difficulty with breathing. Patient reported increase intensity of epigastric abdominal pain after restart of oral feeding on clear liquid yesterday. Her nausea level is has been less. No vomiting. No fever or chills. Reason For Visit: RECURRENT ACUTE PANCREATITIS, DIABETES MELLITUS Physical Exam Vital Signs: Temp Pulse Resp BP Pulse Ox 98.0 F 62 16 117/57 L 97 07/01/19 07:45 07/01/19 07:45 07/01/19 07:45 07/01/19 07:45 07/01/19 07:45 Intake & Output 06/30/19 07/01/19 07/02/19 06:59 06:59 06:59 Intake Total 1999 362 Output Total 1 Balance 1998 362 Weight 81.5 kg 83.1 kg Physical Exam: General appearance: PRESENT: mild distress - due to abdominal pain Head exam: PRESENT: atraumatic, normocephalic Eye exam: PRESENT: conjunctiva pink. ABSENT: pallor, scleral icterus Ear exam: PRESENT: normal external ear exam Mouth exam: PRESENT: moist - fairly with use of ice chips. Respiratory exam: PRESENT: clear to auscultation manuel Cardiovascular exam: PRESENT: RRR, +S1, +S2. ABSENT: diastolic murmur, rubs, systolic murmur GI/Abdominal exam: PRESENT: normal bowel sounds, soft, minimal tenderness to palpation - epigastric. ABSENT: distended, guarding, mass, organomegaly, reboun d Extremities exam: ABSENT: pedal edema Neurological exam: PRESENT: alert, awake, oriented to person, oriented to place, oriented to time, oriented to situation, CN II-XII grossly intact. ABSENT: mot or sensory deficit Psychiatric exam: PRESENT: appropriate affect, normal mood. ABSENT: homicidal ideation, suicidal ideation Skin exam: PRESENT: dry, warm Results Laboratory Results: 06/30/19 04:26 06/30/19 04:26 07/01/19 04:23 Lipase 2763.1 H Assessment & Plan - Diagnosis (1) Recurrent acute pancreatitis Is this a current diagnosis for this admission?: Yes (2) GERD (gastroesophageal reflux disease) Qualifiers: Esophagitis presence: esophagitis presence not specified Qualified Code(s): K21.9 - Gastro-esophageal reflux disease without esophagitis Is this a current diagnosis for this admission?: Yes (3) Diabetes mellitus type 2 in nonobese Is this a current diagnosis for this admission?: Yes (4) HTN (hypertension) Qualifiers: Hypertension type: essential hypertension Qualified Code(s): I10 - Essential (primary) hypertension Is this a current diagnosis for this admission?: Yes (5) HLD (hyperlipidemia) Qualifiers: Hyperlipidemia type: unspecified Qualified Code(s): E78.5 - Hyperlipidemia, unspecified Is this a current diagnosis for this admission?: Yes - Time Time Spent with patient: 25-34 minutes Level of Care: IMCU Medications reviewed and adjusted accordingly: Yes Anticipated discharge: Home Within: Other - Inpatient Certification Based on my medical assessment, after consideration of the patient's comorbidities, presenting symptoms, or acuity I expect that the services needed warrant INPATIENT care.: Yes I certify that my determination is in accordance with my understanding of Medicare's requirements for reasonable and necessary INPATIENT services [42 CFR 412.3e].: Yes Medical Necessity: Significant Comorbidiites Make Outpatient Treatment Too Risky, Need Close Monitoring Due to Risk of Patient Decompensation, Need For IV Fluids, Need For Continuous Telemetry Monitoring, Need for Pain Control, Risk of Complication if Not Cared For in Hospital, Risk of Diagnosis Which Will Require Inpatient Eval/Care/Monitoring Post Hospital Care: 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 Maintain on NPO status. Obtain GI consultation with Dr. Palomo for possible endoscopic evaluation. maintain on all other current medication management.
[2019-07-01] MEDS ORDERED: PROMETHAZINE HCL INJ 25 MG/1 ML VIAL IV PRN (19:55)
[2019-07-01] MEDS: TRAZODONE HCL 50 MG TABLET PO SCH (21:19)
[2019-07-02] MEDS: INSULIN LISPRO 100 UNIT/ML 3 ML VIAL SUBCUT SCH ×4 (00:35→18:29)
[2019-07-02] MEDS: HYDROMORPHONE HCL INJ/PF 2 MG/ML AMPULE IV PRN ×5 (02:09→21:58)
[2019-07-02] MEDS: ONDANSETRON HCL INJ/PF 4 MG/2 ML SDV IV PRN ×5 (02:09→21:58)
--- NOTE | 2019-07-02 03:54 | RADIOLOGY REPORT (SQ) ---
CLINICAL HISTORY: abd pain and pancreatitis COMPARISON: None. 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 FINDINGS: There is a trace left pleural effusion. Abdomen: The liver is normal in appearance. There is no biliary dilatation. Cholecystectomy was performed. There are postoperative changes of the greater curvature of the stomach. There is mild inflammation surrounding the pancreas. Spleen is normal in size. The adrenal glands and kidneys are unremarkable. Abdominal aorta is normal in course and caliber without aneurysm. There is no free air. There is no retroperitoneal adenopathy. Pelvis: There is mild diffuse thickening of the colon. Urinary bladder is unremarkable. There is no free fluid. Uterus is absent. Appendix is normal. Skeleton: There are no acute osseous findings. No suspicious bony lesions. IMPRESSION: Probable mild acute pancreatitis.
[2019-07-02] MEDS: DEXTROSE 5%-NORMAL SALINE 1,000 ML IV PRN ×2 (06:01→16:21)
[2019-07-02] MEDS: LEVOTHYROXINE SODIUM 0.05 MG TABLET PO SCH (06:10)
[2019-07-02] MEDS: PANTOPRAZOLE SODIUM 40 MG VIAL IV SCH ×2 (09:58→21:59)
[2019-07-02] MEDS: ENOXAPARIN SODIUM INJ 40 MG/0.4 ML DISP.SYRIN SUBCUT SCH (09:58)
[2019-07-02] MEDS ORDERED: ONDANSETRON HCL INJ/PF 4 MG/2 ML SDV ONE (16:12)
[2019-07-02] MEDS ORDERED: DIPHENHYDRAMINE HCL 50 MG/ML VIAL ONE (16:12)
[2019-07-02] MEDS ORDERED: EPINEPHRINE INJ 1 MG/10 ML DISP.SYRIN ONE (16:13)
[2019-07-02] MEDS ORDERED: NALOXONE HCL INJ/PF 0.4 MG/1 ML SDV ONE (16:13)
[2019-07-02] MEDS ORDERED: FLUMAZENIL INJ 0.5 MG/5 ML VIAL ONE (16:13)
[2019-07-02] MEDS ORDERED: FENTANYL CITRATE INJ/PF 100 MCG/2 ML AMPUL ONE (16:13)
[2019-07-02] MEDS ORDERED: MIDAZOLAM 2 MG/2 ML INJ ONE (16:13)
[2019-07-02] MEDS ORDERED: GLUCAGON,HUMAN RECOMB 1 MG INJ ONE (16:13)
--- NOTE | 2019-07-02 18:05 | PDOC CONSULTATION ---
Consultation Consult Date: 07/01/19 Provider Consulted: HI CARR History of Present Illness Admission Date/PCP: 06/26/19 15:36 EVANS DUARTE History of Present Illness: LUIS ANGEL DIOR is a 54 year old female admitted a few days ago with epigastric pain and elevated lipase consistent with acute pancreatitis. She had been having pain for about 3 days prior to being admitted though she had presented to the emergency room 2 days prior. She is currently pain-free. On admission her lipase was over 4000. A CT of the abdomen performed yesterday showed mild pancreatic inflammation. I reviewed the patient's records in the hospital. I saw her back in March also for an episode of acute pancreatitis when her lipase was 1400. She was also admitted in January of this year with a lipase of 1700. An MRCP in February showed a normal pancreatic duct but her CBD was 9 mm. I referred her for endoscopic ultrasound which she had done in April and this was unremarkable. This will be her fourth episode of pancreatitis this year. I also reviewed her records from many years ago when she was admitted to the hospital in April and again in May 2015 with abdominal pain and acute pancreatitis. Her lipase was 2200 5500 respectively. Her LFTs in April 2015 were abnormal with AST of 587, ALT 365 and alkaline phosphatase of 243. The LFTs were normal about a week prior to that admission. While in the hospital for the admission in May 2015 her transaminases were slightly elevated with alkaline phosphatase of 297. Her LFTs were normal during her pancreatitis episode in January and February of this year. She does have a history of nonalcoholic steatohepatitis diagnosed by liver biopsy in 2010. Past Medical History Cardiac Medical History: Reports: Coronary Artery Disease, Hyperlipidema, Hypertension - DIET CONTROLLED Denies: Myocardial Infarction Pulmonary Medical History: Denies: Asthma, Bronchitis, Chronic Obstructive Pulmonary Disease (COPD), Pneumonia Neurological Medical History: Reports: Migraine Denies: Seizures Endocrine Medical History: Reports: Diabetes Mellitus Type 2, Hypothyroidism GI Medical History: Reports: Gastroesophageal Reflux Disease Denies: Hepatitis, Hiatal Hernia Musculoskeltal Medical History: Reports: Arthritis Psychiatric Medical History: Reports: Depression Hematology: Reports: Anemia - ON IRON PILLS Denies: Sickle Cell Disease Past Surgical History Past Surgical History: Reports: Cholecystectomy, Gastric Bypass Surgery - SLEEVE, Hysterectomy, Orthopedic Surgery - toe, shoulder, elbow, bilat feet, Other - Gastric Sleeve Denies: Amputation, Mastectomy, Pacemaker Social History Smoking Status: Former Smoker Cigarettes Packs Per Day: 1 Electronic Cigarette use?: No Number of Years Smokin Frequency of Alcohol Use: None Hx Recreational Drug Use: Yes Drugs: Marijuana Hx Prescription Drug Abuse: No Family History Family History: Reviewed & Not Pertinent, DM, Hypertension Parental Family History Reviewed: No Children Family History Reviewed: NA Sibling(s) Family History Reviewed.: NA Medication/Allergy Home Medications: Cyproheptadine HCl [Periactin 4 Mg Tablet] 2 mg PO TID 06/26/19 Dapagliflozin Propanediol [Farxiga] 10 mg PO DAILY 06/26/19 Escitalopram Oxalate [Lexapro] 20 mg PO DAILY 06/26/19 Esomeprazole Magnesium [Nexium 24Hr] 20 mg PO DAILY 06/26/19 Folic Acid [Folvite 1 mg Tablet] 1 mg PO DAILY 06/26/19 Insulin Detemir [Levemir Insulin 100 units/mL Insulin Pen] 40 unit SUBCUT BID 06/26/19 Ipratropium [place] [Atrovent 0.06% Nasal [place]] 2 spray NASL TID 06/26/19 Levothyroxine Sodium [Synthroid 50 Mcg Tablet] 50 mcg PO Q6AM 06/26/19 Linaclotide [Linzess] 290 mcg PO DAILY 06/26/19 Lubiprostone [Amitiza 24 Mcg Capsule] 24 mcg PO DAILY 06/26/19 Metformin HCl [Glucophage] 1,000 mg PO BID 06/26/19 Montelukast Sodium [Singulair 10 mg Tablet] 10 mg PO QHS 06/26/19 Oxycodone HCl/Acetaminophen [Percocet 5-325 mg Tablet] 1 tab PO QIDP PRN 06/26/19 Pramipexole Di-HCl [Mirapex 0.5 Mg Tablet] 0.5 mg PO QHS 06/26/19 Rosuvastatin Calcium [Crestor 10 mg Tablet] 10 mg PO DAILY 06/26/19 Trazodone HCl [Desyrel] 100 mg PO DAILY 06/26/19 Allergies/Adverse Reactions: naproxen [Naproxen] Allergy (Severe, Verified 03/20/19 17:53) Facial swelling liraglutide [From Victoza] Allergy (Verified 03/20/19 17:53) sitagliptin [From Januvia] Allergy (Verified 03/20/19 17:53) valsartan [From Diovan] Allergy (Verified 06/23/19 22:54) ropinirole HCl [From Requip] Adverse Reaction (Severe, Verified 03/20/19 17:53) BODY SWELLING Review of Systems All systems: reviewed and no additional remarkable complaints except as stated Physical Exam Vital Signs: Temp Pulse Resp BP Pulse Ox 97.9 F 68 13 128/72 H 92 07/02/19 16:30 07/02/19 17:55 07/02/19 17:55 07/02/19 17:55 07/02/19 17:55 Intake & Output 07/01/19 07/02/19 07/03/19 06:59 06:59 06:59 Intake Total 3625 3558 1300 Balance 3625 3558 1300 Weight 83.1 kg 84.3 kg Exam: General: Patient is alert and looks well. HEENT: There is no pallor or jaundice. PERRLA. Oropharynx normal Respiratory: No chest deformity. No respiratory distress. Chest wall palpitation was unremarkable. Breath sounds were normal Cardiovascular: Heart sounds 1 and 2 normal with no murmurs. Abdominal: Not distended. Soft and nontender. Liver and spleen not palpable. No ascites demonstrated. Bowel sounds active. Rectal examination was deferred. Extremities: No edema Neurological: Alert and oriented x4. Grossly nonfocal. Normal speech Skin: No significant rash Psychological: Normal affect Results Laboratory Results: 06/30/19 04:26 06/30/19 04:26 07/02/19 04:46 Lipase 659.7 H Impressions: Abdomen/Pelvis CT 07/01/19 00:00 IMPRESSION: Probable mild acute pancreatitis. Assessment & Plan - Diagnosis (1) Recurrent acute pancreatitis Is this a current diagnosis for this admission?: Yes Plan: Patient has had recurrent pancreatitis as far back as 2014 with significant elevation of her lipase associated with abdominal pain. She had transient elevation of her LFTs back in 2014 but not lately. She does not abuse alcohol and has not been on any new medications except for turmeric which she used for 1 week prior to this current episode of pancreatitis. She also started using Percocet within the last month or 2 for back pain. An endoscopic ultrasound performed 2 months ago showed no pancreatic lesion. I suspect this may be a biliary pathology especially with the mild elevation of her transaminases when she was admitted in 2015. An MRCP a few months ago showed a 9 mm common bile duct. I will schedule her for an ERCP with sphincterotomy with the hope that this may prevent further pancreatitis. She is undergoing an EGD today to rule out peptic ulcer disease. (2) Abnormal liver function test Is this a current diagnosis for this admission?: No Plan: This was an issue back in 2014 during her 2 admissions but not a problem currently (3) Biliary tract disorder Is this a current diagnosis for this admission?: Yes Plan: Choledocholithiasis or sphincter of Oddi dysfunction could be a possible etiology for her recurrent pancreatitis (4) Acute pancreatitis Qualifiers: Pancreatitis type: unspecified pancreatitis type Acute pancreatitis complication: unspecified Qualified Code(s): K85.90 - Acute pancreatitis without necrosis or infection, unspecified Is this a current diagnosis for this admission?: Yes (5) Abdominal pain Qualifiers: Abdominal location: epigastric Qualified Code(s): R10.13 - Epigastric pain Is this a current diagnosis for this admission?: Yes
--- NOTE | 2019-07-02 18:08 | Operative Report ---
Operative Report DATE OF SURGERY: 07/02/19 Operative Report: Pre-op diagnosis: Epigastric pain and acute pancreatitis Post-op diagnosis: Normal EGD status post gastric sleeve surgery Surgery: Esophagogastroduodenoscopy with biopsy Medications: Versed 2mg Fentanyl 50 Mcg IV push Tissue removed: Antral biopsy for pathology Procedure: After informed consent obtained from patient, the throat was sprayed with [place] and conscious sedation was achieved. The upper endoscope was inserted into the esophagus under direct vision and advanced into the stomach. The duodenum was entered and examined to the second part. Endoscope was then slowly pulled out of the patient as the mucosa was examined into details. Patient tolerated procedure well. Findings Esophagus: Normal Z-line at: 40 cm Antrum: Normal Body: Evidence of gastric sleeve Fundus: Evidence of gastric sleeve surgery Duodenum first part: Normal Duodenum second part: Normal Plan: Await pathology. Arrange for ERCP as outpatient OPERATION: .
--- NOTE | 2019-07-02 19:48 | PDOC PROGRESS REPORT ---
Subjective Progress Note for:: 07/02/19 Subjective:: No chest pain or difficulty with breathing. Patient denied any significant abdominal pain. No nausea or vomiting. No fever or chills. Her EGD was essentially normal. CT scan abdomen/pelvis was significant for inflammation around the pancreas. Reason For Visit: RECURRENT ACUTE PANCREATITIS, DIABETES MELLITUS Physical Exam Vital Signs: Temp Pulse Resp BP Pulse Ox 98.1 F 58 L 15 93/57 L 97 07/02/19 18:34 07/02/19 18:34 07/02/19 18:34 07/02/19 18:34 07/02/19 18:34 Intake & Output 07/01/19 07/02/19 07/03/19 06:59 06:59 06:59 Intake Total 3625 3558 1300 Balance 3625 3558 1300 Weight 83.1 kg 84.3 kg Physical Exam: General appearance: PRESENT: mild distress - due to abdominal pain Head exam: PRESENT: atraumatic, normocephalic Eye exam: PRESENT: conjunctiva pink. ABSENT: pallor, scleral icterus Ear exam: PRESENT: normal external ear exam Mouth exam: PRESENT: moist - fairly with use of ice chips. Respiratory exam: PRESENT: clear to auscultation manuel Cardiovascular exam: PRESENT: RRR, +S1, +S2. ABSENT: diastolic murmur, rubs, systolic murmur GI/Abdominal exam: PRESENT: normal bowel sounds, soft. ABSENT: distended, guarding, mass, organomegaly, rebound Extremities exam: ABSENT: pedal edema Neurological exam: PRESENT: alert, awake, oriented to person, oriented to place, oriented to time, oriented to situation, CN II-XII grossly intact. ABSENT: motor sensory deficit Psychiatric exam: PRESENT: appropriate affect, normal mood. ABSENT: homicidal ideation, suicidal ideation Skin exam: PRESENT: dry, warm Results Laboratory Results: 06/30/19 04:26 06/30/19 04:26 07/02/19 04:46 Lipase 659.7 H Impressions: Abdomen/Pelvis CT 07/01/19 00:00 IMPRESSION: Probable mild acute pancreatitis. Assessment & Plan - Diagnosis (1) Recurrent acute pancreatitis Is this a current diagnosis for this admission?: Yes (2) GERD (gastroesophageal reflux disease) Qualifiers: Esophagitis presence: esophagitis presence not specified Qualified Code(s): K21.9 - Gastro-esophageal reflux disease without esophagitis Is this a current diagnosis for this admission?: Yes (3) Diabetes mellitus type 2 in nonobese Is this a current diagnosis for this admission?: Yes (4) HTN (hypertension) Qualifiers: Hypertension type: essential hypertension Qualified Code(s): I10 - Essential (primary) hypertension Is this a current diagnosis for this admission?: Yes (5) HLD (hyperlipidemia) Qualifiers: Hyperlipidemia type: unspecified Qualified Code(s): E78.5 - Hyperlipidemia, unspecified Is this a current diagnosis for this admission?: Yes - Time Time Spent with patient: 25-34 minutes Level of Care: IMCU Medications reviewed and adjusted accordingly: Yes Anticipated discharge: Home Within: Other - Inpatient Certification Based on my medical assessment, after consideration of the patient's comorbidities, presenting symptoms, or acuity I expect that the services needed warrant INPATIENT care.: Yes I certify that my determination is in accordance with my understanding of Medicare's requirements for reasonable and necessary INPATIENT services [42 CFR 412.3e].: Yes Medical Necessity: Significant Comorbidiites Make Outpatient Treatment Too Risky, Need Close Monitoring Due to Risk of Patient Decompensation, Need For IV Fluids, Need For Continuous Telemetry Monitoring, Need for Pain Control, Risk of Complication if Not Cared For in Hospital, Risk of Diagnosis Which Will Require Inpatient Eval/Care/Monitoring Post Hospital Care: D/C Policy Specialist Documentation - Plan Summary Plan Summary: Continue current medication management. Maintain on NPO status.
[2019-07-02] MEDS: TRAZODONE HCL 50 MG TABLET PO SCH (21:59)
[2019-07-03] MEDS: INSULIN LISPRO 100 UNIT/ML 3 ML VIAL SUBCUT SCH ×4 (00:42→18:11)
[2019-07-03] MEDS: DEXTROSE 5%-NORMAL SALINE 1,000 ML IV PRN ×3 (00:44→22:29)
[2019-07-03] MEDS: ONDANSETRON HCL INJ/PF 4 MG/2 ML SDV IV PRN ×2 (05:00→21:20)
[2019-07-03] MEDS: HYDROMORPHONE HCL INJ/PF 2 MG/ML AMPULE IV PRN ×4 (05:00→21:19)
[2019-07-03] MEDS: LEVOTHYROXINE SODIUM 0.05 MG TABLET PO SCH (05:01)
[2019-07-03] MEDS: ENOXAPARIN SODIUM INJ 40 MG/0.4 ML DISP.SYRIN SUBCUT SCH (09:29)
[2019-07-03] MEDS: PANTOPRAZOLE SODIUM 40 MG VIAL IV SCH (09:29)
--- NOTE | 2019-07-03 18:12 | PDOC PROGRESS REPORT ---
Subjective Progress Note for:: 07/03/19 Subjective:: No chest pain or difficulty with breathing. Patient denied any significant abdominal pain, nausea or vomiting. No fever or chills. Reason For Visit: RECURRENT ACUTE PANCREATITIS, DIABETES MELLITUS Physical Exam Vital Signs: Temp Pulse Resp BP Pulse Ox 97.7 F 66 17 122/66 100 07/03/19 10:58 07/03/19 10:58 07/03/19 10:58 07/03/19 10:58 07/03/19 10:58 Intake & Output 07/02/19 07/03/19 07/04/19 06:59 06:59 06:59 Intake Total 3558 2143 1100 Balance 3558 2143 1100 Weight 84.3 kg 85.7 kg Physical Exam: General appearance: PRESENT: mild distress - due to abdominal pain Head exam: PRESENT: atraumatic, normocephalic Eye exam: PRESENT: conjunctiva pink. ABSENT: pallor, scleral icterus Ear exam: PRESENT: normal external ear exam Mouth exam: PRESENT: moist - fairly with use of ice chips. Respiratory exam: PRESENT: clear to auscultation manuel Cardiovascular exam: PRESENT: RRR, +S1, +S2. ABSENT: diastolic murmur, rubs, systolic murmur GI/Abdominal exam: PRESENT: normal bowel sounds, soft. ABSENT: distended, guarding, mass, organomegaly, rebound Extremities exam: ABSENT: pedal edema Neurological exam: PRESENT: alert, awake, oriented to person, oriented to place, oriented to time, oriented to situation, CN II-XII grossly intact. ABSENT: motor sensory deficit Psychiatric exam: PRESENT: appropriate affect, normal mood. ABSENT: homicidal ideation, suicidal ideation Skin exam: PRESENT: dry, warm Results Laboratory Results: 06/30/19 04:26 06/30/19 04:26 Impressions: Abdomen/Pelvis CT 07/01/19 00:00 IMPRESSION: Probable mild acute pancreatitis. Assessment & Plan - Diagnosis (1) Recurrent acute pancreatitis Is this a current diagnosis for this admission?: Yes (2) GERD (gastroesophageal reflux disease) Qualifiers: Esophagitis presence: esophagitis presence not specified Qualified Code(s): K21.9 - Gastro-esophageal reflux disease without esophagitis Is this a current diagnosis for this admission?: Yes (3) Diabetes mellitus type 2 in nonobese Is this a current diagnosis for this admission?: Yes (4) HTN (hypertension) Qualifiers: Hypertension type: essential hypertension Qualified Code(s): I10 - Essential (primary) hypertension Is this a current diagnosis for this admission?: Yes (5) HLD (hyperlipidemia) Qualifiers: Hyperlipidemia type: unspecified Qualified Code(s): E78.5 - Hyperlipidemia, unspecified Is this a current diagnosis for this admission?: Yes - Time Time Spent with patient: 25-34 minutes Level of Care: IMCU Medications reviewed and adjusted accordingly: Yes Anticipated discharge: Home Within: Other - Inpatient Certification Based on my medical assessment, after consideration of the patient's comorbidities, presenting symptoms, or acuity I expect that the services needed warrant INPATIENT care.: Yes I certify that my determination is in accordance with my understanding of Medicare's requirements for reasonable and necessary INPATIENT services [42 CFR 412.3e].: Yes Medical Necessity: Significant Comorbidiites Make Outpatient Treatment Too Ri jeanmarie, Need Close Monitoring Due to Risk of Patient Decompensation, Need For IV Fluids, Need For Continuous Telemetry Monitoring, Need for Pain Control, Risk of Complication if Not Cared For in Hospital, Risk of Diagnosis Which Will Require Inpatient Eval/Care/Monitoring Post Hospital Care: D/C Blood Bank Credit 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 Emphasized NPO status and less use of ice chips.
[2019-07-03] MEDS: TRAZODONE HCL 50 MG TABLET PO SCH (21:19)
[2019-07-04] MEDS: INSULIN LISPRO 100 UNIT/ML 3 ML VIAL SUBCUT SCH ×4 (00:20→18:15)
[2019-07-04 05:31] LABS: ABSOLUTE EOSINOPHILS # (AUTO) 0.1 10^3/uL (0.0-0.6); ABSOLUTE LYMPHOCYTES (AUTO) 1.3 10^3/uL (0.5-4.7); ABSOLUTE MONOCYTES (AUTO) 0.2 10^3/uL (0.1-1.4); ABSOLUTE NEUT (AUTO) 1.7 10^3/uL (1.7-8.2); BASOPHILS % (AUTO) 1.2 % (0-2); EOSINOPHILS % (AUTO) 2.5 % (0-6); HEMATOCRIT 32.3 % (36.0-47.0); HEMOGLOBIN 10.7 g/dL (12.0-15.5); LYMPHOCYTES % (AUTO) 38.3 % (13-45); MEAN CORPUSCULAR HEMOGLOBIN 25.7 pg (27.0-33.4); MEAN CORPUSCULAR HGB CONC 33.1 g/dL (32.0-36.0); MEAN CORPUSCULAR VOLUME 78 fl (80-97); PLATELET COUNT 254 10^3/uL (150-450); RED BLOOD COUNT 4.14 10^6/uL (3.72-5.28); RED CELL DISTRIBUTION WIDTH 14.8 % (11.5-14.0); TOTAL CELLS COUNTED % (AUTO) 100 %; WHITE BLOOD COUNT 3.3 10^3/uL (4.0-10.5)
[2019-07-04] MEDS: ONDANSETRON HCL INJ/PF 4 MG/2 ML SDV IV PRN ×2 (05:33→22:41)
[2019-07-04] MEDS: HYDROMORPHONE HCL INJ/PF 2 MG/ML AMPULE IV PRN ×5 (05:33→22:40)
[2019-07-04] MEDS: LEVOTHYROXINE SODIUM 0.05 MG TABLET PO SCH (05:33)
[2019-07-04 05:54] LABS: ALBUMIN 2.8 g/dL (3.5-5.0); ALKALINE PHOSPHATASE 82 U/L (38-126); ANION GAP 10 (5-19); ASPARTATE AMINO TRANSFERASE 20 U/L (14-36); BILIRUBIN,DIRECT 0.2 mg/dL (0.0-0.4); BILIRUBIN,TOTAL 0.4 mg/dL (0.2-1.3); CALCIUM 7.6 mg/dL (8.4-10.2); CARBON DIOXIDE 24 mmol/L (22-30); CHLORIDE 108 mmol/L (98-107); GLUCOSE 222 mg/dL (75-110)
[2019-07-04 06:23] LABS: BLOOD UREA NITROGEN < 2 mg/dL (7-20)
--- NOTE | 2019-07-04 08:17 | PDOC PROGRESS REPORT ---
Subjective Progress Note for:: 07/04/19 Subjective:: No chest pain or difficulty with breathing. Patient denied any significant abdominal pain, nausea, vomiting, or diarrhea. No fever or chills. Reason For Visit: RECURRENT ACUTE PANCREATITIS, DIABETES MELLITUS Physical Exam Vital Signs: Temp Pulse Resp BP Pulse Ox 98.1 F 66 16 125/54 L 98 07/04/19 03:12 07/04/19 03:12 07/04/19 03:12 07/04/19 03:12 07/04/19 03:12 Intake & Output 07/03/19 07/04/19 07/05/19 06:59 06:59 06:59 Intake Total 2143 2350 Balance 2143 2350 Weight 85.7 kg 85.6 kg Physical Exam: General appearance: PRESENT: No acute distress Head exam: PRESENT: atraumatic, normocephalic Eye exam: PRESENT: conjunctiva pink. ABSENT: pallor, scleral icterus Ear exam: PRESENT: normal external ear exam Mouth exam: PRESENT: moist - fairly with use of ice chips. Respiratory exam: PRESENT: clear to auscultation manuel Cardiovascular exam: PRESENT: RRR, +S1, +S2. ABSENT: diastolic murmur, rubs, systolic murmur GI/Abdominal exam: PRESENT: normal bowel sounds, soft. ABSENT: distended, tenderness, guarding, mass, organomegaly, rebound Extremities exam: ABSENT: pedal edema Neurological exam: PRESENT: alert, awake, oriented to person, oriented to place, oriented to time, oriented to situation, CN II-XII grossly intact. ABSENT: motor sensory deficit Psychiatric exam: PRESENT: appropriate affect, normal mood. ABSENT: homicidal ideation, suicidal ideation Skin exam: PRESENT: dry, warm Results Laboratory Results: 07/04/19 05:02 07/04/19 05:02 07/03/19 07/04/19 07/04/19 16:06 05:02 05:02 WBC 3.3 L RBC 4.14 Hgb 10.7 L Hct 32.3 L MCV 78 L MCH 25.7 L MCHC 33.1 RDW 14.8 H Plt Count 254 Seg Neutrophils % 51.0 Sodium 141.9 Potassium 3.0 L* Chloride 108 H Carbon Dioxide 24 Anion Gap 10 BUN < 2 L Creatinine 0.58 Est GFR ( Amer) > 60 Glucose 222 H Calcium 7.6 L Magnesium Total Bilirubin 0.4 AST 20 Alkaline Phosphatase 82 Total Protein 5.0 L Albumin 2.8 L Lipase 876.4 H 732.4 H 07/04/19 05:02 WBC RBC Hgb Hct MCV MCH MCHC RDW Plt Count Seg Neutrophils % Sodium Potassium Chloride Carbon Dioxide Anion Gap BUN Creatinine Est GFR ( Amer) Glucose Calcium Magnesium 0.9 L* Total Bilirubin AST Alkaline Phosphatase Total Protein Albumin Lipase Impressions: Abdomen/Pelvis CT 07/01/19 00:00 IMPRESSION: Probable mild acute pancreatitis. Assessment & Plan - Diagnosis (1) Recurrent acute pancreatitis Is this a current diagnosis for this admission?: Yes (2) GERD (gastroesophageal reflux disease) Qualifiers: Esophagitis presence: esophagitis presence not specified Qualified Code(s): K21.9 - Gastro-esophageal reflux disease without esophagitis Is this a current diagnosis for this admission?: Yes (3) Diabetes mellitus type 2 in nonobese Is this a current diagnosis for this admission?: Yes (4) HTN (hypertension) Qualifiers: Hypertension type: essential hypertension Qualified Code(s): I10 - Essential (primary) hypertension Is this a current diagnosis for this admission?: Yes (5) HLD (hyperlipidemia) Qualifiers: Hyperlipidemia type: unspecified Qualified Code(s): E78.5 - Hyperlipidemia, unspecified Is this a current diagnosis for this admission?: Yes (6) Hypokalemia due to inadequate potassium intake Is this a current diagnosis for this admission?: Yes Plan: Patient will receive potassium supplementation. Obtain serum potassium level after replacement is completed. (7) Hypomagnesemia Is this a current diagnosis for this admission?: Yes Plan: Patient will receive magnesium supplementation. Obtain serum magnesium level after replacement is completed. - Time Time Spent with patient: 25-34 minutes Level of Care: IMCU Medications reviewed and adjusted accordingly: Yes Anticipated discharge: Home Within: Other - Inpatient Certification Based on my medical assessment, after consideration of the patient's comorb idities, presenting symptoms, or acuity I expect that the services needed warrant INPATIENT care.: Yes I certify that my determination is in accordance with my understanding of Medicare's requirements for reasonable and necessary INPATIENT services [42 CFR 412.3e].: Yes Medical Necessity: Significant Comorbidiites Make Outpatient Treatment Too Risky, Need Close Monitoring Due to Risk of Patient Decompensation, Need For IV Fluids, Need For Continuous Telemetry Monitoring, Need for Pain Control, Risk of Complication if Not Cared For in Hospital, Risk of Diagnosis Which Will Require Inpatient Eval/Care/Monitoring Post Hospital Care: D/C Mechanical Maintenance Technician Documentation - Plan Summary Plan Summary: See attending physician orders for details about care plan.
[2019-07-04] MEDS: DEXTROSE 5%-NORMAL SALINE 1,000 ML IV PRN ×2 (08:48→18:09)
[2019-07-04] MEDS: MAGNESIUM SULFATE 1 GM/D5W 100 ML IV SCH ×2 (08:48→10:53)
[2019-07-04] MEDS: POTASSIUM CHLORIDE 20 MEQ/50 ML RTU IV SCH ×3 (10:23→14:13)
[2019-07-04] MEDS: ENOXAPARIN SODIUM INJ 40 MG/0.4 ML DISP.SYRIN SUBCUT SCH (10:24)
[2019-07-04 19:12] LABS: ANION GAP 8 (5-19); CALCIUM 7.5 mg/dL (8.4-10.2); CARBON DIOXIDE 26 mmol/L (22-30); CHLORIDE 106 mmol/L (98-107); GLUCOSE 198 mg/dL (75-110); POTASSIUM 3.2 mmol/L (3.6-5.0)
[2019-07-04 19:15] LABS: BLOOD UREA NITROGEN < 2 mg/dL (7-20)
[2019-07-04] MEDS: TRAZODONE HCL 50 MG TABLET PO SCH (22:40)
[2019-07-05] MEDS: INSULIN LISPRO 100 UNIT/ML 3 ML VIAL SUBCUT SCH ×5 (00:14→21:22)
[2019-07-05] MEDS: HYDROMORPHONE HCL INJ/PF 2 MG/ML AMPULE IV PRN (04:29)
[2019-07-05] MEDS: DEXTROSE 5%-NORMAL SALINE 1,000 ML IV PRN ×2 (04:29→15:00)
[2019-07-05] MEDS: ONDANSETRON HCL INJ/PF 4 MG/2 ML SDV IV PRN (04:29)
[2019-07-05] MEDS: LEVOTHYROXINE SODIUM 0.05 MG TABLET PO SCH (06:10)
--- NOTE | 2019-07-05 08:52 | PDOC PROGRESS REPORT ---
Subjective Progress Note for:: 07/05/19 Subjective:: Patient was admitted for the recurrent pancreatitis abdominal pain currently n.p.o. doing well patient's lipase is all stable back to the normal Is denied any abdominal pain no nausea no vomiting but patient is complaining of neck pain Patient's other than that denied any other symptoms Reason For Visit: RECURRENT ACUTE PANCREATITIS, DIABETES MELLITUS Physical Exam Vital Signs: Temp Pulse Resp BP Pulse Ox 99.8 F 79 17 121/67 98 07/05/19 07:27 07/05/19 07:27 07/05/19 07:27 07/05/19 07:27 07/05/19 07:27 Intake & Output 07/04/19 07/05/19 07/06/19 06:59 06:59 06:59 Intake Total 2350 3639 Output Total 800 Balance 2350 2839 Weight 85.6 kg 85.2 kg General appearance: PRESENT: no acute distress, well-developed, well-nourished Head exam: PRESENT: atraumatic, normocephalic Eye exam: PRESENT: conjunctiva pink, EOMI, PERRLA. ABSENT: scleral icterus Ear exam: PRESENT: normal external ear exam Mouth exam: PRESENT: moist, tongue midline Neck exam: PRESENT: full ROM. ABSENT: carotid bruit, JVD, lymphadenopathy, thyromegaly Respiratory exam: PRESENT: clear to auscultation manuel Cardiovascular exam: PRESENT: RRR. ABSENT: diastolic murmur, rubs, systolic murmur Pulses: PRESENT: normal dorsalis pedis pul, +2 pedal pulses bilateral Vascular exam: PRESENT: normal capillary refill GI/Abdominal exam: PRESENT: normal bowel sounds, soft. ABSENT: distended, guarding, mass, organolmegaly, rebound, tenderness Rectal exam: PRESENT: deferred Musculoskeletal exam: PRESENT: ambulatory Neurological exam: PRESENT: alert, awake, oriented to person, oriented to place, oriented to time, oriented to situation, CN II-XII grossly intact. ABSENT: motor sensory deficit Psychiatric exam: PRESENT: appropriate affect, normal mood. ABSENT: homicidal ideation, suicidal ideation Skin exam: PRESENT: dry, intact, warm. ABSENT: cyanosis, rash Results Laboratory Results: 07/04/19 05:02 07/04/19 18:41 12/12/19 12/12/19 12/13/19 15:16 18:41 04:53 Sodium 139.7 Potassium 3.2 L Chloride 106 Carbon Dioxide 26 Anion Gap 8 BUN < 2 L Creatinine 0.57 Est GFR ( Amer) > 60 Glucose 198 H Calcium 7.5 L Magnesium 1.3 L Lipase 198.1 Impressions: Abdomen/Pelvis CT 07/01/19 00:00 IMPRESSION: Probable mild acute pancreatitis. Assessment & Plan - Diagnosis (1) Recurrent acute pancreatitis Is this a current diagnosis for this admission?: Yes Plan: While patient lipase is all normal patient's denied any abdominal pain will start the clear liquid diets (2) Cervicalgia Is this a current diagnosis for this admission?: Yes Plan: We will get the x-ray of the C-spine physical therapy and muscle relaxants (3) Diabetes mellitus type 2 in nonobese Is this a current diagnosis for this admission?: Yes Plan: Continue to current medications (4) Hypokalemia due to inadequate potassium intake Is this a current diagnosis for this admission?: Yes Plan: Replace the potassiums (5) HTN (hypertension) Qualifiers: Hypertension type: essential hypertension Qualified Code(s): I10 - Essential (primary) hypertension Is this a current diagnosis for this admission?: Yes Plan: Currently all stable (6) Hypomagnesemia Is this a current diagnosis for this admission?: Yes Plan: Magnesium level in the morning - Time Time Spent with patient: 15-24 minutes Level of Care: IMCU Medications reviewed and adjusted accordingly: Yes Anticipated discharge: Other Within: Other - Plan Summary Plan Summary: Replace the potassiums Physical therapy evaluations for the neck pain C-spine x-ray
[2019-07-05] MEDS: CYCLOBENZAPRINE HCL 10 MG TABLET PO PRN ×2 (09:23→17:53)
[2019-07-05] MEDS: POTASSI CL 20 MEQ/50 ML RIDER 20 MEQ/50 ML RTUPB IV SCH ×2 (09:24→11:32)
[2019-07-05] MEDS: ENOXAPARIN SODIUM INJ 40 MG/0.4 ML DISP.SYRIN SUBCUT SCH (09:32)
--- NOTE | 2019-07-05 14:36 | RADIOLOGY REPORT (SQ) ---
EXAM DESCRIPTION: CERV SP 3 VIEW OR LESS COMPLETED DATE/TIME: 07/05/2019 2:25 pm REASON FOR STUDY: neck pain COMPARISON: None. NUMBER OF VIEWS: Three views. TECHNIQUE: AP, lateral and odontoid radiographic images acquired of the cervical spine. LIMITATIONS: None. FINDINGS: MINERALIZATION: Normal. ALIGNMENT: Anatomic. VERTEBRAE: Vertebral bodies of normal height. DISCS: Disc heights are fairly well-maintained. There prominent anterior osteophytes from the C3-4 l evel through C6-C7. HARDWARE: None in the spine. SOFT TISSUES: No masses or calcifications. Lung apices clear. OTHER: No other significant finding. IMPRESSION: Prominent anterior osteophytes throughout the cervical spine. No other significant find ings. TECHNICAL DOCUMENTATION: JOB ID: [id number] [employer]- All Rights Reserved Reading location - IP/workstation name: [email or web address]
[2019-07-05] MEDS: TRAZODONE HCL 50 MG TABLET PO SCH (21:23)
[2019-07-06 03:23] VITALS: BP 131/58
[2019-07-06] MEDS: LEVOTHYROXINE SODIUM 0.05 MG TABLET PO SCH (06:55)
[2019-07-06 07:17] LABS: ABSOLUTE EOSINOPHILS # (AUTO) 0.1 10^3/uL (0.0-0.6); ABSOLUTE LYMPHOCYTES (AUTO) 1.2 10^3/uL (0.5-4.7); ABSOLUTE MONOCYTES (AUTO) 0.5 10^3/uL (0.1-1.4); ABSOLUTE NEUT (AUTO) 4.6 10^3/uL (1.7-8.2); BASOPHILS % (AUTO) 0.5 % (0-2); HEMATOCRIT 34.2 % (36.0-47.0); HEMOGLOBIN 11.4 g/dL (12.0-15.5); LYMPHOCYTES % (AUTO) 19.1 % (13-45); MEAN CORPUSCULAR HEMOGLOBIN 25.8 pg (27.0-33.4); MEAN CORPUSCULAR HGB CONC 33.3 g/dL (32.0-36.0); MEAN CORPUSCULAR VOLUME 78 fl (80-97); MONOCYTES % (AUTO) 7.7 % (3-13); PLATELET COUNT 253 10^3/uL (150-450); RED BLOOD COUNT 4.42 10^6/uL (3.72-5.28); RED CELL DISTRIBUTION WIDTH 14.6 % (11.5-14.0); SEGMENTED NEUTROPHILS % (AUTO) 71.7 % (42-78); TOTAL CELLS COUNTED % (AUTO) 100 %; WHITE BLOOD COUNT 6.4 10^3/uL (4.0-10.5)
[2019-07-06 07:35] LABS: ANION GAP 13 (5-19); CALCIUM 8.2 mg/dL (8.4-10.2); CARBON DIOXIDE 26 mmol/L (22-30); CHLORIDE 104 mmol/L (98-107); GLUCOSE 192 mg/dL (75-110); POTASSIUM 3.1 mmol/L (3.6-5.0)
[2019-07-06 07:42] LABS: BLOOD UREA NITROGEN < 2 mg/dL (7-20)
[2019-07-06] MEDS: INSULIN LISPRO 100 UNIT/ML 3 ML VIAL SUBCUT SCH ×2 (08:44→11:31)
[2019-07-06] MEDS ORDERED: MAGNESIUM SULFATE/D5W 1 GM/100 ML RTUPB IV ONE (09:00)
[2019-07-06] MEDS ORDERED: POTASSIUM CHLORIDE 10 MEQ TABLET.ER PO ONE ×4 (09:20→14:17)
[2019-07-06] MEDS: ENOXAPARIN SODIUM INJ 40 MG/0.4 ML DISP.SYRIN SUBCUT SCH (09:31)
--- NOTE | 2019-07-06 10:03 | PDOC PROGRESS REPORT ---
Subjective Progress Note for:: 07/06/19 Subjective:: Patient is currently doing well Patient is tolerated the clear liquid without any problems Patient's potassium is low and magnesium is low Patient is refused for IV fluid Patient's wants to go home Patient scheduled for ERCP by Dr. Palomo as an outpatient Reason For Visit: RECURRENT ACUTE PANCREATITIS, DIABETES MELLITUS Physical Exam Vital Signs: Temp Pulse Resp BP Pulse Ox 99.1 F 73 20 131/58 H 98 07/06/19 03:08 07/06/19 07:00 07/06/19 03:08 07/06/19 03:08 07/06/19 03:08 Intake & Output 07/05/19 07/06/19 07/07/19 06:59 06:59 06:59 Intake Total 3639 1468 Output Total 800 0 Balance 2839 1468 Weight 85.2 kg 82.1 kg General appearance: PRESENT: no acute distress, well-developed, well-nourished Head exam: PRESENT: atraumatic, normocephalic Eye exam: PRESENT: conjunctiva pink, EOMI, PERRLA. ABSENT: scleral icterus Ear exam: PRESENT: normal external ear exam Mouth exam: PRESENT: moist, tongue midline Neck exam: PRESENT: full ROM. ABSENT: carotid bruit, JVD, lymphadenopathy, thyromegaly Respiratory exam: PRESENT: clear to auscultation manuel Cardiovascular exam: PRESENT: RRR. ABSENT: diastolic murmur, rubs, systolic m urmur Pulses: PRESENT: normal dorsalis pedis pul, +2 pedal pulses bilateral Vascular exam: PRESENT: normal capillary refill GI/Abdominal exam: PRESENT: normal bowel sounds, soft. ABSENT: distended, guarding, mass, organolmegaly, rebound, tenderness Rectal exam: PRESENT: deferred Musculoskeletal exam: PRESENT: ambulatory Neurological exam: PRESENT: alert, awake, oriented to person, oriented to place, oriented to time, oriented to situation, CN II-XII grossly intact. ABSENT: motor sensory deficit Psychiatric exam: PRESENT: appropriate affect, normal mood. ABSENT: homicidal ideation, suicidal ideation Skin exam: PRESENT: dry, intact, warm. ABSENT: cyanosis, rash Results Laboratory Results: 07/06/19 06:59 07/06/19 06:59 07/06/19 07/06/19 06:59 06:59 WBC 6.4 RBC 4.42 Hgb 11.4 L Hct 34.2 L MCV 78 L MCH 25.8 L MCHC 33.3 RDW 14.6 H Plt Count 253 Seg Neutrophils % 71.7 Sodium 142.8 Potassium 3.1 L Chloride 104 Carbon Dioxide 26 Anion Gap 13 BUN < 2 L Creatinine 0.57 Est GFR ( Amer) > 60 Glucose 192 H Calcium 8.2 L Magnesium 1.1 L* Lipase 178.7 Impressions: Abdomen/Pelvis CT 07/01/19 00:00 IMPRESSION: Probable mild acute pancreatitis. Cervical Spine X-Ray 07/05/19 00:00 IMPRESSION: Prominent anterior osteophytes throughout the cervical spine. No other significant findings. Assessment & Plan - Diagnosis (1) Recurrent acute pancreatitis Is this a current diagnosis for this admission?: Yes Plan: Increase to full liquid to the soft diet today (2) Cervicalgia Is this a current diagnosis for this admission?: Yes Plan: We will get the x-ray of the C-spine physical therapy and muscle relaxants (3) Diabetes mellitus type 2 in nonobese Is this a current diagnosis for this admission?: Yes Plan: Continue to current medications (4) Hypokalemia due to inadequate potassium intake Is this a current diagnosis for this admission?: Yes Plan: Replace the potassiums (5) HTN (hypertension) Qualifiers: Hypertension type: essential hypertension Qualified Code(s): I10 - Essent ial (primary) hypertension Is this a current diagnosis for this admission?: Yes Plan: Currently all stable (6) Hypomagnesemia Is this a current diagnosis for this admission?: Yes Plan: Magnesium level in the morning - Time Time Spent with patient: 15-24 minutes Level of Care: IMCU Medications reviewed and adjusted accordingly: Yes Anticipated discharge: Home Within: within 24 hours - Plan Summary Plan Summary: Cussed with the patient unable to stand home today because of electrolytes imba lisbet still not clear liquid diets We will increase the full liquid to the soft diet today Replace the electrolytes If all remains stable tomorrow we will discharge it
[2019-07-06 13:53] LABS: ANION GAP 13 (5-19); BLOOD UREA NITROGEN 2 mg/dL (7-20); CALCIUM 9.1 mg/dL (8.4-10.2); CARBON DIOXIDE 26 mmol/L (22-30); CHLORIDE 101 mmol/L (98-107); GLUCOSE 293 mg/dL (75-110); POTASSIUM 3.3 mmol/L (3.6-5.0)
--- NOTE | 2019-07-09 15:00 | Left Against Medical Advice ---
Against Medical Advice Admission Date/Time: 06/26/19 15:36 Primary Care Provider: EVANS DUARTE Date of Patient Emigration: 06/30/19 - Diagnosis: (1) Recurrent acute pancreatitis Is this a current diagnosis for this admission?: Yes (2) Cervicalgia Is this a current diagnosis for this admission?: Yes (3) Diabetes mellitus type 2 in nonobese Is this a current diagnosis for this admission?: Yes (4) Hypokalemia due to inadequate potassium intake Is this a current diagnosis for this admission?: Yes (5) HTN (hypertension) Is this a current diagnosis for this admission?: Yes (6) Hypomagnesemia Is this a current diagnosis for this admission?: Yes - Summary: Summary: Please see Admission and Progress Notes as well. LUIS ANGLE DIOR is a 54 F, who LEFT AGAINST MEDICAL ADVICE. The Patient was admitted on 06/26/19 15:36. This is a 54-year-old female admitted for recurrent pancreatitis electrolyte imbalance feeling better but patient's potassium and magnesium was still low will replace the potassium and magnesium's and suggest the patient is to be stay another day because we just started the clear liquid diets but patient did not want to stay patient understand the risk and benefit to not staying with this electrolyte imbalance causing the severeCardiac complications patient understand very well patient's left AMA
== END 2019-07-06 14:34 | disposition left against medical advice (07) | DRG 440 ==
LOC: ER 09:04 → EH 15:36 → 3W 17:01
PROVIDERS: ADMIT Internal Medicine Geriatric Medicine; ATTEND Internal Medicine Geriatric Medicine
PROC: 0DB78ZX Excision of Stomach, Pylorus, Via Natural or Artificial Opening Endoscopic, Diagnostic (ICD-10-PCS; principal; 2019-07-02 16:30)
DX: K85.90 Acute pancreatitis without necrosis or infection, unspecified (principal); K86.1 Other chronic pancreatitis; E11.9 Type 2 diabetes mellitus without complications; I10 Essential (primary) hypertension; E78.5 Hyperlipidemia, unspecified; I25.10 Atherosclerotic heart disease of native coronary artery without angina pectoris; K21.9 Gastro-esophageal reflux disease without esophagitis; F32.9 Major depressive disorder, single episode, unspecified; E87.6 Hypokalemia; E83.42 Hypomagnesemia; E03.9 Hypothyroidism, unspecified; D64.9 Anemia, unspecified; M54.2 Cervicalgia; E78.00 Pure hypercholesterolemia, unspecified; Z87.891 Personal history of nicotine dependence; Z79.899 Other long term (current) drug therapy; Z79.4 Long term (current) use of insulin; Z88.8 Allergy status to other drugs, medicaments and biological substances
CPT/HCPCS: 36415; 43239; 72040; 74177; 80048; 80053; 80061; 81001; 82150; 82962; 83690; 83735; 85025; 88305; 88342; 96361; 96374; 96375; 99284; C9113; J0171; J1170; J1200; J1610; J1650; J1815; J2250; J2270; J2310; J2405; J2550; J3010; J3475; J3480; J3490; J7030; J7042

== ENCOUNTER 2019-07-09 16:06 | Day surgery (SDC) | payer MEDICARE, MEDICAID ==
[~2019-07-09 16:06] MED LIST changes: -BUPIVACAINE HCL 0.5 % INJ/PF 30 ML SDV ONE; -CEFAZOLIN 1 GM/D5W RTU 1 GM/50 ML RTUPB IV PRN; -DIPHENHYDRAMINE HCL 50 MG/ML VIAL ONE; -FENTANYL CITRATE INJ/PF 100 MCG/2 ML AMPUL ONE; -KETOROLAC TROMETHAMINE 60 MG/2 ML SDV ONE; -LIDOCAINE 2% INJ (20 MG/ML) 20 ML MDV ONE; -LIDOCAINE 2% INJ-PF (20 MG/ML) 10 ML AMPUL ONE; -MIDAZOLAM 2 MG/2 ML INJ ONE; -PROPOFOL INJ 200 MG/20 ML VIAL IV ONE; +SUCCINYLCHOLINE CHLORIDE INJ 200 MG/10 ML VIAL ONE
[2019-07-09] MEDS ORDERED: DEXAMETHASONE SOD PHOSPHATE INJ 4 MG/1 ML VIAL ONE (17:13)
[2019-07-09] MEDS ORDERED: PROPOFOL INJ 200 MG/20 ML VIAL IV ONE (17:13)
[2019-07-09] MEDS ORDERED: MIDAZOLAM 2 MG/2 ML INJ ONE (17:13)
[2019-07-09] MEDS ORDERED: FENTANYL CITRATE INJ/PF 100 MCG/2 ML AMPUL ONE (17:13)
[2019-07-09] MEDS ORDERED: ONDANSETRON HCL INJ/PF 4 MG/2 ML SDV ONE (17:13)
--- NOTE | 2019-07-09 18:20 | Operative Report ---
Operative Report DATE OF SURGERY: 07/09/19 Operative Report: Pre-op diagnosis: Recurrent acute pancreatitis with previously elevated LFTs Post-op diagnosis: Common bile duct sludge Surgery: ERCP with sphincterotomy and balloon sludge extraction Medications: As per anesthesia Tissue removed: None Procedure: After informed consent obtained from patient, the throat was sprayed with Hurricane and conscious sedation was achieved. The ERCP endoscope was then inserted into the esophagus blindly and advanced into the stomach. The duodenum was entered and the ampulla was identified. Using the triple-lumen sphincterotomy catheter the common bile duct was freely cannulated. A cholangiogram was obtained which showed possible filling defect in the distal common bile duct. The common bile duct and intrahepatic ducts did not appear dilated. A good sized sphincterotomy was then performed using the endocut mode. The catheter was removed over the guidewire before a 9-12 mm balloon catheter was inserted. The balloon was inflated to 12 mm in the proximal common bile duct and pulled down the duct. Some sludge was extracted. The duct was swept one more time. A balloon occlusion cholangiogram was normal. The pancreatic duct was initially cannulated before the common bile duct was cannulated and a partial pancreatogram was obtained. Patient tolerated procedure well. Findings Common bile duct: Small amount of sludge removed Intrahepatic ducts: Normal Pancreatic duct: Normal partial pancreatogram Plan: Follow-up in office OPERATION: .
--- NOTE | 2019-07-09 19:18 | RADIOLOGY REPORT (SQ) ---
EXAM DESCRIPTION: ENDO CATH/BILIARY DUCT; NO CHG FLUORO COMPLETED DATE/TIME: 07/09/2019 6:37 pm REASON FOR STUDY: ERCP COMPARISON: MRCP 03/04/2019 CT abdomen pelvis 04/14/2019, 07/01/2019 FLUOROSCOPY TIME: 2.6 minutes 6 digital fluoroscopic images saved to PACS. TECHNIQUE: Intra-operative images acquired during surgical procedure to evaluate progress. NUMBER OF IMAGES: 6 digital fluoroscopic images LIMITATIONS: None. FINDINGS: Contrast injected into the pancreatic duct. The pancreatic duct filling defects are ident ified. Contrast injected into the common bile duct. Two filling defects seen in the common bile duct, air b ubbles versus stones. Subsequent images demonstrate sweeping of the common bile duct with a balloon tipped catheter. After this, the common bile duct, common hepatic duct and intrahepatic ducts are un remarkable. Reflux of contrast into the cystic duct stump. IMPRESSION: IMAGE(S) OBTAINED DURING PROCEDURE. COMMENT: Quality ID [id number]: Final reports for procedures using fluoroscopy that document radiation exp osure indices, or exposure time and number of fluorographic images (if radiation exposure indices are not available) Please consult full operative report of the attending physician for description of the procedure. TECHNICAL DOCUMENTATION: JOB ID: [id number] [employer]- All Rights Reserved Reading location - IP/workstation name: [email or web address]
--- NOTE | 2019-07-09 19:18 | RADIOLOGY REPORT (SQ) ---
EXAM DESCRIPTION: ENDO CATH/BILIARY DUCT; NO CHG FLUORO COMPLETED DATE/TIME: 07/09/2019 6:37 pm REASON FOR STUDY: ERCP COMPARISON: MRCP 03/04/2019 CT abdomen pelvis 04/14/2019, 07/01/2019 FLUOROSCOPY TIME: 2.6 minutes 6 digital fluoroscopic images saved to PACS. TECHNIQUE: Intra-operative images acquired during surgical procedure to evaluate progress. NUMBER OF IMAGES: 6 digital fluoroscopic images LIMITATIONS: None. FINDINGS: Contrast injected into the pancreatic duct. The pancreatic duct filling defects are ident ified. Contrast injected into the common bile duct. Two filling defects seen in the common bile duct, air b ubbles versus stones. Subsequent images demonstrate sweeping of the common bile duct with a balloon tipped catheter. After this, the common bile duct, common hepatic duct and intrahepatic ducts are un remarkable. Reflux of contrast into the cystic duct stump. IMPRESSION: IMAGE(S) OBTAINED DURING PROCEDURE. COMMENT: Quality ID [id number]: Final reports for procedures using fluoroscopy that document radiation exp osure indices, or exposure time and number of fluorographic images (if radiation exposure indices are not available) Please consult full operative report of the attending physician for description of the procedure. TECHNICAL DOCUMENTATION: JOB ID: [id number] [employer]- All Rights Reserved Reading location - IP/workstation name: [email or web address]
[2019-07-09 20:02] VITALS: BP 137/95
--- NOTE | 2019-07-09 22:27 | EKG REPORT ---
SEVERITY:- NORMAL ECG - SINUS RHYTHM : Confirmed by: Juany Borjas 09-Jul-2019 22:26:15
== END 2019-07-09 20:00 | disposition home or self-care (01) ==
LOC: OROUT 16:06
PROVIDERS: ATTEND Internal Medicine Gastroenterology
DX: K83.8 Other specified diseases of biliary tract (principal); K86.1 Other chronic pancreatitis; K85.90 Acute pancreatitis without necrosis or infection, unspecified; R10.13 Epigastric pain; Z87.891 Personal history of nicotine dependence; E11.9 Type 2 diabetes mellitus without complications; Z79.4 Long term (current) use of insulin; D64.9 Anemia, unspecified; I25.10 Atherosclerotic heart disease of native coronary artery without angina pectoris; E78.5 Hyperlipidemia, unspecified; I10 Essential (primary) hypertension; E03.9 Hypothyroidism, unspecified; K21.9 Gastro-esophageal reflux disease without esophagitis; Z98.84 Bariatric surgery status; Z79.899 Other long term (current) drug therapy; Z88.8 Allergy status to other drugs, medicaments and biological substances
CPT/HCPCS: 43264; 43262; 82962; 74328; 93005; 93010; 00732; J2250; J1100; J3010; J0330; J2405; J2704; 732

== ENCOUNTER 2019-11-14 11:57 | Emergency (ER) | payer MEDICARE, MEDICAID ==
[2019-11-14] MEDS ORDERED: NORMAL SALINE 1000 ML 1,000 ML IV ONE ×2 (12:20→13:33)
--- NOTE | 2019-11-14 12:20 | ER Document Report ---
ED Medical Screen (RME) - General Chief Complaint: Nausea/Vomiting/Diarrhea Stated Complaint: Nausea vomiting diarrhea urinary retention Time Seen by Provider: 11/14/19 12:11 Primary Care Provider: EVANS DUARTE MD [Primary Care Provider] - Follow up as needed Mode of Arrival: Ambulatory Information source: Patient Notes: 54-year-old female presents to ED for complaint of nausea vomiting and diarrhea since Monday. She states she saw the MD yesterday they gave her a cup to urinate and stool specimens to be the same that she was supposed to take to [facility]. She states she could not urinate for about 9 hours while he urinated this morning which is in the car. She states she also did a stool specimen which is in the car. She states she is having diarrhea so I have told her that we will get another specimen. We will get lab work give IV fluids and then if she is still not able to void we will insert Estrada catheter. I have greeted and performed a rapid initial assessment of this patient. A comprehensive ED assessment and evaluation of the patient, analysis of test results and completion of medical decision making process will be conducted by an additional ED providers. TRAVEL OUTSIDE OF THE [place] IN LAST 30 DAYS: No - Related Data Allergies/Adverse Reactions: naproxen [Naproxen] Allergy (Severe, Verified 10/27/19 13:11) Facial swelling liraglutide [From Victoza] Allergy (Verified 10/27/19 13:11) sitagliptin [From Januvia] Allergy (Verified 10/27/19 13:11) valsartan [From Diovan] Allergy (Verified 10/27/19 13:11) ropinirole HCl [From Requip] Adverse Reaction (Severe, Verified 10/27/19 13:11) BODY SWELLING Past Medical History - Past Medical History Cardiac Medical History: Reports: Hx Coronary Artery Disease, Hx Hypercholesterolemia, Hx Hypertension - DIET CONTROLLED Denies: Hx Heart Attack Pulmonary Medical History: Denies: Hx Asthma, Hx Bronchitis, Hx COPD, Hx Pneumonia Neurological Medical History: Reports: Hx Migraine. Denies: Hx Cerebrovascular Accident, Hx Seizures Endocrine Medical History: Reports: Hx Diabetes Mellitus Type 2, Hx Hypothyroidism Renal/ Medical History: Denies: Hx Peritoneal Dialysis GI Medical History: Reports: Hx Gastroesophageal Reflux Disease, Hx Pancreatitis. Denies: Hx Hepatitis, Hx Hiatal Hernia, Hx Ulcer Musculoskeltal Medical History: Reports Hx Arthritis Psychiatric Medical History: Reports: Hx Depression Infectious Medical History: Denies: Hx Hepatitis Past Surgical History: Reports: Hx Cholecystectomy, Hx Gastric Bypass Surgery - SLEEVE, Hx Genitourinary Surgery - bladder prolapse, Hx Hysterectomy, Hx Orth opedic Surgery - toe, shoulder, elbow, bilat feet, Other - Gastric Sleeve. Denies: Hx Mastectomy, Hx Open Heart Surgery, Hx Pacemaker - Immunizations Immunizations up to date: Yes Hx Diphtheria, Pertussis, Tetanus Vaccination: Yes Physical Exam - Vital signs Vitals: Temp Pulse Resp BP Pulse Ox 97.6 F 109 H 16 128/66 H 98 11/14/19 12:01 11/14/19 12:11/14/19 12:11/14/19 12:01 11/14/19 12:01 Course - Vital Signs Vital signs: Temp Pulse Resp BP Pulse Ox 97.6 F 109 H 16 128/66 H 98 11/14/19 12:01 11/14/19 12:01 11/14/19 12:01 11/14/19 12:01 11/14/19 12:01 Doctor's Discharge - Discharge Referrals: EVANS DUARTE MD [Primary Care Provider] - Follow up as needed
[2019-11-14 12:38] LABS: ABSOLUTE LYMPHOCYTES (AUTO) 1.2 10^3/uL (0.5-4.7); ABSOLUTE MONOCYTES (AUTO) 0.7 10^3/uL (0.1-1.4); ABSOLUTE NEUT (AUTO) 5.3 10^3/uL (1.7-8.2); BASOPHILS % (AUTO) 0.5 % (0-2); EOSINOPHILS % (AUTO) 0.3 % (0-6); HEMATOCRIT 39.9 % (36.0-47.0); HEMOGLOBIN 13.3 g/dL (12.0-15.5); LYMPHOCYTES % (AUTO) 16.2 % (13-45); MEAN CORPUSCULAR HEMOGLOBIN 26.7 pg (27.0-33.4); MEAN CORPUSCULAR HGB CONC 33.4 g/dL (32.0-36.0); MEAN CORPUSCULAR VOLUME 80 fl (80-97); MONOCYTES % (AUTO) 10.1 % (3-13); PLATELET COUNT 289 10^3/uL (150-450); RED BLOOD COUNT 4.99 10^6/uL (3.72-5.28); RED CELL DISTRIBUTION WIDTH 13.7 % (11.5-14.0); SEGMENTED NEUTROPHILS % (AUTO) 72.9 % (42-78); TOTAL CELLS COUNTED % (AUTO) 100 %; WHITE BLOOD COUNT 7.3 10^3/uL (4.0-10.5)
--- NOTE | 2019-11-14 12:39 | ER Document Report ---
ED General - General Chief Complaint: Nausea/Vomiting/Diarrhea Stated Complaint: Nausea vomiting diarrhea urinary retention Time Seen by Provider: 11/14/19 12:11 Primary Care Provider: EVANS DUARTE MD [Primary Care Provider] - Follow up as needed Mode of Arrival: Ambulatory TRAVEL OUTSIDE OF THE [place] IN LAST 30 DAYS: No - HPI Notes: 54-year-old -[place] female with a medical history of diabetes and pancreatitis presents emergency department with chief complaint of nausea, vomiting, diarrhea and abdominal discomfort for the last 5 days. Patient states she ate some chicken that was spicy over the weekend. Denies bloody stool, denies fever and chills, no recent antibiotic use no history of A. fib. denies any new foods travel or medications. Patient was seen by her primary care yesterday and was advised to do stool cultures and urinalysis was patient was unable to do because she "did not feel like it and came here instead". Not tried any [id number] medications. Denies fevers, chills, chest pain,palpitations, shortness of breath, dyspnea, hematuria,blurred vision, double vision, loss of vision, speech changes, LH, dizziness, syncope, headaches, wheezing, ST, URI, neck pain, weakness, bowel or bladder dysfunction, saddle anesthesia, numbness or tingling in bilateral upper or lower extremities equally, muscle paralysis, weakness in bilateral upper or lower extremities equally or rash. - Related Data Allergies/Adverse Reactions: naproxen [Naproxen] Allergy (Severe, Verified 10/27/19 13:11) Facial swelling liraglutide [From Victoza] Allergy (Verified 10/27/19 13:11) sitagliptin [From Januvia] Allergy (Verified 10/27/19 13:11) valsartan [From Diovan] Allergy (Verified 10/27/19 13:11) ropinirole HCl [From Requip] Adverse Reaction (Severe, Verified 10/27/19 13:11) BODY SWELLING Home Medications: Metformin Past Medical History - General Information source: Patient - Social History Smoking Status: Unknown if Ever Smoked Family History: Reviewed & Not Pertinent, DM, Hypertension Patient has suicidal ideation: No Patient has homicidal ideation: No - Past Medical History Cardiac Medical History: Reports: Hx Coronary Artery Disease, Hx Hypercholesterolemia, Hx Hypertension - DIET CONTROLLED Denies: Hx Heart Attack Pulmonary Medical History: Denies: Hx Asthma, Hx Bronchitis, Hx COPD, Hx Pneumonia Neurological Medical History: Reports: Hx Migraine. Denies: Hx Cerebrovascular Accident, Hx Seizures Endocrine Medical History: Reports: Hx Diabetes Mellitus Type 2, Hx Hypothyroidism Renal/ Medical History: Denies: Hx Peritoneal Dialysis GI Medical History: Reports: Hx Gastroesophageal Reflux Disease, Hx Pancreatitis. Denies: Hx Hepatitis, Hx Hiatal Hernia, Hx Ulcer Musculoskeletal Medical History: Reports Hx Arthritis Psychiatric Medical History: Reports: Hx Depression Infectious Medical History: Denies: Hx Hepatitis Past Surgical History: Reports: Hx Cholecystectomy, Hx Gastric Bypass Surgery - SLEEVE, Hx Genitourinary Surgery - bladder prolapse, Hx Hysterectomy, Hx O rthopedic Surgery - toe, shoulder, elbow, bilat feet, Other - Gastric Sleeve. Denies: Hx Mastectomy, Hx Open Heart Surgery, Hx Pacemaker - Immunizations Immunizations up to date: Yes Hx Diphtheria, Pertussis, Tetanus Vaccination: Yes Hx Pneumococcal Vaccination: 05/24/10 Review of Systems - Review of Systems Constitutional: No symptoms reported EENT: No symptoms reported Cardiovascular: No symptoms reported Respiratory: No symptoms reported Gastrointestinal: See HPI Genitourinary: No symptoms reported Female Genitourinary: No symptoms reported Musculoskeletal: No symptoms reported Skin: No symptoms reported Hematologic/Lymphatic: No symptoms reported Neurological/Psychological: No symptoms reported Physical Exam - Vital signs Vitals: Temp Pulse Resp BP Pulse Ox 97.6 F 109 H 16 128/66 H 98 11/14/19 12:01 11/14/19 12:01 11/14/19 12:01 11/14/19 12:01 11/14/19 12:01 - Notes Notes: PHYSICAL EXAMINATION: reviewed vital signs by RN GENERAL: Well-appearing, well-nourished and in no acute distress. HEAD: Atraumatic, normocephalic. EYES: Pupils equal round and reactive to light, extraocular movements intact, conjunctiva are normal. ENT: Nares patent, oropharynx clear without exudates. Moist mucous membranes. NECK: Normal range of motion, supple without lymphadenopathy LUNGS: Breath sounds clear to auscultation bilaterally and equal. No wheezes rales or rhonchi. HEART: Regular rate and rhythm without murmurs ABDOMEN: Soft, right upper quadrant, left upper quadrant abdominal tenderness, nondistended abdomen. No guarding, no rebound. No masses appreciated. No CVA tenderness appreciated bilaterally Female : deferred Musculoskeletal: Normal range of motion, no pitting or edema. No cyanosis. NEUROLOGICAL: Cranial nerves grossly intact. Normal speech, normal gait. Normal sensory, motor exams PSYCH: Normal mood, normal affect. SKIN: Warm, Dry, normal turgor, no rashes or lesions noted. Course - Re-evaluation Re-evalutation: 11/14/19 14:53 AFebrile vital stable no distress. Nurses notes reviewed. CBC negative for leukocytosis or anemia, CMP negative for hepatic or renal dysfunction, no electrolyte disturbances. EKG negative for STEMI, no ST segment changes, chest x-ray unremarkable. Urinalysis positive for leukoesterase with negative nitrates, will treat for a UTI. patient has no focal abdominal tenderness on examination. Right upper quadrant ultrasound does not demonstrate any evidence of acute cholecystitis or cholelithiasis. Lipase is normal. No LFT changes. Based on history and exam, I do not suspect ACS, pulmonary embolus, SBO, me senteric ischemia, acute pancreatitis, biliary pathology, or an abdominal aortic dissection. I will treat this patient for traveler's diarrhea due to CT with abdomen pelvis with IV contrast showing some inflammatory changes or infectious changes. since patient has said she has had diarrhea for the last 5 days (with stool cultures pending), will empirically treat for this with flagyl and cipro a 10 day course After performing a Medical Screening Examination, I estimate there is LOW risk for ACUTE APPENDICITIS, BOWEL OBSTRUCTION, ACUTE CHOLECYSTITIS, PERFORATED DIVERTICULITIS, INCARCERATED HERNIA, PANCREATITIS, PELVIC INFLAMMATORY DISEASE, PERFORATED ULCER, ECTOPIC , or TUBO-OVARIA N ABSCESS, thus I consider the discharge disposition reasonable. Also, there is no evidence or peritonitis, sepsis, or toxicity. I have reevaluated this patient multiple times and no significant life threatening changes are noted. The patient and I have discussed the diagnosis and risks, and we agree with discharging home with close follow-up with the understanding that symptoms and presentations can change. We also discussed returning to the Emergency Department immediately if new or worsening symptoms occur. We have discussed the symptoms which are most concerning (e.g., bloody stool, fever, changing or worsening pain, vomiting) that necessitate immediate return. At this time will discharge with return precautions and follow-up recommendations. Verbal discharge instructions given a the bedside and opportunity for questions given. Medication warnings reviewed. Patient is in agreement with this plan and has verbalized understanding of return precautions and the need for primary care follow-up in the next 24-72 hours. 11/14/19 14:55 - Vital Signs Vital signs: Temp Pulse Resp BP Pulse Ox 97.6 F 109 H 16 128/66 H 98 11/14/19 12:10 11/14/19 12:01 11/14/19 12:01 11/14/19 12:01 11/14/19 12:01 - Laboratory Result Diagrams: 11/14/19 12:25 11/14/19 12:25 Laboratory results interpreted by me: 11/14/19 11/14/19 11/14/19 12:25 12:25 13:15 MCH 26.7 L Chloride 108 H Carbon Dioxide 18 L Glucose 182 H Calcium 8.2 L Total Bilirubin 0.1 L Total Protein 5.7 L Albumin 3.4 L Urine Protein 30 H Urine Glucose (UA) >=500 H Leukocyte Esterase Rfl MODERATE H Urine Ascorbic Acid 40 H Discharge - Discharge Clinical Impression: UTI (urinary tract infection), Diarrhea Condition: Stable Disposition: HOME, SELF-CARE Instructions: Antinausea Medication ([facility]), Intravenous (IV) Fluids ([facility]), Vomiting ([facility]), Diarrhea, Nonspecific ([facility]), Prescribed Antidiarrhea Medications ([facility]), Urinary Tract Infection ([facility]) Additional Instructions: Your urinalysis showed to have a UTI. CT abdomen pelvis showed that you have an infectious or inflammatory process, and due to having diarrhea for the last 5 days we will empirically treat for traveler's diarrhea which is ciprofloxacin and Flagyl to take twice a day for 10 days, this will also treat your UTI. Your stool cultures are pending. Please also take your diabetic medication as directed. Follow-up with your primary care provider within next 24 hours as well as following up with a line construction supervisor within the next 5 days. I also am discharging you with Zofran which is an antiemetic for nausea as well as Bentyl which is an anti-diarrheal. Please take both of these medications as needed. please return to the emergency if you experiencing bloody stool, fever, worsening abdominal pain, vomiting etc. return immediately for any new or worsening symptoms. Follow up with primary care provider, call tomorrow to make followup appointment. Prescriptions: Dicyclomine HCl [Bentyl 10 mg Capsule] 1 cap PO TID PRN #20 cap PRN Reason: Ciprofloxacin HCl [Cipro] 500 mg PO BID #20 tablet Metronidazole [Flagyl] 500 mg PO BID #20 tablet Ondansetron [Zofran Odt 4 mg Tablet] 1 - 2 tab PO Q4H PRN #15 tab.rapdis PRN Reason: For Nausea/Vomiting Forms: Return to Work Referrals: EVANS DUARTE MD [Primary Care Provider] - Follow up as needed HI CARR MD [ACTIVE STAFF] - Follow up as needed
[2019-11-14 12:59] LABS: ALBUMIN 3.4 g/dL (3.5-5.0); ALKALINE PHOSPHATASE 77 U/L (38-126); ANION GAP 12 (5-19); ASPARTATE AMINO TRANSFERASE 32 U/L (14-36); BILIRUBIN,TOTAL 0.1 mg/dL (0.2-1.3); BLOOD UREA NITROGEN 17 mg/dL (7-20); CALCIUM 8.2 mg/dL (8.4-10.2); CARBON DIOXIDE 18 mmol/L (22-30); CHLORIDE 108 mmol/L (98-107); GLUCOSE 182 mg/dL (75-110); POTASSIUM 3.6 mmol/L (3.6-5.0); TOTAL PROTEIN 5.7 g/dL (6.3-8.2)
[2019-11-14 13:33] LABS: APPEARANCE,URINE SLIGHTLY-CLOUDY; BILIRUBIN,URINE NEGATIVE (NEGATIVE); COLOR,URINE YELLOW; GLUCOSE, URINE >=500 mg/dL (NEGATIVE); KETONES,URINE NEGATIVE (NEGATIVE); PROTEIN,URINE 30 mg/dL (NEGATIVE); URINE SPECIFIC GRAVITY 1.031; UROBILINOGEN,URINE NEGATIVE mg/dL (<2.0)
[2019-11-14] MEDS ORDERED: ACETAMINOPHEN 325 MG TABLET PO ONE (13:33)
--- NOTE | 2019-11-14 14:40 | RADIOLOGY REPORT (SQ) ---
EXAM DESCRIPTION: CT ABD/PELVIS WITH IV ONLY IMAGES COMPLETED DATE/TIME: 11/14/2019 2:28 pm REASON FOR STUDY: epigastric abd pain, n/v/d COMPARISON: Several, most recent 07/01/2019 TECHNIQUE: CT scan of the abdomen and pelvis performed using helical scanning technique with dynamic intravenous contrast injection. No oral contrast. Images reviewed with lung, soft tissue, and bone windows. Reconstructed coronal and sagittal MPR images reviewed. Delayed images for evaluation of the urinary system also acquired. All images stored on PACS. All CT scanners at this facility use dose modulation, iterative reconstruction, and/or weight based d osing when appropriate to reduce radiation dose to as low as reasonably achievable (ALARA). [facility]: Dose Right [facility]: CareDose [facility]: Dose Right [facility]: Teradose 4D [facility]: JDF CONTRAST TYPE AND DOSE: contrast/concentration: Isovue 350.00 mg/ml; Total Contrast Delivered: 94.0 ml; Total Saline Delivered: 71.0 ml RENAL FUNCTION: GFR > 60. RADIATION DOSE: CT Rad equipment meets quality standard of care and radiation dose reduction techniq ues were employed. CTDIvol: 7.7 - 10.9 mGy. DLP: 1012 mGy-cm.. LIMITATIONS: None. FINDINGS: LOWER CHEST: No significant findings. No nodules or infiltrates. LIVER: Normal size. No masses. No dilated ducts. SPLEEN: Normal size. No focal lesions. PANCREAS: No masses. No significant calcifications. No adjacent inflammation or peripancreatic fluid collections. Pancreatic duct not dilated. GALLBLADDER: Surgically absent. ADRENAL GLANDS: No significant masses or asymmetry. RIGHT KIDNEY AND URETER: No solid masses. No significant calcifications. No hydronephrosis or hyd roureter. LEFT KIDNEY AND URETER: No solid masses. No significant calcifications. No hydronephrosis or hydr oureter. AORTA AND VESSELS: No aneurysm. No dissection. Renal arteries, SMA, celiac without stenosis. RETROPERITONEUM: No retroperitoneal adenopathy, hemorrhage or masses. BOWEL AND PERITONEAL CAVITY: Prior gastric bypass. Bowel wall thickening involving several loops of small bowel in the right lower quadrant and pelvis. No dilated loops. No ascites or free air. APPENDIX: Normal. PELVIS: No mass. No free fluid. Normal bladder. ABDOMINAL WALL: No masses. No hernias. BONES: No significant or acute findings. OTHER: No other significant finding. IMPRESSION: Small bowel wall thickening, most likely due to inflammatory or infectious process. No obstruction. TECHNICAL DOCUMENTATION: JOB ID: [id number] Quality ID # [id number]: Final reports with documentation of one or more dose reduction techniques (e.g., Au tomated exposure control, adjustment of the mA and/or kV according to patient size, use of iterative reconstruction technique) 2010 [employer]- All Rights Reserved Reading location - IP/workstation name: [email or web address]
[2019-11-14 15:18] VITALS: BP 111/60
== END 2019-11-14 15:18 | disposition home or self-care (01) ==
LOC: ER 11:57
DX: N39.0 Urinary tract infection, site not specified (principal); R19.7 Diarrhea, unspecified; R11.2 Nausea with vomiting, unspecified; R10.811 Right upper quadrant abdominal tenderness; R10.812 Left upper quadrant abdominal tenderness; E11.9 Type 2 diabetes mellitus without complications; I25.10 Atherosclerotic heart disease of native coronary artery without angina pectoris; I10 Essential (primary) hypertension; Z87.19 Personal history of other diseases of the digestive system; Z98.84 Bariatric surgery status; Z90.49 Acquired absence of other specified parts of digestive tract; Z88.8 Allergy status to other drugs, medicaments and biological substances
CPT/HCPCS: 99283; 96360; 96361; 36415; 87086; 83690; 85025; 80053; 81001; 74177; A9270; J7030

== ENCOUNTER 2019-12-13 18:34 | Emergency (ER) | payer MEDICARE, MEDICAID ==
[2019-12-13] MEDS ORDERED: MORPHINE SULFATE 10 MG/ML INJ IM ONE (19:17)
--- NOTE | 2019-12-13 19:17 | ER Document Report ---
HPI - HPI Time Seen by Provider: 12/13/19 19:01 Pain Level: 5 Context: Patient is a 54-year-old female who presents to the emergency department with a chief complaint chronic back pain. Patient states that her pain starts in her lower back and radiates down both legs. Describes the pain as a throbbing pain. Patient states that she has been given Robaxin and she is currently on Percocet, but has had little relief of her pain. - ROS Systems Reviewed and Negative: Yes All other systems reviewed and negative - CONSTITUTIONAL Constitutional: DENIES: Fever - EENT EENT: DENIES: Sore Throat, Ear Pain, Nasal Drainage-Clear, Congestion - NEURO Neurology: REPORTS: Weakness. DENIES: Headache - CARDIOVASCULAR Cardiovascular: DENIES: Chest pain - RESPIRATORY Respiratory: DENIES: Trouble Breathing, Coughing - GASTROINTESTINAL Gastrointestinal: DENIES: Abdominal Pain, Nausea, Patient vomiting - URINARY Urinary: DENIES: Dysuria, Urgency, Frequency - REPRODUCTIVE Reproductive: DENIES: : - MUSCULOSKELETAL Musculoskeletal: REPORTS: Extremity pain - bilateral legs, Back Pain - low back - DERM Skin Color: Normal Skin Problems: None Past Medical History - Social History Smoking Status: Former Smoker Frequency of alcohol use: None Drug Abuse: None Family History: Reviewed & Not Pertinent, DM, Hypertension Patient has homicidal ideation: No - Past Medical History Cardiac Medical History: Reports: Hx Coronary Artery Disease, Hx Hypercholesterolemia, Hx Hypertension - DIET CONTROLLED Denies: Hx Heart Attack Pulmonary Medical History: Denies: Hx Asthma, Hx Bronchitis, Hx COPD, Hx Pneumonia Neurological Medical History: Reports: Hx Migraine. Denies: Hx Cerebrovascular Accident, Hx Seizures Endocrine Medical History: Reports: Hx Diabetes Mellitus Type 2, Hx Hypothyroidism Renal/ Medical History: Denies: Hx Peritoneal Dialysis GI Medical History: Reports: Hx Gastroesophageal Reflux Disease, Hx Pancreatitis. Denies: Hx Hepatitis, Hx Hiatal Hernia, Hx Ulcer Musculoskeletal Medical History: Reports Hx Arthritis Psychiatric Medical History: Reports: Hx Depression Infectious Medical History: Denies: Hx Hepatitis Past Surgical History: Reports: Hx Cholecystectomy, Hx Gastric Bypass Surgery - SLEEVE, Hx Genitourinary Surgery - bladder prolapse, Hx Hysterectomy, Hx Orthopedic Surgery - toe, shoulder, elbow, bilat feet, Other - Gastric Sleeve. Denies: Hx Mastectomy, Hx Open Heart Surgery, Hx Pacemaker - Immunizations Immunizations up to date: Yes Hx Diphtheria, Pertussis, Tetanus Vaccination: Yes Hx Pneumococcal Vaccination: 05/24/10 Vertical Provider Document - CONSTITUTIONAL Agree With Documented VS: Yes Exam Limitations: No Limitations General Appearance: No Apparent Distress - INFECTION CONTROL TRAVEL OUTSIDE OF THE [place] IN LAST 30 DAYS: No - HEENT HEENT: Atraumatic, Normocephalic, PERRLA - NECK Neck: Normal Inspection - RESPIRATORY Respiratory: No Respiratory Distress - CARDIOVASCULAR Cardiovascular: Regular Rate, Regular Rhythm Pulses: Normal: Radial, Posterior tibial, Dorsalis pedis - GI/ABDOMEN Gastrointestinal: Abdomen Soft, Abdomen Non-Tender - BACK Back: Normal Inspection. negative: CVA Tenderness-Right, CVA Tenderness-Left - MUSCULOSKELETAL/EXTREMETIES Musculoskeletal/Extremeties: FROM, Tender - bilateral low back - NEURO Level of Consciousness: Awake, Alert, Appropriate Motor/Sensory: No Motor Deficit, No Sensory Deficit, No Pronator Drift Deep Tendon Reflexes: 2+ - DERM Integumentary: Warm, Dry, No Rash Course - Re-evaluation Re-evalutation: 12/13/19 19:14 Differential diagnosis for back pain includes muscle spasm, muscle strain, slipped disc cauda equina syndrome, vertebral fracture, vertebral tumor, epidural abscess, pyelonephritis, or AAA. Based on history and exam, the most likely etiology of the patient's back pain is chronic sciatic nerve pain. Emergent MRI is not indicated at this time because the patient does not have new weakness, or cauda equina syndrome. Patient does not have bladder or bowel dysfunction. Patient does not have history of IV drug use, therefore, I do not suspect an epidural abscess. Patient does not have recent weight loss or night sweats, and does not have a known history of cancer. Patient received a dose of morphine here in the emergency department to help with the pain. We will send her home with Flexeril. She will follow-up with her primary care provider. Advised that she go to physical therapy. She is in agreement with this plan. Follow-up precautions were given. Verbal discharge instructions were given to the patient. They verbalized understanding. They are stable for discharge. - Vital Signs Vital signs: Temp Pulse Resp BP Pulse Ox 98.5 F 89 18 145/82 H 98 12/13/19 19:01 12/13/19 18:37 12/13/19 18:37 12/13/19 18:37 12/13/19 18:37 Discharge - Discharge Clinical Impression: Chronic back pain Qualifiers: Back pain location: low back pain Back pain laterality: bilateral Sciatica presence: with sciatica Sciatica laterality: bilateral sciatica Qualified Code(s): M54.42 - Lumbago with sciatica, left side Condition: Stable Disposition: HOME, SELF-CARE Instructions: Pain Medication Injection ([facility]) Additional Instructions: You were seen today in emergency department for back pain. You received a dose of pain medication here in the emergency department. Please follow-up with your primary care provider. Take Flexeril as needed. See if you can get a referral for physical therapy to strengthen your back muscles. Prescriptions: Cyclobenzaprine HCl [Flexeril 10 mg Tablet] 10 mg PO TIDP PRN #15 tab PRN Reason: Referrals: EVANS DUARTE MD [Primary Care Provider] - Follow up in 3-5 days
[2019-12-13 20:09] VITALS: BP 134/95
== END 2019-12-13 20:09 | disposition home or self-care (01) ==
LOC: ER 18:34
DX: M54.42 Lumbago with sciatica, left side (principal); M54.9 Dorsalgia, unspecified; G89.29 Other chronic pain; M79.604 Pain in right leg; M79.605 Pain in left leg; Z87.891 Personal history of nicotine dependence; I25.10 Atherosclerotic heart disease of native coronary artery without angina pectoris; I10 Essential (primary) hypertension; E11.9 Type 2 diabetes mellitus without complications
CPT/HCPCS: 99283; 96372; J2270

== ENCOUNTER → 2019-12-20 | Outpatient (CLI) | payer MEDICARE, MEDICAID ==
--- NOTE | 2019-12-20 10:51 | RADIOLOGY REPORT (SQ) ---
EXAM DESCRIPTION: MRI LUMBAR SPINE WITHOUT IMAGES COMPLETED DATE/TIME: 12/20/2019 10:13 am REASON FOR STUDY: LOW BACK PAIN M54.5 LOW BACK PAIN COMPARISON: CT of the abdomen and pelvis from 11/14/2019. TECHNIQUE: Sagittal and Axial imaging includes T1, T2, STIR and gradient echo sequences. Coronal T2/ HASTE imaging. LIMITATIONS: None. FINDINGS: VISUALIZED UPPER ABDOMEN: No abnormality. SEGMENTATION: There are 5 lumbar-type vertebral bodies. There is no transitional segment at the lumb osacral junction. ALIGNMENT: Anatomic. VERTEBRAE: Intact. BONE MARROW: Normal. DISC SIGNAL: The L5-S1 intervertebral disc is narrowed and desiccated. POSTERIOR ELEMENTS: Intact. There is no pars interarticularis defect. HARDWARE: None in the spine. CORD AND CONUS: The conus medullaris terminates at the level of L1-L2 and it is normal in caliber and signal intensity. SOFT TISSUES: No abnormality. L1-L2: No spinal or foraminal stenosis. L2-L3: No spinal or foraminal stenosis. L3-L4: No spinal or foraminal stenosis. L4-L5: Degeneration of the facet joints without spinal or foraminal stenosis. L5-S1: Degeneration of the facet joints and broad-based disc bulge eccentric to the left that encroac hes on the inferior aspect of the neuroforamina, flattens the ventral aspect of the thecal sac, and c ompresses the left intraforaminal L5 nerve root. The combination of these findings results in mild r ight and moderate to severe left foraminal stenosis. LOWER THORACIC: No stenosis. SACRUM: Intact. OTHER: No other findings. IMPRESSION: Broad-based disc bulge eccentric to the left at L5-S1 that encroaches on the inferior as pect of the neuroforamina, flattens the ventral aspect of the thecal sac, and compresses the left int raforaminal L5 nerve root. TECHNICAL DOCUMENTATION: JOB ID: [id number] 2010 [employer]- All Rights Reserved Reading location - IP/workstation name: [email or web address]
== END ==
LOC: RAD 09:35
PROVIDERS: ATTEND Internal Medicine Geriatric Medicine
DX: M47.897 Other spondylosis, lumbosacral region (principal); M48.07 Spinal stenosis, lumbosacral region; M54.5 Low back pain
CPT/HCPCS: 72148

== ENCOUNTER 2019-12-28 08:36 | Emergency (ER) | payer MEDICARE, MEDICAID ==
[2019-12-28 08:40] VITALS: BP 114/93
[2019-12-28] MEDS ORDERED: HYDROMORPHONE HCL INJ/PF 2 MG/ML AMPULE IV ONE (10:32)
[2019-12-28] MEDS ORDERED: DIPHENHYDRAMINE HCL 50 MG/ML VIAL IV ONE (10:34)
[2019-12-28] MEDS ORDERED: DEXAMETHASONE SOD PHOS INJ 10 MG/1 ML VIAL IV ONE (10:35)
[2019-12-28] MEDS ORDERED: NORMAL SALINE 500 ML IV ONE (10:36)
--- NOTE | 2019-12-28 12:54 | ER Document Report ---
Entered by ANGELIA ALICIA SCRIBE 12/28/19 1003 Acting as scribe for:RENATE ABRAMS MD ED General - General Chief Complaint: Back Pain Stated Complaint: BACK PAIN Time Seen by Provider: 12/28/19 09:40 Primary Care Provider: EVANS DUARTE MD [Primary Care Provider] - Follow up as needed Information source: Patient Notes: This 54-year-old female presents to the emergency department complaining of back pain that began a month ago. Patient explains that she came to this emergency department for similar back pain two weeks ago where she was given morphine and sent home. Patient said that on her follow-up appointment with her primary care, she had an MRI completed and was not told the results. Patient states that her back pain is worsened with movement and standing on her left side. Patient states that she could not sleep last night secondary to pain. Patient reports a weak bladder due to the severe pain. Patient denies injury to her back. Patient said that she has used a heating pad with no relief. TRAVEL OUTSIDE OF THE [place] IN LAST 30 DAYS: No - Related Data Allergies/Adverse Reactions: naproxen [Naproxen] Allergy (Severe, Verified 10/27/19 13:11) Facial swelling liraglutide [From Victoza] Allergy (Verified 10/27/19 13:11) sitagliptin [From Januvia] Allergy (Verified 10/27/19 13:11) valsartan [From Diovan] Allergy (Verified 10/27/19 13:11) ropinirole HCl [From Requip] Adverse Reaction (Severe, Verified 10/27/19 13:11) BODY SWELLING Past Medical History - General Information source: Patient - Social History Smoking Status: Current Every Day Smoker Cigarette use (# per day): Yes Chew tobacco use (# tins/day): No Drug Abuse: Marijuana Family History: Reviewed & Not Pertinent, DM, Hypertension Patient has homicidal ideation: No - Past Medical History Cardiac Medical History: Reports: Hx Coronary Artery Disease, Hx Hypercholesterolemia, Hx Hypertension - DIET CONTROLLED Neurological Medical History: Reports: Hx Migraine Endocrine Medical History: Reports: Hx Diabetes Mellitus Type 2, Hx Hypothyroidism GI Medical History: Reports: Hx Gastroesophageal Reflux Disease, Hx Pancreatitis Musculoskeletal Medical History: Reports Hx Arthritis Psychiatric Medical History: Reports: Hx Depression Past Surgical History: Reports: Hx Cholecystectomy, Hx Gastric Bypass Surgery - SLEEVE, Hx Genitourinary Surgery - bladder prolapse, Hx Hysterectomy, Hx Orthopedic Surgery - toe, shoulder, elbow, bilat feet - Immunizations Immunizations up to date: Yes Hx Diphtheria, Pertussis, Tetanus Vaccination: Yes Hx Pneumococcal Vaccination: 05/24/10 Review of Systems - Review of Systems Constitutional: See HPI. denies: Fever EENT: No symptoms reported Cardiovascular: No symptoms reported Respiratory: No symptoms reported Gastrointestinal: No symptoms reported Genitourinary: No symptoms reported Female Genitourinary: No symptoms reported Musculoskeletal: See HPI, Back pain, Other - Leg pain Skin: No symptoms reported Hematologic/Lymphatic: No symptoms reported Neurological/Psychological: No symptoms reported -: Yes All other systems reviewed and negative Physical Exam - Vital signs Vitals: Temp Pulse Resp BP Pulse Ox 98.5 F 95 16 114/93 H 99 12/28/19 08:39 12/28/19 08:39 12/28/19 08:39 12/28/19 08:39 12/28/19 08:39 - Notes Notes: Physical Exam: General: Alert, appears well. HEENT: Normocephalic. Atraumatic. PERRL. Extraocular movements intact. Oropharynx clear. Neck: Supple. Non-tender. Respiratory: No respiratory distress. Clear and equal breath sounds bilaterally. Cardiovascular: Regular rate and rhythm. Abdominal: Normal Inspection. Non-tender. No distension. Normal Bowel Sounds. Back: L5 distribution on back tenderness to palpation. Extremities: Moves all four extremities. Upper extremities: Normal inspection. Normal ROM. Lower extremities: No edema. Normal ROM. Patient has a limited straight leg raise secondary to pain on the left lower extremity. Neurological: Normal cognition. AAOx4. Normal speech. Psychological: Normal affect. Normal Mood. Skin: Warm. Dry. Normal color. Course - Re-evaluation Re-evalutation: 12/28/19 12:48 Patient is feeling much better less pain radicular pain going down her left leg. Patient's back pain is improved as well in the left buttock region. 12/28/19 12:49 Patient improved after receiving IV fluids IV pain medication of Dilaudid Benadryl and Zofran. - Vital Signs Vital signs: Temp Pulse Resp BP Pulse Ox 98.5 F 95 16 114/93 H 99 12/28/19 09:12 12/28/19 08:39 12/28/19 08:39 12/28/19 08:39 12/28/19 08:39 12/28/19 12:49 Vital signs stable mild diastolic hypertension and of 93. Otherwise everything else is within normal limits. - Diagnostic Test Radiology reviewed: Image reviewed, Reports reviewed Radiology results interpreted by me: 12/28/19 12:49 No studies were done today from the x-ray department however patient has had an MRI scan of her lumbar spine that was done on December 19 and patient was unaware of those results therefore we examined that report and reported that the patient is well patient has a broad-based lumbar disc bulge at the L5-S1 joint with compression on the L5 nerve root. No other significant problem was noted on that report. Discharge - Discharge Clinical Impression: Lumbar disc disease with radiculopathy, Type 1 diabetes mellitus Condition: Good Disposition: HOME, SELF-CARE Additional Instructions: Sciatica Your symptoms suggest "sciatica." The pain of sciatica typically radiates down the leg. Numbness in the foot or calf may also occur. Sciatica is caused by irritation of the sciatic nerve or its branches. The irritation can be due to a herniated disk in the spine, swelling and inflammation in the muscles surrounding the sciatic nerve, or direct injury of the nerve itself. Most cases of sciatica will resolve with medical treatment. Bed rest is usually recommended initially. Surgery is only necessary when the condition will not improve with rest and antiinflammatory medication. Muscle relaxers are often given if muscle soreness is present. A CAT scan of the back may be performed if a herniated disk is suspected. Re-examination is necessary if you develop increasing numbness, localized weakness in the foot or ankle, or if the pain does not respond to rest. Use you will need to follow-up with your primary care physician and decide on follow-up with either an orthopedic doctor or neurosurgeon. Continue to take the medications of Percocet 7.5 mg as prescribed and muscle relaxants as prescribed. We discussed use of steroids and you chose not to use steroids oscar smuch as you have diabetes mellitus type I Referrals: EVANS DUARTE MD [Primary Care Provider] - Follow up as needed I personally performed the services described in the documentation, reviewed and edited the documentation which was dictated to the scribe in my presence, and it accurately records my words and actions.
== END 2019-12-28 13:01 | disposition home or self-care (01) ==
LOC: ER 08:36
DX: M54.16 Radiculopathy, lumbar region (principal); E10.9 Type 1 diabetes mellitus without complications; F17.210 Nicotine dependence, cigarettes, uncomplicated; I25.10 Atherosclerotic heart disease of native coronary artery without angina pectoris; E78.00 Pure hypercholesterolemia, unspecified; I10 Essential (primary) hypertension; Z90.49 Acquired absence of other specified parts of digestive tract; Z98.84 Bariatric surgery status
CPT/HCPCS: 99283; 96361; 96374; 96375; J1200; J1170; J7040; J1100

== ENCOUNTER 2020-02-09 12:24 | Emergency (ER) | payer MEDICARE, MEDICAID ==
[2020-02-09 12:32] VITALS: BP 131/72
--- NOTE | 2020-02-09 13:22 | ER Document Report ---
HPI - HPI Patient complains to provider of: Left arm intermittent tingling Time Seen by Provider: 02/09/20 13:01 Onset: Other - Since yesterday around dinnertime Pain Level: 4 Context: This a 55-year-old female who is currently seeing a neurosurgeon for herniated disc and nerve impingement both in her lumbar spine she presents today with intermittent tingling to her left arm. Palpable spasm to the left lateral aspe ct of her neck with radiation down to the subscapular area this initiated last night after taking nap on the couch. She denies chest pain shortness of breath exertional chest pain exertional shortness of breath no diaphoresis nausea vomiting or fever. Associated Symptoms: None Exacerbated by: Denies Relieved by: Denies - REPRODUCTIVE Reproductive: DENIES: : - MUSCULOSKELETAL Musculoskeletal: REPORTS: Extremity pain Past Medical History - General Information source: Patient - Social History Smoking Status: Former Smoker Chew tobacco use (# tins/day): No Frequency of alcohol use: None Drug Abuse: Marijuana Family History: Reviewed & Not Pertinent, DM, Hypertension Patient has homicidal ideation: No - Past Medical History Cardiac Medical History: Reports: Hx Coronary Artery Disease, Hx Hypercholesterolemia, Hx Hypertension - DIET CONTROLLED Denies: Hx Heart Attack Pulmonary Medical History: Denies: Hx Asthma, Hx Bronchitis, Hx COPD, Hx Pneumonia Neurological Medical History: Reports: Hx Migraine. Denies: Hx Cerebrovascular Accident, Hx Seizures Endocrine Medical History: Reports: Hx Diabetes Mellitus Type 2, Hx Hypothyroidism Renal/ Medical History: Denies: Hx Peritoneal Dialysis GI Medical History: Reports: Hx Gastroesophageal Reflux Disease, Hx Pancreatitis. Denies: Hx Hepatitis, Hx Hiatal Hernia, Hx Ulcer Musculoskeletal Medical History: Reports Hx Arthritis Psychiatric Medical History: Reports: Hx Depression Infectious Medical History: Denies: Hx Hepatitis Past Surgical History: Reports: Hx Cholecystectomy, Hx Gastric Bypass Surgery - SLEEVE, Hx Genitourinary Surgery - bladder prolapse, Hx Hysterectomy, Hx Orthopedic Surgery - toe, shoulder, elbow, bilat feet, Other - Gastric Sleeve. Denies: Hx Mastectomy, Hx Open Heart Surgery, Hx Pacemaker - Immunizations Immunizations up to date: Yes Hx Diphtheria, Pertussis, Tetanus Vaccination: Yes Hx Pneumococcal Vaccination: 05/24/10 Vertical Provider Document - CONSTITUTIONAL Agree With Documented VS: Yes - INFECTION CONTROL TRAVEL OUTSIDE OF THE [place] IN LAST 30 DAYS: No - HEENT HEENT: Atraumatic, Conjuctival Injection, Normocephalic, PERRLA - RESPIRATORY Respiratory: Breath Sounds Normal - CARDIOVASCULAR Cardiovascular: Regular Rate, Regular Rhythm - GI/ABDOMEN Gastrointestinal: Abdomen Soft, Abdomen Non-Tender - MUSCULOSKELETAL/EXTREMETIES Musculoskeletal/Extremeties: MAEW - NEURO Level of Consciousness: Awake, Alert Motor/Sensory: No Motor Deficit, No Sensory Deficit, No Pronator Drift - DERM Integumentary: Warm, Dry Course - Re-evaluation Re-evalutation: 02/09/20 15:27 This 55-year-old female presented to the emergency room today stating that she had left arm tingling with palpable spasm which started yesterday after waking up from a nap. She has no chest pain no shortness of breath no exertional chest pain no exertional shortness of breath she is already under the care of a neurosurgeon who is planning on doing a procedure for a bulging disc in her lumbar area. This specific discomfort started after taking a nap yesterday she has palpable spasm left lateral of midline no trauma no step-off no crepitus no step-off. She does have palpable spasm radiating to the subscapular area intermittent tingling on the left arm. Out of an abundance of caution a troponin and EKG were obtained. Again this discomfort is been going on since yesterday about 6:00. She has no chest pain no shortness of breath no exertional chest pain. However with her age group and the fact that she did have tingling in the left arm it was felt that it would be quite reasonable to be prudent and careful with this patient. With those tests above coming back negative and within normal limits was determined that this patient was in fact having a episode of torticollis which is what my clinical evaluation led me to and the testing was again for an abundance of caution. Patient was advised that she must follow-up with her PMD in 2 to 3 days she must return to the emergency room for absolutely any change or worsening condition. Including chest pain shortness of breath exertional chest pain exertional shortness of breath or diaphoresis. She must follow-up with her PMD for this condition as well as all her other routine health conditions and follow-up until complete resolution of the symptoms. - Vital Signs Vital signs: Temp Pulse Resp BP Pulse Ox 98.7 F 78 16 131/72 H 97 02/09/20 12:30 02/09/20 12:30 02/09/20 12:30 02/09/20 12:30 02/09/20 12:30 - Laboratory Laboratory results interpreted by me: 02/09/20 15:26 Labs- All tests 24 hr 02/09/20 14:14 Troponin I < 0.012 Discharge - Discharge Clinical Impression: Torticollis Condition: Good Disposition: HOME, SELF-CARE Instructions: Torticollis ([facility]) Additional Instructions: Medication as prescribed. Warm compresses to the affected area. Must return immediately for absolutely any change worsening condition including that of chest pain shortness of breath exertional chest pain exertional shortness of breath or diaphoresis. Must follow-up with PMD for this and all other healthcare elements until complete resolution. Return to the emergency room for absolutely any change worsening condition. Prescriptions: Tramadol HCl [Ultram 50 mg Tablet] 50 mg PO Q4HP PRN #60 tab PRN Reason: Methocarbamol [Robaxin 750 mg Tablet] 750 mg PO ASDIR PRN #40 tablet PRN Reason: Referrals: EVANS DUARTE MD [Primary Care Provider] - Follow up as needed
[2020-02-09] MEDS ORDERED: HYDROCODONE/ACETAMINOPHEN 5-325 MG TABLET PO ONE (13:46)
--- NOTE | 2020-02-10 07:56 | EKG REPORT ---
SEVERITY:- NORMAL ECG - SINUS RHYTHM : Confirmed by: Juany Borjas 10-Feb-2020 07:55:38
== END 2020-02-09 15:59 | disposition home or self-care (01) ==
LOC: ER 12:24
DX: M43.6 Torticollis (principal); R20.2 Paresthesia of skin; Z20.828 Contact with and (suspected) exposure to other viral communicable diseases; I25.10 Atherosclerotic heart disease of native coronary artery without angina pectoris; E78.00 Pure hypercholesterolemia, unspecified; I10 Essential (primary) hypertension; E11.9 Type 2 diabetes mellitus without complications; Z98.84 Bariatric surgery status
CPT/HCPCS: 93005; 99284; 36415; 84484; 93010; U0003; A9270; C9803; 87635

== ENCOUNTER 2020-03-08 15:51 | Emergency (ER) | payer MEDICARE, MEDICAID ==
[2020-03-08 16:51] LABS: APPEARANCE,URINE SLIGHTLY-CLOUDY; BILIRUBIN,URINE NEGATIVE (NEGATIVE); COLOR,URINE YELLOW; GLUCOSE, URINE >=500 mg/dL (NEGATIVE); KETONES,URINE NEGATIVE (NEGATIVE); LEUKOCYTE ESTERASE,URINE MODERATE (NEGATIVE); NITRITE,URINE NEGATIVE (NEGATIVE); PROTEIN,URINE NEGATIVE (NEGATIVE); URINE SPECIFIC GRAVITY 1.027; UROBILINOGEN,URINE NEGATIVE mg/dL (<2.0)
[2020-03-08] MEDS ORDERED: RINGERS SOLUTION,LACTATED 1,000 ML IV ONE (17:31)
[2020-03-08] MEDS ORDERED: ACETAMINOPHEN 325 MG TABLET PO ONE (17:31)
--- NOTE | 2020-03-08 17:31 | ER Document Report ---
ED GI/ - General Chief Complaint: Back Pain Stated Complaint: BACK PAIN Time Seen by Provider: 03/08/20 17:03 Primary Care Provider: EVANS DUARTE MD [Primary Care Provider] - Follow up tomorrow (Call your primary care physician tomorrow for an outpatient follow-up appointment.) Mode of Arrival: Ambulatory Information source: Patient Notes: 55-year-old female past medical history significant for pancreatitis, diabetes, hypothyroidism, anxiety, chronic back pain secondary to herniated disks presents to the emergency room complaining of right-sided abdominal pain that started last night after eating some fire balls. Patient complains of nausea but no vomiting or diarrhea. States is been taking her Percocet which he takes chronically for back pain and is not been helping. No bad food she can think of. No recent antibiotics. No recent travel. No COVID-19 exposure. TRAVEL OUTSIDE OF THE [place] IN LAST 30 DAYS: No - Related Data Allergies/Adverse Reactions: naproxen [Naproxen] Allergy (Severe, Verified 02/09/20 12:37) Facial swelling liraglutide [From Victoza] Allergy (Verified 02/09/20 12:37) sitagliptin [From Januvia] Allergy (Verified 02/09/20 12:37) valsartan [From Diovan] Allergy (Verified 02/09/20 12:37) ropinirole HCl [From Requip] Adverse Reaction (Severe, Verified 02/09/20 12:37) BODY SWELLING Past Medical History - General Information source: Patient - Social History Smoking Status: Former Smoker Frequency of alcohol use: None Drug Abuse: Marijuana Family History: Reviewed & Not Pertinent, DM, Hypertension - Past Medical History Cardiac Medical History: Reports: Hx Coronary Artery Disease, Hx Hypercholesterolemia, Hx Hypertension - DIET CONTROLLED Denies: Hx Heart Attack Pulmonary Medical History: Denies: Hx Asthma, Hx Bronchitis, Hx COPD, Hx Pneumonia Neurological Medical History: Reports: Hx Migraine. Denies: Hx Cerebrovascular Accident, Hx Seizures Endocrine Medical History: Reports: Hx Diabetes Mellitus Type 2, Hx Hypothyroidism Renal/ Medical History: Denies: Hx Peritoneal Dialysis GI Medical History: Reports: Hx Gastroesophageal Reflux Disease, Hx Pancreatitis. Denies: Hx Hepatitis, Hx Hiatal Hernia, Hx Ulcer Musculoskeletal Medical History: Reports Hx Arthritis Psychiatric Medical History: Reports: Hx Depression Infectious Medical History: Denies: Hx Hepatitis Past Surgical History: Reports: Hx Cholecystectomy, Hx Gastric Bypass Surgery - SLEEVE, Hx Genitourinary Surgery - bladder prolapse, Hx Hysterectomy, Hx Orthopedic Surgery - toe, shoulder, elbow, bilat feet, Other - Gastric Sleeve. Denies: Hx Mastectomy, Hx Open Heart Surgery, Hx Pacemaker - Immunizations Immunizations up to date: Yes Hx Diphtheria, Pertussis, Tetanus Vaccination: Yes Hx Pneumococcal Vaccination: 05/24/10 Review of Systems - Review of Systems Constitutional: No symptoms reported EENT: No symptoms reported Cardiovascular: No symptoms reported Respiratory: No symptoms reported Gastrointestinal: Abdominal pain, Nausea. denies: Diarrhea, Vomiting Musculoskeletal: No symptoms reported Skin: No symptoms reported Neurological/Psychological: No symptoms reported -: Yes All other systems reviewed and negative Physical Exam - Vital signs Vitals: Temp Pulse Resp BP Pulse Ox 98.2 F 106 H 20 113/80 100 03/08/20 15:55 03/08/20 15:55 03/08/20 15:55 03/08/20 15:55 03/08/20 15:55 - General General appearance: Appears well, Alert In distress: Mild - Respiratory Respiratory status: No respiratory distress Chest status: Nontender Breath sounds: Normal Chest palpation: Normal - Cardiovascular Rhythm: Tachycardia Heart sounds: Normal auscultation Murmur: No - Abdominal Inspection: Normal Distension: No distension Bowel sounds: Normal Tenderness: Tender - There is diffuse generalized abdominal pain on palpation. No guarding, no rebound,. No: McBurney's point, Evans's sign, Guarding Organomegaly: No organomegaly - Back Back: Normal, Nontender. No: CVA tenderness - Neurological Neuro grossly intact: Yes Cognition: Normal Orientation: AAOx4 [place] Coma Scale Eye Opening: Spontaneous [place] Coma Scale Verbal: Oriented [place] Coma Scale Motor: Obeys Commands [place] Coma Scale Total: 15 Speech: Normal Motor strength normal: LUE, RUE, LLE, RLE Sensory: Normal - Skin Skin Temperature: Warm Skin Moisture: Dry Skin Color: Normal Course - Re-evaluation Re-evalutation: 03/08/20 20:41 Patient is resting comfortably she is pain-free on exam. She is able to tolerate p.o. fluids. Reviewed all lab and CT results with patient. Discussed ileus versus enteritis, early pancreatitis. Patient was counseled on a clear liquid diet for the next 24 hours. [place] diet. Zofran as needed for nausea. Outpatient follow-up with her primary care physician tomorrow. Patient was given strict return to the emergency room guidelines. Return for any new or worsening symptoms. All questions were answered. Patient verbalized understanding and agrees with plan of care. Case was staffed with my ED attending Dr. Braxton, discussed all lab and Ct findings, agrees with plan of care that patient is stable to be discharged home. 03/08/20 21:33 03/08/20 21:35 - Vital Signs Vital signs: Temp Pulse Resp BP Pulse Ox 98.6 F 78 16 120/62 98 03/08/20 21:03 03/08/20 21:03 03/08/20 21:03 03/08/20 21:03 03/08/20 21:03 - Laboratory Result Diagrams: 03/08/20 18:06 03/08/20 18:06 Laboratory results interpreted by me: 03/08/20 03/08/20 03/08/20 16:35 18:06 18:06 MCH 26.4 L RDW 14.4 H Glucose 127 H Lipase 363.8 H Urine Glucose (UA) >=500 H Ur Leukocyte Esterase MODERATE H - Diagnostic Test Radiology reviewed: Reports reviewed Discharge - Discharge Clinical Impression: Ileus Pancreatitis Qualifiers: Chronicity: acute Pancreatitis type: unspecified pancreatitis type Acute pancreatitis complication: no infection or necrosis Qualified Code(s): K85.90 - Acute pancreatitis without necrosis or infection, unspecified Nausea and vomiting Qualifiers: Vomiting type: unspecified Vomiting Intractability: non-intractable Qualified Code(s): R11.2 - Nausea with vomiting, unspecified Condition: Stable Disposition: HOME, SELF-CARE Instructions: Antinausea Medication ([facility]), Clear Liquid Diet ([facility]), Nausea or Vomiting, Nonspecific ([facility]), Pancreatitis ([facility]) Additional Instructions: Clear liquid diet for the next 24 hours. Follow-up primary care physician tomorrow. Nausea medication as prescribed. Return to the emergency room for any new or worsening symptoms. Referrals: EVANS DUARTE MD [Primary Care Provider] - Follow up tomorrow (Call your primary care physician tomorrow for an outpatient follow-up appointment.)
[2020-03-08 18:15] LABS: ABSOLUTE BASOPHILS # (AUTO) 0.1 10^3/uL (0.0-0.2); ABSOLUTE EOSINOPHILS # (AUTO) 0.1 10^3/uL (0.0-0.6); ABSOLUTE LYMPHOCYTES (AUTO) 2.2 10^3/uL (0.5-4.7); ABSOLUTE MONOCYTES (AUTO) 0.3 10^3/uL (0.1-1.4); ABSOLUTE NEUT (AUTO) 4.9 10^3/uL (1.7-8.2); BASOPHILS % (AUTO) 0.9 % (0-2); EOSINOPHILS % (AUTO) 1.1 % (0-6); HEMATOCRIT 39.6 % (36.0-47.0); LYMPHOCYTES % (AUTO) 29.2 % (13-45); MEAN CORPUSCULAR HEMOGLOBIN 26.4 pg (27.0-33.4); MEAN CORPUSCULAR HGB CONC 32.8 g/dL (32.0-36.0); MEAN CORPUSCULAR VOLUME 80 fl (80-97); MONOCYTES % (AUTO) 4.2 % (3-13); PLATELET COUNT 314 10^3/uL (150-450); RED BLOOD COUNT 4.93 10^6/uL (3.72-5.28); RED CELL DISTRIBUTION WIDTH 14.4 % (11.5-14.0); SEGMENTED NEUTROPHILS % (AUTO) 64.6 % (42-78); TOTAL CELLS COUNTED % (AUTO) 100 %; WHITE BLOOD COUNT 7.6 10^3/uL (4.0-10.5)
[2020-03-08 18:32] LABS: ALBUMIN 4.5 g/dL (3.5-5.0); ALKALINE PHOSPHATASE 88 U/L (38-126); AMYLASE 74 U/L (30-110); ANION GAP 10 (5-19); ASPARTATE AMINO TRANSFERASE 24 U/L (14-36); BILIRUBIN,TOTAL 0.2 mg/dL (0.2-1.3); BLOOD UREA NITROGEN 15 mg/dL (7-20); CALCIUM 9.6 mg/dL (8.4-10.2); CARBON DIOXIDE 28 mmol/L (22-30); CHLORIDE 102 mmol/L (98-107); GLUCOSE 127 mg/dL (75-110); POTASSIUM 4.2 mmol/L (3.6-5.0)
[2020-03-08] MEDS ORDERED: MORPHINE SULFATE 10 MG/ML INJ IV ONE ×2 (18:54→20:16)
--- NOTE | 2020-03-08 20:18 | RADIOLOGY REPORT (SQ) ---
CT ABDOMEN PELVIS WITH IV CONTRAST HISTORY: Upper abdominal pain. COMPARISON: 11/14/2019 TECHNIQUE: CT scan of the abdomen and pelvis was performed with IV contrast. This exam was performed according to our departmental dose-optimization program, which includes automated exposure control, adjustment of the mA and/or kV according to patient size and/or use of iterative reconstruction technique. FINDINGS: The lung bases are clear. No pleural or pericardial effusions. There is a small hiatal hernia. Query mild inflammatory changes surrounding the pancreatic head. There has been a prior cholecystomy with small amount of central pneumobilia. The liver, spleen, adrenal glands, and kidneys are unremarkable. No obstructing urinary stones are evident. There has been a prior hysterectomy. Normal urinary bladder. Moderate amount stool throughout the colon. No evidence of bowel obstruction. There are a few loops of proximal small bowel which are mildly prominent and fluid-filled, measuring up to 3 cm. The appendix is normal. There has been a prior gastric surgery. No intraperitoneal free fluid or free air is seen. The aorta is normal caliber and contains atherosclerotic calcifications. No acute bony findings. Small fat-containing umbilical hernia. IMPRESSION: 1. Mildly prominent small bowel loops within the upper abdomen, which may represent enteritis or ileus. 2. Query mild inflammatory changes surrounding the pancreatic head. Please correlate with lipase levels.
[2020-03-08] MEDS ORDERED: ONDANSETRON ODT 4 MG TAB (6 TAB/ER DISP) PO PRN (20:42)
[2020-03-08 21:04] VITALS: BP 120/62
== END 2020-03-08 21:04 | disposition home or self-care (01) ==
LOC: ER 15:51
DX: K85.90 Acute pancreatitis without necrosis or infection, unspecified (principal); K56.7 Ileus, unspecified; R00.0 Tachycardia, unspecified; I25.10 Atherosclerotic heart disease of native coronary artery without angina pectoris; I10 Essential (primary) hypertension; E11.9 Type 2 diabetes mellitus without complications; M54.9 Dorsalgia, unspecified; G89.29 Other chronic pain; Z79.891 Long term (current) use of opiate analgesic; Z88.8 Allergy status to other drugs, medicaments and biological substances; Z87.891 Personal history of nicotine dependence; Z98.84 Bariatric surgery status; Z90.49 Acquired absence of other specified parts of digestive tract
CPT/HCPCS: 96376; 99285; 96361; 96374; 36415; 82150; 83690; 85025; 80053; 81001; 74177; A9270 ×2; J2270; J7120

== ENCOUNTER 2020-03-10 12:38 | Emergency (ER) | payer MEDICARE, MEDICAID ==
[2020-03-10] MEDS ORDERED: ONDANSETRON HCL INJ/PF 4 MG/2 ML SDV IV ONE (13:06)
[2020-03-10] MEDS ORDERED: NORMAL SALINE 1000 ML 1,000 ML IV ONE (13:06)
--- NOTE | 2020-03-10 13:09 | ER Document Report ---
ED Medical Screen (RME) - General Chief Complaint: Abdominal Pain Stated Complaint: ABDOMINAL PAIN,NAUSEA Time Seen by Provider: 03/10/20 12:59 Primary Care Provider: EVANS DUARTE MD [Primary Care Provider] - Follow up as needed TRAVEL OUTSIDE OF THE [place] IN LAST 30 DAYS: No - HPI Notes: 03/10/20 13:07 55-year-old female with a history of pancreatitis, type 2 diabetes, anxiety,, chronic back pain presents emergency room for complaints of upper abdominal pain with nausea that is become progressively worse over the last 5 days. Patient states she was seen in the emergency room 3 nights ago for similar issues states her lipase was 367, they discharged her home on clear fluids. Patient states today her pain is getting much worse with along with her nausea. Denies any chest pain shortness of breath. Reports she did have diarrhea yesterday. Denies any melena. Patient states she does follow with Dr. 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 Denies any fevers or chills. I have greeted and performed a rapid initial assessment of this patient. A comprehensive ED assessment and evaluation of the patient, analysis of test results and completion of the medical decision making process will be conducted by additional ED providers. PHYSICAL EXAMINATION: GENERAL: Well-appearing, well-nourished and in no acute distress. HEAD: Atraumatic, normocephalic. EYES: Pupils equal round extraocular movements intact, conjunctiva are normal. NECK: Normal range of motion CV: s1, s2 regular LUNGS: No respiratory distress abd: Right upper quadrant, epigastric and left upper quadrant abdominal pain on palpation, reports some discomfort in bilateral lower abdomen with palpation, no CVA tenderness appreciated bilaterally - Related Data Allergies/Adverse Reactions: naproxen [Naproxen] Allergy (Severe, Verified 02/09/20 12:37) Facial swelling liraglutide [From Victoza] Allergy (Verified 02/09/20 12:37) sitagliptin [From Januvia] Allergy (Verified 02/09/20 12:37) valsartan [From Diovan] Allergy (Verified 02/09/20 12:37) ropinirole HCl [From Requip] Adverse Reaction (Severe, Verified 02/09/20 12:37) BODY SWELLING Past Medical History - Past Medical History Cardiac Medical History: Reports: Hx Coronary Artery Disease, Hx Hypercholesterolemia, Hx Hypertension - DIET CONTROLLED Denies: Hx Heart Attack Pulmonary Medical History: Denies: Hx Asthma, Hx Bronchitis, Hx COPD, Hx Pneumonia Neurological Medical History: Reports: Hx Migraine. Denies: Hx Cerebrovascular Accident, Hx Seizures Endocrine Medical History: Reports: Hx Diabetes Mellitus Type 2, Hx Hypothyroi dism Renal/ Medical History: Denies: Hx Peritoneal Dialysis GI Medical History: Reports: Hx Gastroesophageal Reflux Disease, Hx Pancreatitis. Denies: Hx Hepatitis, Hx Hiatal Hernia, Hx Ulcer Musculoskeltal Medical History: Reports Hx Arthritis Psychiatric Medical History: Reports: Hx Depression Infectious Medical History: Denies: Hx Hepatitis Past Surgical History: Reports: Hx Cholecystectomy, Hx Gastric Bypass Surgery - SLEEVE, Hx Genitourinary Surgery - bladder prolapse, Hx Hysterectomy, Hx Orthopedic Surgery - toe, shoulder, elbow, bilat feet, Other - Gastric Sleeve. Denies: Hx Mastectomy, Hx Open Heart Surgery, Hx Pacemaker - Immunizations Immunizations up to date: Yes Hx Diphtheria, Pertussis, Tetanus Vaccination: Yes Physical Exam - Vital signs Vitals: Temp Pulse Resp BP Pulse Ox 97.7 F 84 16 148/95 H 99 03/10/20 12:42 03/10/20 12:42 03/10/20 12:42 03/10/20 12:42 03/10/20 12:42 Course - Vital Signs Vital signs: Temp Pulse Resp BP Pulse Ox 97.7 F 84 16 148/95 H 99 03/10/20 12:42 03/10/20 12:42 03/10/20 12:42 03/10/20 12:42 03/10/20 12:42 Doctor's Discharge - Discharge Referrals: EVANS DUARTE MD [Primary Care Provider] - Follow up as needed
[2020-03-10] MEDS ORDERED: MORPHINE SULFATE 10 MG/ML INJ IV ONE (13:37)
--- NOTE | 2020-03-10 13:40 | ER Document Report ---
ED GI/ - General Chief Complaint: Abdominal Pain Stated Complaint: ABDOMINAL PAIN,NAUSEA Time Seen by Provider: 03/10/20 12:59 Primary Care Provider: EVANS DUARTE MD [Primary Care Provider] - Follow up tomorrow Mode of Arrival: Ambulatory Information source: Patient Notes: Patient presents complaining of upper abdominal pain for the past 5 days with nausea. Patient reports hot cold chills. Patient reports an single episode of diarrhea yesterday although none today. Patient denies any cough or cold symptoms. Patient has history of pancreatitis and suspects yesterday. Patient was seen here yesterday for this complaint. TRAVEL OUTSIDE OF THE [place] IN LAST 30 DAYS: No - HPI Patient complains to provider of: Abdominal pain. No: Pelvic pain, , Vaginal bleeding, Vaginal discharge, Vomiting Onset: Other - 5 days Timing/Duration: Persistent Quality of pain: Sharp Pain Level: 5 Location: Epigastric Vaginal bleeding (Compared to normal period): None Associated symptoms: Chills, Nausea. denies: Dysuria, Fever, Loss of appetite, Urinary hesitancy, Urinary frequency, Urinary retention, Urinary urgency, Vo miting Exacerbated by: Denies Relieved by: Denies Similar symptoms previously: Yes Recently seen / treated by doctor: Yes - Related Data Allergies/Adverse Reactions: naproxen [Naproxen] Allergy (Severe, Verified 02/09/20 12:37) Facial swelling liraglutide [From Victoza] Allergy (Verified 02/09/20 12:37) sitagliptin [From Januvia] Allergy (Verified 02/09/20 12:37) valsartan [From Diovan] Allergy (Verified 02/09/20 12:37) ropinirole HCl [From Requip] Adverse Reaction (Severe, Verified 02/09/20 12:37) BODY SWELLING Past Medical History - General Information source: Patient - Social History Smoking Status: Never Smoker Frequency of alcohol use: None Drug Abuse: Marijuana Occupation: None Family History: Reviewed & Not Pertinent, DM, Hypertension - Past Medical History Cardiac Medical History: Reports: Hx Coronary Artery Disease, Hx Hypercholesterolemia Denies: Hx Heart Attack Neurological Medical History: Reports: Hx Migraine. Denies: Hx Cerebrovascular Accident, Hx Seizures Endocrine Medical History: Reports: Hx Diabetes Mellitus Type 2, Hx Hypothyroidism Renal/ Medical History: Denies: Hx Peritoneal Dialysis GI Medical History: Reports: Hx Gastroesophageal Reflux Disease, Hx Pancreatitis Musculoskeletal Medical History: Reports Hx Arthritis, Reports Other - Chronic back pain Psychiatric Medical History: Reports: Hx Anxiety, Hx Depression Infectious Medical History: Denies: Hx Hepatitis Past Surgical History: Reports: Hx Cholecystectomy, Hx Genitourinary Surgery - bladder prolapse, Hx Hysterectomy, Hx Orthopedic Surgery - toe, shoulder, elbow, bilat feet, Other - Gastric Sleeve - Immunizations Immunizations up to date: Yes Hx Diphtheria, Pertussis, Tetanus Vaccination: Yes Hx Pneumococcal Vaccination: 05/24/10 Review of Systems - Review of Systems Constitutional: Chills. denies: Fever EENT: No symptoms reported Cardiovascular: No symptoms reported. denies: Chest pain Respiratory: No symptoms reported. denies: Cough, Short of breath Gastrointestinal: Abdominal pain, Diarrhea - Yesterday, Nausea. denies: Vomit ing, Poor appetite Genitourinary: No symptoms reported. denies: Dysuria, Flank pain Female Genitourinary: No symptoms reported Musculoskeletal: No symptoms reported Skin: No symptoms reported Hematologic/Lymphatic: No symptoms reported Neurological/Psychological: No symptoms reported Physical Exam - Vital signs Vitals: Temp Pulse Resp BP Pulse Ox 97.7 F 84 16 148/95 H 99 03/10/20 12:42 03/10/20 12:42 03/10/20 12:42 03/10/20 12:42 03/10/20 12:42 - Notes Notes: PHYSICAL EXAMINATION: GENERAL: Well-appearing and in no acute distress. HEAD: Atraumatic, normocephalic. EYES: Pupils equal round and reactive to light, extraocular movements intact, sclera anicteric, conjunctiva are normal. ENT: nares patent, oropharynx clear without exudates. Moist mucous membranes. NECK: Normal range of motion, supple without lymphadenopathy LUNGS: CTAB and equal. No wheezes rales or rhonchi. HEART: Regular rate and rhythm without murmurs ABDOMEN: Soft, gastric tenderness. No guarding, no rebound EXTREMITIES: Normal range of motion, no pitting edema. No cyanosis. BACK: No midline tenderness, no step-off or deformity. No CVA tenderness NEUROLOGICAL: Cranial nerves grossly intact. Normal speech. PSYCH: Normal mood, normal affect. SKIN: Warm, Dry, normal turgor, no rashes or lesions noted Course - Re-evaluation Re-evalutation: 03/10/20 13:56 Patient laughing and joking with nursing staff and then reports that her pain is a 12 on a 0-5 scale. Patient objectively appears comfortable. Patient is now requesting the pain medicine that is "stronger than morphine that begins with a D". 03/10/20 15:00 Consulted with patient's primary doctor Dr. Duarte regarding pt's presentation. He recommends adding on an amylase and if the test is elevated to notify him. At this time she does not have any compelling reason to admit her as she has not had vomiting, she has not had fever, she has no evidence of dehydration, and only minimal elevation of her lipase. He advises consulting again if her amylase is up and if the amylase is not elevated patient can be discharged and instructed to follow-up with him in the office for recheck. 03/10/20 15:42 Patient without any elevation in her amylase, will plan for discharge. Discussed plan of care with patient, patient is agreeable at this time. Patient without any emesis and pain is controlled at this time. 03/10/20 21:39 - Vital Signs Vital signs: Temp Pulse Resp BP Pulse Ox 97.7 F 82 15 139/87 H 100 03/10/20 16:18 03/10/20 16:18 03/10/20 16:18 03/10/20 16:18 03/10/20 16:18 - Laboratory Result Diagrams: 03/10/20 13:40 03/10/20 13:40 Laboratory results interpreted by me: 03/10/20 03/10/20 03/10/20 13:40 13:40 13:40 MCH 25.9 L RDW 14.5 H Lipase 690.8 H Urine Glucose (UA) >=500 H Ur Leukocyte Esterase SMALL H Urine Ascorbic Acid 20 H Labs- All tests 24 hr 03/10/20 03/10/20 03/10/20 13:40 13:40 13:40 WBC 5.5 RBC 4.83 Hgb 12.5 Hct 38.9 MCV 81 MCH 25.9 L MCHC 32.1 RDW 14.5 H Plt Count 321 Lymph % (Auto) 33.0 [place] % (Auto) 5.4 Eos % (Auto) 1.0 Baso % (Auto) 0.8 Absolute Neuts (auto) 3.3 Absolute Lymphs (auto) 1.8 Absolute Monos (auto) 0.3 Absolute Eos (auto) 0.1 Absolute Basos (auto) 0.0 Seg Neutrophils % 59.8 Sodium 140.3 Potassium 3.9 Chloride 101 Carbon Dioxide 30 Anion Gap 9 BUN 9 Creatinine 0.77 Est GFR ( Amer) > 60 Est GFR (MDRD) Non-Af > 60 Glucose 92 Calcium 9.3 Total Bilirubin 0.3 Direct Bilirubin 0.0 Neonat Total Bilirubin Not Reportable Neonat Direct Bilirubin Not Reportable Neonat Indirect Bili Not Reportable AST 31 ALT 25 Alkaline Phosphatase 93 Total Protein 7.0 Albumin 4.5 Amylase Lipase 690.8 H Urine Color YELLOW Urine Appearance SLIGHTLY-CLOUDY Urine pH 5.0 Ur Specific [place] 1.026 Urine Protein NEGATIVE Urine Glucose (UA) >=500 H Urine Ketones NEGATIVE Urine Blood NEGATIVE Urine Nitrite NEGATIVE Urine Bilirubin NEGATIVE Urine Urobilinogen NEGATIVE Ur Leukocyte Esterase SMALL H Urine WBC (Auto) 14 Urine RBC (Auto) 1 Squamous Epi Cells Auto 1 Urine Mucus (Auto) RARE Urine Ascorbic Acid 20 H 03/10/20 13:40 WBC RBC Hgb Hct MCV MCH MCHC RDW Plt Count Lymph % (Auto) [place] % (Auto) Eos % (Auto) Baso % (Auto) Absolute Neuts (auto) Absolute Lymphs (auto) Absolute Monos (auto) Absolute Eos (auto) Absolute Basos (auto) Seg Neutrophils % Sodium Potassium Chloride Carbon Dioxide Anion Gap BUN Creatinine Est GFR ( Amer) Est GFR (MDRD) Non-Af Glucose Calcium Total Bilirubin Direct Bilirubin Neonat Total Bilirubin Neonat Direct Bilirubin Neonat Indirect Bili AST ALT Alkaline Phosphatase Total Protein Albumin Amylase 95 Lipase Urine Color Urine Appearance Urine pH Ur Specific [place] Urine Protein Urine Glucose (UA) Urine Ketones Urine Blood Urine Nitrite Urine Bilirubin Urine Urobilinogen Ur Leukocyte Esterase Urine WBC (Auto) Urine RBC (Auto) Squamous Epi Cells Auto Urine Mucus (Auto) Urine Ascorbic Acid Reviewed labs from ER visit 2 days ago - Diagnostic Test Radiology reviewed: Reports reviewed - From ER visit 2 days ago - EKG Interpretation by Me EKG shows normal: Sinus rhythm Rate: Normal Rhythm: NSR When compared to previous EKG there are: No significant change Additional EKG results interpreted by me: 03/10/20 14:53 Sinus rhythm with rate of 83, QTC 437, no T wave inversion or elevation, no acute ischemic changes Discharge - Discharge Clinical Impression: Elevated lipase, Nausea Abdominal pain Qualifiers: Abdominal location: unspecified location Qualified Code(s): R10.9 - Unspecified abdominal pain Condition: Stable Disposition: HOME, SELF-CARE Instructions: Abdominal Pain ([facility]), Antinausea Medication ([facility]) Additional Instructions: Return immediately for any new or worsening symptoms Followup with your Ainsley for recheck, call tomorrow to make a followup appointment Stay on a clear liquid diet for the next 24 hours and advance diet as tolerated Prescriptions: Ondansetron [Zofran Odt 4 mg Tablet] 1 tab PO Q6H PRN #10 tab.rapdis PRN Reason: Referrals: EVANS DUARTE MD [Primary Care Provider] - Follow up tomorrow
[2020-03-10 13:53] LABS: ABSOLUTE EOSINOPHILS # (AUTO) 0.1 10^3/uL (0.0-0.6); ABSOLUTE LYMPHOCYTES (AUTO) 1.8 10^3/uL (0.5-4.7); ABSOLUTE MONOCYTES (AUTO) 0.3 10^3/uL (0.1-1.4); ABSOLUTE NEUT (AUTO) 3.3 10^3/uL (1.7-8.2); BASOPHILS % (AUTO) 0.8 % (0-2); HEMATOCRIT 38.9 % (36.0-47.0); HEMOGLOBIN 12.5 g/dL (12.0-15.5); MEAN CORPUSCULAR HEMOGLOBIN 25.9 pg (27.0-33.4); MEAN CORPUSCULAR HGB CONC 32.1 g/dL (32.0-36.0); MEAN CORPUSCULAR VOLUME 81 fl (80-97); MONOCYTES % (AUTO) 5.4 % (3-13); PLATELET COUNT 321 10^3/uL (150-450); RED BLOOD COUNT 4.83 10^6/uL (3.72-5.28); RED CELL DISTRIBUTION WIDTH 14.5 % (11.5-14.0); SEGMENTED NEUTROPHILS % (AUTO) 59.8 % (42-78); TOTAL CELLS COUNTED % (AUTO) 100 %; WHITE BLOOD COUNT 5.5 10^3/uL (4.0-10.5)
[2020-03-10 14:07] LABS: APPEARANCE,URINE SLIGHTLY-CLOUDY; BILIRUBIN,URINE NEGATIVE (NEGATIVE); COLOR,URINE YELLOW; GLUCOSE, URINE >=500 mg/dL (NEGATIVE); KETONES,URINE NEGATIVE (NEGATIVE); LEUKOCYTE ESTERASE,URINE SMALL (NEGATIVE); NITRITE,URINE NEGATIVE (NEGATIVE); PROTEIN,URINE NEGATIVE (NEGATIVE); URINE SPECIFIC GRAVITY 1.026; UROBILINOGEN,URINE NEGATIVE mg/dL (<2.0)
[2020-03-10 14:14] LABS: ALBUMIN 4.5 g/dL (3.5-5.0); ALKALINE PHOSPHATASE 93 U/L (38-126); ANION GAP 9 (5-19); ASPARTATE AMINO TRANSFERASE 31 U/L (14-36); BILIRUBIN,TOTAL 0.3 mg/dL (0.2-1.3); BLOOD UREA NITROGEN 9 mg/dL (7-20); CALCIUM 9.3 mg/dL (8.4-10.2); CARBON DIOXIDE 30 mmol/L (22-30); CHLORIDE 101 mmol/L (98-107); GLUCOSE 92 mg/dL (75-110); POTASSIUM 3.9 mmol/L (3.6-5.0)
[2020-03-10 16:29] VITALS: BP 139/87
--- NOTE | 2020-03-10 19:31 | EKG REPORT ---
SEVERITY:- NORMAL ECG - SINUS RHYTHM : Confirmed by: Juany Borjas 10-Mar-2020 19:29:52
== END 2020-03-10 16:18 | disposition home or self-care (01) ==
LOC: ER 12:38
DX: R74.8 Abnormal levels of other serum enzymes (principal); R11.0 Nausea; R10.9 Unspecified abdominal pain; R10.10 Upper abdominal pain, unspecified; R19.7 Diarrhea, unspecified; R10.13 Epigastric pain; Z88.8 Allergy status to other drugs, medicaments and biological substances; I25.10 Atherosclerotic heart disease of native coronary artery without angina pectoris; E11.9 Type 2 diabetes mellitus without complications
CPT/HCPCS: 93005; 99284; 96361; 96374; 96375; 36415; 87086; 82150; 83690; 85025; 87088; 80053; 81001; 93010; J2270; J2405; J7030

== ENCOUNTER 2020-03-11 20:48 | Emergency (ER) | payer MEDICARE, MEDICAID ==
[2020-03-11 20:59] VITALS: BP 144/91
[2020-03-11] MEDS ORDERED: NORMAL SALINE 1000 ML 1,000 ML IV ONE (22:51)
--- NOTE | 2020-03-11 22:53 | ER Document Report ---
ED Medical Screen (RME) - General Chief Complaint: Abdominal Pain Stated Complaint: CHEST PAIN/ABDOMINAL PAIN Time Seen by Provider: 03/11/20 22:50 Primary Care Provider: EVANS DUARTE MD [Primary Care Provider] - Follow up as needed Mode of Arrival: Wheelchair Information source: Patient Notes: Patient presents complaining of epigastric abdominal pain for the past several days. This is patient's third visit this week for complaints of epigastric pain and concerns about pancreatitis. She reports nausea without vomiting. Patient denies any fever. Patient states that her pain is worse than it was yesterday. I have greeted and performed a rapid initial assessment of this patient. A comprehensive ED assessment and evaluation of the patient, analysis of test results and completion of the medical decision making process will be conducted by additional ED providers. TRAVEL OUTSIDE OF THE [place] IN LAST 30 DAYS: No - Related Data Allergies/Adverse Reactions: naproxen [Naproxen] Allergy (Severe, Verified 03/11/20 22:51) Facial swelling liraglutide [From Victoza] Allergy (Verified 03/11/20 22:51) sitagliptin [From Januvia] Allergy (Verified 03/11/20 22:51) valsartan [From Diovan] Allergy (Verified 03/11/20 22:51) ropinirole HCl [From Requip] Adverse Reaction (Severe, Verified 03/11/20 22:51) BODY SWELLING Past Medical History - Past Medical History Cardiac Medical History: Reports: Hx Coronary Artery Disease, Hx Hypercholesterolemia, Hx Hypertension - DIET CONTROLLED Denies: Hx Heart Attack Pulmonary Medical History: Denies: Hx Asthma, Hx Bronchitis, Hx COPD, Hx Pneumonia Neurological Medical History: Reports: Hx Migraine. Denies: Hx Cerebrovascular Accident, Hx Seizures Endocrine Medical History: Reports: Hx Diabetes Mellitus Type 2, Hx Hypothyroidism Renal/ Medical History: Denies: Hx Peritoneal Dialysis GI Medical History: Reports: Hx Gastroesophageal Reflux Disease, Hx Pancreatitis. Denies: Hx Hepatitis, Hx Hiatal Hernia, Hx Ulcer Musculoskeltal Medical History: Reports Hx Arthritis Psychiatric Medical History: Reports: Hx Anxiety, Hx Depression Infectious Medical History: Denies: Hx Hepatitis Past Surgical History: Reports: Hx Cholecystectomy, Hx Gastric Bypass Surgery - SLEEVE, Hx Genitourinary Surgery - bladder prolapse, Hx Hysterectomy, Hx Orthopedic Surgery - toe, shoulder, elbow, bilat feet, Other - Gastric Sleeve. Denies: Hx Mastectomy, Hx Open Heart Surgery, Hx Pacemaker - Immunizations Immunizations up to date: Yes Hx Diphtheria, Pertussis, Tetanus Vaccination: Yes Physical Exam - Vital signs Vitals: Temp Pulse Resp BP Pulse Ox 97.8 F 76 16 144/91 H 100 03/11/20 20:58 03/11/20 20:58 03/11/20 20:58 03/11/20 20:58 03/11/20 20:58 - Abdominal Tenderness: Tender - epigastric tenderness Course - Vital Signs Vital signs: Temp Pulse Resp BP Pulse Ox 97.8 F 76 16 144/91 H 100 03/11/20 20:58 03/11/20 20:58 03/11/20 20:58 03/11/20 20:58 03/11/20 20:58 Doctor's Discharge - Discharge Referrals: EVANS DUARTE MD [Primary Care Provider] - Follow up as needed
--- NOTE | 2020-03-12 09:38 | EKG REPORT ---
SEVERITY:- BORDERLINE ECG - SINUS RHYTHM PROMINENT P WAVES, NONDIAGNOSTIC : Confirmed by: Juany Borjas 12-Mar-2020 09:38:01
== END 2020-03-12 06:09 | disposition left against medical advice (07) ==
LOC: ER 20:48
DX: R10.13 Epigastric pain (principal); R10.816 Epigastric abdominal tenderness; R11.0 Nausea; I25.10 Atherosclerotic heart disease of native coronary artery without angina pectoris; I10 Essential (primary) hypertension; E11.9 Type 2 diabetes mellitus without complications; Z87.19 Personal history of other diseases of the digestive system; Z90.49 Acquired absence of other specified parts of digestive tract; Z98.84 Bariatric surgery status; Z90.710 Acquired absence of both cervix and uterus; Z88.8 Allergy status to other drugs, medicaments and biological substances; Z53.20 Procedure and treatment not carried out because of patient's decision for unspecified reasons
CPT/HCPCS: 93005; 93010; 99281

== ENCOUNTER 2020-03-12 12:36 | Emergency (ER) | payer MEDICARE, MEDICAID ==
[2020-03-12] MEDS ORDERED: MORPHINE SULFATE 10 MG/ML INJ IV ONE ×2 (14:05→18:30)
[2020-03-12] MEDS ORDERED: ONDANSETRON HCL INJ/PF 4 MG/2 ML SDV IV ONE ×2 (14:05→18:30)
--- NOTE | 2020-03-12 14:06 | ER Document Report ---
ED Medical Screen (RME) - General Chief Complaint: Abdominal Pain Stated Complaint: ABDOMINAL PAIN Time Seen by Provider: 03/12/20 14:05 Primary Care Provider: EVANS DUARTE MD [Primary Care Provider] - Follow up as needed Mode of Arrival: Ambulatory Information source: Patient Notes: 55-year-old female patient with chronic pancreatitis presenting to the emergency department for the fourth time this week complaining of upper abdominal pain. Patient reports last few time she was here her lipase was not high enough to be considered pancreatitis. She states she persists to have nausea, fever, chills, upper abdominal pain. Patient is alert, oriented, no acute distress noted. Patient refuses any palpation of the abdomen due to pain. I have greeted and performed a rapid initial assessment of this patient. A comprehensive ED assessment and evaluation of the patient, analysis of test results and completion of the medical decision making process will be conducted by additional ED providers. I have specifically instructed the patient or family members with the patient to immediately return to any nursing staff should anything change in the patient's condition or with their chief complaint. TRAVEL OUTSIDE OF THE [place] IN LAST 30 DAYS: No - Related Data Allergies/Adverse Reactions: naproxen [Naproxen] Allergy (Severe, Verified 03/11/20 22:51) Facial swelling liraglutide [From Victoza] Allergy (Verified 03/11/20 22:51) sitagliptin [From Januvia] Allergy (Verified 03/11/20 22:51) valsartan [From Diovan] Allergy (Verified 03/11/20 22:51) ropinirole HCl [From Requip] Adverse Reaction (Severe, Verified 03/11/20 22:51) BODY SWELLING Past Medical History - Past Medical History Cardiac Medical History: Reports: Hx Coronary Artery Disease, Hx Hypercholesterolemia, Hx Hypertension - DIET CONTROLLED Denies: Hx Heart Attack Pulmonary Medical History: Denies: Hx Asthma, Hx Bronchitis, Hx COPD, Hx Pneumonia Neurological Medical History: Reports: Hx Migraine. Denies: Hx Cerebrovascular Accident, Hx Seizures Endocrine Medical History: Reports: Hx Diabetes Mellitus Type 2, Hx Hypothyroidism Renal/ Medical History: Denies: Hx Peritoneal Dialysis GI Medical History: Reports: Hx Gastroesophageal Reflux Disease, Hx Pancreatitis. Denies: Hx Hepatitis, Hx Hiatal Hernia, Hx Ulcer Musculoskeltal Medical History: Reports Hx Arthritis Psychiatric Medical History: Reports: Hx Anxiety, Hx Depression Infectious Medical History: Denies: Hx Hepatitis Past Surgical History: Reports: Hx Cholecystectomy, Hx Gastric Bypass Surgery - SLEEVE, Hx Genitourinary Surgery - bladder prolapse, Hx Hysterectomy, Hx Orthopedic Surgery - toe, shoulder, elbow, bilat feet, Other - Gastric Sleeve. Denies: Hx Mastectomy, Hx Open Heart Surgery, Hx Pacemaker - Immunizations Immunizations up to date: Yes Hx Diphtheria, Pertussis, Tetanus Vaccination: Yes Physical Exam - Vital signs Vitals: Temp Pulse Resp BP Pulse Ox 98.4 F 74 16 163/108 H 100 03/12/20 12:40 03/12/20 12:40 03/12/20 12:40 03/12/20 12:40 03/12/20 12:40 Course - Vital Signs Vital signs: Temp Pulse Resp BP Pulse Ox 98.4 F 74 16 163/108 H 100 03/12/20 12:40 03/12/20 12:40 03/12/20 12:40 03/12/20 12:40 03/12/20 12:40 Doctor's Discharge - Discharge Referrals: EVANS DUARTE MD [Primary Care Provider] - Follow up as needed
[2020-03-12 14:38] LABS: ABSOLUTE LYMPHOCYTES (AUTO) 1.2 10^3/uL (0.5-4.7); ABSOLUTE MONOCYTES (AUTO) 0.2 10^3/uL (0.1-1.4); ABSOLUTE NEUT (AUTO) 4.3 10^3/uL (1.7-8.2); BASOPHILS % (AUTO) 0.4 % (0-2); EOSINOPHILS % (AUTO) 0.7 % (0-6); HEMATOCRIT 41.1 % (36.0-47.0); HEMOGLOBIN 13.4 g/dL (12.0-15.5); LYMPHOCYTES % (AUTO) 20.7 % (13-45); MEAN CORPUSCULAR HEMOGLOBIN 26.2 pg (27.0-33.4); MEAN CORPUSCULAR HGB CONC 32.6 g/dL (32.0-36.0); MEAN CORPUSCULAR VOLUME 80 fl (80-97); MONOCYTES % (AUTO) 4.3 % (3-13); PLATELET COUNT 315 10^3/uL (150-450); RED BLOOD COUNT 5.11 10^6/uL (3.72-5.28); RED CELL DISTRIBUTION WIDTH 14.1 % (11.5-14.0); SEGMENTED NEUTROPHILS % (AUTO) 73.9 % (42-78); TOTAL CELLS COUNTED % (AUTO) 100 %; WHITE BLOOD COUNT 5.8 10^3/uL (4.0-10.5)
[2020-03-12 14:53] LABS: ALBUMIN 4.9 g/dL (3.5-5.0); ALKALINE PHOSPHATASE 148 U/L (38-126); ANION GAP 12 (5-19); ASPARTATE AMINO TRANSFERASE 70 U/L (14-36); BILIRUBIN,TOTAL 0.5 mg/dL (0.2-1.3); BLOOD UREA NITROGEN 8 mg/dL (7-20); CALCIUM 9.8 mg/dL (8.4-10.2); CARBON DIOXIDE 28 mmol/L (22-30); CHLORIDE 98 mmol/L (98-107); GLUCOSE 186 mg/dL (75-110); POTASSIUM 4.8 mmol/L (3.6-5.0); TOTAL PROTEIN 7.6 g/dL (6.3-8.2)
[2020-03-12 16:23] LABS: APPEARANCE,URINE CLEAR; BILIRUBIN,URINE NEGATIVE (NEGATIVE); COLOR,URINE YELLOW; GLUCOSE, URINE >=500 mg/dL (NEGATIVE); KETONES,URINE 80 mg/dL (NEGATIVE); LEUKOCYTE ESTERASE,URINE SMALL (NEGATIVE); NITRITE,URINE NEGATIVE (NEGATIVE); PROTEIN,URINE NEGATIVE (NEGATIVE); UROBILINOGEN,URINE NEGATIVE mg/dL (<2.0)
[2020-03-12] MEDS ORDERED: HYDROMORPHONE HCL INJ/PF 2 MG/ML AMPULE IV ONE (18:37)
--- NOTE | 2020-03-12 18:37 | ER Document Report ---
ED General - General Chief Complaint: Abdominal Pain Stated Complaint: ABDOMINAL PAIN Time Seen by Provider: 03/12/20 14:05 Primary Care Provider: EVANS DUARTE MD [Primary Care Provider] - Follow up as needed Mode of Arrival: Ambulatory TRAVEL OUTSIDE OF THE [place] IN LAST 30 DAYS: No - HPI Notes: Patient is a 55-year-old female with a history of chronic pancreatitis who presents to the ER for further evaluation of epigastric abdominal pain. Sexu ally her third visit and under a week. She states she is had epigastric pain that is sharp and stabbing, radiates to the abdomen. Nothing seems to make it better, including the Percocet she has at home for her "pinched nerves and bulging disks." She has had nausea but no emesis. She states she is really only drinking liquids. She states that even having a popsicle made her pain significantly worse. She had some diarrhea 6 days ago. She states that since then she really has not had much in the way of bowel movements, but is not eating much. She saw the nurse practitioner at her primary care provider's office, who stated she thought she may be constipated. She was sent home with magnesium citrate. The patient states that this did not help. She has not yet followed up with Dr. Bobby, her lead ingot molder. - Related Data Allergies/Adverse Reactions: naproxen [Naproxen] Allergy (Severe, Verified 03/11/20 22:51) Facial swelling liraglutide [From Victoza] Allergy (Verified 03/11/20 22:51) sitagliptin [From Januvia] Allergy (Verified 03/11/20 22:51) valsartan [From Diovan] Allergy (Verified 03/11/20 22:51) ropinirole HCl [From Requip] Adverse Reaction (Severe, Verified 03/11/20 22:51) BODY SWELLING Home Medications: Percocet, Linzess, Neurontin, metformin, Synthroid, Lexapro Past Medical History - General Information source: Patient - Social History Smoking Status: Former Smoker Family History: Reviewed & Not Pertinent, DM, Hypertension - Past Medical History Cardiac Medical History: Reports: Hx Coronary Artery Disease, Hx Hypercholesterolemia, Hx Hypertension - DIET CONTROLLED Denies: Hx Heart Attack Pulmonary Medical History: Denies: Hx Asthma, Hx Bronchitis, Hx COPD, Hx Pneumonia Neurological Medical History: Reports: Hx Migraine. Denies: Hx Cerebrovascular Accident, Hx Seizures Endocrine Medical History: Reports: Hx Diabetes Mellitus Type 2, Hx Hypothyroidism Renal/ Medical History: Denies: Hx Peritoneal Dialysis GI Medical History: Reports: Hx Gastroesophageal Reflux Disease, Hx Pancreatitis. Denies: Hx Hepatitis, Hx Hiatal Hernia, Hx Ulcer Musculoskeletal Medical History: Reports Hx Arthritis Psychiatric Medical History: Reports: Hx Anxiety, Hx Depression Infectious Medical History: Denies: Hx Hepatitis Past Surgical History: Reports: Hx Cholecystectomy, Hx Gastric Bypass Surgery - SLEEVE, Hx Genitourinary Surgery - bladder prolapse, Hx Hysterectomy, Hx Orthopedic Surgery - toe, shoulder, elbow, bilat feet, Other - Gastric Sleeve. Denies: Hx Mastectomy, Hx Open Heart Surgery, Hx Pacemaker - Immunizations Immunizations up to date: Yes Hx Diphtheria, Pertussis, Tetanus Vaccination: Yes Hx Pneumococcal Vaccination: 05/24/10 Review of Systems - Review of Systems Constitutional: No symptoms reported EENT: No symptoms reported Cardiovascular: No symptoms reported Respiratory: No symptoms reported Gastrointestinal: See HPI Genitourinary: No symptoms reported Musculoskeletal: No symptoms reported Skin: No symptoms reported Neurological/Psychological: No symptoms reported Physical Exam - Vital signs Vitals: Temp Pulse Resp BP Pulse Ox 98.4 F 74 16 163/108 H 100 03/12/20 12:40 03/12/20 12:40 03/12/20 12:40 03/12/20 12:40 03/12/20 12:40 - Notes Notes: Vital signs reviewed, please refer to chart. Head is normocephalic, atraumatic. Pupils equal round, reactive to light. Neck is supple without meningismus. Heart is regular rate and rhythm. Lungs are clear to auscultation bilaterally. Abdomen is soft, moderate amount of epigastric tenderness without rebound, positive voluntary guarding noted, normoactive bowel sounds throughout. Extremities without cyanosis, clubbing. Posterior calves are nontender. Peripheral pulses are equal. Skin is warm and dry. Patient is awake, alert, neurological exam is nonfocal. Course - Re-evaluation Re-evalutation: 03/12/20 18:37 Patient presents to the emergency department for evaluation. She had laboratory investigations as ordered through triage. She did have a CT scan with IV contrast ordered several days ago which did show some peripancreatic inflam mation. Her lipase is down from what it was 2 days ago. I will repeat the CT, given the severity of her symptoms. She is currently stable. We will continue to monitor. 03/12/20 20:[address] scan continues to show small amount of peripancreatic inflammation. Her lipase levels do not correlate, but she does have chronic pancreatitis. She has been able to stay hydrated at home, has chronic pain medicine. There is also some constipation, the patient had tried some magnesium citrate earlier in the week without any significant relief. She has IBS with constipation, has followed with GI for this. We discussed the use of MiraLAX, and I will leave other interventions to GI. I discussed this patient with Dr. Duarte, who states that he will see her in the office tomorrow. Patient is amenable to this plan. - Vital Signs Vital signs: Temp Pulse Resp BP Pulse Ox 98.4 F 70 18 148/80 H 97 03/12/20 19:05 03/12/20 19:05 03/12/20 19:05 03/12/20 19:05 03/12/20 19:05 - Laboratory Result Diagrams: 03/12/20 14:17 03/12/20 14:17 Laboratory results interpreted by me: 03/12/20 03/12/20 03/12/20 14:17 14:17 14:25 MCH 26.2 L RDW 14.1 H Glucose 186 H AST 70 H ALT 83 H Alkaline Phosphatase 148 H Lipase 452.2 H Urine Glucose (UA) >=500 H Urine Ketones 80 H Ur Leukocyte Esterase SMALL H - Diagnostic Test Radiology reviewed: Reports reviewed Radiology results interpreted by me: 03/12/20 20:49 Abdomen/Pelvis CT 03/12/20 18:33 IMPRESSION: Focal inflammatory changes surrounding the pancreatic head, also seen on prior study, consistent with pancreatitis. No pseudocyst or necrosis. Discharge - Discharge Clinical Impression: Epigastric abdominal pain Pancreatitis Qualifiers: Pancreatitis type: unspecified pancreatitis type Constipation Qualifiers: Constipation type: unspecified constipation type Qualified Code(s): K59.00 - Constipation, unspecified Condition: Stable Disposition: HOME, SELF-CARE Instructions: Abdominal Pain ([facility]), Pancreatitis ([facility]), Constipation ([facility]) Additional Instructions: Clear liquids. You can try MiraLAX, a capful every hour for 6 hours to try and help with your constipation. Follow-up with your primary care provider tomorrow, seek out follow-up with Dr. Palomo for further care. If you develop worsening or new concerning symptoms of any sort, please return immediately to the ER for further evaluation. Referrals: EVANS DUARTE MD [Primary Care Provider] - Follow up as needed
--- NOTE | 2020-03-12 20:33 | RADIOLOGY REPORT (SQ) ---
CT ABDOMEN PELVIS WITH IV CONTRAST HISTORY: Abdominal pain. COMPARISON: 03/08/2020 TECHNIQUE: CT scan of the abdomen and pelvis was performed with IV contrast. This exam was performed according to our departmental dose-optimization program, which includes automated exposure control, adjustment of the mA and/or kV according to patient size and/or use of iterative reconstruction technique. FINDINGS: The lung bases are clear. No pleural or pericardial effusions. There is a small hiatal hernia. Query mild inflammatory changes surrounding the pancreatic head, unchanged from prior. There has been a prior cholecystomy with small amount of central pneumobilia. The liver, spleen, adrenal glands, and kidneys are unremarkable. No obstructing urinary stones are evident. There has been a prior hysterectomy. Normal urinary bladder. Moderate amount stool throughout the colon. No evidence of bowel obstruction. There are a few loops of proximal small bowel which are mildly prominent and fluid-filled, measuring up to 3 cm. The appendix is normal. There has been a prior gastric surgery. No intraperitoneal free fluid or free air is seen. The aorta is normal caliber and contains atherosclerotic calcifications. No acute bony findings. Small fat-containing umbilical hernia. IMPRESSION: Focal inflammatory changes surrounding the pancreatic head, also seen on prior study, consistent with pancreatitis. No pseudocyst or necrosis.
[2020-03-12] MEDS ORDERED: ONDANSETRON ODT 4 MG TAB (6 TAB/ER DISP) PO PRN (20:48)
[2020-03-12 21:03] VITALS: BP 150/98
== END 2020-03-12 21:04 | disposition home or self-care (01) ==
LOC: ER 12:36
DX: K85.90 Acute pancreatitis without necrosis or infection, unspecified (principal); K59.00 Constipation, unspecified; R10.13 Epigastric pain; R11.0 Nausea; R19.7 Diarrhea, unspecified; Z88.8 Allergy status to other drugs, medicaments and biological substances; Z79.899 Other long term (current) drug therapy; Z79.84 Long term (current) use of oral hypoglycemic drugs; Z87.891 Personal history of nicotine dependence; I25.10 Atherosclerotic heart disease of native coronary artery without angina pectoris; I10 Essential (primary) hypertension; E11.9 Type 2 diabetes mellitus without complications
CPT/HCPCS: 99285; 96374; 96375; 36415; 83690; 85025; 80053; 81001; 74177; J2270; J1170; J2405

== ENCOUNTER 2020-03-18 11:48 | Inpatient (IN) | payer MEDICARE, MEDICAID ==
[2020-03-18] MEDS ORDERED: METOCLOPRAMIDE HCL INJ/PF 10 MG/2 ML SDV IV ONE ×2 (12:57→15:05)
[2020-03-18] MEDS ORDERED: FENTANYL CITRATE INJ/PF 100 MCG/2 ML AMPUL IV ONE (12:58)
[2020-03-18] MEDS ORDERED: FAMOTIDINE INJ/PF 20 MG/2 ML SDV IV ONE (12:58)
--- NOTE | 2020-03-18 12:59 | ER Document Report ---
ED General - General Chief Complaint: Abdominal Pain Stated Complaint: ABDOMINAL PAIN Time Seen by Provider: 03/18/20 12:12 Primary Care Provider: EVANS DUARTE MD [Primary Care Provider] - Follow up as needed TRAVEL OUTSIDE OF THE [place] IN LAST 30 DAYS: No - HPI Notes: Chief complaint: Abdominal pain and vomiting History of present illness: 55-year-old female patient followed by Dr. Duarte with history of poorly controlled diabetes mellitus type 2 and chronic recurrent abdominal pain which is been attributed to chronic pancreatitis returns today with worsening pain and ongoing vomiting. Patient was seen yesterday in the office by a local roadability machine operator Dr. Mariusz Palomo who has the patient scheduled for an outpatient upper GI endoscopy 2 days from now. Patient says however her symptoms are worse and she feels she needs urgent attention today. Patient has had a past cholecystectomy. She denies any history of abuse of alcohol or drugs. She denies any known past history of peptic ulcer disease. I reviewed extensive old records on this lady including a recent visit less than a week ago with Dr. Coburn. Patient had a CT scan abdomen/pelvis at that time demonstrating mild peripancreatic inflammatory changes with no other obvious abnormalities. Her lipase at that time was around 350 and on previous visit had been around 650. Her labs at that visit were otherwise unremarkable. - Related Data Allergies/Adverse Reactions: naproxen [Naproxen] Allergy (Severe, Verified 03/11/20 22:51) Facial swelling liraglutide [From Victoza] Allergy (Verified 03/11/20 22:51) sitagliptin [From Januvia] Allergy (Verified 03/11/20 22:51) valsartan [From Diovan] Allergy (Verified 03/11/20 22:51) ropinirole HCl [From Requip] Adverse Reaction (Severe, Verified 03/11/20 22:51) BODY SWELLING Past Medical History - General Information source: Patient, Relative, [facility] Records - Social History Smoking Status: Never Smoker Chew tobacco use (# tins/day): No Frequency of alcohol use: None Drug Abuse: Marijuana Family History: Reviewed & Not Pertinent, DM, Hypertension Patient has homicidal ideation: No - Past Medical History Cardiac Medical History: Reports: Hx Coronary Artery Disease, Hx Hypercholesterolemia, Hx Hypertension - DIET CONTROLLED Denies: Hx Congestive Heart Failure, Hx Heart Attack Pulmonary Medical History: Denies: Hx Asthma, Hx Bronchitis, Hx COPD, Hx Pneumonia Neurological Medical History: Reports: Hx Migraine. Denies: Hx Cerebrovascular Accident, Hx Seizures Endocrine Medical History: Reports: Hx Diabetes Mellitus Type 2, Hx Hypothyroidism Renal/ Medical History: Denies: Hx Peritoneal Dialysis GI Medical History: Reports: Hx Gastroesophageal Reflux Disease, Hx Pancreatitis. Denies: Hx Hepatitis, Hx Hiatal Hernia, Hx Ulcer Musculoskeletal Medical History: Reports Hx Arthritis Psychiatric Medical History: Reports: Hx Anxiety, Hx Depression Infectious Medical History: Denies: Hx Hepatitis Past Surgical History: Reports: Hx Cholecystectomy, Hx Gastric Bypass Surgery - SLEEVE, Hx Genitourinary Surgery - bladder prolapse, Hx Hysterectomy, Hx Orthopedic Surgery - toe, shoulder, elbow, bilat feet, Other - Gastric Sleeve. Denies: Hx Mastectomy, Hx Open Heart Surgery, Hx Pacemaker - Immunizations Immunizations up to date: Yes Hx Diphtheria, Pertussis, Tetanus Vaccination: Yes Hx Pneumococcal Vaccination: 05/24/10 Review of Systems - Review of Systems Notes: Constitutional: Negative for fever. HENT: Negative for sore throat. Eyes: Negative for visual changes. Cardiovascular: Negative for chest pain. Respiratory: Negative for shortness of breath. Gastrointestinal: As per HPI. Genitourinary: Negative for dysuria. Musculoskeletal: Negative for back pain. Skin: Negative for rash. Neurological: Negative for headaches, weakness or numbness. 10 point ROS negative except as marked above and in HPI. Physical Exam - Vital signs Vitals: Temp 97.8 F 03/18/20 11:48 - Notes Notes: GENERAL: Middle-age female seen writhing on stretcher and vomiting actively. SKIN: Good turgor no rashes. HEAD: Normocephalic atraumatic. EYES: PERRLA. EOMI. Conjunctivae and sclerae clear. EARS: CANALS AND TMS CLEAR. NOSE: CLEAR. MOUTH: Moist mucosa. Good dentition. No stridor or edema. No drooling. NECK: Supple. No masses or thyromegaly. No adenopathy. Carotids 2+ without bruits. No JVD. BACK: Symmetrical without tenderness. CHEST: Respirations unlabored. Breath sounds clear and symmetrical. HEART: Regular rhythm. No murmur gallop or rub. ABDOMEN: Mild epigastric tenderness. Healed right upper quadrant surgical scar present. Soft without masses, organomegaly or rebound. Bowel sounds normally active. No bruits. GENITALIA: Deferred. EXTREMITIES: No edema. No calf tenderness. Cap refill less than 1.5 seconds. Dorsalis pedis and posterior tibial pulses 3+ and symmetrical. NEUROLOGICAL: GCS 15. Alert and oriented x3. Fluent speech. Cranial nerves II through XII intact. Sensorimotor and cerebellar normal. Normal tone. PSYCHIATRIC: Anxious affect. Course - Re-evaluation Re-evalutation: 03/18/20 14:35 Clinically the patient appeared to have acute pancreatitis. We documented a normal white count and she was afebrile hemodynamically stable. Her lipase is increased from a level about 450 a week ago to just over 1100 today. Her bili is also up to 2.3 with some elevation of alkaline phosphatase and transaminases. We note this lady has had a previous cholecystectomy. I have given her IV normal saline and additionally she has received a dose of IV fentanyl and some IV Zofran. Findings were discussed with her roadability machine operator Dr. Mariusz Palomo by telephone and he recommends that we ask her primary care physician to admit and he will consult on the case. Findings were discussed with her primary provider Dr. Duarte who will admit to telemetry. Findings, clinical impression and plan of treatment have been discussed with patient/family. Understanding of current findings and recommendations has been acknowledged by them and there is agreement regarding disposition and follow-up. - Vital Signs Vital signs: Temp Pulse Resp BP Pulse Ox 97.8 F 16 145/72 H 98 03/18/20 12:12 03/18/20 14:01 03/18/20 14:01 03/18/20 14:01 - Laboratory Result Diagrams: 03/18/20 12:40 03/18/20 12:40 Laboratory results interpreted by me: 03/18/20 03/18/20 03/18/20 12:40 12:40 13:30 MCV 79 L MCH 25.8 L RDW 14.4 H VBG pH 7.44 H Glucose 138 H Magnesium 1.5 L Total Bilirubin 2.3 H Direct Bilirubin 1.9 H AST 327 H ALT 389 H Alkaline Phosphatase 824 H Lipase 1105.6 H Discharge - Discharge Clinical Impression: Acute pancreatitis Qualifiers: Pancreatitis type: unspecified pancreatitis type Acute pancreatitis complication: unspecified Qualified Code(s): K85.90 - Acute pancreatitis without necrosis or infection, unspecified Condition: Good Disposition: ADMITTED INPATIENT Admitting Provider: A[facility] Unit Admitted: Telemetry Referrals: EVANS DUARTE MD [Primary Care Provider] - Follow up as needed
[2020-03-18 13:05] LABS: ABSOLUTE EOSINOPHILS # (AUTO) 0.1 10^3/uL (0.0-0.6); ABSOLUTE LYMPHOCYTES (AUTO) 1.4 10^3/uL (0.5-4.7); ABSOLUTE MONOCYTES (AUTO) 0.6 10^3/uL (0.1-1.4); ABSOLUTE NEUT (AUTO) 4.9 10^3/uL (1.7-8.2); BASOPHILS % (AUTO) 0.7 % (0-2); EOSINOPHILS % (AUTO) 1.1 % (0-6); HEMATOCRIT 38.6 % (36.0-47.0); HEMOGLOBIN 12.6 g/dL (12.0-15.5); LYMPHOCYTES % (AUTO) 19.7 % (13-45); MEAN CORPUSCULAR HEMOGLOBIN 25.8 pg (27.0-33.4); MEAN CORPUSCULAR HGB CONC 32.7 g/dL (32.0-36.0); MEAN CORPUSCULAR VOLUME 79 fl (80-97); MONOCYTES % (AUTO) 8.6 % (3-13); PLATELET COUNT 329 10^3/uL (150-450); RED BLOOD COUNT 4.89 10^6/uL (3.72-5.28); RED CELL DISTRIBUTION WIDTH 14.4 % (11.5-14.0); SEGMENTED NEUTROPHILS % (AUTO) 69.9 % (42-78); TOTAL CELLS COUNTED % (AUTO) 100 %
[2020-03-18 13:37] LABS: VENOUS BLOOD BASE EXCESS 2.1 mmol/L; VENOUS BLOOD HCO3 26.4 mmol/L (20-32); VENOUS BLOOD PCO2 39.7 mmHg (35-63); VENOUS BLOOD PH 7.44 (7.30-7.42)
[2020-03-18 13:38] LABS: ALKALINE PHOSPHATASE 824 U/L (38-126); ANION GAP 13 (5-19); ASPARTATE AMINO TRANSFERASE 327 U/L (14-36); BILIRUBIN,DIRECT 1.9 mg/dL (0.0-0.4); BILIRUBIN,TOTAL 2.3 mg/dL (0.2-1.3); BLOOD UREA NITROGEN 8 mg/dL (7-20); CALCIUM 9.6 mg/dL (8.4-10.2); CARBON DIOXIDE 25 mmol/L (22-30); CHLORIDE 99 mmol/L (98-107); GLUCOSE 138 mg/dL (75-110); POTASSIUM 4.2 mmol/L (3.6-5.0); TOTAL PROTEIN 6.7 g/dL (6.3-8.2)
[2020-03-18 13:43] LABS: ALCOHOL < 10 mg/dL (NONE DETECTED)
[2020-03-18] MEDS ORDERED: HYDROMORPHONE HCL INJ/PF 2 MG/ML AMPULE IV ONE (14:48)
[2020-03-18 15:37] LABS: APPEARANCE,URINE SLIGHTLY-CLOUDY; BILIRUBIN,URINE NEGATIVE (NEGATIVE); COLOR,URINE AMBER; GLUCOSE, URINE >=500 mg/dL (NEGATIVE); KETONES,URINE TRACE mg/dL (NEGATIVE); PROTEIN,URINE NEGATIVE (NEGATIVE); URINE SPECIFIC GRAVITY 1.033
[2020-03-18 15:53] LABS: URINE AMPHETAMINES SCREEN NEGATIVE; URINE BARBITURATES SCREEN NEGATIVE; URINE BENZODIAZEPINES SCREEN NEGATIVE; URINE COCAINE SCREEN NEGATIVE; URINE METHADONE SCREEN NEGATIVE; URINE PHENCYCLIDINE SCREEN NEGATIVE
[2020-03-18 15:55] LABS: URINE MARIJUANA (THC) SCREEN UNCONFIRMED POSITIVE
[2020-03-18] MEDS ORDERED: DEXTROSE 40% GEL 15 GM TUBE PO PRN ×2 (17:48)
[2020-03-18] MEDS ORDERED: DEXTROSE 50%-WATER 25 GM/50 ML DISP.SYRIN IV PRN ×2 (17:48)
[2020-03-18] MEDS ORDERED: GLUCAGON,HUMAN RECOMB 1 MG INJ SUBCUT PRN (17:48)
[2020-03-18] MEDS: HYDROMORPHONE HCL INJ/PF 2 MG/ML AMPULE IV PRN ×2 (18:18→22:13)
[2020-03-18] MEDS: NORMAL SALINE 1000 ML 1,000 ML IV PRN (18:19)
[2020-03-18] MEDS ORDERED: BISACODYL 10 MG SUPP.RECT PR ONE (18:30)
--- NOTE | 2020-03-18 21:52 | EKG REPORT ---
SEVERITY:- NORMAL ECG - SINUS RHYTHM : Confirmed by: Shelbie Meier MD 18-Mar-2020 21:51:53
[2020-03-18] MEDS: FAMOTIDINE INJ/PF 20 MG/2 ML SDV IV SCH (22:14)
--- NOTE | 2020-03-18 23:25 | PDOC H&P ---
History of Present Illness Admission Date/PCP: 03/18/20 15:10 EVANSDEBO DUARTE Patient complains of: Abdominal Pain, Vomiting History of Present Illness: LUIS ANGEL DIOR is a 55 year old female patient known to my practice who present to the ED repeatedly in recent time and today with worsening abdominal pain and vomiting. patient reported that since her recent evaluation by Dr. Palomo, chief radiologic technologist, her abdominal pain have worsen and in need of urgent attention. She has been scheduled for outpatient endoscopic evaluation on 03/20/2020. She reported associated nausea and constipation. She reported no bowel movement in last 10 days. She remain on high dose opiate therapy for chronic pain through her pain management team. Her ED evaluation was significant for comparably remarked increase in her serum lipase, amylase, total and direct bilirubin, transaminases, and alkaline phosphatase levels during this ED visit. She was advised hospitalization for further evaluation and management. Her morbidities are listed below. Past Medical History Cardiac Medical History: Reports: Coronary Artery Disease, Hyperlipidema, Hypertension - DIET CONTROLLED Denies: Congestive Heart Failure, Myocardial Infarction Pulmonary Medical History: Denies: Asthma, Bronchitis, Chronic Obstructive Pulmonary Disease (COPD), Pneumonia Neurological Medical History: Reports: Migraine Denies: Seizures Endocrine Medical History: Reports: Diabetes Mellitus Type 2, Hypothyroidism GI Medical History: Reports: Gastroesophageal Reflux Disease Denies: Hepatitis, Hiatal Hernia Musculoskeltal Medical History: Reports: Arthritis Psychiatric Medical History: Reports: Depression Hematology: Reports: Anemia - ON IRON PILLS Denies: Sickle Cell Disease Past Surgical History Past Surgical History: Reports: Cholecystectomy, Gastric Bypass Surgery - SLEEVE, Hysterectomy, Orthopedic Surgery - toe, shoulder, elbow, bilat feet, Other - Gastric Sleeve Denies: Amputation, Mastectomy, Pacemaker Social History Smoking Status: Never Smoker Electronic Cigarette use?: No Frequency of Alcohol Use: None Hx Recreational Drug Use: Yes Drugs: Marijuana Hx Prescription Drug Abuse: No - Advance Directive Resuscitation Status: Full Code Family History Family History: Reviewed & Not Pertinent, DM, Hypertension Parental Family History Reviewed: Yes Children Family History Reviewed: Yes Sibling(s) Family History Reviewed.: Yes Medication/Allergy Home Medications: Dapagliflozin Propanediol [Farxiga] 10 mg PO DAILY 03/18/20 Duloxetine HCl [Cymbalta 30 mg Capsule.dr] 30 mg PO DAILY 03/18/20 Escitalopram Oxalate [Lexapro] 20 mg PO DAILY 03/18/20 Gabapentin [Neurontin] 600 mg PO Q8 03/18/20 Levothyroxine Sodium [Synthroid 0.05 mg Tablet] 0.05 mg PO Q6AM 03/18/20 Lubiprostone [Amitiza 24 Mcg Capsule] 24 mcg PO DAILY 03/18/20 Metformin HCl [Glucophage] 1,000 mg PO BID 03/18/20 Montelukast Sodium [Singulair 10 mg Tablet] 10 mg PO DAILY 03/18/20 Omeprazole 20 mg PO DAILY 03/18/20 Oxycodone HCl/Acetaminophen [Percocet 7.5-325 mg Tablet] 1 tab PO Q6HP PRN 03/18/20 Pramipexole Di-HCl [Mirapex 0.5 mg Tablet] 0.5 mg PO QHS 03/18/20 Rosuvastatin Calcium [Crestor] 10 mg PO QHS 03/18/20 Trazodone HCl 100 mg PO DAILY 03/18/20 Allergies/Adverse Reactions: naproxen [Naproxen] Allergy (Severe, Verified 03/11/20 22:51) Facial swelling liraglutide [From Victoza] Allergy (Verified 03/11/20 22:51) sitagliptin [From Januvia] Allergy (Verified 03/11/20 22:51) valsartan [From Diovan] Allergy (Verified 03/11/20 22:51) ropinirole HCl [From Requip] Adverse Reaction (Severe, Verified 03/11/20 22:51) BODY SWELLING Review of Systems Constitutional: ABSENT: chills, fever(s), headache(s), weight gain, weight loss Eyes: ABSENT: visual disturbances Ears: ABSENT: hearing changes Cardiovascular: ABSENT: chest pain, dyspnea on exertion, edema, orthropnea, palpitations Respiratory: ABSENT: cough, hemoptysis Gastrointestinal: PRESENT: abdominal pain, constipation, nausea, vomiting. ABSENT: diarrhea, hematemesis, hematochezia Genitourinary: ABSENT: dysuria, hematuria Musculoskeletal: ABSENT: joint swelling Integumentary: ABSENT: rash, wounds Neurological: ABSENT: abnormal gait, abnormal speech, confusion, dizziness, focal weakness, syncope Psychiatric: ABSENT: anxiety, depression, homidical ideation, suicidal ideation Endocrine: ABSENT: cold intolerance, heat intolerance, menstrual abnormalities, polydipsia, polyuria Hematologic/Lymphatic: ABSENT: easy bleeding, easy bruising, lymphadenopathy Physical Exam Vital Signs: Temp Pulse Resp BP Pulse Ox 97.8 F 13 146/88 H 96 03/18/20 12:12 03/18/20 16:01 03/18/20 16:01 03/18/20 16:01 Intake & Output 03/17/20 03/18/20 03/19/20 06:59 06:59 06:59 Weight 80.377 kg General appearance: PRESENT: mild distress - due to reported abdominal pain Head exam: PRESENT: atraumatic, normocephalic Eye exam: PRESENT: conjunctiva pink, EOMI, PERRLA. ABSENT: scleral icterus Ear exam: PRESENT: normal external ear exam Mouth exam: PRESENT: moist, tongue midline Neck exam: PRESENT: full ROM. ABSENT: carotid bruit, JVD, lymphadenopathy, thyromegaly Respiratory exam: PRESENT: clear to auscultation manuel, decreased breath sounds - at lung bases Cardiovascular exam: PRESENT: RRR, +S1, +S2. ABSENT: diastolic murmur, rubs, systolic murmur Pulses: PRESENT: normal dorsalis pedis pul, +2 pedal pulses bilateral Vascular exam: PRESENT: normal capillary refill. ABSENT: pallor GI/Abdominal exam: PRESENT: normal bowel sounds, soft, tenderness - mid and Left region to palpation.. ABSENT: distended, guarding, mass, organolmegaly, rebound Rectal exam: PRESENT: deferred Extremities exam: ABSENT: pedal edema Neurological exam: PRESENT: alert, awake, oriented to person, oriented to place, oriented to time, oriented to situation, CN II-XII grossly intact. ABSENT: motor sensory deficit Psychiatric exam: PRESENT: appropriate affect, normal mood. ABSENT: homicidal ideation, suicidal ideation Skin exam: PRESENT: dry, intact, warm. ABSENT: cyanosis, rash Results Laboratory Results: 03/18/20 12:40 03/18/20 12:40 03/18/20 03/18/20 03/18/20 12:40 12:40 13:30 WBC 7.0 RBC 4.89 Hgb 12.6 Hct 38.6 MCV 79 L MCH 25.8 L MCHC 32.7 RDW 14.4 H Plt Count 329 Seg Neutrophils % 69.9 VBG pH 7.44 H VBG pCO2 39.7 VBG HCO3 26.4 VBG Base Excess 2.1 Sodium 137.4 Potassium 4.2 Chloride 99 Carbon Dioxide 25 Anion Gap 13 BUN 8 Creatinine 0.55 Est GFR ( Amer) > 60 Glucose 138 H Calcium 9.6 Magnesium 1.5 L Total Bilirubin 2.3 H AST 327 H Alkaline Phosphatase 824 H Total Protein 6.7 Albumin 4.0 Lipase 1105.6 H Urine Color Urine Appearance Urine pH Ur Specific [place] Urine Protein Urine Glucose (UA) Urine Ketones Urine Blood Urine RBC (Auto) 03/18/20 15:00 WBC RBC Hgb Hct MCV MCH MCHC RDW Plt Count Seg Neutrophils % VBG pH VBG pCO2 VBG HCO3 VBG Base Excess Sodium Potassium Chloride Carbon Dioxide Anion Gap BUN Creatinine Est GFR ( Amer) Glucose Calcium Magnesium Total Bilirubin AST Alkaline Phosphatase Total Protein Albumin Lipase Urine Color XIOMARA Urine Appearance SLIGHTLY-CLOUDY Urine pH 5.0 Ur Specific [place] 1.033 Urine Protein NEGATIVE Urine Glucose (UA) >=500 H Urine Ketones TRACE H Urine Blood NEGATIVE Urine RBC (Auto) 3 Assessment & Plan - Diagnosis (1) Recurrent acute pancreatitis Is this a current diagnosis for this admission?: Yes Plan: See admitting physician orders for details about care plan. (2) Chronic idiopathic constipation Is this a current diagnosis for this admission?: Yes Plan: See admitting physician orders for details about care plan. (3) Diabetes mellitus type 2 in nonobese Is this a current diagnosis for this admission?: Yes Plan: See admitting physician orders for details about care plan. (4) HTN (hypertension) Qualifiers: Hypertension type: essential hypertension Qualified Code(s): I10 - Essential (primary) hypertension Is this a current diagnosis for this admission?: Yes Plan: See admitting physician orders for details about care plan. (5) HLD (hyperlipidemia) Qualifiers: Hyperlipidemia type: unspecified Qualified Code(s): E78.5 - Hyperlipidemia, unspecified Is this a current diagnosis for this admission?: Yes Plan: See admitting physician orders for details about care plan. (6) GERD (gastroesophageal reflux disease) Qualifiers: Esophagitis presence: esophagitis presence not specified Qualified Code(s): K21.9 - Gastro-esophageal reflux disease without esophagitis Is this a current diagnosis for this admission?: Yes Plan: See admitting physician orders for details about care plan. - Time Time Spent: 50 to 70 Minutes Medications reviewed and adjusted accordingly: Yes Anticipated Discharge Disposition: Home, Self Care Anticipated Discharge Timeframe: within 72 hours - Inpatient Certification Based on my medical assessment, after consideration of the patient's comorbidities, presenting symptoms, or acuity I expect that the services needed warrant INPATIENT care.: Yes I certify that my determination is in accordance with my understanding of Medicare's requirements for reasonable and necessary INPATIENT services [42 CFR 412.3e].: Yes Medical Necessity: Significant Comorbidiites Make Outpatient Treatment Too Risky, Need Close Monitoring Due to Risk of Patient Decompensation, Need For IV Fluids, Need For Continuous Telemetry Monitoring, Need for Pain Control, Risk of Complication if Not Cared For in Hospital, Risk of Diagnosis Which Will Require Inpatient Eval/Care/Monitoring 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
[2020-03-19] MEDS: HYDROMORPHONE HCL INJ/PF 2 MG/ML AMPULE IV PRN ×4 (02:32→21:12)
[2020-03-19] MEDS ORDERED: SUCCINYLCHOLINE CHLORIDE INJ 200 MG/10 ML VIAL ONE (05:00)
[2020-03-19] MEDS: NORMAL SALINE 1000 ML 1,000 ML IV PRN (06:00)
[2020-03-19 08:12] LABS: ALBUMIN 3.9 g/dL (3.5-5.0); ALKALINE PHOSPHATASE 1139 U/L (38-126); AMYLASE 55 U/L (30-110); ANION GAP 15 (5-19); ASPARTATE AMINO TRANSFERASE 271 U/L (14-36); BILIRUBIN,DIRECT 4.3 mg/dL (0.0-0.4); BLOOD UREA NITROGEN 10 mg/dL (7-20); CALCIUM 9.2 mg/dL (8.4-10.2); CARBON DIOXIDE 20 mmol/L (22-30); CHLORIDE 105 mmol/L (98-107); CHOLESTEROL 150.65 mg/dL (0-200); GLUCOSE 128 mg/dL (75-110); POTASSIUM 4.1 mmol/L (3.6-5.0); TOTAL PROTEIN 6.5 g/dL (6.3-8.2); TRIGLYCERIDES 175 mg/dL (<150)
[2020-03-19 08:23] LABS: DIRECT LDL 68 mg/dL (<100)
[2020-03-19 08:50] LABS: BILIRUBIN,TOTAL 4.8 mg/dL (0.2-1.3)
[2020-03-19] MEDS: FAMOTIDINE INJ/PF 20 MG/2 ML SDV IV SCH ×2 (10:17→21:07)
[2020-03-19] MEDS ORDERED: ENALAPRILAT DIHYDRATE INJ/PF 1.25 MG/1 ML SDV IV PRN (12:52)
--- NOTE | 2020-03-19 12:52 | PDOC PROGRESS REPORT ---
Subjective Progress Note for:: 03/19/20 Subjective:: Patient still reported abdominal pain and asking for Benadryl for itching due to IV Dilaudid administration. She is requesting for pain medication on timely interval! No bowel movement, nausea or vomiting. No chest pain or difficulty with breathing. No fever or chills. Reason For Visit: RECURRENT ACUTE PANCREATITIS,DIABETES MELLITUS TYP Physical Exam Vital Signs: Temp Pulse Resp BP Pulse Ox 98.0 F 84 20 170/92 H 99 03/19/20 06:01 03/19/20 07:00 03/19/20 06:01 03/19/20 06:01 03/19/20 06:01 Intake & Output 03/18/20 03/19/20 03/20/20 06:59 06:59 06:59 Intake Total 1000 Balance 1000 Weight 83.6 kg General appearance: PRESENT: mild distress - from her rerported and expressed tenderness Head exam: PRESENT: atraumatic, normocephalic Eye exam: PRESENT: conjunctiva pink. ABSENT: scleral icterus Mouth exam: PRESENT: dry mucosa Respiratory exam: PRESENT: clear to auscultation manuel Cardiovascular exam: PRESENT: RRR, +S1, +S2. ABSENT: diastolic murmur, rubs, systolic murmur Vascular exam: ABSENT: pallor GI/Abdominal exam: PRESENT: normal bowel sounds, soft, tenderness - Mid and LUQ region to deep palpation. ABSENT: distended, guarding, mass, organolmegaly, rebound Extremities exam: ABSENT: pedal edema Neurological exam: PRESENT: alert, awake, oriented to person, oriented to place, oriented to time, oriented to situation, CN II-XII grossly intact. ABSENT: motor sensory deficit Skin exam: PRESENT: dry, warm Results Laboratory Results: 03/18/20 12:40 03/18/20 03/18/20 03/18/20 12:40 12:40 13:30 WBC 7.0 RBC 4.89 Hgb 12.6 Hct 38.6 MCV 79 L MCH 25.8 L MCHC 32.7 RDW 14.4 H Plt Count 329 Seg Neutrophils % 69.9 VBG pH 7.44 H VBG pCO2 39.7 VBG HCO3 26.4 VBG Base Excess 2.1 Sodium 137.4 Potassium 4.2 Chloride 99 Carbon Dioxide 25 Anion Gap 13 BUN 8 Creatinine 0.55 Est GFR ( Amer) > 60 Glucose 138 H Calcium 9.6 Magnesium 1.5 L Total Bilirubin 2.3 H AST 327 H Alkaline Phosphatase 824 H Total Protein 6.7 Albumin 4.0 Lipase 1105.6 H Urine Color Urine Appearance Urine pH Ur Specific [place] Urine Protein Urine Glucose (UA) Urine Ketones Urine Blood Urine RBC (Auto) 03/18/20 15:00 WBC RBC Hgb Hct MCV MCH MCHC RDW Plt Count Seg Neutrophils % VBG pH VBG pCO2 VBG HCO3 VBG Base Excess Sodium Potassium Chloride Carbon Dioxide Anion Gap BUN Creatinine Est GFR ( Amer) Glucose Calcium Magnesium Total Bilirubin AST Alkaline Phosphatase Total Protein Albumin Lipase Urine Color XI[place]ARA Urine Appearance SLIGHTLY-CLOUDY Urine pH 5.0 Ur Specific [place] 1.033 Urine Protein NEGATIVE Urine Glucose (UA) >=500 H Urine Ketones TRACE H Urine Blood NEGATIVE Urine RBC (Auto) 3 Assessment & Plan - Diagnosis (1) Recurrent acute pancreatitis Is this a current diagnosis for this admission?: Yes Plan: Follow up on ERCP findings. Concern about possible fibrous band effect on the drainage pathway in view of her hepatic function findings. Patient had gastric sleeve bariatric surgery and s/p cholecystectomy. (2) Chronic idiopathic constipation Is this a current diagnosis for this admission?: Yes (3) Diabetes mellitus type 2 in nonobese Is this a current diagnosis for this admission?: Yes (4) HTN (hypertension) Qualifiers: Hypertension type: essential hypertension Qualified Code(s): I10 - Essential (primary) hypertension Is this a current diagnosis for this admission?: Yes Plan: Start on IV Vasotec 1.25 mg q 6 hours prn for sbp > 140mmHg. (5) HLD (hyperlipidemia) Qualifiers: Hyperlipidemia type: unspecified Qualified Code(s): E78.5 - Hyperlipidemia, unspecified Is this a current diagnosis for this admission?: Yes (6) GERD (gastroesophageal reflux disease) Qualifiers: Esophagitis presence: esophagitis presence not specified Qualified Code(s): K21.9 - Gastro-esophageal reflux disease without esophagitis Is this a current diagnosis for this admission?: Yes - Time Time Spent with patient: 25-34 minutes Level of Care: TELE Medications reviewed and adjusted accordingly: Yes Anticipated discharge: Home Anticipated DC Timeframe: within 72 hours - Inpatient Certification Based on my medical assessment, after consideration of the patient's comorbidities, presenting symptoms, or acuity I expect that the services needed warrant INPATIENT care.: Yes I certify that my determination is in accordance with my understanding of Medicare's requirements for reasonable and necessary INPATIENT services [42 CFR 412.3e].: Yes Medical Necessity: Significant Comorbidiites Make Outpatient Treatment Too Risky, Need Close Monitoring Due to Risk of Patient Decompensation, Need For IV Fluids, Need For Continuous Telemetry Monitoring, Need for Pain Control, Risk of Complication if Not Cared For in Hospital, Risk of Diagnosis Which Will Require Inpatient Eval/Care/Monitoring Post Hospital Care: 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 Allow ice chip to moisturize her mouth. Follow up on ERCP findings.
[2020-03-19] MEDS ORDERED: GLUCAGON,HUMAN RECOMB 1 MG INJ ONE (17:02)
[2020-03-19] MEDS ORDERED: EPINEPHRINE INJ 1 MG/10 ML DISP.SYRIN ONE (17:02)
[2020-03-19] MEDS ORDERED: ONDANSETRON HCL INJ/PF 4 MG/2 ML SDV ONE (17:29)
[2020-03-19] MEDS ORDERED: MIDAZOLAM 2 MG/2 ML INJ ONE (17:29)
[2020-03-19] MEDS ORDERED: FENTANYL CITRATE INJ/PF 100 MCG/2 ML AMPUL ONE (17:29)
[2020-03-19] MEDS ORDERED: DEXAMETHASONE SOD PHOSPHATE INJ 4 MG/1 ML VIAL ONE (17:29)
[2020-03-19] MEDS ORDERED: PROPOFOL INJ 200 MG/20 ML VIAL IV ONE (17:30)
[2020-03-19] MEDS ORDERED: ONDANSETRON HCL INJ/PF 4 MG/2 ML SDV IV PRN (19:07)
[2020-03-19] MEDS ORDERED: DIPHENHYDRAMINE HCL 50 MG/ML VIAL IV PRN (19:07)
[2020-03-19] MEDS ORDERED: FENTANYL CITRATE INJ/PF 100 MCG/2 ML AMPUL IV PRN ×3 (19:07)
--- NOTE | 2020-03-19 19:59 | Operative Report ---
Operative Report DATE OF SURGERY: 03/19/20 Operative Report: Pre-op diagnosis: Recurrent pancreatitis and jaundice Post-op diagnosis: 1. 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 Mildly dilated proximal common bile duct and intrahepatic ducts Surgery: ERCP with brushing for cytology, and placement of 10 Syriac 7 cm stent Medications: As per anesthesia Tissue removed: Common bile duct brushing Procedure: After informed consent obtained from patient, patient was placed under general anesthesia. The ERCP endoscope was then inserted into the esophagus blindly and advanced into the stomach. The duodenum was entered and the ampulla was identified. Patient had previously had a sphincterotomy so the bile duct was cannulated using the 12 mm balloon catheter. Contrast was injected which showed a smooth stricture involving the last 3 to 4 cm of the common bile duct. The proximal common bile ducts and hepatic duct, and the intrahepatic duct was slightly dilated with no filling defects. The balloon catheter was then removed over a guidewire. Brushing was taken from the distal common bile duct for cytology. A 10 Syriac 7 cm stent was then placed without any difficulty. The pancreatic duct was not cannulated. Findings Ampulla: There was some periampullary edema presumably from her pancreatitis Common bile duct: Mild dilation of the proximal common bile duct. Stricture involving the last 3 to 4 cm that appears to be extrinsic and smooth. This is likely from pancreatitis. The stricture was brushed and a stent was placed. Intrahepatic ducts: Mildly dilated. Pancreatic duct: Not cannulated Plan: Send patient for MRI of the abdomen with contrast. Check serum IgG4 and consider repeat endoscopic ultrasound with pancreatic biopsy to rule out autoimmune pancreatitis. Stent will be removed later on. OPERATION: .
--- NOTE | 2020-03-19 19:59 | PDOC CONSULTATION ---
Consultation Consult Date: 03/18/20 Provider Consulted: HI CARR History of Present Illness Admission Date/PCP: 03/18/20 15:10 EVANS DUARTE History of Present Illness: LUIS ANGEL DIOR is a 55 year old female Patient who was admitted to the emergency room on 03/18/2020 with worsening abdominal pain. I saw her in the office on 03/16/2020 with recurrent abdominal pain that has taken her to the emergency room 3 times over the last few weeks. Her lipase has been slightly elevated peaking at 690 with a normal CAT scan on 03/08/2020. Another CAT scan on 03/12/2020 showed possible mild pancreatitis. She has had multiple other episodes of pancreatitis over the years and back in June her pancreatitis was associated with elevated LFTs. An ERCP was performed in June showing some common bile duct sludge but her pancreatogram was normal. She had an endoscopic ultrasound in April of last year showing nonspecific hyperechoic stranding of the pancreas. Her LFTs were normal on 03/08/2020 and 03/10/2020 but was slightly elevated on 03/12/2020. On admission this time her lipase was 1100 and her LFTs were more elevated with transaminase of 327, 389, alkaline phosphatase 824 and bilirubin of 2.3. By today her bilirubin has gone up to 4.8 with alkaline phosphatase of 1139. Lipase is down to 500. She does not abuse alcohol Past Medical History Cardiac Medical History: Reports: Coronary Artery Disease, Hyperlipidema, Hypertension - DIET CONTROLLED Denies: Congestive Heart Failure, Myocardial Infarction Pulmonary Medical History: Denies: Asthma, Bronchitis, Chronic Obstructive Pulmonary Disease (COPD), Pneumonia Neurological Medical History: Reports: Migraine Denies: Seizures Endocrine Medical History: Reports: Diabetes Mellitus Type 2, Hypothyroidism GI Medical History: Reports: Gastroesophageal Reflux Disease Denies: Hepatitis, Hiatal Hernia Musculoskeltal Medical History: Reports: Arthritis Psychiatric Medical History: Reports: Depression Hematology: Reports: Anemia - ON IRON PILLS Denies: Sickle Cell Disease Past Surgical History Past Surgical History: Reports: Cholecystectomy, Gastric Bypass Surgery - SLEEVE, Hysterectomy, Orthopedic Surgery - toe, shoulder, elbow, bilat feet, Other - Gastric Sleeve Denies: Amputation, Mastectomy, Pacemaker Social History Smoking Status: Never Smoker Electronic Cigarette use?: No Frequency of Alcohol Use: None Hx Recreational Drug Use: Yes Drugs: Marijuana Hx Prescription Drug Abuse: No - Advance Directive Resuscitation Status: Full Code Family History Family History: Reviewed & Not Pertinent, DM, Hypertension Parental Family History Reviewed: No Children Family History Reviewed: NA Sibling(s) Family History Reviewed.: NA Medication/Allergy Home Medications: Dapagliflozin Propanediol [Farxiga] 10 mg PO DAILY 03/18/20 Duloxetine HCl [Cymbalta 30 mg Capsule.dr] 30 mg PO DAILY 03/18/20 Escitalopram Oxalate [Lexapro] 20 mg PO DAILY 03/18/20 Gabapentin [Neurontin] 600 mg PO Q8 03/18/20 Levothyroxine Sodium [Synthroid 0.05 mg Tablet] 0.05 mg PO Q6AM 03/18/20 Lubiprostone [Amitiza 24 Mcg Capsule] 24 mcg PO DAILY 03/18/20 Metformin HCl [Glucophage] 1,000 mg PO BID 03/18/20 Montelukast Sodium [Singulair 10 mg Tablet] 10 mg PO DAILY 03/18/20 Omeprazole 20 mg PO DAILY 03/18/20 Oxycodone HCl/Acetaminophen [Percocet 7.5-325 mg Tablet] 1 tab PO Q6HP PRN 03/18/20 Pramipexole Di-HCl [Mirapex 0.5 mg Tablet] 0.5 mg PO QHS 03/18/20 Rosuvastatin Calcium [Crestor] 10 mg PO QHS 03/18/20 Trazodone HCl 100 mg PO DAILY 03/18/20 Allergies/Adverse Reactions: naproxen [Naproxen] Allergy (Severe, Verified 03/11/20 22:51) Facial swelling liraglutide [From Victoza] Allergy (Verified 03/11/20 22:51) sitagliptin [From Januvia] Allergy (Verified 03/11/20 22:51) valsartan [From Diovan] Allergy (Verified 03/11/20 22:51) ropinirole HCl [From Requip] Adverse Reaction (Severe, Verified 03/11/20 22:51) BODY SWELLING Review of Systems All systems: reviewed and no additional remarkable complaints except as stated Physical Exam Vital Signs: Temp Pulse Resp BP Pulse Ox 98.0 F 113 H 14 146/79 H 98 03/19/20 19:25 03/19/20 19:25 03/19/20 19:25 03/19/20 19:25 03/19/20 19:25 Intake & Output 03/18/20 03/19/20 03/20/20 06:59 06:59 06:59 Intake Total 1000 Balance 1000 Weight 83.6 kg Exam: General: Patient is alert and looks sick. HEENT: There is no pallor but she is jaundiced.. PERRLA. Oropharynx normal Respiratory: No chest deformity. No respiratory distress. Chest wall palpitation was unremarkable. Breath sounds were normal Cardiovascular: Heart sounds 1 and 2 normal with no murmurs. Abdominal: Not distended. Soft with some epigastric tenderness.. Liver and spleen not palpable. No ascites demonstrated. Bowel sounds active. Rectal examination was deferred. Extremities: No edema Neurological: Alert and oriented x4. Grossly nonfocal. Normal speech Skin: No significant rash Psychological: Normal affect Results Laboratory Results: 03/18/20 12:40 03/19/20 06:59 03/19/20 06:59 Sodium 139.8 Potassium 4.1 Chloride 105 Carbon Dioxide 20 L Anion Gap 15 BUN 10 Creatinine 0.56 Est GFR ( Amer) > 60 Glucose 128 H Calcium 9.2 Magnesium 1.4 L Total Bilirubin 4.8 H D AST 271 H Alkaline Phosphatase 1139 H Total Protein 6.5 Albumin 3.9 Triglycerides 175 H Cholesterol 150.65 LDL Cholesterol Direct 68 VLDL Cholesterol 35.0 H HDL Cholesterol 48 Amylase 55 Lipase 513.8 H 03/18/20 15:00 Clean Catch Midstream Urine Culture - Final Group B Beta Streptococcus Mixed Urogenital Lizette Assessment & Plan - Diagnosis (1) Recurrent acute pancreatitis Is this a current diagnosis for this admission?: Yes Plan: She has a history of recurrent pancreatitis with mostly normal LFTs in the past. She has been having a lot more pain over the last few weeks though she had been doing reasonably well since the ERCP in June until recently. This current episode is associated with significantly elevated LFTs with a bilirubin of 4.8. She did have an ERCP in June with only small amount of sludge extracted. I will repeat her ERCP to be sure there is no mechanical obstruction of her bile ducts. She does not have a gallbladder. Other differential diagnosis for her recurrent pancreatitis include autoimmune pancreatitis. Her previous CAT scans have not shown the typical findings with autoimmune pancreatitis, pancreatogram was normal in June of last year and an endoscopic ultrasound last year also showed no significant abnormality. Will send her for serum IgG4. I may also consider referring her for a repeat endoscopic ultrasound (2) Jaundice Is this a current diagnosis for this admission?: Yes (3) Abnormal liver function test Is this a current diagnosis for this admission?: Yes
[2020-03-20] MEDS ORDERED: TRAZODONE HCL 50 MG TABLET PO ONE (01:00)
[2020-03-20] MEDS: FAMOTIDINE INJ/PF 20 MG/2 ML SDV IV SCH ×2 (09:29→21:22)
[2020-03-20] MEDS: HYDROMORPHONE HCL INJ/PF 2 MG/ML AMPULE IV PRN ×3 (09:32→21:21)
[2020-03-20] MEDS: NORMAL SALINE 1000 ML 1,000 ML IV PRN ×2 (09:44→16:45)
[2020-03-20 10:21] LABS: ABSOLUTE LYMPHOCYTES (AUTO) 1.1 10^3/uL (0.5-4.7); ABSOLUTE MONOCYTES (AUTO) 0.4 10^3/uL (0.1-1.4); ABSOLUTE NEUT (AUTO) 4.8 10^3/uL (1.7-8.2); BASOPHILS % (AUTO) 0.4 % (0-2); EOSINOPHILS % (AUTO) 0.1 % (0-6); HEMATOCRIT 36.4 % (36.0-47.0); HEMOGLOBIN 12.2 g/dL (12.0-15.5); LYMPHOCYTES % (AUTO) 17.1 % (13-45); MEAN CORPUSCULAR HEMOGLOBIN 26.6 pg (27.0-33.4); MEAN CORPUSCULAR HGB CONC 33.5 g/dL (32.0-36.0); MEAN CORPUSCULAR VOLUME 80 fl (80-97); MONOCYTES % (AUTO) 6.2 % (3-13); PLATELET COUNT 305 10^3/uL (150-450); RED BLOOD COUNT 4.58 10^6/uL (3.72-5.28); RED CELL DISTRIBUTION WIDTH 14.4 % (11.5-14.0); SEGMENTED NEUTROPHILS % (AUTO) 76.2 % (42-78); TOTAL CELLS COUNTED % (AUTO) 100 %; WHITE BLOOD COUNT 6.3 10^3/uL (4.0-10.5)
[2020-03-20 10:43] LABS: ALBUMIN 4.1 g/dL (3.5-5.0); ALKALINE PHOSPHATASE 1461 U/L (38-126); ASPARTATE AMINO TRANSFERASE 112 U/L (14-36); BILIRUBIN,DIRECT 1.2 mg/dL (0.0-0.4); BILIRUBIN,TOTAL 1.7 mg/dL (0.2-1.3); TOTAL PROTEIN 6.9 g/dL (6.3-8.2)
[2020-03-20] MEDS ORDERED: DEXTROSE 50%-WATER SYRINGE 25 GM/50 ML DOSE IV PRN (13:00)
[2020-03-20] MEDS ORDERED: GLUCAGON,HUMAN RECOMB 1 MG INJ IM PRN (13:00)
[2020-03-20] MEDS ORDERED: DEXTROSE 50%-WATER SYRINGE 12.5 GM/25 ML DOSE IV PRN (13:00)
[2020-03-20] MEDS ORDERED: DEXTROSE 40% GEL 15 GM TUBE X 2 PO PRN (13:00)
[2020-03-20] MEDS ORDERED: DEXTROSE 40% GEL 15 GM TUBE PO PRN (13:00)
[2020-03-20] MEDS: INSULIN LISPRO 100 UNIT/ML 3 ML VIAL SUBCUT SCH ×2 (17:43→21:21)
--- NOTE | 2020-03-20 18:04 | RADIOLOGY REPORT (SQ) ---
EXAM DESCRIPTION: MRI ABDOMEN COMBO IMAGES COMPLETED DATE/TIME: 03/20/2020 8:44 am REASON FOR STUDY: r/o Autoimmune pancreatitis COMPARISON: ERCP 03/19/2020, 07/09/2019 MRI abdomen 03/04/2019 CT abdomen pelvis 11/14/2019, 03/08/2020, 03/12/2020 TECHNIQUE: Multiplanar multisequence imaging performed without and with contrast including sagittal, axial and coronal T2, axial T1, axial gradient fat sat T1, axial, sagittal and coronal fat sat T1 po st contrast. CONTRAST TYPE AND DOSE: 20 mL Prohance. RENAL FUNCTION: Not indicated. ACR Type II contrast agent associated with few, if any, unconfounded cases of NSF LIMITATIONS: None. FINDINGS: LIVER: Normal size. No masses. Post ERCP with biliary stent placement yesterday. Trace a ir in left-sided intrahepatic bile ducts. Stent is identified on coronal image 29 in the common bile duct. Normal contrast enhancement of the splenic vein, superior mesenteric vein, portal vein, hepatic veins . SPLEEN: Normal size. No focal lesions. PANCREAS: Pancreatic head is mildly enlarged, has surrounding mild retroperitoneal inflammation, and enhances to a slightly lesser degree than the remainder of the body tail of the pancreas likely from pancreatitis. The pancreatic duct in the tail and body measures less than 3 mm size. Pancreatic duct at the pancre atic head is difficult to visualize on axial T2 images 17-22 No lesser sac fluid collection or peripancreatic retroperitoneal fluid collection GALLBLADDER: Surgically absent ADRENAL GLANDS: No significant masses or asymmetry. RIGHT KIDNEY AND URETER: No masses. No hydronephrosis. LEFT KIDNEY AND URETER: No masses. No hydronephrosis. AORTA AND VESSELS: No aneurysm. No dissection. Renal arteries, SMA, celiac without stenosis. RETROPERITONEUM: No retroperitoneal adenopathy, hemorrhage or masses. BOWEL: Not well seen due to peristalsis. No gross bowel obstruction ABDOMINAL WALL AND PERITONEUM: No hernias. No free fluid. BONES: No acute or significant findings. OTHER: No other significant finding. IMPRESSION: Patent endoscopically placed common duct stent, with small amount of air in left-sided n on dilated intrahepatic ducts Swollen pancreatic head with decreased contrast enhancement as compared to the remainder the pancreas from pancreatitis. Discrete mass not identified No peripancreatic fluid collections. TECHNICAL DOCUMENTATION: JOB ID: [id number] 2010 [employer]- All Rights Reserved Reading location - IP/workstation name: [id number]
--- NOTE | 2020-03-20 18:14 | RADIOLOGY REPORT (SQ) ---
EXAM DESCRIPTION: ENDO CATH/BILIARY DUCT; NO CHG FLUORO IMAGES COMPLETED DATE/TIME: 03/19/2020 7:41 pm REASON FOR STUDY: ERCP COMPARISON: 07/09/2019 FLUOROSCOPY TIME: 4 minutes 4 digital fluoroscopic images saved to PACS. TECHNIQUE: Intra-operative images acquired during surgical procedure to evaluate progress. NUMBER OF IMAGES: 4 digital fluoroscopic images LIMITATIONS: None. FINDINGS: ERCP performed by Dr. CARR. CONTRAST INJECTED INTO THE COMMON BILE DUCT. MINIMAL BILIAR Y DUCTAL DILATATION. COMMON DUCT SWEPT WITH A BALLOON TIPPED CATHETER. THE DISTAL 5 CM OF COMMON BI LE DUCT IS DIFFUSELY NARROWED, LIKELY FROM ADJACENT MASS EFFECT FROM PANCREATITIS. CLIPS POST CHOLEC YSTECTOMY. IMPRESSION: IMAGE(S) OBTAINED DURING PROCEDURE. COMMENT: Quality ID 145: Final reports for procedures using fluoroscopy that document radiation exp osure indices, or exposure time and number of fluorographic images (if radiation exposure indices are not available) Please consult full operative report of the attending physician for description of the procedure. TECHNICAL DOCUMENTATION: JOB ID: [id number] 2010 [employer]- All Rights Reserved Reading location - IP/workstation name: [id number]
--- NOTE | 2020-03-20 18:14 | RADIOLOGY REPORT (SQ) ---
EXAM DESCRIPTION: ENDO CATH/BILIARY DUCT; NO CHG FLUORO IMAGES COMPLETED DATE/TIME: 03/19/2020 7:41 pm REASON FOR STUDY: ERCP COMPARISON: 07/09/2019 FLUOROSCOPY TIME: 4 minutes 4 digital fluoroscopic images saved to PACS. TECHNIQUE: Intra-operative images acquired during surgical procedure to evaluate progress. NUMBER OF IMAGES: 4 digital fluoroscopic images LIMITATIONS: None. FINDINGS: ERCP performed by Dr. CARR. CONTRAST INJECTED INTO THE COMMON BILE DUCT. MINIMAL BILIAR Y DUCTAL DILATATION. COMMON DUCT SWEPT WITH A BALLOON TIPPED CATHETER. THE DISTAL 5 CM OF COMMON BI LE DUCT IS DIFFUSELY NARROWED, LIKELY FROM ADJACENT MASS EFFECT FROM PANCREATITIS. CLIPS POST CHOLEC YSTECTOMY. IMPRESSION: IMAGE(S) OBTAINED DURING PROCEDURE. COMMENT: Quality ID 145: Final reports for procedures using fluoroscopy that document radiation exp osure indices, or exposure time and number of fluorographic images (if radiation exposure indices are not available) Please consult full operative report of the attending physician for description of the procedure. TECHNICAL DOCUMENTATION: JOB ID: [id number] 2010 [employer]- All Rights Reserved Reading location - IP/workstation name: [id number]
--- NOTE | 2020-03-20 21:01 | PDOC PROGRESS REPORT ---
Subjective Progress Note for:: 03/20/20 Subjective:: Patient seen by the bedside, she had ERCP with biliary stent placement,, MRI of the pancreas demonstrated mildly enlarged pancreatic head with surrounding mild retroperitoneal inflammation with enhancement of the body, tail of the pancreas likely from pancreatitis Reason For Visit: RECURRENT ACUTE PANCREATITIS,DIABETES MELLITUS TYP Physical Exam Vital Signs: Temp Pulse Resp BP Pulse Ox 97.9 F 77 16 120/63 99 03/20/20 19:28 03/20/20 19:28 03/20/20 19:28 03/20/20 19:28 03/20/20 19:28 Intake & Output 03/19/20 03/20/20 03/21/20 06:59 06:59 06:59 Intake Total 6167 504 7138 Output Total 0 Balance 4600 665 1371 Weight 83.6 kg 83 kg General appearance: PRESENT: no acute distress Eye exam: PRESENT: PERRLA Respiratory exam: PRESENT: clear to auscultation manuel Cardiovascular exam: PRESENT: +S1, +S2 GI/Abdominal exam: PRESENT: soft Neurological exam: PRESENT: alert Results Laboratory Results: 03/20/20 10:02 03/19/20 06:59 03/20/20 03/20/20 10:02 10:02 WBC 6.3 RBC 4.58 Hgb 12.2 Hct 36.4 MCV 80 MCH 26.6 L MCHC 33.5 RDW 14.4 H Plt Count 305 Seg Neutrophils % 76.2 Total Bilirubin 1.7 H AST 112 H Alkaline Phosphatase 1461 H Total Protein 6.9 Albumin 4.1 Impressions: Catheter Placement 03/19/20 00:00 IMPRESSION: IMAGE(S) OBTAINED DURING PROCEDURE. Fluoroscopy 03/19/20 00:00 IMPRESSION: IMAGE(S) OBTAINED DURING PROCEDURE. Abdomen MRI 03/20/20 00:00 IMPRESSION: Patent endoscopically placed common duct stent, with small amount of air in left-sided non dilated intrahepatic ducts Swollen pancreatic head with decreased contrast enhancement as compared to the remainder the pancreas from pancreatitis. Discrete mass not identified No peripancreatic fluid collections. Assessment & Plan - Diagnosis (1) Acute pancreatitis without necrosis or infection, unspecified Qualifiers: Pancreatitis type: unspecified pancreatitis type Qualified Code(s): K85.90 - Acute pancreatitis without necrosis or infection, unspecified Is this a current diagnosis for this admission?: Yes Plan: Continue treatment - Time Time Spent with patient: 25-34 minutes Level of Care: IMCU Medications reviewed and adjusted accordingly: Yes Anticipated discharge: Home Anticipated DC Timeframe: within 72 hours - Inpatient Certification Based on my medical assessment, after consideration of the patient's comorbidities, presenting symptoms, or acuity I expect that the services needed warrant INPATIENT care.: Yes I certify that my determination is in accordance with my understanding of Medicare's requirements for reasonable and necessary INPATIENT services [42 CFR 412.3e].: Yes
[2020-03-20] MEDS: TRAZODONE HCL 50 MG TABLET PO SCH (21:20)
[2020-03-21] MEDS: HYDROMORPHONE HCL INJ/PF 2 MG/ML AMPULE IV PRN ×4 (07:43→22:09)
[2020-03-21] MEDS: INSULIN LISPRO 100 UNIT/ML 3 ML VIAL SUBCUT SCH ×4 (07:44→21:10)
[2020-03-21] MEDS: FAMOTIDINE INJ/PF 20 MG/2 ML SDV IV SCH ×2 (10:17→21:09)
--- NOTE | 2020-03-21 13:51 | PDOC PROGRESS REPORT ---
Subjective Progress Note for:: 03/21/20 Subjective:: Patient seen by the bedside, she had ERCP with biliary stent placement,, MRI of the pancreas demonstrated mildly enlarged pancreatic head with surrounding mild retroperitoneal inflammation with enhancement of the body, tail of the pancreas likely from pancreatitis Reason For Visit: RECURRENT ACUTE PANCREATITIS,DIABETES MELLITUS TYP Physical Exam Vital Signs: Temp Pulse Resp BP Pulse Ox 98.2 F 69 16 132/54 H 98 03/21/20 12:00 03/21/20 12:00 03/21/20 12:00 03/21/20 12:00 03/21/20 12:00 Intake & Output 03/20/20 03/21/20 03/22/20 06:59 06:59 06:59 Intake Total 960 1000 Output Total 0 Balance 960 1000 Weight 83 kg 82.3 kg General appearance: PRESENT: no acute distress Head exam: PRESENT: atraumatic, normocephalic Eye exam: PRESENT: PERRLA Neck exam: PRESENT: full ROM Respiratory exam: PRESENT: clear to auscultation manuel Cardiovascular exam: PRESENT: RRR, +S1, +S2 Vascular exam: PRESENT: normal capillary refill GI/Abdominal exam: PRESENT: normal bowel sounds, soft Rectal exam: PRESENT: deferred Neurological exam: PRESENT: alert, CN II-XII grossly intact. ABSENT: motor sensory deficit Psychiatric exam: PRESENT: appropriate affect, normal mood Skin exam: PRESENT: dry, intact, warm. ABSENT: cyanosis, rash Results Laboratory Results: 03/20/20 10:02 03/19/20 06:59 Impressions: Catheter Placement 03/19/20 00:00 IMPRESSION: IMAGE(S) OBTAINED DURING PROCEDURE. Fluoroscopy 03/19/20 00:00 IMPRESSION: IMAGE(S) OBTAINED DURING PROCEDURE. Abdomen MRI 03/20/20 00:00 IMPRESSION: Patent endoscopically placed common duct stent, with small amount of air in left-sided non dilated intrahepatic ducts Swollen pancreatic head with decreased contrast enhancement as compared to the remainder the pancreas from pancreatitis. Discrete mass not identified No peripancreatic fluid collections. Assessment & Plan - Diagnosis (1) Acute pancreatitis without necrosis or infection, unspecified Qualifiers: Pancreatitis type: unspecified pancreatitis type Qualified Code(s): K85.90 - Acute pancreatitis without necrosis or infection, unspecified Is this a current diagnosis for this admission?: Yes Plan: Continue treatment - Time Time Spent with patient: 25-34 minutes Level of Care: IMCU Medications reviewed and adjusted accordingly: Yes Anticipated discharge: Home Anticipated DC Timeframe: within 72 hours
[2020-03-21] MEDS: NORMAL SALINE 1000 ML 1,000 ML IV PRN ×2 (15:18→23:35)
[2020-03-21] MEDS: TRAZODONE HCL 50 MG TABLET PO SCH (21:09)
[2020-03-21] MEDS: ONDANSETRON 4 MG TAB.RAPDIS PO PRN (21:09)
[2020-03-22] MEDS: NORMAL SALINE 1000 ML 1,000 ML IV PRN ×3 (06:12→19:00)
[2020-03-22] MEDS: INSULIN LISPRO 100 UNIT/ML 3 ML VIAL SUBCUT SCH ×4 (08:17→22:04)
[2020-03-22] MEDS: FAMOTIDINE INJ/PF 20 MG/2 ML SDV IV SCH ×2 (09:31→22:04)
[2020-03-22] MEDS: HYDROMORPHONE HCL INJ/PF 2 MG/ML AMPULE IV PRN ×3 (09:41→19:34)
[2020-03-22] MEDS: ONDANSETRON 4 MG TAB.RAPDIS PO PRN ×3 (09:41→19:34)
[2020-03-22 15:31] LABS: ALBUMIN 3.1 g/dL (3.5-5.0); ALKALINE PHOSPHATASE 660 U/L (38-126); ASPARTATE AMINO TRANSFERASE 44 U/L (14-36); BILIRUBIN,DIRECT 0.6 mg/dL (0.0-0.4); BILIRUBIN,TOTAL 0.7 mg/dL (0.2-1.3); TOTAL PROTEIN 5.3 g/dL (6.3-8.2)
--- NOTE | 2020-03-22 15:46 | PDOC PROGRESS REPORT ---
Subjective Progress Note for:: 03/22/20 Subjective:: Patient seen by the bedside, complaining of blood in the stool Reason For Visit: RECURRENT ACUTE PANCREATITIS,DIABETES MELLITUS TYP Physical Exam Vital Signs: Temp Pulse Resp BP Pulse Ox 97.5 F 70 16 123/77 99 03/22/20 10:45 03/22/20 10:45 03/22/20 10:45 03/22/20 10:45 03/22/20 10:45 Intake & Output 03/21/20 03/22/20 03/23/20 06:59 06:59 06:59 Intake Total 1999 3100 1000 Balance 1999 3100 1000 Weight 82.3 kg 82.6 kg General appearance: PRESENT: no acute distress Eye exam: PRESENT: PERRLA Respiratory exam: PRESENT: clear to auscultation manuel Cardiovascular exam: PRESENT: +S1, +S2 GI/Abdominal exam: PRESENT: soft Neurological exam: PRESENT: alert Results Laboratory Results: 03/20/20 10:02 03/19/20 06:59 03/22/20 15:00 Total Bilirubin 0.7 AST 44 H Alkaline Phosphatase 660 H Total Protein 5.3 L Albumin 3.1 L Impressions: Catheter Placement 03/19/20 00:00 IMPRESSION: IMAGE(S) OBTAINED DURING PROCEDURE. Fluoroscopy 03/19/20 00:00 IMPRESSION: IMAGE(S) OBTAINED DURING PROCEDURE. Abdomen MRI 03/20/20 00:00 IMPRESSION: Patent endoscopically placed common duct stent, with small amount of air in left-sided non dilated intrahepatic ducts Swollen pancreatic head with decreased contrast enhancement as compared to the remainder the pancreas from pancreatitis. Discrete mass not identified No peripancreatic fluid collections. Assessment & Plan - Diagnosis (1) Acute pancreatitis without necrosis or infection, unspecified Qualifiers: Pancreatitis type: unspecified pancreatitis type Qualified Code(s): K85.90 - Acute pancreatitis without necrosis or infection, unspecified Is this a current diagnosis for this admission?: Yes Plan: Continue treatment - Time Time Spent with patient: 25-34 minutes Level of Care: IMCU Medications reviewed and adjusted accordingly: Yes Anticipated discharge: Home - Inpatient Certification Based on my medical assessment, after consideration of the patient's comorbidities, presenting symptoms, or acuity I expect that the services needed warrant INPATIENT care.: Yes I certify that my determination is in accordance with my understanding of Medicare's requirements for reasonable and necessary INPATIENT services [42 CFR 412.3e].: Yes
[2020-03-22] MEDS: TRAZODONE HCL 50 MG TABLET PO SCH (22:04)
[2020-03-23] MEDS: ONDANSETRON 4 MG TAB.RAPDIS PO PRN ×2 (03:35→21:47)
[2020-03-23] MEDS: INSULIN LISPRO 100 UNIT/ML 3 ML VIAL SUBCUT SCH ×4 (08:23→21:48)
[2020-03-23] MEDS: NORMAL SALINE 1000 ML 1,000 ML IV PRN (08:24)
[2020-03-23] MEDS: HYDROMORPHONE HCL INJ/PF 2 MG/ML AMPULE IV PRN ×2 (08:41→21:50)
[2020-03-23] MEDS: FAMOTIDINE INJ/PF 20 MG/2 ML SDV IV SCH ×2 (12:55→21:50)
--- NOTE | 2020-03-23 20:44 | PDOC PROGRESS REPORT ---
Subjective Progress Note for:: 03/23/20 Subjective:: Patient denied any chest pain or difficulty with breathing. No abdominal pain, nausea or vomiting. No fever or chills. Reason For Visit: RECURRENT ACUTE PANCREATITIS,DIABETES MELLITUS TYP Physical Exam Vital Signs: Temp Pulse Resp BP Pulse Ox 97.9 F 81 17 128/72 H 97 03/23/20 16:00 03/23/20 16:00 03/23/20 16:00 03/23/20 16:00 03/23/20 16:00 Intake & Output 03/22/20 03/23/20 03/24/20 06:59 06:59 06:59 Intake Total 3100 1999 1072 Balance 3100 1999 1072 Weight 82.6 kg 85.3 kg General appearance: PRESENT: no acute distress Head exam: PRESENT: atraumatic, normocephalic Eye exam: PRESENT: conjunctiva pink, EOMI, PERRLA. ABSENT: scleral icterus Ear exam: PRESENT: normal external ear exam Mouth exam: PRESENT: moist, tongue midline Neck exam: PRESENT: full ROM. ABSENT: carotid bruit, JVD, lymphadenopathy, thyromegaly Respiratory exam: PRESENT: clear to auscultation manuel Cardiovascular exam: PRESENT: RRR, +S1, +S2. ABSENT: diastolic murmur, rubs, systolic murmur Vascular exam: ABSENT: pallor GI/Abdominal exam: PRESENT: normal bowel sounds, soft. ABSENT: distended, guarding, mass, organolmegaly, rebound, tenderness Extremities exam: ABSENT: pedal edema Neurological exam: PRESENT: alert, awake, oriented to person, oriented to place, oriented to time, oriented to situation, CN II-XII grossly intact. ABSENT: motor sensory deficit Psychiatric exam: PRESENT: appropriate affect, normal mood. ABSENT: homicidal ideation, suicidal ideation Skin exam: PRESENT: dry, intact, warm. ABSENT: cyanosis, rash Results Laboratory Results: 03/20/20 10:02 03/19/20 06:59 Impressions: Catheter Placement 03/19/20 00:00 IMPRESSION: IMAGE(S) OBTAINED DURING PROCEDURE. Fluoroscopy 03/19/20 00:00 IMPRESSION: IMAGE(S) OBTAINED DURING PROCEDURE. Abdomen MRI 03/20/20 00:00 IMPRESSION: Patent endoscopically placed common duct stent, with small amount of air in left-sided non dilated intrahepatic ducts Swollen pancreatic head with decreased contrast enhancement as compared to the remainder the pancreas from pancreatitis. Discrete mass not identified No peripancreatic fluid collections. Assessment & Plan - Diagnosis (1) Recurrent acute pancreatitis Is this a current diagnosis for this admission?: Yes (2) Chronic idiopathic constipation Is this a current diagnosis for this admission?: Yes (3) Diabetes mellitus type 2 in nonobese Is this a current diagnosis for this admission?: Yes (4) HTN (hypertension) Qualifiers: Hypertension type: essential hypertension Qualified Code(s): I10 - Essential (primary) hypertension Is this a current diagnosis for this admission?: Yes (5) HLD (hyperlipidemia) Qualifiers: Hyperlipidemia type: unspecified Qualified Code(s): E78.5 - Hyperlipidemia, unspecified Is this a current diagnosis for this admission?: Yes (6) GERD (gastroesophageal reflux disease) Qualifiers: Esophagitis presence: esophagitis presence not specified Qualified Code(s): K21.9 - Gastro-esophageal reflux disease without esophagitis Is this a current diagnosis for this admission?: Yes - Time Time Spent with patient: 25-34 minutes Level of Care: TELE Medications reviewed and adjusted accordingly: Yes Anticipated discharge: Home Anticipated DC Timeframe: within 48 hours - Inpatient Certification Based on my medical assessment, after consideration of the patient's comorbidities, presenting symptoms, or acuity I expect that the services needed warrant INPATIENT care.: Yes I certify that my determination is in accordance with my understanding of Medicare's requirements for reasonable and necessary INPATIENT services [42 CFR 412.3e].: Yes Medical Necessity: Significant Comorbidiites Make Outpatient Treatment Too Risky, Need Close Monitoring Due to Risk of Patient Decompensation, Need For Continuous Telemetry Monitoring, Risk of Complication if Not Cared For in Hospital, Risk of Diagnosis Which Will Require Inpatient Eval/Care/Monitoring 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 Patient will restart all appropriate medications. Possible discharge in next 24-48 hours.
[2020-03-23] MEDS ORDERED: (PENDING PHARMACY ID) (Dapagliflozin Propanediol [Farxiga] 10 MG) PO SCH (21:00)
[2020-03-23] MEDS: TRAZODONE HCL 50 MG TABLET PO SCH (21:47)
[2020-03-23] MEDS: GABAPENTIN 300 MG CAPSULE PO SCH (21:48)
[2020-03-23] MEDS ORDERED: ATORVASTATIN CALCIUM 20 MG TABLET PO SCH (22:00)
[2020-03-23] MEDS ORDERED: PRAMIPEXOLE DI-HCL 0.5 MG TABLET PO SCH (22:00)
[2020-03-24] MEDS: GABAPENTIN 300 MG CAPSULE PO SCH ×2 (05:23→13:40)
[2020-03-24] MEDS: NORMAL SALINE 1000 ML 1,000 ML IV PRN (05:25)
[2020-03-24] MEDS ORDERED: LEVOTHYROXINE SODIUM 0.05 MG TABLET PO SCH (06:00)
[2020-03-24] MEDS: INSULIN LISPRO 100 UNIT/ML 3 ML VIAL SUBCUT SCH ×3 (08:14→17:03)
[2020-03-24] MEDS: HYDROMORPHONE HCL INJ/PF 2 MG/ML AMPULE IV PRN (08:57)
[2020-03-24] MEDS: METFORMIN HCL 500 MG TABLET PO SCH ×2 (09:11→17:03)
[2020-03-24] MEDS: FAMOTIDINE INJ/PF 20 MG/2 ML SDV IV SCH (09:12)
[2020-03-24] MEDS: ONDANSETRON 4 MG TAB.RAPDIS PO PRN (09:13)
[2020-03-24] MEDS ORDERED: (PENDING PHARMACY ID) (Dapagliflozin Propanediol [Farxiga] 10 MG) PO SCH (10:00)
[2020-03-24] MEDS ORDERED: TRAZODONE HCL 50 MG TABLET PO SCH (10:00)
[2020-03-24] MEDS ORDERED: MONTELUKAST SODIUM 10 MG TABLET PO SCH (10:00)
[2020-03-24] MEDS ORDERED: RAMIPRIL 2.5 MG CAPSULE PO SCH (10:00)
[2020-03-24] MEDS ORDERED: INSULIN GLARGINE,HUM.REC.ANLOG 1,000 UNIT/10 ML VIAL (PYX) SUBCUT ONE (10:00)
[2020-03-24] MEDS ORDERED: DULOXETINE HCL 30 MG CAPSULE.DR PO SCH (10:00)
[2020-03-24] MEDS ORDERED: LUBIPROSTONE 24 MCG CAPSULE PO SCH (10:00)
[2020-03-24] MEDS ORDERED: ESCITALOPRAM OXALATE 10 MG TABLET PO SCH (10:00)
[2020-03-24 12:12] LABS: ALBUMIN 3.5 g/dL (3.5-5.0); ALKALINE PHOSPHATASE 554 U/L (38-126); ASPARTATE AMINO TRANSFERASE 37 U/L (14-36); BILIRUBIN,DIRECT 0.5 mg/dL (0.0-0.4); BILIRUBIN,TOTAL 0.6 mg/dL (0.2-1.3); TOTAL PROTEIN 5.9 g/dL (6.3-8.2)
[2020-03-24 17:38] VITALS: BP 154/72
--- NOTE | 2020-03-24 20:09 | PDOC DISCHARGE SUMMARY ---
Impression - Admit/DC Date/PCP Admission Date/Primary Care Provider: 03/18/20 15:10 EVANS DUARTE Discharge Date: 03/24/20 - Discharge Diagnosis (1) Recurrent acute pancreatitis Is this a current diagnosis for this admission?: Yes (2) Chronic idiopathic constipation Is this a current diagnosis for this admission?: Yes (3) Diabetes mellitus type 2 in nonobese Is this a current diagnosis for this admission?: Yes (4) HTN (hypertension) Is this a current diagnosis for this admission?: Yes (5) HLD (hyperlipidemia) Is this a current diagnosis for this admission?: Yes (6) GERD (gastroesophageal reflux disease) Is this a current diagnosis for this admission?: Yes - Assessment Summary: Patient was admitted for worsening abdominal pain, elevated lipase and abnormal liver enzymes suggestive of recurrent pancreatitis. She was managed with NPO status and seen in consultation by Dr. Palomo, lcpc. Her ERCP did revealed pancreatic duct narrowing with need for stent placement and consideration of extra-luminal etiology. She had sleeve gastrectomy surgery for weight management. Her luminal brushing pathology was reported with few inflammatory cells without evidence of malignancy. She will need further evaluation on outpatient as per her follow up with Dr Palomo upon discharge. Her diabetes related hyperglycemia was a challenge during this hospitalization. She will follow up with me in the office as instructed upon discharge. - Additional Information Resuscitation Status: Full Code Discharge Diet: Cardiac, Diabetic Discharge Activity: Activity As Tolerated Referrals: EVANS DUARTE MD [Primary Care Provider] - 04/01/20 10:00 am HI PALOMO MD [ACTIVE STAFF] - Prescriptions: Insulin Detemir [Levemir Insulin 100 units/mL Insulin Pen] 35 unit SUBCUT BIDACBS #10 pe Home Medications: Dapagliflozin Propanediol [Farxiga] 10 mg PO DAILY 03/18/20 Duloxetine HCl [Cymbalta 30 mg Capsule.dr] 30 mg PO DAILY 03/18/20 Escitalopram Oxalate [Lexapro] 20 mg PO DAILY 03/18/20 Gabapentin [Neurontin] 600 mg PO Q8 03/18/20 Levothyroxine Sodium [Synthroid 0.05 mg Tablet] 0.05 mg PO Q6AM 03/18/20 Lubiprostone [Amitiza 24 Mcg Capsule] 24 mcg PO DAILY 03/18/20 Metformin HCl [Glucophage] 1,000 mg PO BID 03/18/20 Montelukast Sodium [Singulair 10 mg Tablet] 10 mg PO DAILY 03/18/20 Omeprazole 20 mg PO DAILY 03/18/20 Oxycodone HCl/Acetaminophen [Percocet 7.5-325 mg Tablet] 1 tab PO Q6HP PRN 03/18/20 Pramipexole Di-HCl [Mirapex 0.5 mg Tablet] 0.5 mg PO QHS 03/18/20 Rosuvastatin Calcium [Crestor] 10 mg PO QHS 03/18/20 Trazodone HCl 100 mg PO DAILY 03/18/20 Insulin Detemir [Levemir Insulin 100 units/mL Insulin Pen] 35 unit SUBCUT BIDACBS #10 pe 03/24/20 History of Present Illiness History of Present Illness: LUIS ANGEL DIOR is a 55 year old female patient known to my practice who present to the ED repeatedly in recent time and today with worsening abdominal pain and vomiting. patient reported that since her recent evaluation by Dr. Palomo, lcpc, her abdominal pain have worsen and in need of urgent attention. She has been scheduled for outpatient endoscopic evaluation on 03/20/2020. She reported associated nausea and constipation. She reported no bowel movement in last 10 days. She remain on high dose opiate therapy for chronic pain through her pain management team. Her ED evaluation was sig nificant for comparably remarked increase in her serum lipase, amylase, total and direct bilirubin, transaminases, and alkaline phosphatase levels during this ED visit. She was advised hospitalization for further evaluation and management. Her morbidities are listed below. Hospital Course Hospital Course: Patient was admitted for worsening abdominal pain, elevated lipase and abnormal liver enzymes suggestive of recurrent pancreatitis. She was managed with NPO status and seen in consultation by Dr. Palomo, lcpc. Her ERCP did revealed pancreatic duct narrowing with need for stent placement and consideration of extra-luminal etiology. She had sleeve gastrectomy surgery for weight management. Her luminal brushing pathology was reported with few inflammatory cells without evidence of malignancy. She will need further evaluation on outpatient as per her follow up with Dr Palomo upon discharge. Her diabetes related hyperglycemia was a challenge during this hospitalization. She will follow up with me in the office as instructed upon discharge. Physical Exam Vital Signs: Temp Pulse Resp BP Pulse Ox 98.1 F 66 14 154/72 H 97 03/24/20 17:36 03/24/20 17:36 03/24/20 17:36 03/24/20 17:36 03/24/20 17:36 Intake & Output 03/23/20 03/24/20 03/25/20 06:59 06:59 06:59 Intake Total 1999 3547 461 Balance 1999 2712 380 Weight 85.3 kg 85.2 kg 85.2 kg General appearance: PRESENT: no acute distress Head exam: PRESENT: atraumatic, normocephalic Eye exam: PRESENT: conjunctiva pink, EOMI, PERRLA. ABSENT: pallor, sclera icterus Ear exam: PRESENT: normal external ear exam Mouth exam: PRESENT: moist, tongue midline Respiratory exam: PRESENT: clear to auscultation manuel Cardiovascular exam: PRESENT: RRR, +S1, +S2. ABSENT: diastolic murmur, rubs, systolic murmur GI/Abdominal exam: PRESENT: normal bowel sounds, soft. ABSENT: distended, guar ding, mass, organomegaly, rebound, tenderness Extremities exam: ABSENT: pedal edema Neurological exam: PRESENT: alert, awake, oriented to person, oriented to place, oriented to time, oriented to situation, CN II-XII grossly intact. ABSENT: motor sensory deficit Psychiatric exam: PRESENT: appropriate affect, normal mood. ABSENT: homicidal ideation, suicidal ideation Skin exam: PRESENT: dry, intact, warm. ABSENT: cyanosis, rash Results Laboratory Results: WBC 6.3 10^3/uL (4.0-10.5) 03/20/20 10:02 RBC 4.58 10^6/uL (3.72-5.28) 03/20/20 10:02 Hgb 12.2 g/dL (12.0-15.5) 03/20/20 10:02 Hct 36.4 % (36.0-47.0) 03/20/20 10:02 MCV 80 fl (80-97) 03/20/20 10:02 MCH 26.6 pg (27.0-33.4) L 03/20/20 10:02 MCHC 33.5 g/dL (32.0-36.0) 03/20/20 10:02 RDW 14.4 % (11.5-14.0) H 03/20/20 10:02 Plt Count 305 10^3/uL (150-450) 03/20/20 10:02 Lymph % (Auto) 17.1 % (13-45) 03/20/20 10:02 [place] % (Auto) 6.2 % (3-13) 03/20/20 10:02 Eos % (Auto) 0.1 % (0-6) 03/20/20 10:02 Baso % (Auto) 0.4 % (0-2) 03/20/20 10:02 Absolute Neuts (auto) 4.8 10^3/uL (1.7-8.2) 03/20/20 10:02 Absolute Lymphs (auto) 1.1 10^3/uL (0.5-4.7) 03/20/20 10:02 Absolute Monos (auto) 0.4 10^3/uL (0.1-1.4) 03/20/20 10:02 Absolute Eos (auto) 0.0 10^3/uL (0.0-0.6) 03/20/20 10:02 Absolute Basos (auto) 0.0 10^3/uL (0.0-0.2) 03/20/20 10:02 Seg Neutrophils % 76.2 % (42-78) 03/20/20 10:02 VBG pH 7.44 (7.30-7.42) H 03/18/20 13:30 VBG pCO2 39.7 mmHg (35-63) 03/18/20 13:30 VBG HCO3 26.4 mmol/L (20-32) 03/18/20 13:30 VBG Base Excess 2.1 mmol/L 03/18/20 13:30 Sodium 139.8 mmol/L (137-145) 03/19/20 06:59 Potassium 4.1 mmol/L (3.6-5.0) 03/19/20 06:59 Chloride 105 mmol/L (98-107) 03/19/20 06:59 Carbon Dioxide 20 mmol/L (22-30) L 03/19/20 06:59 Anion Gap 15 (5-19) 03/19/20 06:59 BUN 10 mg/dL (7-20) 03/19/20 06:59 Creatinine 0.56 mg/dL (0.52-1.25) 03/19/20 06:59 Est GFR ( Amer) > 60 (>60) 03/19/20 06:59 Est GFR (MDRD) Non-Af > 60 (>60) 03/19/20 06:59 Glucose 128 mg/dL (75-110) H 03/19/20 06:59 POC Glucose 312 mg/dL (70-110) H 03/24/20 16:01 Calcium 9.2 mg/dL (8.4-10.2) 03/19/20 06:59 Magnesium 1.4 mg/dL (1.6-2.3) L 03/19/20 06:59 Total Bilirubin 0.6 mg/dL (0.2-1.3) 03/24/20 11:23 Direct Bilirubin 0.5 mg/dL (0.0-0.4) H 03/24/20 11:23 Neonat Total Bilirubin Not Reportable 03/24/20 11:23 Neonat Direct Bilirubin Not Reportable 03/24/20 11:23 Neonat Indirect Bili Not Reportable 03/24/20 11:23 AST 37 U/L (14-36) H 03/24/20 11:23 ALT 96 U/L (<35) H 03/24/20 11:23 Alkaline Phosphatase 554 U/L (38-126) H 03/24/20 11:23 Total Protein 5.9 g/dL (6.3-8.2) L 03/24/20 11:23 Albumin 3.5 g/dL (3.5-5.0) 03/24/20 11:23 Triglycerides 175 mg/dL (<150) H 03/19/20 06:59 Cholesterol 150.65 mg/dL (0-200) 03/19/20 06:59 LDL Cholesterol Direct 68 mg/dL (<100) 03/19/20 06:59 VLDL Cholesterol 35.0 mg/dL (10-31) H 03/19/20 06:59 HDL Cholesterol 48 mg/dL (>40) 03/19/20 06:59 Amylase 55 U/L (30-110) 03/19/20 06:59 Lipase 513.8 U/L (23-300) H 03/19/20 06:59 Urine Color XIOMARA 03/18/20 15:00 Urine Appearance SLIGHTLY-CLOUDY 03/18/20 15:00 Urine pH 5.0 (5.0-9.0) 03/18/20 15:00 Ur Specific [place] 1.033 03/18/20 15:00 Urine Protein NEGATIVE mg/dL (NEGATIVE) 03/18/20 15:00 Urine Glucose (UA) >=500 mg/dL (NEGATIVE) H 03/18/20 15:00 Urine Ketones TRACE mg/dL (NEGATIVE) H 03/18/20 15:00 Urine Blood NEGATIVE (NEGATIVE) 03/18/20 15:00 Urine Nitrite (Reflex) NEGATIVE (NEGATIVE) 03/18/20 15:00 Urine Bilirubin NEGATIVE (NEGATIVE) 03/18/20 15:00 Urine Urobilinogen 4.0 mg/dL (<2.0) H 03/18/20 15:00 Leukocyte Esterase Rfl TRACE (NEGATIVE) H 03/18/20 15:00 Urine RBC (Auto) 3 /HPF 03/18/20 15:00 Urine WBC (Reflex) 4 /HPF 03/18/20 15:00 Squamous Epi Cells Auto 3 /HPF 03/18/20 15:00 Urine Mucus (Auto) RARE /LPF 03/18/20 15:00 Urine Ascorbic Acid 40 (NEGATIVE) H 03/18/20 15:00 Urine Opiates Screen UNCONFIRMED POSITIVE 03/18/20 15:00 Urine Methadone Screen NEGATIVE 03/18/20 15:00 Ur Barbiturates Screen NEGATIVE 03/18/20 15:00 Ur Phencyclidine Scrn NEGATIVE 03/18/20 15:00 Ur Amphetamines Screen NEGATIVE 03/18/20 15:00 U Benzodiazepines Scrn NEGATIVE 03/18/20 15:00 Urine Cocaine Screen NEGATIVE 03/18/20 15:00 U Marijuana (THC) Screen UNCONFIRMED POSITIVE 03/18/20 15:00 Serum Alcohol < 10 mg/dL (NONE DETECTED) 03/18/20 12:40 IgG4 6 mg/dL (2-96) 03/19/20 21:32 SARS-CoV-2 (PCR) NEGATIVE (NEGATIVE) 03/19/20 16:25 Impressions: Catheter Placement 03/19/20 00:00 IMPRESSION: IMAGE(S) OBTAINED DURING PROCEDURE. Fluoroscopy 03/19/20 00:00 IMPRESSION: IMAGE(S) OBTAINED DURING PROCEDURE. Abdomen MRI 03/20/20 00:00 IMPRESSION: Patent endoscopically placed common duct stent, with small amount of air in left-sided non dilated intrahepatic ducts Swollen pancreatic head with decreased contrast enhancement as compared to the remainder the pancreas from pancreatitis. Discrete mass not identified No peripancreatic fluid collections. Plan Health Concerns: Recurrently elevated serum lipase with abdominal pain. suggestive of recurrent pancreatitis with elusive etiology at this time. Plan of Treatment: Further evaluation as per lcpc, Dr. Palomo, on outpatient. Goals: Reduce readmission risk due to her recurrent abdominal pain, hyperglycemia, and abdominal pain. Time Spent: Greater than 30 Minutes - care coordination with Dr Palomo and extensive discussion about dietary resatrictions and post discharge care. Stroke Is this a Stroke Patient?: No Acute Heart Failure - Is this a Heart Failure Patient?: No
[2020-03-25] MEDS ORDERED: INSULIN GLARGINE,HUM.REC.ANLOG 1,000 UNIT/10 ML VIAL SUBCUT SCH (10:00)
== END 2020-03-24 18:51 | disposition home or self-care (01) | DRG 440 ==
LOC: ER 11:48 → EH 15:10 → 4S 17:08
PROVIDERS: ADMIT Internal Medicine Geriatric Medicine; ATTEND Internal Medicine Geriatric Medicine
PROC: 0F9 Hepatobiliary System and Pancreas, Drainage (ICD-10-PCS; principal; 2020-03-19 18:00)
PROC: 0F788DZ Dilation of Cystic Duct with Intraluminal Device, Via Natural or Artificial Opening Endoscopic (ICD-10-PCS; 2020-03-19 18:00)
DX: K85.90 Acute pancreatitis without necrosis or infection, unspecified (principal); E11.9 Type 2 diabetes mellitus without complications; K59.04 Chronic idiopathic constipation; I10 Essential (primary) hypertension; K21.9 Gastro-esophageal reflux disease without esophagitis; I25.10 Atherosclerotic heart disease of native coronary artery without angina pectoris; F32.9 Major depressive disorder, single episode, unspecified; D64.9 Anemia, unspecified; E03.9 Hypothyroidism, unspecified; R94.5 Abnormal results of liver function studies; E78.5 Hyperlipidemia, unspecified; E78.00 Pure hypercholesterolemia, unspecified; Z11.59 Encounter for screening for other viral diseases; Z79.4 Long term (current) use of insulin; Z79.890 Hormone replacement therapy; Z79.899 Other long term (current) drug therapy; Z88.8 Allergy status to other drugs, medicaments and biological substances
CPT/HCPCS: 36415; 43274; 43277; 732; 74183; 74328; 80053; 80061; 80076; 80307; 81001; 82150; 82803; 82962; 83690; 83735; 85025; 87086; 87088; 87635; 88104; 93005; 93010; 96374; 96375; 96376; 99285; A9576; C2617; C9803; J0171; J0330; J1100; J1170; J1610; J1815; J2250; J2405; J2704; J2765; J3010; J3490; J7030; Q9967; S0028; S0119

== ENCOUNTER 2020-04-30 10:39 | Inpatient (IN) | payer MEDICARE, MEDICAID ==
--- NOTE | 2020-04-30 10:51 | ER Document Report ---
ED Medical Screen (RME) - General Chief Complaint: Nausea/Vomiting Stated Complaint: NAUSEA,VOMITING,DIARRHEA Time Seen by Provider: 04/30/20 10:46 Primary Care Provider: EVANS DUARTE MD [Primary Care Provider] - Follow up as needed Information source: Patient Notes: Patient presents complaining of epigastric pain that she attributes to pancreatitis. Patient states she is had the pain for about 2 weeks but the pain worsened over the past week. Patient denies any fever or urinary symptoms. Patient reports nausea. Patient denies vomiting or diarrhea. Patient does report a history of diabetes, hypothyroidism, anxiety and pancreatitis. Patient states that she has a gastric sleeve and has had a previous cholecystectomy. I have greeted and performed a rapid initial assessment of this patient. A comprehensive ED assessment and evaluation of the patient, analysis of test results and completion of the medical decision making process will be conducted by additional ED providers. TRAVEL OUTSIDE OF THE [place] IN LAST 30 DAYS: No - Related Data Allergies/Adverse Reactions: naproxen [Naproxen] Allergy (Severe, Verified 03/11/20 22:51) Facial swelling liraglutide [From Victoza] Allergy (Verified 03/11/20 22:51) sitagliptin [From Januvia] Allergy (Verified 03/11/20 22:51) valsartan [From Diovan] Allergy (Verified 03/11/20 22:51) ropinirole HCl [From Requip] Adverse Reaction (Severe, Verified 03/11/20 22:51) BODY SWELLING Past Medical History - Social History Frequency of alcohol use: None Drug Abuse: None - Past Medical History Cardiac Medical History: Reports: Hx Coronary Artery Disease, Hx Hypercholesterolemia, Hx Hypertension - DIET CONTROLLED Denies: Hx Congestive Heart Failure, Hx Heart Attack Pulmonary Medical History: Denies: Hx Asthma, Hx Bronchitis, Hx COPD, Hx Pneumonia Neurological Medical History: Reports: Hx Migraine. Denies: Hx Cerebrovascular Accident, Hx Seizures Endocrine Medical History: Reports: Hx Diabetes Mellitus Type 2, Hx Hypothyroidism Renal/ Medical History: Denies: Hx Peritoneal Dialysis GI Medical History: Reports: Hx Gastroesophageal Reflux Disease, Hx Pancreatitis. Denies: Hx Hepatitis, Hx Hiatal Hernia, Hx Ulcer Musculoskeltal Medical History: Reports Hx Arthritis Psychiatric Medical History: Reports: Hx Anxiety, Hx Depression Infectious Medical History: Denies: Hx Hepatitis Past Surgical History: Reports: Hx Cholecystectomy, Hx Gastric Bypass Surgery - SLEEVE, Hx Genitourinary Surgery - bladder prolapse, Hx Hysterectomy, Hx Orthopedic Surgery - toe, shoulder, elbow, bilat feet, Other - Gastric Sleeve. Denies: Hx Mastectomy, Hx Open Heart Surgery, Hx Pacemaker - Immunizations Immunizations up to date: Yes Hx Diphtheria, Pertussis, Tetanus Vaccination: Yes Physical Exam - Vital signs Vitals: Temp Pulse Resp BP Pulse Ox 98 F 82 16 150/102 H 98 04/30/20 10:49 04/30/20 10:49 04/30/20 10:49 04/30/20 10:49 04/30/20 10:49 - Abdominal Inspection: Obese Tenderness: Tender - Epigastric tenderness Course - Vital Signs Vital signs: Temp Pulse Resp BP Pulse Ox 98 F 82 16 150/102 H 98 04/30/20 10:49 04/30/20 10:49 04/30/20 10:49 04/30/20 10:49 04/30/20 10:49 Doctor's Discharge - Discharge Referrals: EVANS DUARTE MD [Primary Care Provider] - Follow up as needed
[2020-04-30 12:32] LABS: ABSOLUTE EOSINOPHILS # (AUTO) 0.1 10^3/uL (0.0-0.6); ABSOLUTE LYMPHOCYTES (AUTO) 1.7 10^3/uL (0.5-4.7); ABSOLUTE MONOCYTES (AUTO) 0.3 10^3/uL (0.1-1.4); ABSOLUTE NEUT (AUTO) 4.6 10^3/uL (1.7-8.2); BASOPHILS % (AUTO) 0.5 % (0-2); EOSINOPHILS % (AUTO) 1.1 % (0-6); HEMATOCRIT 37.6 % (36.0-47.0); HEMOGLOBIN 12.6 g/dL (12.0-15.5); LYMPHOCYTES % (AUTO) 25.3 % (13-45); MEAN CORPUSCULAR HEMOGLOBIN 26.7 pg (27.0-33.4); MEAN CORPUSCULAR HGB CONC 33.4 g/dL (32.0-36.0); MEAN CORPUSCULAR VOLUME 80 fl (80-97); MONOCYTES % (AUTO) 4.8 % (3-13); PLATELET COUNT 323 10^3/uL (150-450); RED CELL DISTRIBUTION WIDTH 14.5 % (11.5-14.0); SEGMENTED NEUTROPHILS % (AUTO) 68.3 % (42-78); TOTAL CELLS COUNTED % (AUTO) 100 %; WHITE BLOOD COUNT 6.7 10^3/uL (4.0-10.5)
[2020-04-30 12:56] LABS: ALBUMIN 4.2 g/dL (3.5-5.0); ALKALINE PHOSPHATASE 111 U/L (38-126); AMYLASE 182 U/L (30-110); ANION GAP 10 (5-19); ASPARTATE AMINO TRANSFERASE 19 U/L (14-36); BILIRUBIN,DIRECT 0.3 mg/dL (0.0-0.4); BILIRUBIN,TOTAL 0.5 mg/dL (0.2-1.3); BLOOD UREA NITROGEN 9 mg/dL (7-20); CALCIUM 9.6 mg/dL (8.4-10.2); CARBON DIOXIDE 29 mmol/L (22-30); CHLORIDE 100 mmol/L (98-107); GLUCOSE 124 mg/dL (75-110); POTASSIUM 4.1 mmol/L (3.6-5.0); TOTAL PROTEIN 6.5 g/dL (6.3-8.2)
[2020-04-30] MEDS ORDERED: HYDROMORPHONE HCL INJ/PF 2 MG/ML AMPULE IV ONE ×2 (13:20→15:36)
[2020-04-30] MEDS ORDERED: ONDANSETRON HCL INJ/PF 4 MG/2 ML SDV IV ONE (13:20)
--- NOTE | 2020-04-30 13:21 | ER Document Report ---
ED GI/ - General Chief Complaint: Nausea/Vomiting Stated Complaint: NAUSEA,VOMITING,DIARRHEA Time Seen by Provider: 04/30/20 10:46 Primary Care Provider: EVANS DUARTE MD [Primary Care Provider] - Follow up as needed Notes: CHIEF COMPLAINT: Abdominal pain with nausea for 1 week HPI: 55-year-old female with history of pancreatitis presenting for 1 week of epigastric abdominal pain with nausea no fever she states pain is similar to prior episodes of pancreatitis. States she was admitted to the hospital [place] because of [place]itis. States that she does have a pancreatic stent. Patient states that she was in [place] a week ago for endoscopy does not specifically know her results. ROS: See HPI - all other systems were reviewed and are otherwise negative Constitutional: no fever Eyes: no drainage, no blurred vision ENT: no runny nose, no sore throat Cardiovascular: no chest pain Resp: no SOB, no cough GI: no vomiting, no diarrhea, + abdominal pain, positive nausea : no dysuria Integumentary: no rash Allergy: no hives Musculoskeletal: no extremity pain or swelling Neurological: no numbness/tingling, no weakness MEDICATIONS: I agree with the patient medications as charted by the RN. ALLERGIES: I agree with the allergies as charted by the RN. PAST MEDICAL HISTORY/PAST SURGICAL HISTORY: Reviewed and agree as charted by RN. SOCIAL HISTORY: Reviewed and agree as charted by RN. FAMILY HISTORY: No significant familial comorbid conditions directly related to patient complaint EXAM: Reviewed vital signs as charted by RN. CONSTITUTIONAL: Alert and oriented and responds appropriately to questions. Well-appearing; well-nourished HEAD: Normocephalic; atraumatic EYES: PERRL; Conjunctivae clear, sclerae non-icteric ENT: normal nose; no rhinorrhea; moist mucous membranes; pharynx without lesions noted, no uvula edema or deviation, no tonsillar hypertrophy, phonation normal NECK: Supple without meningismus; non-tender; no cervical lymphadenopathy, no masses CARD: RRR; no murmurs, no clicks, no rubs, no gallops; symmetric distal pulses RESP: Normal chest excursion without splinting or tachypnea; breath sounds clear and equal bilaterally; no wheezes, no rhonchi, no rales, pulse oximetry 98% on room air not hypoxic ABD/GI: Normal bowel sounds; non-distended; soft, mild tenderness to the epigastric region of the abdomen on palpation, no rebound, no guarding; no palpable organomegaly or masses. BACK: The back appears normal and is non-tender to palpation, there is no CVA tenderness EXT: Normal ROM in all joints; non-tender to palpation; no cyanosis, no effusions, no edema SKIN: Normal color for age and race; warm; dry; good turgor; no acute lesions noted NEURO: Moves all extremities equally; Motor and sensory function intact PSYCH: The patient's mood and manner are appropriate. Grooming and personal hygiene are appropriate. MDM: 55-year-old female with pancreatitis history presenting with epigastric pain similar to her previous episodes of pancreatitis. Patient has a lipase greater than 2400. Normal WBC count. Will discuss with her PCP regarding ad mission for pancreatitis. TRAVEL OUTSIDE OF THE [place] IN LAST 30 DAYS: No - Related Data Allergies/Adverse Reactions: naproxen [Naproxen] Allergy (Severe, Verified 03/11/20 22:51) Facial swelling liraglutide [From Victoza] Allergy (Verified 03/11/20 22:51) sitagliptin [From Januvia] Allergy (Verified 03/11/20 22:51) valsartan [From Diovan] Allergy (Verified 03/11/20 22:51) ropinirole HCl [From Requip] Adverse Reaction (Severe, Verified 03/11/20 22:51) BODY SWELLING Past Medical History - General Information source: Patient - Social History Smoking Status: Unknown if Ever Smoked Frequency of alcohol use: None Drug Abuse: None Family History: Reviewed & Not Pertinent, DM, Hypertension - Past Medical History Cardiac Medical History: Reports: Hx Coronary Artery Disease, Hx Hypercholesterolemia, Hx Hypertension - DIET CONTROLLED Denies: Hx Congestive Heart Failure, Hx Heart Attack Pulmonary Medical History: Denies: Hx Asthma, Hx Bronchitis, Hx COPD, Hx Pneumonia Neurological Medical History: Reports: Hx Migraine. Denies: Hx Cerebrovascular Accident, Hx Seizures Endocrine Medical History: Reports: Hx Diabetes Mellitus Type 2, Hx Hypothyroidism Renal/ Medical History: Denies: Hx Peritoneal Dialysis GI Medical History: Reports: Hx Gastroesophageal Reflux Disease, Hx Pancreatitis. Denies: Hx Hepatitis, Hx Hiatal Hernia, Hx Ulcer Musculoskeletal Medical History: Reports Hx Arthritis Psychiatric Medical History: Reports: Hx Anxiety, Hx Depression Infectious Medical History: Denies: Hx Hepatitis Past Surgical History: Reports: Hx Cholecystectomy, Hx Gastric Bypass Surgery - SLEEVE, Hx Genitourinary Surgery - bladder prolapse, Hx Hysterectomy, Hx Orthopedic Surgery - toe, shoulder, elbow, bilat feet, Other - Gastric Sleeve. Denies: Hx Mastectomy, Hx Open Heart Surgery, Hx Pacemaker - Immunizations Immunizations up to date: Yes Hx Diphtheria, Pertussis, Tetanus Vaccination: Yes Hx Pneumococcal Vaccination: 05/24/10 Physical Exam - Vital signs Vitals: Temp Pulse Resp BP Pulse Ox 98 F 82 16 150/102 H 98 04/30/20 10:49 04/30/20 10:49 04/30/20 10:49 04/30/20 10:49 04/30/20 10:49 Course - Re-evaluation Re-evalutation: 04/30/20 13:[address] Young, attending 04/30/20 16:[address] Palomo, Gastroenterology. He is ablated with the patient. Believes the patient can be treated as a straight pancreatitis. We did review labs and CT imaging. CT imaging suggest pancreatitis as does her lipase and clinical presentation 04/30/20 16:[address] Duarte, PCP. Case discussed, labs/imaging discussed. admit to medical floor, NPO - Vital Signs Vital signs: Temp Pulse Resp BP Pulse Ox 98 F 77 16 141/89 H 99 04/30/20 10:49 04/30/20 15:27 04/30/20 15:27 04/30/20 15:27 04/30/20 15:27 - Laboratory Result Diagrams: 04/30/20 12:10 04/30/20 12:10 Laboratory results interpreted by me: 04/30/20 04/30/20 04/30/20 12:10 12:10 15:50 MCH 26.7 L RDW 14.5 H Glucose 124 H Amylase 182 H Lipase 2455.1 H Urine Glucose (UA) >=500 H Ur Leukocyte Esterase SMALL H Urine Ascorbic Acid 40 H Discharge - Discharge Clinical Impression: Acute recurrent pancreatitis Condition: Stable Disposition: ADMITTED INPATIENT Admitting Provider: Ainsley Unit Admitted: Medical Floor Referrals: EVANS DUARTE MD [Primary Care Provider] - Follow up as needed
[2020-04-30] MEDS ORDERED: NORMAL SALINE 1000 ML 1,000 ML IV ONE (13:35)
--- NOTE | 2020-04-30 16:34 | RADIOLOGY REPORT (SQ) ---
EXAM DESCRIPTION: CT ABD/PELVIS WITH IV ORAL IMAGES COMPLETED DATE/TIME: 04/30/2020 4:20 pm REASON FOR STUDY: pancreatitis, hx gastric sleeve COMPARISON: 07/01/2019. TECHNIQUE: CT scan of the abdomen and pelvis performed with intravenous and oral contrast using therese jamshid scanning technique with dynamic intravenous contrast injection. Images reviewed with lung, soft t issue, and bone windows. Reconstructed coronal and sagittal MPR images reviewed. Delayed images for e valuation of the urinary system also acquired. All images stored on PACS. All CT scanners at this facility use dose modulation, iterative reconstruction, and/or weight based d osing when appropriate to reduce radiation dose to as low as reasonably achievable (ALARA). [facility]: Dose Right [facility]: CareDose [facility]: Dose Right [facility]: Teradose 4D [facility]: Napartner CONTRAST TYPE AND DOSE: contrast/concentration: Isovue 350.00 mmol/ml; Total Contrast Delivered: 93. 0 ml; Total Saline Delivered: 71.0 ml RENAL FUNCTION: GFR > 60. RADIATION DOSE: CT Rad equipment meets quality standard of care and radiation dose reduction techniq ues were employed. CTDIvol: 9.4 - 13.2 mGy. DLP: 1249 mGy-cm. . LIMITATIONS: None. FINDINGS: LOWER CHEST: No significant findings. No nodules or infiltrates. LIVER: Normal size. Pneumobilia. Common bile duct stent. No masses. No dilated ducts. SPLEEN: Normal size. No focal lesions. PANCREAS: Stranding of the fat surrounding the head and uncinate process. No ductal dilatation. No pseudocyst or pseudoaneurysm. GALLBLADDER: Surgically absent. ADRENAL GLANDS: No significant masses or asymmetry. RIGHT KIDNEY AND URETER: No solid masses. No significant calcifications. No hydronephrosis or hyd roureter. LEFT KIDNEY AND URETER: No solid masses. No significant calcifications. No hydronephrosis or hydr oureter. AORTA AND VESSELS: No aneurysm. No dissection. Renal arteries, SMA, celiac without stenosis. RETROPERITONEUM: No retroperitoneal adenopathy, hemorrhage or masses. BOWEL AND PERITONEAL CAVITY: Prior gastric bypass. No obstruction. No visualized masses. No free flu id. No inflammatory changes or thickening of bowel wall. APPENDIX: Not visualized. PELVIS: No significant masses. Normal bladder. No free fluid. ABDOMINAL WALL: No masses. No hernias. BONES: No significant or acute findings. OTHER: No other significant finding. IMPRESSION: Inflammatory changes surrounding the pancreatic head and uncinate process consistent wit h clinical history of acute pancreatitis. TECHNICAL DOCUMENTATION: JOB ID: [id number] Quality ID # [id number]: Final reports with documentation of one or more dose reduction techniques (e.g., Au tomated exposure control, adjustment of the mA and/or kV according to patient size, use of iterative reconstruction technique) 2010 [employer]- All Rights Reserved Reading location - IP[facility]workstation name: [email or web address]
[2020-04-30 16:46] LABS: APPEARANCE,URINE SLIGHTLY-CLOUDY; BILIRUBIN,URINE NEGATIVE (NEGATIVE); COLOR,URINE YELLOW; GLUCOSE, URINE >=500 mg/dL (NEGATIVE); KETONES,URINE NEGATIVE (NEGATIVE); LEUKOCYTE ESTERASE,URINE SMALL (NEGATIVE); NITRITE,URINE NEGATIVE (NEGATIVE); PROTEIN,URINE NEGATIVE (NEGATIVE); URINE SPECIFIC GRAVITY 1.024; UROBILINOGEN,URINE NEGATIVE mg/dL (<2.0)
--- NOTE | 2020-04-30 17:16 | ER Document Report ---
Doctor's Note Notes: 04/30/20 17:12 This is a relatively complicated 55-year-old female with abdominal pain I was asked to see along with nurse practitioner. I have reviewed the patient's entire chart. I have obtained supplemental history and performed brief examination at the bedside personally. This is a 55-year-old lady who had previous gastric sleeve surgery more than 5 years ago also has had previous cholecystectomy who has had multiple hospitalizations for recurrent episodes of pancreatitis. She has had a previous ERCP within the last [address] Palomo and previously had a pancreatic duct stent placed. She is back in today with nausea vomiting and epigastric pain of several days' duration. Patient is afebrile and hemodynamically stable. She has lipase level in excess of 2000. She has prominent epigastric tenderness. CT abdomen pelvis was obtained showed swelling in the pancreatic head with inflammatory changes co nsistent with acute pancreatitis. Impression: Acute pancreatitis/recurrent I suggested telephone consultation with Dr. Palomo and with her primary care physician. PMD agrees to admit and GI will see the patient again for consultation.
[2020-04-30] MEDS ORDERED: GLUCAGON,HUMAN RECOMB 1 MG INJ SUBCUT PRN (19:05)
[2020-04-30] MEDS ORDERED: DEXTROSE 40% GEL 15 GM TUBE PO PRN ×2 (19:05)
[2020-04-30] MEDS ORDERED: DEXTROSE 50%-WATER 25 GM/50 ML DISP.SYRIN IV PRN ×2 (19:05)
--- NOTE | 2020-04-30 19:22 | EKG REPORT ---
SEVERITY:- NORMAL ECG - SINUS RHYTHM : Confirmed by: Shelbie Meier MD 30-Apr-2020 19:21:45
[2020-04-30] MEDS: HYDROMORPHONE HCL INJ/PF 2 MG/ML AMPULE IV PRN ×2 (19:37→23:39)
[2020-04-30] MEDS: ONDANSETRON HCL INJ/PF 4 MG/2 ML SDV IV PRN (19:43)
[2020-04-30] MEDS: FAMOTIDINE INJ/PF 20 MG/2 ML SDV IV SCH (21:52)
[2020-04-30] MEDS: TRAZODONE HCL 50 MG TABLET PO SCH (21:52)
[2020-04-30] MEDS: INSULIN LISPRO 100 UNIT/ML 3 ML VIAL SUBCUT SCH (22:22)
[2020-04-30] MEDS: NORMAL SALINE 1000 ML 1,000 ML IV PRN (23:26)
[2020-05-01] MEDS: HYDROMORPHONE HCL INJ/PF 2 MG/ML AMPULE IV PRN ×5 (04:45→21:17)
[2020-05-01 05:46] LABS: ABSOLUTE EOSINOPHILS # (AUTO) 0.1 10^3/uL (0.0-0.6); ABSOLUTE MONOCYTES (AUTO) 0.4 10^3/uL (0.1-1.4); ABSOLUTE NEUT (AUTO) 3.3 10^3/uL (1.7-8.2); BASOPHILS % (AUTO) 0.6 % (0-2); EOSINOPHILS % (AUTO) 1.1 % (0-6); HEMATOCRIT 33.3 % (36.0-47.0); HEMOGLOBIN 11.1 g/dL (12.0-15.5); LYMPHOCYTES % (AUTO) 34.4 % (13-45); MEAN CORPUSCULAR HEMOGLOBIN 26.4 pg (27.0-33.4); MEAN CORPUSCULAR HGB CONC 33.5 g/dL (32.0-36.0); MEAN CORPUSCULAR VOLUME 79 fl (80-97); MONOCYTES % (AUTO) 6.2 % (3-13); PLATELET COUNT 281 10^3/uL (150-450); RED BLOOD COUNT 4.21 10^6/uL (3.72-5.28); SEGMENTED NEUTROPHILS % (AUTO) 57.7 % (42-78); TOTAL CELLS COUNTED % (AUTO) 100 %; WHITE BLOOD COUNT 5.8 10^3/uL (4.0-10.5)
[2020-05-01 06:10] LABS: ALBUMIN 3.4 g/dL (3.5-5.0); ALKALINE PHOSPHATASE 91 U/L (38-126); ANION GAP 7 (5-19); ASPARTATE AMINO TRANSFERASE 19 U/L (14-36); BILIRUBIN,DIRECT 0.2 mg/dL (0.0-0.4); BILIRUBIN,TOTAL 0.5 mg/dL (0.2-1.3); BLOOD UREA NITROGEN 8 mg/dL (7-20); CALCIUM 8.7 mg/dL (8.4-10.2); CARBON DIOXIDE 29 mmol/L (22-30); CHLORIDE 104 mmol/L (98-107); CHOLESTEROL 103.19 mg/dL (0-200); POTASSIUM 3.8 mmol/L (3.6-5.0); TOTAL PROTEIN 5.3 g/dL (6.3-8.2); TRIGLYCERIDES 156 mg/dL (<150)
[2020-05-01 06:21] LABS: DIRECT LDL 41 mg/dL (<100)
[2020-05-01 06:27] LABS: GLUCOSE 68 mg/dL (75-110); VLDL CHOLESTEROL 31.2 mg/dL (10-31)
[2020-05-01] MEDS: INSULIN LISPRO 100 UNIT/ML 3 ML VIAL SUBCUT SCH ×4 (07:21→23:08)
[2020-05-01] MEDS: ONDANSETRON HCL INJ/PF 4 MG/2 ML SDV IV PRN ×4 (08:46→21:17)
[2020-05-01] MEDS: NORMAL SALINE 1000 ML 1,000 ML IV PRN ×2 (08:47→21:17)
--- NOTE | 2020-05-01 09:43 | PDOC H&P ---
History of Present Illness Admission Date/PCP: 04/30/20 16:54 EVANS DUARTE Patient complains of: Nausea, Vomiting, Diarrhea History of Present Illness: LUIS ANGEL DIOR is a 55 year old female patient known to my practice who presented to the ED with 1 one week duration abdominal pain and associated nausea, vomiting, and diarrhea. Patient had endoscopic ultrasound evaluation about 1 week ago for her recurrent pancreatitis. She reported no significant findings. She reported compliance with her medications, dietary and lifestyle restrictions. She localized pain to LUQ and epigastric region.She denied any chest pain, difficulty with breathing, fever or chills. No headache or dizziness. There are prior admissions for acute pancreatitis and prior ductal stent placement. Her initial ED evaluation was significant for her abdominal pain and elevated serum lipase level. She was advised hospitalization. Her morbidities are as listed below. Past Medical History Cardiac Medical History: Reports: Coronary Artery Disease, Hyperlipidema, Hypertension - DIET CONTROLLED Denies: Congestive Heart Failure, Myocardial Infarction Pulmonary Medical History: Denies: Asthma, Bronchitis, Chronic Obstructive Pulmonary Disease (COPD), Pneumonia Neurological Medical History: Reports: Migraine Denies: Seizures Endocrine Medical History: Reports: Diabetes Mellitus Type 2, Hypothyroidism GI Medical History: Reports: Gastroesophageal Reflux Disease Denies: Hepatitis, Hiatal Hernia Musculoskeltal Medical History: Reports: Arthritis Psychiatric Medical History: Reports: Depression Hematology: Reports: Anemia - ON IRON PILLS Denies: Sickle Cell Disease Past Surgical History Past Surgical History: Reports: Cholecystectomy, Gastric Bypass Surgery - SLEEVE, Hysterectomy, Orthopedic Surgery - toe, shoulder, elbow, bilat feet, Other - Gastric Sleeve Denies: Amputation, Mastectomy, Pacemaker Social History Smoking Status: Unknown if Ever Smoked Frequency of Alcohol Use: None Hx Recreational Drug Use: Yes Drugs: Marijuana Hx Prescription Drug Abuse: No Family History Family History: Reviewed & Not Pertinent, DM, Hypertension Parental Family History Reviewed: Yes Children Family History Reviewed: Yes Sibling(s) Family History Reviewed.: Yes Medication/Allergy Home Medications: Dapagliflozin Propanediol [Farxiga] 10 mg PO QAM 03/18/20 Escitalopram Oxalate [Lexapro] 20 mg PO QAM 03/18/20 Gabapentin [Neurontin] 300 mg PO DAILYP PRN 03/18/20 Levothyroxine Sodium [Synthroid 0.05 mg Tablet] 0.05 mg PO Q6AM 03/18/20 Metformin HCl [Glucophage] 1,000 mg PO BID 03/18/20 Montelukast Sodium [Singulair 10 mg Tablet] 10 mg PO QAM 03/18/20 Omeprazole 40 mg PO QAM 03/18/20 Oxycodone HCl/Acetaminophen [Percocet 7.5-325 mg Tablet] 1 tab PO Q6HP PRN 03/18/20 Pramipexole Di-HCl [Mirapex 0.5 mg Tablet] 0.5 mg PO QHS 03/18/20 Rosuvastatin Calcium [Crestor] 10 mg PO QAM 03/18/20 Trazodone HCl 100 mg PO QHS 03/18/20 Insulin Detemir [Levemir Insulin 100 units/mL Insulin Pen] 35 unit SUBCUT BIDACBS #10 pe 03/24/20 Apidra Insulin 0 units SQ .PERSLIDINGSCALE 04/30/20 Gabapentin [Neurontin] 600 mg PO Q8 04/30/20 Multivitamin/Folic Acid/Biotin [Hair, Skin and Nails Tablet] 1 tab PO DAILY 04/30/20 Naloxegol Oxalate [Movantik 25 mg Tablet] 25 mg PO QAM 04/30/20 [place]-3/Dha/Epa/Fish Oil [Fish Oil 1,000 mg Softgel] 1,000 mg PO QAM 04/30/20 Ondansetron [Zofran Odt 4 mg Tablet] 4 mg PO Q4HP PRN 04/30/20 Allergies/Adverse Reactions: naproxen [Naproxen] Allergy (Severe, Verified 03/11/20 22:51) Facial swelling liraglutide [From Victoza] Allergy (Verified 03/11/20 22:51) sitagliptin [From Januvia] Allergy (Verified 03/11/20 22:51) valsartan [From Diovan] Allergy (Verified 03/11/20 22:51) ropinirole HCl [From Requip] Adverse Reaction (Severe, Verified 03/11/20 22:51) BODY SWELLING Review of Systems Constitutional: ABSENT: chills, fever(s), headache(s), weight gain, weight loss Eyes: ABSENT: visual disturbances Ears: ABSENT: hearing changes Cardiovascular: ABSENT: chest pain, dyspnea on exertion, edema, orthropnea, palpitations Respiratory: ABSENT: cough, hemoptysis Gastrointestinal: PRESENT: abdominal pain, diarrhea, nausea, vomiting. ABSENT: constipation, hematemesis, hematochezia Genitourinary: ABSENT: dysuria, hematuria Musculoskeletal: ABSENT: joint swelling Integumentary: ABSENT: rash, wounds Neurological: ABSENT: abnormal gait, abnormal speech, confusion, dizziness, fo jamshid weakness, syncope Psychiatric: ABSENT: anxiety, depression, homidical ideation, suicidal ideation Endocrine: ABSENT: cold intolerance, heat intolerance, menstrual abnormalities, polydipsia, polyuria Hematologic/Lymphatic: ABSENT: easy bleeding, easy bruising, lymphadenopathy Physical Exam Vital Signs: Temp Pulse Resp BP Pulse Ox 98 F 82 16 105/67 98 04/30/20 10:49 04/30/20 17:43 04/30/20 15:27 04/30/20 17:43 04/30/20 17:43 Intake & Output 04/29/20 04/30/20 05/01/20 06:59 06:59 06:59 Weight 81.2 kg General appearance: PRESENT: no acute distress, well-developed, well-nourished Head exam: PRESENT: atraumatic, normocephalic Eye exam: PRESENT: conjunctiva pink, EOMI, PERRLA. ABSENT: scleral icterus Ear exam: PRESENT: normal external ear exam Mouth exam: PRESENT: moist, tongue midline Neck exam: PRESENT: full ROM. ABSENT: carotid bruit, JVD, lymphadenopathy, thyromegaly Respiratory exam: PRESENT: clear to auscultation manuel Cardiovascular exam: PRESENT: RRR, +S1, +S2. ABSENT: diastolic murmur, rubs, systolic murmur Vascular exam: PRESENT: pallor GI/Abdominal exam: PRESENT: normal bowel sounds, rebound, soft, tenderness - LUQ to deep palpation. ABSENT: distended, guarding, mass, organolmegaly Rectal exam: PRESENT: deferred Extremities exam: ABSENT: pedal edema Musculoskeletal exam: PRESENT: normal inspection. ABSENT: tenderness Neurological exam: PRESENT: alert, awake, oriented to person, oriented to place, oriented to time, oriented to situation, CN II-XII grossly intact. ABSENT: motor sensory deficit Psychiatric exam: PRESENT: appropriate affect, normal mood. ABSENT: homicidal ideation, suicidal ideation Skin exam: PRESENT: dry, intact, warm. ABSENT: cyanosis, rash Results Laboratory Results: 04/30/20 12:10 04/30/20 12:10 04/30/20 04/30/20 04/30/20 12:10 12:10 15:50 WBC 6.7 RBC 4.70 Hgb 12.6 Hct 37.6 MCV 80 MCH 26.7 L MCHC 33.4 RDW 14.5 H Plt Count 323 Seg Neutrophils % 68.3 Sodium 139.1 Potassium 4.1 Chloride 100 Carbon Dioxide 29 Anion Gap 10 BUN 9 Creatinine 0.66 Est GFR ( Amer) > 60 Glucose 124 H Calcium 9.6 Total Bilirubin 0.5 AST 19 Alkaline Phosphatase 111 Total Protein 6.5 Albumin 4.2 Amylase 182 H Lipase 2455.1 H Urine Color YELLOW Urine Appearance SLIGHTLY-CLOUDY Urine pH 5.0 Ur Specific [place] 1.024 Urine Protein NEGATIVE Urine Glucose (UA) >=500 H Urine Ketones NEGATIVE Urine Blood NEGATIVE Urine Nitrite NEGATIVE Ur Leukocyte Esterase SMALL H Urine WBC (Auto) 12 Urine RBC (Auto) 1 Impressions: Abdomen/Pelvis CT 04/30/20 00:00 IMPRESSION: Inflammatory changes surrounding the pancreatic head and uncinate process consistent with clinical history of acute pancreatitis. Assessment & Plan - Diagnosis (1) Recurrent acute pancreatitis Is this a current diagnosis for this admission?: Yes Plan: See admitting attending physician orders for details about care plan. (2) Diabetes mellitus type 2 in nonobese Is this a current diagnosis for this admission?: Yes Plan: See admitting attending physician orders for details about care plan. (3) HTN (hypertension) Qualifiers: Hypertension type: essential hypertension Qualified Code(s): I10 - Essential (primary) hypertension Is this a current diagnosis for this admission?: Yes Plan: See admitting attending physician orders for details about care plan. (4) HLD (hyperlipidemia) Qualifiers: Hyperlipidemia type: unspecified Qualified Code(s): E78.5 - Hyperlipidemia, unspecified Is this a current diagnosis for this admission?: Yes Plan: See admitting attending physician orders for details about care plan. (5) GERD (gastroesophageal reflux disease) Qualifiers: Esophagitis presence: esophagitis presence not specified Qualified Code(s): K21.9 - Gastro-esophageal reflux disease without esophagitis Is this a current diagnosis for this admission?: Yes Plan: See admitting attending physician orders for details about care plan. - Time Time Spent: 50 to 70 Minutes Medications reviewed and adjusted accordingly: Yes Anticipated Discharge Disposition: Home, Self Care Anticipated Discharge Timeframe: within 72 hours - Inpatient Certification Based on my medical assessment, after consideration of the patient's comorbidities, presenting symptoms, or acuity I expect that the services needed warrant INPATIENT care.: Yes I certify that my determination is in accordance with my understanding of Medicare's requirements for reasonable and necessary INPATIENT services [42 CFR 412.3e].: Yes Medical Necessity: Significant Comorbidiites Make Outpatient Treatment Too Risky, Need Close Monitoring Due to Risk of Patient Decompensation, Need For IV Fluids, Need for Pain Control, Risk of Complication if Not Cared For in Hospital, Risk of Diagnosis Which Will Require Inpatient Eval/Care/Monitoring Post Hospital Care: D/C Membership Sales Advisor Documentation - Plan Summary Plan Summary: See admitting attending physician orders for details about care plan.
[2020-05-01] MEDS: FAMOTIDINE INJ/PF 20 MG/2 ML SDV IV SCH ×2 (10:31→21:17)
[2020-05-01] MEDS: ENOXAPARIN SODIUM INJ 40 MG/0.4 ML DISP.SYRIN SUBCUT SCH (10:31)
[2020-05-01] MEDS: LEVOTHYROXINE SODIUM 0.05 MG TABLET PO SCH (10:31)
--- NOTE | 2020-05-01 14:58 | PDOC PROGRESS REPORT ---
Subjective Progress Note for:: 05/01/20 Subjective:: Abdominal pain improving. No nausea, vomiting or diarrhea since admission. Patient reported itching with Dilaudid and medication not lasting 4 hours. No chest pain or difficulty with breathing. No fever or chills. Reason For Visit: ACUTE RECURRENT PANCREATITIS,DIABETES MELLITUS Physical Exam Vital Signs: Temp Pulse Resp BP Pulse Ox 98.2 F 70 14 105/59 L 95 05/01/20 08:36 04/30/20 23:54 04/30/20 23:54 04/30/20 23:54 04/30/20 23:54 Intake & Output 04/30/20 05/01/20 05/02/20 06:59 06:59 06:59 Intake Total 1000 935 Balance 1000 935 Weight 78.2 kg General appearance: PRESENT: no acute distress Head exam: PRESENT: atraumatic, normocephalic Eye exam: PRESENT: conjunctiva pink. ABSENT: scleral icterus Mouth exam: PRESENT: moist Respiratory exam: PRESENT: clear to auscultation manuel Cardiovascular exam: PRESENT: RRR, +S1, +S2. ABSENT: diastolic murmur, rubs, systolic murmur Vascular exam: ABSENT: pallor GI/Abdominal exam: PRESENT: normal bowel sounds, soft, tenderness. ABSENT: distended, guarding, mass, organolmegaly, rebound Extremities exam: ABSENT: pedal edema Neurological exam: PRESENT: alert, awake, oriented to person, oriented to place, oriented to time, oriented to situation, CN II-XII grossly intact. ABSENT: motor sensory deficit Psychiatric exam: PRESENT: appropriate affect, normal mood. ABSENT: homicidal ideation, suicidal ideation Skin exam: PRESENT: dry, warm Results Laboratory Results: 05/01/20 04:41 05/01/20 04:41 04/30/20 05/01/20 05/01/20 15:50 04:41 04:41 WBC 5.8 RBC 4.21 Hgb 11.1 L Hct 33.3 L MCV 79 L MCH 26.4 L MCHC 33.5 RDW 15.0 H Plt Count 281 Seg Neutrophils % 57.7 Sodium 139.8 Potassium 3.8 Chloride 104 Carbon Dioxide 29 Anion Gap 7 BUN 8 Creatinine 0.61 Est GFR ( Amer) > 60 Glucose 68 L Calcium 8.7 Total Bilirubin 0.5 AST 19 Alkaline Phosphatase 91 Total Protein 5.3 L Albumin 3.4 L Triglycerides 156 H Cholesterol 103.19 LDL Cholesterol Direct 41 VLDL Cholesterol 31.2 H HDL Cholesterol 42 Lipase 1177.7 H Urine Color YELLOW Urine Appearance SLIGHTLY-CLOUDY Urine pH 5.0 Ur Specific [place] 1.024 Urine Protein NEGATIVE Urine Glucose (UA) >=500 H Urine Ketones NEGATIVE Urine Blood NEGATIVE Urine Nitrite NEGATIVE Ur Leukocyte Esterase SMALL H Urine WBC (Auto) 12 Urine RBC (Auto) 1 Impressions: Abdomen/Pelvis CT 04/30/20 00:00 IMPRESSION: Inflammatory changes surrounding the pancreatic head and uncinate process consistent with clinical history of acute pancreatitis. Assessment & Plan - Diagnosis (1) Recurrent acute pancreatitis Is this a current diagnosis for this admission?: Yes (2) Diabetes mellitus type 2 in nonobese Is this a current diagnosis for this admission?: Yes (3) HTN (hypertension) Qualifiers: Hypertension type: essential hypertension Qualified Code(s): I10 - Essential (primary) hypertension Is this a current diagnosis for this admission?: Yes (4) HLD (hyperlipidemia) Qualifiers: Hyperlipidemia type: unspecified Qualified Code(s): E78.5 - Hyperlipidemia, unspecified Is this a current diagnosis for this admission?: Yes (5) GERD (gastroesophageal reflux disease) Qualifiers: Esophagitis presence: esophagitis presence not specified Qualified Code(s): K21.9 - Gastro-esophageal reflux disease without esophagitis Is this a current diagnosis for this admission?: Yes - Time Time Spent with patient: 25-34 minutes Level of Care: MEDICAL Medications reviewed and adjusted accordingly: Yes Anticipated discharge: Home Anticipated DC Timeframe: within 72 hours - Inpatient Certification Based on my medical assessment, after consideration of the patient's comorbidities, presenting symptoms, or acuity I expect that the services needed warrant INPATIENT care.: Yes I certify that my determination is in accordance with my understanding of Medicare's requirements for reasonable and necessary INPATIENT services [42 CFR 412.3e].: Yes Medical Necessity: Significant Comorbidiites Make Outpatient Treatment Too Risky, Need Close Monitoring Due to Risk of Patient Decompensation, Need For IV Fluids, Need for Pain Control, Risk of Complication if Not Cared For in Hospital, Risk of Diagnosis Which Will Require Inpatient Eval/Care/Monitoring Post Hospital Care: D/C Health Promotion Educator Documentation - Plan Summary Plan Summary: Continue current medication management. Start on Benadryl 12.5 mg IV q 6 hours prn for pruritus management.
[2020-05-01] MEDS: DIPHENHYDRAMINE HCL 50 MG/ML VIAL IV PRN (16:59)
[2020-05-01] MEDS: TRAZODONE HCL 50 MG TABLET PO SCH (21:17)
[2020-05-02] MEDS: HYDROMORPHONE HCL INJ/PF 2 MG/ML AMPULE IV PRN ×6 (01:05→21:10)
[2020-05-02] MEDS: DIPHENHYDRAMINE HCL 50 MG/ML VIAL IV PRN ×4 (01:05→21:10)
[2020-05-02] MEDS: ONDANSETRON HCL INJ/PF 4 MG/2 ML SDV IV PRN ×3 (01:05→17:02)
[2020-05-02] MEDS: LEVOTHYROXINE SODIUM 0.05 MG TABLET PO SCH (05:07)
[2020-05-02] MEDS: INSULIN LISPRO 100 UNIT/ML 3 ML VIAL SUBCUT SCH ×3 (07:55→16:45)
[2020-05-02] MEDS: FAMOTIDINE INJ/PF 20 MG/2 ML SDV IV SCH ×2 (09:11→21:10)
[2020-05-02] MEDS: ENOXAPARIN SODIUM INJ 40 MG/0.4 ML DISP.SYRIN SUBCUT SCH (09:12)
[2020-05-02] MEDS: NORMAL SALINE 1000 ML 1,000 ML IV PRN ×2 (10:34→19:30)
--- NOTE | 2020-05-02 14:09 | PDOC PROGRESS REPORT ---
Subjective Progress Note for:: 05/02/20 Subjective:: She has recurrent pancreatitis, presently n.p.o. Reason For Visit: ACUTE RECURRENT PANCREATITIS,DIABETES MELLITUS Physical Exam Vital Signs: Temp Pulse Resp BP Pulse Ox 97.5 F 76 18 108/66 100 05/02/20 10:00 05/02/20 07:16 05/02/20 07:16 05/02/20 07:16 05/02/20 07:16 Intake & Output 05/01/20 05/02/20 05/03/20 06:59 06:59 06:59 Intake Total 1000 1935 1000 Balance 1000 1935 1000 Weight 78.2 kg 83.4 kg General appearance: PRESENT: no acute distress Eye exam: PRESENT: PERRLA Respiratory exam: PRESENT: clear to auscultation manuel Cardiovascular exam: PRESENT: +S1, +S2 GI/Abdominal exam: PRESENT: soft Neurological exam: PRESENT: alert Results Laboratory Results: 05/01/20 04:41 05/01/20 04:41 Impressions: Abdomen/Pelvis CT 04/30/20 00:00 IMPRESSION: Inflammatory changes surrounding the pancreatic head and uncinate p rocess consistent with clinical history of acute pancreatitis. Assessment & Plan - Diagnosis (1) Recurrent acute pancreatitis Is this a current diagnosis for this admission?: Yes Plan: Start clear liquid diet, continue pain control with Dilaudid - Time Time Spent with patient: 35 or more minutes Level of Care: MEDICAL Medications reviewed and adjusted accordingly: Yes Anticipated discharge: Home Anticipated DC Timeframe: within 72 hours
[2020-05-02] MEDS: TRAZODONE HCL 50 MG TABLET PO SCH (21:10)
[2020-05-03] MEDS: INSULIN LISPRO 100 UNIT/ML 3 ML VIAL SUBCUT SCH ×5 (00:34→21:08)
[2020-05-03] MEDS: HYDROMORPHONE HCL INJ/PF 2 MG/ML AMPULE IV PRN ×6 (01:04→21:04)
[2020-05-03] MEDS: LEVOTHYROXINE SODIUM 0.05 MG TABLET PO SCH (05:18)
[2020-05-03] MEDS: ONDANSETRON HCL INJ/PF 4 MG/2 ML SDV IV PRN ×4 (05:18→17:19)
[2020-05-03] MEDS: DIPHENHYDRAMINE HCL 50 MG/ML VIAL IV PRN ×3 (05:18→17:19)
[2020-05-03] MEDS: ENOXAPARIN SODIUM INJ 40 MG/0.4 ML DISP.SYRIN SUBCUT SCH (09:10)
[2020-05-03] MEDS: FAMOTIDINE INJ/PF 20 MG/2 ML SDV IV SCH ×2 (09:11→21:04)
[2020-05-03] MEDS: NORMAL SALINE 1000 ML 1,000 ML IV PRN ×2 (10:32→17:24)
--- NOTE | 2020-05-03 13:55 | PDOC PROGRESS REPORT ---
Subjective Progress Note for:: 05/03/20 Subjective:: She has recurrent pancreatitis, Reason For Visit: ACUTE RECURRENT PANCREATITIS,DIABETES MELLITUS Physical Exam Vital Signs: Temp Pulse Resp BP Pulse Ox 98.7 F 71 12 109/64 98 05/03/20 11:16 05/03/20 11:16 05/03/20 11:16 05/03/20 11:16 05/03/20 11:16 Intake & Output 05/02/20 05/03/20 05/04/20 06:59 06:59 06:59 Intake Total 1935 3153 Balance 1935 3153 Weight 83.4 kg 80 kg General appearance: PRESENT: no acute distress Eye exam: PRESENT: PERRLA Respiratory exam: PRESENT: clear to auscultation manuel Cardiovascular exam: PRESENT: +S1, +S2 Results Laboratory Results: 05/01/20 04:41 05/01/20 04:41 05/03/20 05:14 Lipase 735.2 H Impressions: Abdomen/Pelvis CT 04/30/20 00:00 IMPRESSION: Inflammatory changes surrounding the pancreatic head and uncinate process consistent with clinical history of acute pancreatitis. Assessment & Plan - Diagnosis (1) Recurrent acute pancreatitis Is this a current diagnosis for this admission?: Yes Plan: continue clear liquid diet, continue pain control with Dilaudid - Time Time Spent with patient: 25-34 minutes Level of Care: MEDICAL Medications reviewed and adjusted accordingly: Yes Anticipated discharge: Home Anticipated DC Timeframe: within 72 hours
[2020-05-03] MEDS: TRAZODONE HCL 50 MG TABLET PO SCH (21:04)
[2020-05-04] MEDS: DIPHENHYDRAMINE HCL 50 MG/ML VIAL IV PRN ×3 (03:25→20:50)
[2020-05-04] MEDS: HYDROMORPHONE HCL INJ/PF 2 MG/ML AMPULE IV PRN ×5 (03:26→20:43)
[2020-05-04] MEDS: NORMAL SALINE 1000 ML 1,000 ML IV PRN ×2 (03:28→12:30)
[2020-05-04] MEDS: LEVOTHYROXINE SODIUM 0.05 MG TABLET PO SCH (05:01)
[2020-05-04] MEDS: INSULIN LISPRO 100 UNIT/ML 3 ML VIAL SUBCUT SCH ×4 (08:08→21:31)
[2020-05-04] MEDS: ONDANSETRON HCL INJ/PF 4 MG/2 ML SDV IV PRN ×4 (08:18→21:01)
[2020-05-04] MEDS: ENOXAPARIN SODIUM INJ 40 MG/0.4 ML DISP.SYRIN SUBCUT SCH (09:06)
[2020-05-04] MEDS: FAMOTIDINE INJ/PF 20 MG/2 ML SDV IV SCH ×2 (09:06→21:01)
--- NOTE | 2020-05-04 20:34 | PDOC PROGRESS REPORT ---
Subjective Progress Note for:: 05/04/20 Subjective:: Patient reported recurrent abdominal pain with eating. No nausea, vomiting or diarrhea. No chest pain or difficulty with breathing. No fever or chills. Reason For Visit: ACUTE RECURRENT PANCREATITIS,DIABETES MELLITUS Physical Exam Vital Signs: Temp Pulse Resp BP Pulse Ox 98.5 F 86 12 128/67 H 99 05/04/20 11:34 05/04/20 11:34 05/04/20 11:34 05/04/20 11:34 05/04/20 11:34 Intake & Output 05/03/20 05/04/20 05/05/20 06:59 06:59 06:59 Intake Total 3153 1687 1103 Balance 3153 1687 1103 Weight 80 kg 79.9 kg Physical Exam: General appearance: PRESENT: no acute distress Head exam: PRESENT: atraumatic, normocephalic Eye exam: PRESENT: conjunctiva pink. ABSENT: pallor, scleral icterus Mouth exam: PRESENT: moist Respiratory exam: PRESENT: clear to auscultation manuel Cardiovascular exam: PRESENT: RRR, +S1, +S2. ABSENT: diastolic murmur, rubs, systolic murmur GI/Abdominal exam: PRESENT: normal bowel sounds, soft, tenderness. ABSENT: distended, guarding, mass, organomegaly, rebound Extremities exam: ABSENT: pedal edema Neurological exam: PRESENT: alert, awake, oriented to person, oriented to place, oriented to time, oriented to situation, CN II-XII grossly intact. ABSENT: motor sensory deficit Psychiatric exam: PRESENT: appropriate affect, normal mood. ABSENT: homicidal ideation, suicidal ideation Skin exam: PRESENT: dry, warm Results Laboratory Results: 05/01/20 04:41 05/01/20 04:41 05/04/20 06:00 Lipase 728.3 H Impressions: Abdomen/Pelvis CT 04/30/20 00:00 IMPRESSION: Inflammatory changes surrounding the pancreatic head and uncinate process consistent with clinical history of acute pancreatitis. Assessment & Plan - Diagnosis (1) Recurrent acute pancreatitis Is this a current diagnosis for this admission?: Yes (2) Diabetes mellitus type 2 in nonobese Is this a current diagnosis for this admission?: Yes (3) HTN (hypertension) Qualifiers: Hypertension type: essential hypertension Qualified Code(s): I10 - Essential (primary) hypertension Is this a current diagnosis for this admission?: Yes (4) HLD (hyperlipidemia) Qualifiers: Hyperlipidemia type: unspecified Qualified Code(s): E78.5 - Hyperlipidemia, unspecified Is this a current diagnosis for this admission?: Yes (5) GERD (gastroesophageal reflux disease) Qualifiers: Esophagitis presence: esophagitis presence not specified Qualified Code(s): K21.9 - Gastro-esophageal reflux disease without esophagitis Is this a current diagnosis for this admission?: Yes - Time Time Spent with patient: 25-34 minutes Level of Care: MEDICAL Medications reviewed and adjusted accordingly: Yes Anticipated discharge: Home Anticipated DC Timeframe: within 72 hours - Inpatient Certification Based on my medical assessment, after consideration of the patient's comorbidities, presenting symptoms, or acuity I expect that the services needed warrant INPATIENT care.: Yes I certify that my determination is in accordance with my understanding of Medicare's requirements for reasonable and necessary INPATIENT services [42 CFR 412.3e].: Yes Medical Necessity: Significant Comorbidiites Make Outpatient Treatment Too Risky, Need Close Monitoring Due to Risk of Patient Decompensation, Need For IV Fluids, Need for Pain Control, Risk of Complication if Not Cared For in Hospital, Risk of Diagnosis Which Will Require Inpatient Eval/Care/Monitoring Post Hospital Care: D/C Derrick Operator Documentation - Plan Summary Plan Summary: Change diet to clear liquid. Maintain on all other current medication management. Encouraged ambulation on the floor during this bedside evaluation.
[2020-05-04] MEDS: TRAZODONE HCL 50 MG TABLET PO SCH (21:01)
[2020-05-04] MEDS: DOCUSATE SODIUM 100 MG CAPSULE PO SCH (21:38)
[2020-05-05] MEDS: HYDROMORPHONE HCL INJ/PF 2 MG/ML AMPULE IV PRN ×6 (01:00→23:54)
[2020-05-05] MEDS: ONDANSETRON HCL INJ/PF 4 MG/2 ML SDV IV PRN ×4 (01:07→20:05)
[2020-05-05] MEDS: NORMAL SALINE 1000 ML 1,000 ML IV PRN ×3 (01:07→22:18)
[2020-05-05] MEDS: LEVOTHYROXINE SODIUM 0.05 MG TABLET PO SCH (05:19)
[2020-05-05] MEDS: DIPHENHYDRAMINE HCL 50 MG/ML VIAL IV PRN ×3 (05:20→21:42)
[2020-05-05] MEDS: INSULIN LISPRO 100 UNIT/ML 3 ML VIAL SUBCUT SCH ×4 (08:29→22:15)
[2020-05-05 08:59] LABS: ANION GAP 12 (5-19); BLOOD UREA NITROGEN 2 mg/dL (7-20); CALCIUM 8.5 mg/dL (8.4-10.2); CARBON DIOXIDE 19 mmol/L (22-30); CHLORIDE 109 mmol/L (98-107); GLUCOSE 154 mg/dL (75-110)
[2020-05-05] MEDS: DOCUSATE SODIUM 100 MG CAPSULE PO SCH ×2 (10:25→22:17)
[2020-05-05] MEDS: ENOXAPARIN SODIUM INJ 40 MG/0.4 ML DISP.SYRIN SUBCUT SCH (10:26)
[2020-05-05] MEDS: FAMOTIDINE INJ/PF 20 MG/2 ML SDV IV SCH ×2 (10:26→22:17)
[2020-05-05] MEDS: TRAZODONE HCL 50 MG TABLET PO SCH (22:17)
[2020-05-06] MEDS: LEVOTHYROXINE SODIUM 0.05 MG TABLET PO SCH (06:18)
[2020-05-06] MEDS ORDERED: HYDROMORPHONE HCL INJ/PF 2 MG/ML AMPULE ONE (06:27)
[2020-05-06] MEDS: HYDROMORPHONE HCL INJ/PF 2 MG/ML AMPULE IV PRN ×3 (06:35→15:33)
[2020-05-06] MEDS: DIPHENHYDRAMINE HCL 50 MG/ML VIAL IV PRN ×2 (07:39→15:35)
[2020-05-06] MEDS: NORMAL SALINE 1000 ML 1,000 ML IV PRN (07:40)
--- NOTE | 2020-05-06 09:41 | PDOC PROGRESS REPORT ---
Subjective Progress Note for:: 05/05/20 Subjective:: Patient remain on clear liquid diet. Less abdominal pain so far today. No nausea, vomiting or diarrhea. Patient reported issue with constipation but currently on liquid diet and opiate pain medication management. No chest pain or difficulty with breathing. No fever or chills. Reason For Visit: ACUTE RECURRENT PANCREATITIS,DIABETES MELLITUS Physical Exam Vital Signs: Temp Pulse Resp BP Pulse Ox 97.9 F 71 16 104/68 100 05/05/20 08:41 05/05/20 07:18 05/05/20 07:18 05/05/20 07:18 05/05/20 07:18 Intake & Output 05/04/20 05/05/20 05/06/20 06:59 06:59 06:59 Intake Total 1687 2949 1240 Balance 1687 2949 1240 Weight 79.9 kg 82.3 kg Physical Exam: General appearance: PRESENT: no acute distress Head exam: PRESENT: atraumatic, normocephalic Eye exam: PRESENT: conjunctiva pink. ABSENT: pallor, scleral icterus Mouth exam: PRESENT: moist Respiratory exam: PRESENT: clear to auscultation manuel Cardiovascular exam: PRESENT: RRR, +S1, +S2. ABSENT: diastolic murmur, rubs, systolic murmur GI/Abdominal exam: PRESENT: normal bowel sounds, soft, tenderness. ABSENT: distended, guarding, mass, organomegaly, rebound Extremities exam: ABSENT: pedal edema Neurological exam: PRESENT: alert, awake, oriented to person, oriented to place, oriented to time, oriented to situation, CN II-XII grossly intact. ABSENT: m otor sensory deficit Psychiatric exam: PRESENT: appropriate affect, normal mood. ABSENT: homicidal ideation, suicidal ideation Skin exam: PRESENT: dry, warm Results Laboratory Results: 05/01/20 04:41 05/05/20 07:45 05/05/20 07:45 Sodium 139.5 Potassium 4.0 Chloride 109 H Carbon Dioxide 19 L Anion Gap 12 BUN 2 L Creatinine 0.54 Est GFR ( Amer) > 60 Glucose 154 H Calcium 8.5 Lipase 453.3 H Impressions: Abdomen/Pelvis CT 04/30/20 00:00 IMPRESSION: Inflammatory changes surrounding the pancreatic head and uncinate process consistent with clinical history of acute pancreatitis. Assessment & Plan - Diagnosis (1) Recurrent acute pancreatitis Is this a current diagnosis for this admission?: Yes (2) Diabetes mellitus type 2 in nonobese Is this a current diagnosis for this admission?: Yes (3) HTN (hypertension) Qualifiers: Hypertension type: essential hypertension Qualified Code(s): I10 - Essential (primary) hypertension Is this a current diagnosis for this admission?: Yes (4) HLD (hyperlipidemia) Qualifiers: Hyperlipidemia type: unspecified Qualified Code(s): E78.5 - Hyperlipidemia, unspecified Is this a current diagnosis for this admission?: Yes (5) GERD (gastroesophageal reflux disease) Qualifiers: Esophagitis presence: esophagitis presence not specified Qualified Code(s): K21.9 - Gastro-esophageal reflux disease without esophagitis Is this a current diagnosis for this admission?: Yes - Time Time Spent with patient: 25-34 minutes Level of Care: MEDICAL Medications reviewed and adjusted accordingly: Yes Anticipated discharge: Home Anticipated DC Timeframe: within 72 hours - Inpatient Certification Based on my medical assessment, after consideration of the patient's comorbidities, presenting symptoms, or acuity I expect that the services needed warrant INPATIENT care.: Yes I certify that my determination is in accordance with my understanding of Medicare's requirements for reasonable and necessary INPATIENT services [42 CFR 412.3e].: Yes Medical Necessity: Significant Comorbidiites Make Outpatient Treatment Too Risky, Need Close Monitoring Due to Risk of Patient Decompensation, Need For IV Fluids, Need for Pain Control, Risk of Complication if Not Cared For in Hospital, Risk of Diagnosis Which Will Require Inpatient Eval/Care/Monitoring Post Hospital Care: D/C Solution 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 Possible advance in diet tomorrow with improvement in her serum lipase level.
[2020-05-06] MEDS: DOCUSATE SODIUM 100 MG CAPSULE PO SCH (09:48)
[2020-05-06] MEDS: INSULIN LISPRO 100 UNIT/ML 3 ML VIAL SUBCUT SCH ×3 (09:48→16:43)
[2020-05-06] MEDS: FAMOTIDINE INJ/PF 20 MG/2 ML SDV IV SCH (09:48)
[2020-05-06] MEDS: ENOXAPARIN SODIUM INJ 40 MG/0.4 ML DISP.SYRIN SUBCUT SCH (09:50)
[2020-05-06] MEDS: ONDANSETRON HCL INJ/PF 4 MG/2 ML SDV IV PRN ×2 (10:59→15:34)
[2020-05-06] MEDS ORDERED: POLYETHYLENE GLYCOL 3350 POWDER 17 GM/1 PACKET PO ONE (13:00)
[2020-05-06 16:09] VITALS: BP 110/74
--- NOTE | 2020-05-07 17:58 | PDOC DISCHARGE SUMMARY ---
Impression - Admit/DC Date/PCP Admission Date/Primary Care Provider: 04/30/20 16:54 EVANS DUARTE Discharge Date: 05/06/20 - Discharge Diagnosis (1) Recurrent acute pancreatitis Is this a current diagnosis for this admission?: Yes (2) Diabetes mellitus type 2 in nonobese Is this a current diagnosis for this admission?: Yes (3) HTN (hypertension) Is this a current diagnosis for this admission?: Yes (4) HLD (hyperlipidemia) Is this a current diagnosis for this admission?: Yes (5) GERD (gastroesophageal reflux disease) Is this a current diagnosis for this admission?: Yes - Assessment Summary: Patient was admitted for recurrent acute pancreatitis. She was managed with IV fluid support pain medication and maintain NPO status until downward trend in her serum Lipase level. She was eventually started on oral feeding and discharge home on clear liquid diet to advance gradually. She will resume her preadmission medication and follow up in the office as instructed upon discharge. - Additional Information Resuscitation Status: Full Code Discharge Diet: As Tolerated, Cardiac, Diabetic, Clear Liquids, Full Liquids Discharge Activity: Activity As Tolerated Referrals: EVANS DUARTE MD [Primary Care Provider] - 05/11/20 10:00 am Prescriptions: Docusate Sodium [Colace 100 mg Capsule] 200 mg PO QHS #60 capsule Polyethylene Glycol 3350 [Miralax Powder 17 gm/Packet] 1 packet PO BID #60 pkg Home Medications: Dapagliflozin Propanediol [Farxiga] 10 mg PO QAM 03/18/20 Escitalopram Oxalate [Lexapro] 20 mg PO QAM 03/18/20 Gabapentin [Neurontin] 300 mg PO DAILYP PRN 03/18/20 Levothyroxine Sodium [Synthroid 0.05 mg Tablet] 0.05 mg PO Q6AM 03/18/20 Metformin HCl [Glucophage] 1,000 mg PO BID 03/18/20 Montelukast Sodium [Singulair 10 mg Tablet] 10 mg PO QAM 03/18/20 Omeprazole 40 mg PO QAM 03/18/20 Oxycodone HCl/Acetaminophen [Percocet 7.5-325 mg Tablet] 1 tab PO Q6HP PRN 03/18/20 Pramipexole Di-HCl [Mirapex 0.5 mg Tablet] 0.5 mg PO QHS 03/18/20 Rosuvastatin Calcium [Crestor] 10 mg PO QAM 03/18/20 Trazodone HCl 100 mg PO QHS 03/18/20 Insulin Detemir [Levemir Insulin 100 units/mL Insulin Pen] 35 unit SUBCUT BIDACBS #10 pe 03/24/20 Apidra Insulin 0 units SQ .PERSLIDINGSCALE 04/30/20 Gabapentin [Neurontin] 600 mg PO Q8 04/30/20 Multivitamin/Folic Acid/Biotin [Hair, Skin and Nails Tablet] 1 tab PO DAILY 04/30/20 Naloxegol Oxalate [Movantik 25 mg Tablet] 25 mg PO QAM 04/30/20 [place]-3/Dha/Epa/Fish Oil [Fish Oil 1,000 mg Softgel] 1,000 mg PO QAM 04/30/20 Ondansetron [Zofran Odt 4 mg Tablet] 4 mg PO Q4HP PRN 04/30/20 Docusate Sodium [Colace 100 mg Capsule] 200 mg PO QHS #60 capsule 05/06/20 Polyethylene Glycol 3350 [Miralax Powder 17 gm/Packet] 1 packet PO BID #60 pkg 05/06/20 History of Present Illiness History of Present Illness: LUIS ANGEL DIOR is a 55 year old female patient known to my practice who presented to the ED with 1 one week duration abdominal pain and associated nausea, vomiting, and diarrhea. Patient had endoscopic ultrasound evaluation about 1 week ago for her recurrent pancreatitis. She reported no significant findings. She reported compliance with her medications, dietary and lifestyle restrictions. She localized pain to left upper quadrant and epigastric region.She denied any chest pain, difficulty with breathing, fever or chills. No headache or dizziness. There are prior admissions for acute pancreatitis and prior ductal stent placement. Her initial ED evaluation was significant for her abdominal pain and elevated serum lipase level. She was advised hospitalization. Her morbidities are as listed below. Hospital Course Hospital Course: Patient was admitted for recurrent acute pancreatitis. She was managed with IV fluid support pain medication and maintain NPO status until downward trend in her serum Lipase level. She was eventually started on oral feeding and discharge home on clear liquid diet to advance gradually. She will resume her preadmission medication and follow up in the office as instructed upon discharge. Physical Exam Vital Signs: Temp Pulse Resp BP Pulse Ox 97.5 F 75 16 110/74 98 05/06/20 16:00 05/06/20 16:00 05/06/20 16:00 05/06/20 16:00 05/06/20 16:00 Intake & Output 05/05/20 05/06/20 05/07/20 06:59 06:59 06:59 Intake Total 2949 2940 1237 Output Total 2100 Balance 2949 840 1237 Weight 82.3 kg 80 kg General appearance: PRESENT: no acute distress Head exam: PRESENT: atraumatic, normocephalic Eye exam: PRESENT: conjunctiva pink. ABSENT: pallor, scleral icterus Mouth exam: PRESENT: moist Respiratory exam: PRESENT: clear to auscultation manuel Cardiovascular exam: PRESENT: RRR, +S1, +S2. ABSENT: diastolic murmur, rubs, systolic murmur GI/Abdominal exam: PRESENT: normal bowel sounds, soft. ABSENT: distended, tenderness, guarding, mass, organomegaly, rebound Extremities exam: ABSENT: pedal edema Neurological exam: PRESENT: alert, awake, oriented to person, oriented to place, oriented to time, oriented to situation, CN II-XII grossly intact. ABSENT: motor sensory deficit Psychiatric exam: PRESENT: appropriate affect, normal mood. ABSENT: homicidal ideation, suicidal ideation Skin exam: PRESENT: dry, warm. Results Laboratory Results: WBC 5.8 10^3/uL (4.0-10.5) 05/01/20 04:41 RBC 4.21 10^6/uL (3.72-5.28) 05/01/20 04:41 Hgb 11.1 g/dL (12.0-15.5) L 05/01/20 04:41 Hct 33.3 % (36.0-47.0) L 05/01/20 04:41 MCV 79 fl (80-97) L 05/01/20 04:41 MCH 26.4 pg (27.0-33.4) L 05/01/20 04:41 MCHC 33.5 g/dL (32.0-36.0) 05/01/20 04:41 RDW 15.0 % (11.5-14.0) H 05/01/20 04:41 Plt Count 281 10^3/uL (150-450) 05/01/20 04:41 Lymph % (Auto) 34.4 % (13-45) 05/01/20 04:41 [place] % (Auto) 6.2 % (3-13) 05/01/20 04:41 Eos % (Auto) 1.1 % (0-6) 05/01/20 04:41 Baso % (Auto) 0.6 % (0-2) 05/01/20 04:41 Absolute Neuts (auto) 3.3 10^3/uL (1.7-8.2) 05/01/20 04:41 Absolute Lymphs (auto) 2.0 10^3/uL (0.5-4.7) 05/01/20 04:41 Absolute Monos (auto) 0.4 10^3/uL (0.1-1.4) 05/01/20 04:41 Absolute Eos (auto) 0.1 10^3/uL (0.0-0.6) 05/01/20 04:41 Absolute Basos (auto) 0.0 10^3/uL (0.0-0.2) 05/01/20 04:41 Seg Neutrophils % 57.7 % (42-78) 05/01/20 04:41 Sodium 139.5 mmol/L (137-145) 05/05/20 07:45 Potassium 4.0 mmol/L (3.6-5.0) 05/05/20 07:45 Chloride 109 mmol/L (98-107) H 05/05/20 07:45 Carbon Dioxide 19 mmol/L (22-30) L 05/05/20 07:45 Anion Gap 12 (5-19) 05/05/20 07:45 BUN 2 mg/dL (7-20) L 05/05/20 07:45 Creatinine 0.54 mg/dL (0.52-1.25) 05/05/20 07:45 Est GFR ( Amer) > 60 (>60) 05/05/20 07:45 Est GFR (MDRD) Non-Af > 60 (>60) 05/05/20 07:45 Glucose 154 mg/dL (75-110) H 05/05/20 07:45 POC Glucose 149 mg/dL (70-110) H 05/06/20 15:56 Hemoglobin A1c % 9.3 % (4.7-6.0) H 05/01/20 04:41 Calcium 8.5 mg/dL (8.4-10.2) 05/05/20 07:45 Total Bilirubin 0.5 mg/dL (0.2-1.3) 05/01/20 04:41 Direct Bilirubin 0.2 mg/dL (0.0-0.4) 05/01/20 04:41 Neonat Total Bilirubin Not Reportable 05/01/20 04:41 Neonat Direct Bilirubin Not Reportable 05/01/20 04:41 Neonat Indirect Bili Not Reportable 05/01/20 04:41 AST 19 U/L (14-36) 05/01/20 04:41 ALT 12 U/L (<35) 05/01/20 04:41 Alkaline Phosphatase 91 U/L (38-126) 05/01/20 04:41 Total Protein 5.3 g/dL (6.3-8.2) L 05/01/20 04:41 Albumin 3.4 g/dL (3.5-5.0) L 05/01/20 04:41 Triglycerides 156 mg/dL (<150) H 05/01/20 04:41 Cholesterol 103.19 mg/dL (0-200) 05/01/20 04:41 LDL Cholesterol Direct 41 mg/dL (<100) 05/01/20 04:41 VLDL Cholesterol 31.2 mg/dL (10-31) H 05/01/20 04:41 HDL Cholesterol 42 mg/dL (>40) 05/01/20 04:41 Amylase 182 U/L (30-110) H 04/30/20 12:10 Lipase 579.5 U/L (23-300) H 05/06/20 07:33 Urine Color YELLOW 04/30/20 15:50 Urine Appearance SLIGHTLY-CLOUDY 04/30/20 15:50 Urine pH 5.0 (5.0-9.0) 04/30/20 15:50 Ur Specific [place] 1.024 04/30/20 15:50 Urine Protein NEGATIVE mg/dL (NEGATIVE) 04/30/20 15:50 Urine Glucose (UA) >=500 mg/dL (NEGATIVE) H 04/30/20 15:50 Urine Ketones NEGATIVE mg/dL (NEGATIVE) 04/30/20 15:50 Urine Blood NEGATIVE (NEGATIVE) 04/30/20 15:50 Urine Nitrite NEGATIVE (NEGATIVE) 04/30/20 15:50 Urine Bilirubin NEGATIVE (NEGATIVE) 04/30/20 15:50 Urine Urobilinogen NEGATIVE mg/dL (<2.0) 04/30/20 15:50 Ur Leukocyte Esterase SMALL (NEGATIVE) H 04/30/20 15:50 Urine WBC (Auto) 12 /HPF 04/30/20 15:50 Urine RBC (Auto) 1 /HPF 04/30/20 15:50 Squamous Epi Cells Auto 2 /HPF 04/30/20 15:50 U Non-Squamous Epis Auto 1 /HPF 04/30/20 15:50 Urine Mucus (Auto) RARE /LPF 04/30/20 15:50 Urine Ascorbic Acid 40 (NEGATIVE) H 04/30/20 15:50 Impressions: Abdomen/Pelvis CT 04/30/20 00:00 IMPRESSION: Inflammatory changes surrounding the pancreatic head and uncinate process consistent with clinical history of acute pancreatitis. Plan Health Concerns: High readmission risk due to her recurrent pancreatitis. Plan of Treatment: Continue gastroenterology input and close follow up. Goals: Reduce readmission rate and resource utilization. Time Spent: Less than 30 Minutes Stroke Is this a Stroke Patient?: No Acute Heart Failure Is this a Heart Failure Patient?: No
== END 2020-05-06 18:51 | disposition home or self-care (01) | DRG 440 ==
LOC: ER 10:39 → EH 16:54 → 4N 20:01 → 2N 05-04 23:18
PROVIDERS: ADMIT Internal Medicine Geriatric Medicine; ATTEND Internal Medicine Geriatric Medicine
DX: K85.90 Acute pancreatitis without necrosis or infection, unspecified (principal); I10 Essential (primary) hypertension; E11.9 Type 2 diabetes mellitus without complications; E78.5 Hyperlipidemia, unspecified; K21.9 Gastro-esophageal reflux disease without esophagitis; I25.10 Atherosclerotic heart disease of native coronary artery without angina pectoris; E03.9 Hypothyroidism, unspecified; M19.90 Unspecified osteoarthritis, unspecified site; Z98.84 Bariatric surgery status; Z90.49 Acquired absence of other specified parts of digestive tract; Z88.8 Allergy status to other drugs, medicaments and biological substances; Z79.84 Long term (current) use of oral hypoglycemic drugs; Z79.899 Other long term (current) drug therapy
CPT/HCPCS: 36415; 74177; 80048; 80053; 80061; 81001; 82150; 82962; 83036; 83690; 85025; 93005; 93010; 96361; 96374; 96375; 96376; 99285; J1170; J1200; J1650; J1815; J2405; J3490; J7030; S0028

== ENCOUNTER 2020-08-06 15:42 | Emergency (ER) | payer MEDICARE, MEDICAID ==
[2020-08-06] MEDS ORDERED: HYDROCODONE/ACETAMINOPHEN 5-325 MG TABLET PO ONE (17:04)
--- NOTE | 2020-08-06 17:07 | ER Document Report ---
ED Medical Screen (RME) - General Chief Complaint: Toe Injury Stated Complaint: POSSIBLE BROKEN TOE Time Seen by Provider: 08/06/20 16:55 Primary Care Provider: EVANS DUARTE MD [Primary Care Provider] - Follow up as needed TRAVEL OUTSIDE OF THE [place] IN LAST 30 DAYS: No - HPI Notes: 08/06/20 17:05 Rapid Medical Exam HPI: 35-year-old female presents to the ER complaining of left foot pain since a trip and fall just prior to arrival. Patient was drywall and tripped as she walked down the stairs falling forward. She is unable to describe exact mechanism of injuring the foot whether this was a inversion or rolling her foot. She has an obvious deformity to great toe Physical Exam: GENERAL: Well-appearing, well-nourished and in no acute distress. HEAD: Atraumatic, normocephalic. ENT: Moist mucous membranes. RESP: Respirations even and unlabored CV- Regular rate. NEURO: No focal neurological deficits. Moves all extremities spontaneously and on command. msk- left foot- obvious deformity of that first toe. To this suspect this is a distal metacarpal fracture versus dislocation, toe is oriented dorsally/laterally. No open wounds. Cap refill less than 3 seconds. Sensory intact. Pedal pulse 2+. Mild pain to the lateral foot My involvement in this patients care was limited to a rapid initial assessment. A comprehensive ED assessment and evaluation of the patient, analysis of test results, treatment, and completion of the medical decision making process will be performed by other ER providers. - Related Data Allergies/Adverse Reactions: naproxen [Naproxen] Allergy (Severe, Verified 03/11/20 22:51) Facial swelling liraglutide [From Victoza] Allergy (Verified 03/11/20 22:51) sitagliptin [From Januvia] Allergy (Verified 03/11/20 22:51) valsartan [From Diovan] Allergy (Verified 03/11/20 22:51) ropinirole HCl [From Requip] Adverse Reaction (Severe, Verified 03/11/20 22:51) BODY SWELLING Past Medical History - Social History Frequency of alcohol use: None Drug Abuse: None - Past Medical History Cardiac Medical History: Reports: Hx Coronary Artery Disease, Hx Hypercholesterolemia, Hx Hypertension - DIET CONTROLLED Denies: Hx Congestive Heart Failure, Hx Heart Attack Pulmonary Medical History: Denies: Hx Asthma, Hx Bronchitis, Hx COPD, Hx Pneumonia Neurological Medical History: Reports: Hx Migraine. Denies: Hx Cerebrovascular Accident, Hx Seizures Endocrine Medical History: Reports: Hx Diabetes Mellitus Type 2, Hx Hypothyroidism Renal/ Medical History: Denies: Hx Peritoneal Dialysis GI Medical History: Reports: Hx Gastroesophageal Reflux Disease, Hx Pancreatitis. Denies: Hx Hepatitis, Hx Hiatal Hernia, Hx Ulcer Musculoskeltal Medical History: Reports Hx Arthritis Psychiatric Medical History: Reports: Hx Anxiety, Hx Depression Infectious Medical History: Denies: Hx Hepatitis Past Surgical History: Reports: Hx Cholecystectomy, Hx Gastric Bypass Surgery - SLEEVE, Hx Genitourinary Surgery - bladder prolapse, Hx Hysterectomy, Hx Orthopedic Surgery - toe, shoulder, elbow, bilat feet, Other - Gastric Sleeve. Denies: Hx Mastectomy, Hx Open Heart Surgery, Hx Pacemaker - Immunizations Immunizations up to date: Yes Hx Diphtheria, Pertussis, Tetanus Vaccination: Yes Physical Exam - Vital signs Vitals: Temp Pulse Resp BP Pulse Ox 98.1 F 83 16 125/80 99 08/06/20 15:56 08/06/20 15:56 08/06/20 15:56 08/06/20 15:56 08/06/20 15:56 Course - Vital Signs Vital signs: Temp Pulse Resp BP Pulse Ox 98.1 F 83 16 125/80 99 08/06/20 15:56 08/06/20 15:56 08/06/20 15:56 08/06/20 15:56 08/06/20 15:56 Doctor's Discharge - Discharge Referrals: EVANS DUARTE MD [Primary Care Provider] - Follow up as needed
--- NOTE | 2020-08-06 17:57 | RADIOLOGY REPORT (SQ) ---
EXAM DESCRIPTION: FOOT RIGHT COMPLETE IMAGES COMPLETED DATE/TIME: 08/06/2020 5:29 pm REASON FOR STUDY: trauma- 1st toe deformity COMPARISON: None. NUMBER OF VIEWS: Three views. TECHNIQUE: AP, lateral and oblique radiographic images acquired of the right foot. LIMITATIONS: None. FINDINGS: MINERALIZATION: Normal. BONES: No acute fracture or dislocation. No worrisome bone lesions. JOINTS: There is subluxation of the 1st metatarsal-phalangeal joint. SOFT TISSUES: No soft tissue swelling. No foreign body. OTHER: No other significant finding. IMPRESSION: Subluxation of the 1st metatarsal-phalangeal joint. No fracture is appreciated. TECHNICAL DOCUMENTATION: JOB ID: [id number] 2010 [employer]- All Rights Reserved Reading location - IP/workstation name: [email or web address]
[2020-08-06] MEDS ORDERED: OXYCODONE-ACETAMINOPHEN 5-325 MG TABLET PO ONE ×2 (20:24→20:26)
[2020-08-06] MEDS ORDERED: MORPHINE SULFATE 10 MG/ML INJ IM ONE (20:55)
[2020-08-06] MEDS ORDERED: LIDOCAINE 1% INJ (10 MG/ML) 10 ML MDV INJ ONE (20:56)
--- NOTE | 2020-08-06 21:12 | ER Document Report ---
ED Extremity Problem, Lower - General Chief Complaint: Toe Injury Stated Complaint: POSSIBLE BROKEN TOE Time Seen by Provider: 08/06/20 16:55 Primary Care Provider: MARISABEL ESCAMILLA MD [ACTIVE STAFF] - Follow up as needed EVANS DUARTE MD [Primary Care Provider] - Follow up as needed TRAVEL OUTSIDE OF THE [place] IN LAST 30 DAYS: No - HPI Notes: Patient is a 55 y/o female with a hx of DM and hypothyroidism who presents with right great toe injury that occurred earlier this evening. Patient she fell off of her porch and landed on her right toe. She reports extreme pain to her right toe but denies any other injuries or complaints. - Related Data Allergies/Adverse Reactions: naproxen [Naproxen] Allergy (Severe, Verified 03/11/20 22:51) Facial swelling liraglutide [From Victoza] Allergy (Verified 03/11/20 22:51) sitagliptin [From Januvia] Allergy (Verified 03/11/20 22:51) valsartan [From Diovan] Allergy (Verified 03/11/20 22:51) ropinirole HCl [From Requip] Adverse Reaction (Severe, Verified 03/11/20 22:51) BODY SWELLING Past Medical History - General Information source: Patient - Social History Smoking Status: Never Smoker Frequency of alcohol use: None Drug Abuse: None Family History: Reviewed & Not Pertinent, DM, Hypertension Patient has homicidal ideation: No - Past Medical History Cardiac Medical History: Reports: Hx Coronary Artery Disease, Hx Hypercholesterolemia, Hx Hypertension - DIET CONTROLLED Denies: Hx Congestive Heart Failure, Hx Heart Attack Pulmonary Medical History: Denies: Hx Asthma, Hx Bronchitis, Hx COPD, Hx Pneumonia Neurological Medical History: Reports: Hx Migraine. Denies: Hx Cerebrovascular Accident, Hx Seizures Endocrine Medical History: Reports: Hx Diabetes Mellitus Type 2, Hx Hypothyroidism Renal/ Medical History: Denies: Hx Peritoneal Dialysis GI Medical History: Reports: Hx Gastroesophageal Reflux Disease, Hx Pancreatitis. Denies: Hx Hepatitis, Hx Hiatal Hernia, Hx Ulcer Musculoskeletal Medical History: Reports Hx Arthritis Psychiatric Medical History: Reports: Hx Anxiety, Hx Depression Infectious Medical History: Denies: Hx Hepatitis Past Surgical History: Reports: Hx Cholecystectomy, Hx Gastric Bypass Surgery - SLEEVE, Hx Genitourinary Surgery - bladder prolapse, Hx Hysterectomy, Hx Orthopedic Surgery - toe, shoulder, elbow, bilat feet, Other - Gastric Sleeve. Denies: Hx Mastectomy, Hx Open Heart Surgery, Hx Pacemaker - Immunizations Immunizations up to date: Yes Hx Diphtheria, Pertussis, Tetanus Vaccination: Yes Hx Pneumococcal Vaccination: 05/24/10 Review of Systems - Review of Systems Constitutional: No symptoms reported EENT: No symptoms reported Cardiovascular: No symptoms reported Respiratory: No symptoms reported Gastrointestinal: No symptoms reported Genitourinary: No symptoms reported Female Genitourinary: No symptoms reported Musculoskeletal: See HPI Skin: No symptoms reported Hematologic/Lymphatic: No symptoms reported Neurological/Psychological: No symptoms reported Physical Exam - Vital signs Vitals: Temp Pulse Resp BP Pulse Ox 98.1 F 83 16 125/80 99 08/06/20 15:56 08/06/20 15:56 08/06/20 15:56 08/06/20 15:56 08/06/20 15:56 - Notes Notes: PHYSICAL EXAMINATION: GENERAL: Well-appearing, well-nourished and in no acute distress. HEAD: Atraumatic, normocephalic. EYES: sclera anicteric, conjunctiva are normal. ENT: Moist mucous membranes. NECK: Normal range of motion LUNGS: Normal work of breathing HEART: 2+ radial pulses bilaterally EXTREMITIES: Obvious deformity to the right great toe. Toe is angulated dorsally/laterally. Good cap refill and perfusion to the right great toe. 2+ PT and DP pulses. Sensation grossly intact. Full ROM of all other toes. No pitting or edema. No cyanosis. NEUROLOGICAL: No focal neurological deficits. Moves all extremities spontaneously and on command. PSYCH: Normal mood, normal affect. SKIN: Warm, Dry, normal turgor, no rashes or lesions noted. Course - Re-evaluation Re-evalutation: Patient is a 55-year-old female who presents status post right great toe injury that occurred just prior to arrival. Vital signs are stable and within normal limits. On exam, obvious deformity to the right great toe. Toe is angulated dorsally/laterally. Right foot XR shows subluxation of the 1st metatarsal- phalangeal joint. No fracture is appreciated. Digital block performed using 1% lidocaine. Right great toe reduce successfully on the first attempt. Toe splinted and patient placed in a postop shoe. She was provided with crutches here in the ED. Patient instructed to follow-up with Ortho and referral given. Return precautions given. Patient will be discharged home. Patient understands and is in agreement with the plan. - Vital Signs Vital signs: Temp Pulse Resp BP Pulse Ox 98.6 F 80 20 138/80 H 100 08/06/20 23:16 08/06/20 23:16 08/06/20 23:16 08/06/20 23:16 08/06/20 23:16 - Laboratory Results Critical Laboratory Results Reviewed: No Critical Results - Radiology Results Radiology Results Interpreted: Foot X-Ray 08/06/20 17:04 IMPRESSION: Subluxation of the 1st metatarsal-phalangeal joint. No fracture is appreciated. Critical Radiology Results Reviewed: No Critical Results Procedures - Immobilization Right Foot Great toe Pre-Proc Neuro Vasc Exam: Normal Immobilizer type: Crutches, Finger splint (Static), Post-op shoe Performed by: Provider, KEMAR Post-Proc Neuro Vasc Exam: Normal - Joint Reduction/Fracture Care Right Foot Great toe Consent obtained: Yes Conscious sedation: No Pre-procedure NV exam: Yes Fracture: Other - subluxation Post-procedure NV exam: Yes Reduction attempts: 1 Complications: No Notes: Right toe anesthetized using a three-point digital block with 1% lidocaine. Manipulated the great toe anteriorly with lateral traction and was able to successfully reduce the joint. Subluxation was reduced after 1 attempt. Good cap refill and perfusion to the right great toe after reduction. Patient tolerated the procedure well with no complications. Discharge - Discharge Clinical Impression: Pain of right great toe Subluxation of metatarsophalangeal joint of great toe Qualifiers: Encounter type: initial encounter Laterality: right Qualified Code(s): S93.141A - Subluxation of metatarsophalangeal joint of right great toe, initial encounter Condition: Stable Disposition: HOME, SELF-CARE Additional Instructions: Follow up with Dr. Escamilla, orthopedic surgeon concerning your dislocated great toe. You can take 1-2 tablets of your percocet at home every 4-6 hours. Be sure to not exceed 4g of tylenol in a 24 hour period. Dislocation You have suffered a dislocation of your joint. It has been reduced (put back in place). It will take time for the tissues around the joint to heal. The joint will be immobilized at first. If possible, elevate the injured area and apply ice packs. After healing is underway, the joint will require [id number] and strengthening exercises. The follow-up care is important in avoiding residual problems following your dislocation. If you note any numbness, muscle weakness, or severe swelling in the affected area, call the doctor or return for re-evaluation at once. Forms: Return to Work Referrals: EVANS DUARTE MD [Primary Care Provider] - Follow up as needed MARISABEL ESCAMILLA MD [ACTIVE STAFF] - Follow up as needed
[2020-08-06] MEDS ORDERED: MORPHINE SULFATE 10 MG/ML INJ IV ONE (21:19)
[2020-08-06 23:17] VITALS: BP 138/80
== END 2020-08-06 23:18 | disposition home or self-care (01) ==
LOC: ER 15:42
DX: S93.141A Subluxation of metatarsophalangeal joint of right great toe, initial encounter (principal); W17.89XA Other fall from one level to another, initial encounter; E11.9 Type 2 diabetes mellitus without complications; I10 Essential (primary) hypertension; I25.10 Atherosclerotic heart disease of native coronary artery without angina pectoris; Z88.8 Allergy status to other drugs, medicaments and biological substances
CPT/HCPCS: 28635; 99284; 96374; 73630; J2270; A9270